=== PATIENT | male | born 1935 | race Caucasian/White ===

== ENCOUNTER 2024-06-30 14:16 | Inpatient (IN) | payer SELFPAY ==
--- NOTE | 2024-06-30 14:38 | ED ---
General Adult HPI - General Chief complaint: Shortness of Breath Stated complaint: diff breathing Time Seen by Provider: 06/30/24 14:20 Source: patient, family, RN notes reviewed, old records reviewed Mode of arrival: wheelchair Limitations: no limitations - History of Present Illness Initial comments: This is an 88-year-old male who presents to the emergency department the past medical history significant for congestive heart failure and diabetes. Patient states he has been in [place] since February and over the last week has had increased swelling to his legs and increased difficulty breathing. Patient states he got so bad yesterday that his granddaughter brought him home by car for 18 hours in the car. Patient states he still having shortness of breath and the swelling is continuing to get worse. Patient denies chest pain or palpitations. Patient [place] any fever chills or cough. Patient denies any abdominal pain patient has nausea vomiting diarrhea. - Related Data Home Medications Medication Instructions Recorded Confirmed Ascorbic Acid [Vitamin C] 1,000 mg PO DAILY 06/30/24 06/30/24 Bisoprolol [Zebeta] 2.5 mg PO DAILY 06/30/24 06/30/24 Candesartan Cilexetil [Atacand] 8 mg PO DAILY 06/30/24 06/30/24 Cholecalciferol [Vitamin D3 (25 25 mcg PO DAILY 06/30/24 06/30/24 Mcg = 1000 Iu)] Dapagliflozin Propanediol [Farxiga] 10 mg PO DAILY 06/30/24 06/30/24 Fluticasone/Umeclidin/Vilanter 1 puff INHALATION RT-DAILY 06/30/24 06/30/24 [Suly Callejas 100-62.5-25] Garlic 2,000 mg PO DAILY 06/30/24 06/30/24 Rivaroxaban [Xarelto] 15 mg PO DAILY 06/30/24 06/30/24 Rosuvastatin [Crestor] 10 mg PO DAILY 06/30/24 06/30/24 Turmeric Root Extract [Turmeric] 500 mg PO DAILY 06/30/24 06/30/24 Zinc Gluconate [Zinc] 50 mg PO DAILY 06/30/24 06/30/24 Allergies Allergy/AdvReac Type Severity Reaction Status Date / Time No Known Allergies Allergy Verified 06/30/24 14:19 Review of Systems ROS Statement: Those systems with pertinent positive or pertinent negative responses have been documented in the HPI. ROS Other: All systems not noted in ROS Statement are negative. Past Medical History Past Medical History: Coronary Artery Disease (CAD), Heart Failure, COPD, Hyperlipidemia, Hypertension Additional Past Medical History / Comment(s): dvt left leg Past Surgical History: Coronary Bypass/CABG General Exam - General Exam Comments Initial Comments: GENERAL: Patient is well-developed and well-nourished. Patient is nontoxic and well- hydrated and is in moderate distress. ENT: Neck is soft and supple. No significant lymphadenopathy is noted. Oropharynx is clear. Moist mucous membranes. Neck has full range of motion without eliciting any pain. EYES: The sclera were anicteric and conjunctiva were pink and moist. Extraocular movements were intact and pupils were equal round and reactive to light. Eyeli ds were unremarkable. PULMONARY: Patient has crackles in the bases bilaterally CARDIOVASCULAR: There is a regular rate and rhythm without any murmurs gallops or rubs. Femoral pulses are equal bilaterally ABDOMEN: Soft and nontender with normal bowel sounds. No palpable organomegaly was noted. There is no palpable pulsatile mass. SKIN: Skin is clear with no lesions or rashes and otherwise unremarkable. NEUROLOGIC: Patient is alert and oriented x3. Cranial nerves II through XII are grossly intact. Motor and sensory are also intact. Normal speech, volume and content. Symmetrical smile. MUSCULOSKELETAL: Normal extremities with adequate strength and full range of motion. Patient has 2+ edema bilateral LYMPHATICS: No significant lymphadenopathy is noted PSYCHIATRIC: Normal psychiatric evaluation. Limitations: no limitations Course Vital Signs 06/30/24 06/30/24 06/30/24 14:17 14:35 15:11 Temperature 97.4 F L Pulse Rate 75 72 71 Respiratory 24 22 20 Rate Blood Pressure 119/68 142/72 O2 Sat by Pulse 83 L 85 L 97 Oximetry 06/30/24 06/30/24 06/30/24 16:42 17:46 18:00 Temperature Pulse Rate 65 84 Respiratory 26 H 18 18 Rate Blood Pressure 130/72 144/69 O2 Sat by Pulse 93 L 97 100 Oximetry 06/30/24 06/30/24 06/30/24 19:42 20:00 21:00 Temperature 97.6 F Pulse Rate 77 74 Respiratory Rate Blood Pressure 121/75 114/55 O2 Sat by Pulse 97 94 L Oximetry 06/30/24 07/01/24 07/01/24 22:00 00:00 01:13 Temperature Pulse Rate 68 70 73 Respiratory Rate Blood Pressure 121/67 128/61 142/78 O2 Sat by Pulse 94 L 97 95 Oximetry 07/01/24 07/01/24 07/01/24 02:01 03:00 04:00 Temperature Pulse Rate 68 66 67 Respiratory Rate Blood Pressure 119/60 123/62 126/66 O2 Sat by Pulse 95 96 Oximetry 07/01/24 07/01/24 05:00 06:18 Temperature 97.8 F Pulse Rate 61 66 Respiratory 20 Rate Blood Pressure 123/61 121/61 O2 Sat by Pulse 97 95 Oximetry Medical Decision Making - Medical Decision Making EKG is interpreted by myself. EKG is a sinus rhythm with occasional PVC at a rate of 79 bpm GA was 147 QRS is 122 QT interval 362 QTc is 397. Patient's EKG shows no ST segment elevation or depression. Was pt. sent in by a medical professional or institution (, PA, CHANGE MANAGEMENT ANALYST, urgent care, hospital, or group home...) When possible be specific @ -No Did you speak to anyone other than the patient for history (EMS, parent, family, police, friend...)? What history was obtained from this source @ -No Did you review nursing and triage notes (agree or disagree)? Why? @ -I reviewed and agree with nursing and triage notes Were old charts reviewed (outside hosp., previous admission, EMS record, old EKG, old radiological studies, urgent care reports/EKG's, group home records)? Report findings @ -No old charts were reviewed Differential Diagnosis? @ -Differential Dyspnea: Coronary syndrome, arrhythmia, tamponade, asthma, COPD, pulmonary embolism, pneumonia, pneumothorax, pulmonary effusion, anaphylaxis, diabetic ketoacidosis, flailed chest, pulmonary contusion, diaphragmatic rupture, anemia, neuromuscular, this is not meant to be an all-inclusive list. EKG interpreted by me (3pts min.). @ -As above X-rays interpreted by me (1pt min.). @ -Chest x-ray shows acute pulmonary edema CT interpreted by me (1pt min.). @ -None done U/S interpreted by me (1pt. min.). @ -None done What testing was considered but not performed or refused? (CT, X-rays, U/S, labs)? Why? @ -None What meds were considered but not given or refused? Why? @ -None Did you discuss the management of the patient with other professionals (professionals i.e. , PA, CHANGE MANAGEMENT ANALYST, lab, RT, psych nurse, delinquency prevention social worker, associate producer, teacher, home lending officer, nurse case management)? Give summary @ -I spoke with Dr. Myaer he agreed to admit the patient admit the patient recommending orders Was smoking cessation discussed for >3mins.? @ -No Was critical care preformed (if so, how long)? @ -35 minutes Were there social determinants of health that impacted care today? How? (Homelessness, low income, unemployed, alcoholism, drug addiction, transportation, low edu. Level, literacy, decrease access to med. care, residential, rehab)? @ -No Was there de-escalation of care discussed even if they declined (Discuss DNR or withdrawal of care, Hospice)? DNR status @ -No What co-morbidities impacted this encounter? (DM, HTN, Smoking, COPD, CAD, Cancer, CVA, ARF, Chemo, Hep., AIDS, mental health diagnosis, sleep apnea, morbid obesity)? @ -None Was patient admitted / discharged? Hospital course, mention meds given and route, prescriptions, significant lab abnormalities, going to OR and other pertinent info. @ -Patient came to the hospital complaining of shortness of breath his pulse ox was 83% on room air. Patient was put on oxygen he was given Lasix and had a workup done his BNP was elevated Trope was mildly elevated and the patient chest x-ray showed acute pulmonary edema. [facility] with a consult to cardiology. Undiagnosed new problem with uncertain prognosis? @ -No Drug Therapy requiring intensive monitoring for toxicity (Heparin, Nitro, Insulin, Cardizem)? @ -No Were any procedures done? @ -No Diagnosis/symptom? @ -Acute pulmonary edema Acute, or Chronic, or Acute on Chronic? @ -Acute Uncomplicated (without systemic symptoms) or Complicated (systemic symptoms)? @ -Complicated Side effects of treatment? @ -No Exacerbation, Progression, or Severe Exacerbation? @ -No Poses a threat to life or bodily function? How? (Chest pain, USA, PR, pneumonia, PE, COPD, DKA, ARF, appy, cholecystitis, CVA, Diverticulitis, Homicidal, Suicidal, threat to staff... and all critical care pts) @ -Yes this can lead to hypoxia and endorgan dysfunction - Lab Data Result diagrams: 06/30/24 15:08 06/30/24 15:08 Lab Results 06/30/24 06/30/24 06/30/24 Range/Units 14:46 15:08 15:08 WBC 8.8 (3.8-10.6) k/uL RBC 3.43 L (4.30-5.90) m/uL Hgb 11.3 L (13.0-17.5) gm/dL Hct 36.3 L (39.0-53.0) % MCV 105.9 H (80.0-100.0) fL MCH 33.1 (25.0-35.0) pg MCHC 31.2 (31.0-37.0) g/dL RDW 14.0 (11.5-15.5) % Plt Count 228 (150-450) k/uL MPV 8.8 Neutrophils % 79 % Lymphocytes % 13 % Monocytes % 6 % Eosinophils % 1 % Basophils % 0 % Neutrophils # 7.0 (1.3-7.7) k/uL Lymphocytes # 1.1 (1.0-4.8) k/uL Monocytes # 0.5 (0-1.0) k/uL Eosinophils # 0.1 (0-0.7) k/uL Basophils # 0.0 (0-0.2) k/uL Hypochromasia Moderate Macrocytosis Moderate PT 15.6 H (10.0-12.5) sec INR 1.5 H (<1.2) APTT 23.7 (22.0-30.0) sec Sodium 137 (137-145) mmol/L Potassium 4.6 (3.5-5.1) mmol/L Chloride 106 (98-107) mmol/L Carbon Dioxide 22 (22-30) mmol/L Anion Gap 9 mmol/L BUN 40 H (9-20) mg/dL Creatinine 2.17 H (0.66-1.25) mg/dL Est GFR (CKD-EPI)AfAm 31 (>60 ml/min/1.73 sqM) Est GFR (CKD-EPI)NonAf 27 (>60 ml/min/1.73 sqM) Glucose 131 H (74-99) mg/dL Plasma Lactic Acid Andrew (0.7-2.0) mmol/L Calcium 9.0 (8.4-10.2) mg/dL Magnesium 1.9 (1.6-2.3) mg/dL Total Bilirubin 0.5 (0.2-1.3) mg/dL AST 20 (17-59) U/L ALT 16 (4-49) U/L Alkaline Phosphatase 77 (38-126) U/L Troponin I (0.000-0.034) ng/mL NT-Pro-B Natriuret Pep 7980 pg/mL Total Protein 6.6 (6.3-8.2) g/dL Albumin 3.3 L (3.5-5.0) g/dL 06/30/24 06/30/24 Range/Units 15:08 15:08 WBC (3.8-10.6) k/uL RBC (4.30-5.90) m/uL Hgb (13.0-17.5) gm/dL Hct (39.0-53.0) % MCV (80.0-100.0) fL MCH (25.0-35.0) pg MCHC (31.0-37.0) g/dL RDW (11.5-15.5) % Plt Count (150-450) k/uL MPV Neutrophils % % Lymphocytes % % Monocytes % % Eosinophils % % Basophils % % Neutrophils # (1.3-7.7) k/uL Lymphocytes # (1.0-4.8) k/uL Monocytes # (0-1.0) k/uL Eosinophils # (0-0.7) k/uL Basophils # (0-0.2) k/uL Hypochromasia Macrocytosis PT (10.0-12.5) sec INR (<1.2) APTT (22.0-30.0) sec Sodium (137-145) mmol/L Potassium (3.5-5.1) mmol/L Chloride (98-107) mmol/L Carbon Dioxide (22-30) mmol/L Anion Gap mmol/L BUN (9-20) mg/dL Creatinine (0.66-1.25) mg/dL Est GFR (CKD-EPI)AfAm (>60 ml/min/1.73 sqM) Est GFR (CKD-EPI)NonAf (>60 ml/min/1.73 sqM) Glucose (74-99) mg/dL Plasma Lactic Acid Andrew 1.3 (0.7-2.0) mmol/L Calcium (8.4-10.2) mg/dL Magnesium (1.6-2.3) mg/dL Total Bilirubin (0.2-1.3) mg/dL AST (17-59) U/L ALT (4-49) U/L Alkaline Phosphatase (38-126) U/L Troponin I 0.077 H* (0.000-0.034) ng/mL NT-Pro-B Natriuret Pep pg/mL Total Protein (6.3-8.2) g/dL Albumin (3.5-5.0) g/dL Disposition Clinical Impression: Acute pulmonary edema Disposition: ADMITTED IP TO THIS [facility] Time of Disposition: 16:26
[2024-06-30] MEDS: FUROSEMIDE 10 MG/ML 4 ML VIAL IV STA (14:44)
[2024-06-30 15:07] LABS: INR 1.5 (<1.2); Partial Thromboplastin Time 23.7 sec (22.0-30.0); Prothrombin Time 15.6 sec (10.0-12.5)
[2024-06-30 15:29] LABS: Basophils % (A) 0 %; Eosinophils # (A) 0.1 k/uL (0-0.7); Eosinophils % (A) 1 %; HCT 36.3 % (39.0-53.0); HGB 11.3 gm/dL (13.0-17.5); Hypochromasia Moderate; Lymphocytes # (A) 1.1 k/uL (1.0-4.8); Lymphocytes % (A) 13 %; MCH 33.1 pg (25.0-35.0); MCHC 31.2 g/dL (31.0-37.0); MCV 105.9 fL (80.0-100.0); Macrocytosis Moderate; Mean Platelet Volume 8.8; Monocytes # (A) 0.5 k/uL (0-1.0); Monocytes % (A) 6 %; Neutrophils % (A) 79 %; Platelet Count 228 k/uL (150-450); RBC 3.43 m/uL (4.30-5.90); WBC 8.8 k/uL (3.8-10.6)
--- NOTE | 2024-06-30 15:34 | XR ---
EXAMINATION TYPE: XR chest 2V DATE OF EXAM: 06/30/2024 3:29 PM COMPARISON: None TECHNIQUE: XR chest 2V Frontal and lateral views of the chest. CLINICAL INDICATION:Male, 88 years old with history of difficulty breathing; FINDINGS: Lungs/Pleura: No evidence of pneumothorax. Right basilar patchy airspace opacities. Blunting of the r ight costophrenic angle. Heart/mediastinum: Cardiomediastinal silhouette is enlarged. Post-CABG changes. Musculoskeletal: No acute osseous pathology. Midline sternotomy wires are noted. IMPRESSION: Small right pleural effusion with cardiomegaly and right basilar patchy airspace opacities. Findings may relate to CHF exacerbation and/or pneumonia. Correlate clinically. [facility], , 06/30/2024 3:31 PM
[2024-06-30 15:58] LABS: ALT 16 U/L (4-49); AST 20 U/L (17-59); African American GFR (CKD) 31 (>60 ml/min/1.73 sqM); Albumin 3.3 g/dL (3.5-5.0); Alkaline Phosphatase 77 U/L (38-126); Anion Gap 9 mmol/L; Blood Urea Nitrogen 40 mg/dL (9-20); Carbon Dioxide 22 mmol/L (22-30); Chloride 106 mmol/L (98-107); Glucose 131 mg/dL (74-99); Magnesium 1.9 mg/dL (1.6-2.3); Non-African American GFR(CKD) 27 (>60 ml/min/1.73 sqM); Potassium 4.6 mmol/L (3.5-5.1); Sodium 137 mmol/L (137-145); Total Bilirubin 0.5 mg/dL (0.2-1.3); Total Protein 6.6 g/dL (6.3-8.2)
[2024-06-30 16:07] LABS: NT-Pro-B-Type Natriuretic Pept 7980 pg/mL
--- NOTE | 2024-06-30 17:26 | P.HPIM ---
History of Present Illness H&P Date: 06/30/24 Chief Complaint: Shortness of breath This is an 88-year-old male with a past medical history reviewed coronary disease status post CABG x 1, hyperlipidemia, heart failure, DVT on Xarelto presents emergency department with complaint of shortness of breath. Patient been having significant shortness of breath over the last. Patient does have a sick contact which is his [id number] who is also admitted to be seen in ER. He states that his trip before that was cut short due to the progressive worsening shortness of breath. He also endorses bilateral lower extremity s welling more than left likely being more swollen than the right. However he states that he has been having longstanding issues with his lower extremities. He has had blood clot in the left lower extremity and does currently take Xarelto. is at bedside. She states that he has been compliant with all his medications including his blood thinner. He recently drove back from [place] in August because he has shortness of breath that is worsening. Currently requiring 2 L nasal cannula. His states that she brought him an oxygen tank while he was in [place] and has been using approximately 2 L. He is currently on 2 L nasal cannula as well. Review of Systems Review of systems negative except pertinent positives per HPI Past Medical History Past Medical History: Coronary Artery Disease (CAD), Heart Failure, COPD, Hyp erlipidemia, Hypertension Additional Past Medical History / Comment(s): dvt left leg Past Surgical History: Coronary Bypass/CABG Medications and Allergies Allergies Allergy/AdvReac Type Severity Reaction Status Date / Time No Known Allergies Allergy Verified 06/30/24 14:19 Physical Exam Vitals: Vital Signs Temp Pulse Resp BP Pulse Ox 06/30/24 16:42 26 H 93 L 06/30/24 15:11 71 20 97 06/30/24 14:35 72 22 142/72 85 L 06/30/24 14:17 97.4 F L 75 24 119/68 83 L Intake and Output 06/30/24 06/30/24 06/30/24 06:59 14:59 22:59 Other: Weight 83.915 kg - Constitutional General appearance: mild distress - EENT Eyes: PERRLA ENT: hard of hearing - Respiratory Respiratory: right: diminished, rhonchi, negative: dullness - Cardiovascular Rhythm: regular Heart sounds: normal: S1, S2 - Neurologic Neurologic: CNII-XII intact - Psychiatric Psychiatric: A&O x's 3, appropriate affect Results CBC & Chem 7: 06/30/24 15:08 06/30/24 15:08 Labs: Abnormal Lab Results - Last 24 Hours (Table) 06/30/24 06/30/24 06/30/24 Range/Units 14:46 15:08 15:08 RBC 3.43 L (4.30-5.90) m/uL Hgb 11.3 L (13.0-17.5) gm/dL Hct 36.3 L (39.0-53.0) % MCV 105.9 H (80.0-100.0) fL PT 15.6 H (10.0-12.5) sec INR 1.5 H (<1.2) BUN 40 H (9-20) mg/dL Creatinine 2.17 H (0.66-1.25) mg/dL Glucose 131 H (74-99) mg/dL Troponin I (0.000-0.034) ng/mL Albumin 3.3 L (3.5-5.0) g/dL 06/30/24 Range/Units 15:08 RBC (4.30-5.90) m/uL Hgb (13.0-17.5) gm/dL Hct (39.0-53.0) % MCV (80.0-100.0) fL PT (10.0-12.5) sec INR (<1.2) BUN (9-20) mg/dL Creatinine (0.66-1.25) mg/dL Glucose (74-99) mg/dL Troponin I 0.077 H* (0.000-0.034) ng/mL Albumin (3.5-5.0) g/dL Assessment and Plan Assessment: Acute hypoxic respiratory failure Secondary to possible acute on chronic heart failure exacerbation, diastolic versus systolic versus right-sided bacterial pneumonia, unspecified species Bilateral lower extremity swelling secondary to above, left leg worse than right leg Essential hypertension History of CABG in 1998 Hyperlipidemia COPD possible overlying exacerbation I independently interpreted the chest x-ray, it appears the patient has a right- sided consolidation possibly consistent with pneumonia as well as bibasilar fluid collection I agree with Lasix started in the ER Will continue Lasix 40 mg IV twice daily Given the patient is hypoxic and has a recent sick contact we will start patient on empiric antibiotics Rocephin azithromycin started Can de-escalate antibiotics when appropriate Waiting for med rec to be performed to resume his home medications Monitor I's and O's Cardiac diet 1500 cc fluid restriction 2 g salt restriction Will obtain ultrasound of the left lower extremity given the size discrepancy between the right Given cardiac history, will place patient on cardiac telemetry monitoring overnight Replete electrolytes as necessary
[2024-06-30] MEDS ORDERED: HEPARIN SODIUM,PORCINE 5,000 UNIT/ML 1 ML VIAL SQ SCH (17:30)
[2024-06-30] MEDS: NITROGLYCERIN OINT 1 INCH/GM PACKET TOPICAL SCH (17:46)
[2024-06-30 18:26] LABS: Influenza A Not Detected (Not Detectd); Influenza B Not Detected (Not Detectd); RSV Not Detected (Not Detectd)
[2024-06-30] MEDS: AZITHROMYCIN 500 MG in SODIUM CHLORIDE 0.9% 250 ML IVPB SCH (18:56)
--- NOTE | 2024-06-30 19:08 | US ---
EXAMINATION TYPE: US venous doppler duplex LE LT DATE OF EXAM: 06/30/2024 6:36 PM COMPARISON: NONE CLINICAL INDICATION: Male, 88 years old with history of swelling; patient states known left leg clot. patient states he thinks he is on thinner. swelling in the left leg. PE , Pain TECHNIQUE: The lower extremity deep venous system is examined utilizing real time linear array sonog sneha with graded compression, color doppler sonography, and spectral doppler. SIDE PERFORMED: Left FINDINGS: VESSELS IMAGED: Common Femoral Vein Deep Femoral Vein Greater Saphenous Vein * Femoral Vein Popliteal Vein Small Saphenous Vein * Proximal Calf Veins (* superficial vessels) Left Leg: Area of partial compression that is non-occlusive seen in the distal femoral vein , Color Doppler imaging shows patency of the vessels. Spectral waveforms are within normal limits. 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 [facility], , 06/30/2024 7:06 PM
[2024-07-01] MEDS: FUROSEMIDE 10 MG/ML 4 ML VIAL IV SCH ×2 (01:15→08:39)
[2024-07-01 05:13] LABS: Appearance,Urine Cloudy (Clear); Bacteria,Urine Many /hpf; Bilirubin,Urine Negative (Negative); Blood,Urine Large (Negative); Color,Urine Light Red; Glucose,Urine (UA) Trace (Negative); Hyaline Casts,Urine 19 /lpf (0-2); Ketones,Urine Negative (Negative); Leukocyte Esterase,Urine Trace (Negative); Mucus,Urine Moderate /hpf; Nitrite,Urine Negative (Negative); Protein,Urine 1+ (Negative); RBC,Urine >182 /hpf (0-5); Squamous Epithelial Cell,Urine 1 /hpf (0-4); Urobilinogen,Urine <2.0 mg/dL (<2.0); WBC,Urine 7 /hpf (0-5)
[2024-07-01] MEDS: BISOPROLOL 5 MG TAB PO SCH (08:15)
[2024-07-01] MEDS: RIVAROXABAN 10 MG TAB PO SCH (08:15)
[2024-07-01] MEDS: LOSARTAN 50 MG TAB PO SCH (08:15)
[2024-07-01] MEDS: DAPAGLIFLOZIN PROPANEDIOL 10 MG TABLET PO SCH (08:15)
[2024-07-01] MEDS: ATORVASTATIN 20 MG TAB PO SCH (08:15)
[2024-07-01] MEDS: ASPIRIN 325 MG TAB PO SCH (08:15)
[2024-07-01] MEDS: SYMBICORT 160-4.5 MCG INHALER INHALATION SCH (08:42)
[2024-07-01] MEDS: TIOTROPIUM 2.5 MCG INHALER INHALATION SCH (08:43)
[2024-07-01] MEDS: ISOSORBIDE MONONITRATE ER 15 MG TAB PO SCH (08:49)
[2024-07-01] MEDS: hydrALAZINE HCL 25 MG TAB PO SCH (08:49)
[2024-07-01] MEDS ORDERED: NON FORMULARY DRUG (Garlic [Garlic] 1,000 MG Capsule) PO SCH (09:00)
[2024-07-01 11:23] LABS: Urine Creatinine 44.6 mg/dL (39.0-259.0)
[2024-07-01 11:47] LABS: Basophils % (A) 0 %; Eosinophils # (A) 0.1 k/uL (0-0.7); Eosinophils % (A) 1 %; HCT 35.3 % (39.0-53.0); HGB 10.5 gm/dL (13.0-17.5); Hypochromasia Marked; Lymphocytes % (A) 11 %; MCH 32.2 pg (25.0-35.0); MCHC 29.6 g/dL (31.0-37.0); MCV 108.8 fL (80.0-100.0); Macrocytosis Marked; Mean Platelet Volume 9.1; Monocytes # (A) 0.5 k/uL (0-1.0); Monocytes % (A) 6 %; Neutrophils # (A) 7.4 k/uL (1.3-7.7); Neutrophils % (A) 81 %; Platelet Count 197 k/uL (150-450); RBC 3.24 m/uL (4.30-5.90); RDW 14.4 % (11.5-15.5); WBC 9.2 k/uL (3.8-10.6)
[2024-07-01 11:58] LABS: African American GFR (CKD) 28 (>60 ml/min/1.73 sqM); Anion Gap 9 mmol/L; Blood Urea Nitrogen 44 mg/dL (9-20); Calcium 8.7 mg/dL (8.4-10.2); Carbon Dioxide 22 mmol/L (22-30); Chloride 105 mmol/L (98-107); Glucose 112 mg/dL (74-99); Magnesium 1.7 mg/dL (1.6-2.3); Non-African American GFR(CKD) 24 (>60 ml/min/1.73 sqM); Phosphorus 4.6 mg/dL (2.5-4.5); Potassium 4.3 mmol/L (3.5-5.1); Sodium 136 mmol/L (137-145)
[2024-07-01 12:39] LABS: Anisocytosis (M) Present; Poikilocytosis (M) Present
--- NOTE | 2024-07-01 12:41 | P.CRDCN ---
History of Present Illness History of present illness: HISTORY OF PRESENT ILLNESS: This is a 88-year-old male with a past medical history significant for coronary artery disease with previous CABG, DVT, and hyperlipidemia. Patient follows with a complaint coordinator in [facility]. We have been asked to see the patient in consultation for CHF. Patient examined at the bedside in the ER. Patient presented to the ER with a chief compliant of shortness of breath. He reports shortness of breath for past 2-3 days. Patient denies chest pain or pressure. Patient was found to be in acute CHF. Patient also reports hematuria and his urine cannister at the bedside has gross hematuria. DIAGNOSTICS: - EKG reveals sinus mechanism with right bundle branch block.. - Chest xray small right pleural effusion and cardiomegaly and right basilar patchy airspace opacities. Findings may relate to CHF exacerbation and/or pneumonia - Laboratory data: WBC 9.2. Hemoglobin 10.5. Platelet count 197. Sodium 136. Potassium 4.3. BUN 44. Creatinine 2.36. Troponin 0.073. 0.078. 0.075. TSH 1.700. proBNP 7980. - Current home cardiac medications include bisoprolol 2.5 mg daily, Farxiga 10 mg daily, rosuvastatin 10 mg daily, Xarelto 15 mg daily -No previous echocardiogram, stress test, or cardiac catheterization available in EMR for review REVIEW OF SYSTEMS: At the time of my exam: CONSTITUTIONAL: Denies fever or chills. HEENT: Denies blurred vision, vision changes, or eye pain. Denies hemoptysis CARDIOVASCULAR: Denies chest pain. Denies orthopnea. Denies PND. Denies palpitations RESPIRATORY: Denies shortness of breath. GASTROINTESTINAL: Denies abdominal pain. Denies nausea or vomiting. HEMATOLOGIC: Denies bleeding disorders. GENITOURINARY: Denies any blood in urine. SKIN: Denies pruitis. Denies rash. PHYSICAL EXAM: VITAL SIGNS: Reviewed. GENERAL: Well-developed in no acute distress. HEENT: Head is normocephalic. Pupils are equal, round. Sclerae anicteric. Mucous membranes of the mouth are moist. Neck supple. No JVD or thyromegaly LUNGS: Respirations even and unlabored. Lungs with expiratory wheezing noted. HEART: Regular rate and rhythm. S1 and S2 heard. ABDOMEN: Soft. Nondistended. Nontender. EXTREMITIES: Normal range of motion. No clubbing or cyanosis. Peripheral pulses intact. 2+ bilateral lower extremity edema NEUROLOGIC: Awake and alert. Oriented x 3. ASSESSMENT: Shortness of breath Acute heart failure with unknown EF, echo pending Possible pneumonia Acute kidney injury, baseline unknown Gross hematuria Bated troponins, type II AR secondary to oxygen supply/demand mismatch Coronary artery disease with previous CABG, approximately 24 years ago History of DVT, on Xarelto outpatient Hyperlipidemia PLAN: Obtain 2D echo to assess cardiac structure and function Discontinue losartan secondary to FLORINDA with unknown baseline Discontinue Xarelto secondary to gross hematuria this morning Continue Farxiga and bisoprolol Add Imdur 15 mg daily Add hydralazine 25 mg 3 times daily Add aspirin 81 mg daily Begin IV Lasix 40 mg every 12 hours Daily weights, accurate intake and output, monitoring of kidney function Further recommendations pending patient course Nurse practitioner note has been reviewed by physician. Signing provider agrees with the documented findings, assessment, and plan of care documented by [employer] AND [employer]UP[employer] HE[employer] MANAGER as a scribe. Past Medical History Past Medical History: Coronary Artery Disease (CAD), Heart Failure, COPD, Hyperlipidemia, Hypertension Additional Past Medical History / Comment(s): dvt left leg Past Surgical History: Coronary Bypass/CABG Medications and Allergies Home Medications Medication Instructions Recorded Confirmed Type Ascorbic Acid [Vitamin C] 1,000 mg PO DAILY 06/30/24 06/30/24 History Bisoprolol [Zebeta] 2.5 mg PO DAILY 06/30/24 06/30/24 History Candesartan Cilexetil [Atacand] 8 mg PO DAILY 06/30/24 06/30/24 History Cholecalciferol [Vitamin D3 (25 25 mcg PO DAILY 06/30/24 06/30/24 History Mcg = 1000 Iu)] Dapagliflozin Propanediol [Farxiga] 10 mg PO DAILY 06/30/24 06/30/24 History Fluticasone/Umeclidin/Vilanter 1 puff INHALATION RT-DAILY 06/30/24 06/30/24 History [Trelegy Ellipta 100-62.5-25] Garlic 2,000 mg PO DAILY 06/30/24 06/30/24 History Rivaroxaban [Xarelto] 15 mg PO DAILY 06/30/24 06/30/24 History Rosuvastatin [Crestor] 10 mg PO DAILY 06/30/24 06/30/24 History Turmeric Root Extract [Turmeric] 500 mg PO DAILY 06/30/24 06/30/24 History Zinc Gluconate [Zinc] 50 mg PO DAILY 06/30/24 06/30/24 History Allergies Allergy/AdvReac Type Severity Reaction Status Date / Time No Known Allergies Allergy Verified 06/30/24 14:19 Physical Exam Vitals: Vital Signs Temp Pulse Resp BP Pulse Ox 07/01/24 06:18 97.8 F 66 20 121/61 95 07/01/24 05:00 61 123/61 97 07/01/24 04:00 67 126/66 07/01/24 03:00 66 123/62 96 07/01/24 02:01 68 119/60 95 07/01/24 01:13 73 142/78 95 07/01/24 00:00 70 128/61 97 06/30/24 22:00 68 121/67 94 L 06/30/24 21:00 74 114/55 06/30/24 20:00 77 121/75 94 L 06/30/24 19:42 97.6 F 97 06/30/24 18:00 84 18 144/69 100 06/30/24 17:46 65 18 130/72 97 06/30/24 16:42 26 H 93 L 06/30/24 15:11 71 20 97 06/30/24 14:35 72 22 142/72 85 L 06/30/24 14:17 97.4 F L 75 24 119/68 83 L Intake and Output 06/30/24 07/01/24 07/01/24 22:59 06:59 14:59 Output Total 300 500 Balance -300 -500 Output: Urine 300 500 Results 07/01/24 10:47 07/01/24 10:47 Cardiac Enzymes 06/30/24 06/30/24 06/30/24 Range/Units 15:08 15:08 18:02 AST 20 (17-59) U/L Troponin I 0.077 H* 0.094 H* (0.000-0.034) ng/mL 06/30/24 07/01/24 07/01/24 Range/Units 22:27 01:58 05:32 AST (17-59) U/L Troponin I 0.091 H* 0.073 H* 0.078 H* (0.000-0.034) ng/mL Coagulation 06/30/24 Range/Units 14:46 PT 15.6 H (10.0-12.5) sec APTT 23.7 (22.0-30.0) sec CBC 06/30/24 Range/Units 15:08 WBC 8.8 (3.8-10.6) k/uL RBC 3.43 L (4.30-5.90) m/uL Hgb 11.3 L (13.0-17.5) gm/dL Hct 36.3 L (39.0-53.0) % Plt Count 228 (150-450) k/uL Comprehensive Metabolic Panel 06/30/24 Range/Units 15:08 Sodium 137 (137-145) mmol/L Potassium 4.6 (3.5-5.1) mmol/L Chloride 106 (98-107) mmol/L Carbon Dioxide 22 (22-30) mmol/L BUN 40 H (9-20) mg/dL Creatinine 2.17 H (0.66-1.25) mg/dL Glucose 131 H (74-99) mg/dL Calcium 9.0 (8.4-10.2) mg/dL AST 20 (17-59) U/L ALT 16 (4-49) U/L Alkaline Phosphatase 77 (38-126) U/L Total Protein 6.6 (6.3-8.2) g/dL Albumin 3.3 L (3.5-5.0) g/dL Current Medications Generic Name Dose Route Start Last Admin Trade Name Freq PRN Reason Stop Dose Admin Atorvastatin Calcium 20 mg 07/01/24 09:00 07/01/24 08:15 Atorvastatin 20 Mg Tab PO 20 mg DAILY FELISA Administration Bisoprolol Fumarate 2.5 mg 07/01/24 09:00 07/01/24 08:15 Bisoprolol 5 Mg Tab PO 2.5 mg DAILY FELISA Administration Budesonide/Formoterol Fumarate 2 puff 07/01/24 08:00 Symbicort 160-4.5 Mcg Inhaler INHALATION RT-BID FELISA Dapagliflozin 10 mg 07/01/24 09:00 07/01/24 08:15 Dapagliflozin Propanediol 10 Mg Tablet PO 10 mg DAILY FELISA Administration Furosemide 40 mg 07/01/24 00:00 07/01/24 08:15 Furosemide 10 Mg/Ml 4 Ml Vial IV 40 mg Q8HR FELISA Administration Ceftriaxone Sodium 2 gm/ 50 mls @ 100 mls/hr 06/30/24 17:30 07/01/24 08:15 Sodium Chloride IVPB 100 mls/hr Q24HR FELISA Administration Protocol Azithromycin 500 mg/ Sodium 250 mls @ 250 mls/hr 06/30/24 18:00 06/30/24 18:56 Chloride IVPB 07/02/24 18:59 250 mls/hr DAILY@1800 FELISA Administration Protocol Losartan Potassium 50 mg 07/01/24 09:00 07/01/24 08:15 Losartan 50 Mg Tab PO 50 mg DAILY FELISA Administration Nitroglycerin 1 inch 06/30/24 18:00 07/01/24 06:28 Nitroglycerin Oint 1 Inch/Gm Packet TOPICAL 07/01/24 17:59 1 inch Q6HR FELISA Administration Rivaroxaban 10 mg 07/01/24 09:00 07/01/24 08:15 Rivaroxaban 10 Mg Tab PO 10 mg DAILY FELISA Administration Protocol Tiotropium [place] 2 puff 07/01/24 08:00 Tiotropium 2.5 Mcg Inhaler INHALATION RT-DAILY [facility] Intake and Output 06/30/24 07/01/24 07/01/24 22:59 06:59 14:59 Output Total 300 500 Balance -300 -500 Output: Urine 300 500 06/30/24 15:08 06/30/24 15:08
--- NOTE | 2024-07-01 13:09 | CA ---
Transthoracic Echo Report Name: Adi Villafana Age: 88 Gender: M : 1935 Exam Date: 07/01/2024 09:14 Exam Location: [facility] Ht (in): 66 Wt (lb): 185 Ordering Physician: Ruslan Thorpe MD Attending/Referring Phys: Returned Item Clerk Odalys Wilson RDCS Procedure CPT: Indications: SHORTNESS OF BREATH Cardiac Hx: Technical Quality: Poor Contrast 1: Definity Total Dose (mL): 2 Contrast 2: Total Dose (mL): MEASUREMENTS (Male / Female) Normal Values 2D ECHO LV Diastolic Diameter PLAX 4.5 cm 4.2 - 5.9 / 3.9 - 5.3 cm LV Systolic Diameter PLAX 3.2 cm IVS Diastolic Thickness 1.4 cm 0.6 - 1.0 / 0.6 - 0.9 cm LVPW Diastolic Thickness 1.4 cm 0.6 - 1.0 / 0.6 - 0.9 cm LV Relative Wall Thickness 0.6 RV Internal Dim ED PLAX 3.1 cm LVOT Diameter 2.0 cm LA Systolic Diameter LX 4.5 cm 3.0 - 4.0 / 2.7 - 3.8 cm LA Volume 78.8 cm??? 18 - 58 / 22 - 52 cm??? LA Volume Index 39.4 cm???/m??? 16 - 28 cm???/m??? M-MODE Aortic Root Diameter MM 4.0 cm LA Systolic Diameter MM 4.4 cm LA Ao Ratio MM 1.1 AV Cusp Separation MM 1.4 cm DOPPLER AV Peak Velocity 178.0 cm/s AV Peak Gradient 12.7 mmHg AV Mean Velocity 108.7 cm/s AV Mean Gradient 5.7 mmHg AV Velocity Time Integral 35.1 cm LVOT Peak Velocity 122.7 cm/s LVOT Peak Gradient 6.0 mmHg LVOT Velocity Time Integral 27.1 cm LVOT Stroke Volume 84.1 cm??? LVOT Stroke Volume Index 43.5 ml/m??? LVOT Cardiac Index 2941.3 cm???/min???m??? AV Area Cont Eq vti 2.4 cm??? AV Area Cont Eq pk 2.1 cm??? MV Area PHT 2.5 cm??? Mitral E Point Velocity 111.9 cm/s Mitral A Point Velocity 107.4 cm/s Mitral E to A Ratio 1.0 MV Deceleration Time 304.7 ms TR Peak Velocity 336.6 cm/s TR Peak Gradient 45.3 mmHg Right Ventricular Systolic Press 49.6 mmHg FINDINGS Left Ventricle Left ventricular ejection fraction is estimated at 55-60 %. Normal left ventricular systolic function with no obvious regional wall motion abnormalities. Left ventricular cavity size normal. Mildly increased left ventricular wall thickness. Right Ventricle Mild right ventricular dilatation. Moderate pulmonary hypertension. Right Atrium Moderate right atrial dilatation. Left Atrium Moderately increased left atrial volume. Mildly increased left atrial area. Mitral Valve Structurally normal mitral valve. Mild mitral regurgitation. No mitral stenosis.mitral annular calcification. Aortic Valve Trileaflet aortic valve. No aortic stenosis. Diffuse thickening (sclerosis) of the aortic valve cusps without reduced excursion. No aortic regurgitation. Tricuspid Valve Structurally normal tricuspid valve. Moderate tricuspid regurgitation. No tricuspid stenosis. Pulmonic Valve Structurally normal pulmonic valve. Mild pulmonic regurgitation. No pulmonic stenosis. Pericardium No pericardial or pleural effusion. Aorta Mild aortic dilatation at the level of the sinuses of valsalva (root). CONCLUSIONS 1. Normal ventricular size and systolic function 2. Mild mitral regurgitation 3. Moderate tricuspid regurgitation with moderate pulmonary hypertension 4. Mildly dilated ascending aorta Previewed by: Dr. Aisha Gallo MD (Electronically Signed) Final Date: 01 July 2024 13:08
--- NOTE | 2024-07-01 14:27 | P.PN ---
Subjective Subjective Pt doing slightly better but this morning received page from nurse stating he had hematuria. Pt does not have a indwelling espinoza, unclear why he developed spontaneous hematuria. No pain. HPI This is an 88-year-old male with a past medical history reviewed coronary disease status post CABG x 1, hyperlipidemia, heart failure, DVT on Xarelto presents emergency department with complaint of shortness of breath. Patient been having significant shortness of breath over the last. Patient does have a sick contact which is his [id number] who is also admitted to be seen in ER. He states that his trip before that was cut short due to the progressive worsening shortness of breath. He also endorses bilateral lower extremity swelling more than left likely being more swollen than the right. However he states that he has been having longstanding issues with his lower extremities. He has had blood clot in the left lower extremity and does currently take Xarelto. is at bedside. She states that he has been compliant with all his medications including his blood thinner. He recently drove back from [place] in August because he has shortness of breath that is worsening. Currently requiring 2 L nasal cannula. His states that she brought him an oxygen tank while he was in [place] and has been using approximately 2 L. He is currently on 2 L nasal cannula as well. Review of Systems Review of systems negative except pertinent positives per HPI Past Medical History Past Medical History: Coronary Artery Disease (CAD), Heart Failure, COPD, Hyperlipidemia, Hypertension Additional Past Medical History / Comment(s): dvt left leg Past Surgical History: Coronary Bypass/CABG Medications and Allergies Allergies Allergy/AdvReac Type Severity Reaction Status Date / Time No Known Allergies Allergy Verified 06/30/24 14:19 - Constitutional General appearance: mild distress - EENT Eyes: PERRLA ENT: hard of hearing - Respiratory Respiratory: right: diminished, rhonchi, negative: dullness - Cardiovascular Rhythm: regular Heart sounds: normal: S1, S2 - Neurologic Neurologic: CNII-XII intact - Psychiatric Psychiatric: A&O x's 3, appropriate affect Assessment and Plan Assessment: Acute Hematuria Acute hypoxic respiratory failure Secondary to possible acute on chronic heart failure exacerbation, diastolic versus systolic versus right-sided bacterial pneumonia, unspecified species Bilateral lower extremity swelling secondary to above, left leg worse than right leg Essential hypertension History of CABG in 1998 Hyperlipidemia COPD possible overlying exacerbation I independently interpreted the chest x-ray, it appears the patient has a right-sided consolidation possibly consistent with pneumonia as well as bibasilar fluid collection I agree with Lasix started in the ER Will continue Lasix 40 mg IV decreasing from twice daily to daily due to slightly worsening FLORINDA Hold losartan Consult urology for new onset hematuria Given the patient is hypoxic and has a recent sick contact we will start patient on empiric antibiotics Rocephin azithromycin started, will continue for now Can de-escalate antibiotics when appropriate Hold home Xarelto given new onset hematuria Waiting for med rec to be performed to resume his home medications Monitor I's and O's Cardiac diet 1500 cc fluid restriction 2 g salt restriction Ultrasound the left lower extremity was negative for DVT Given cardiac history, will place patient on cardiac telemetry monitoring overnight Replete electrolytes as necessary Objective - Vital Signs Vital signs: Vital Signs Temp 97.8 F 07/01/24 06:18 Pulse 66 07/01/24 10:13 Resp 18 07/01/24 10:13 BP 106/52 07/01/24 10:13 Pulse Ox 96 07/01/24 10:13 FiO2 Intake & Output 06/30/24 07/01/24 07/01/24 18:59 06:59 18:59 Output Total 800 800 Balance -800 -800 Weight 83.915 kg Output: Urine 800 800 Male - External 800 - Labs CBC & Chem 7: 07/01/24 10:47 07/01/24 10:47 Labs: Abnormal Lab Results - Last 24 Hours (Table) 06/30/24 06/30/24 06/30/24 Range/Units 14:46 15:08 15:08 RBC 3.43 L (4.30-5.90) m/uL Hgb 11.3 L (13.0-17.5) gm/dL Hct 36.3 L (39.0-53.0) % MCV 105.9 H (80.0-100.0) fL MCHC (31.0-37.0) g/dL Macrocytosis PT 15.6 H (10.0-12.5) sec INR 1.5 H (<1.2) Sodium (137-145) mmol/L BUN 40 H (9-20) mg/dL Creatinine 2.17 H (0.66-1.25) mg/dL Glucose 131 H (74-99) mg/dL Phosphorus (2.5-4.5) mg/dL Troponin I (0.000-0.034) ng/mL Albumin 3.3 L (3.5-5.0) g/dL Urine Protein (Negative) Urine Glucose (UA) (Negative) Urine Blood (Negative) Ur Leukocyte Esterase (Negative) Urine RBC (0-5) /hpf Urine WBC (0-5) /hpf Urine Bacteria (None) /hpf Hyaline Casts (0-2) /lpf Urine Mucus (None) /hpf Ur Random Microalbumin (0.0-1.9) mg/dL Microalb/Creat Ratio (0-30) mg/g Cr 06/30/24 06/30/24 06/30/24 Range/Units 15:08 18:02 22:27 RBC (4.30-5.90) m/uL Hgb (13.0-17.5) gm/dL Hct (39.0-53.0) % MCV (80.0-100.0) fL MCHC (31.0-37.0) g/dL Macrocytosis PT (10.0-12.5) sec INR (<1.2) Sodium (137-145) mmol/L BUN (9-20) mg/dL Creatinine (0.66-1.25) mg/dL Glucose (74-99) mg/dL Phosphorus (2.5-4.5) mg/dL Troponin I 0.077 H* 0.094 H* 0.091 H* (0.000-0.034) ng/mL Albumin (3.5-5.0) g/dL Urine Protein (Negative) Urine Glucose (UA) (Negative) Urine Blood (Negative) Ur Leukocyte Esterase (Negative) Urine RBC (0-5) /hpf Urine WBC (0-5) /hpf Urine Bacteria (None) /hpf Hyaline Casts (0-2) /lpf Urine Mucus (None) /hpf Ur Random Microalbumin (0.0-1.9) mg/dL Microalb/Creat Ratio (0-30) mg/g Cr 07/01/24 07/01/24 07/01/24 Range/Units 01:58 03:15 03:15 RBC (4.30-5.90) m/uL Hgb (13.0-17.5) gm/dL Hct (39.0-53.0) % MCV (80.0-100.0) fL MCHC (31.0-37.0) g/dL Macrocytosis PT (10.0-12.5) sec INR (<1.2) Sodium (137-145) mmol/L BUN (9-20) mg/dL Creatinine (0.66-1.25) mg/dL Glucose (74-99) mg/dL Phosphorus (2.5-4.5) mg/dL Troponin I 0.073 H* (0.000-0.034) ng/mL Albumin (3.5-5.0) g/dL Urine Protein 1+ H (Negative) Urine Glucose (UA) Trace H (Negative) Urine Blood Large H (Negative) Ur Leukocyte Esterase Trace H (Negative) Urine RBC >182 H (0-5) /hpf Urine WBC 7 H (0-5) /hpf Urine Bacteria Many H (None) /hpf Hyaline Casts 19 H (0-2) /lpf Urine Mucus Moderate H (None) /hpf Ur Random Microalbumin 21.9 H (0.0-1.9) mg/dL Microalb/Creat Ratio 491 H (0-30) mg/g Cr 07/01/24 07/01/24 07/01/24 Range/Units 05:32 08:41 10:47 RBC 3.24 L (4.30-5.90) m/uL Hgb 10.5 L (13.0-17.5) gm/dL Hct 35.3 L (39.0-53.0) % MCV 108.8 H (80.0-100.0) fL MCHC 29.6 L (31.0-37.0) g/dL Macrocytosis Marked A PT (10.0-12.5) sec INR (<1.2) Sodium (137-145) mmol/L BUN (9-20) mg/dL Creatinine (0.66-1.25) mg/dL Glucose (74-99) mg/dL Phosphorus (2.5-4.5) mg/dL Troponin I 0.078 H* 0.075 H* (0.000-0.034) ng/mL Albumin (3.5-5.0) g/dL Urine Protein (Negative) Urine Glucose (UA) (Negative) Urine Blood (Negative) Ur Leukocyte Esterase (Negative) Urine RBC (0-5) /hpf Urine WBC (0-5) /hpf Urine Bacteria (None) /hpf Hyaline Casts (0-2) /lpf Urine Mucus (None) /hpf Ur Random Microalbumin (0.0-1.9) mg/dL Microalb/Creat Ratio (0-30) mg/g Cr // Range/Units 10:47 RBC (4.30-5.90) m/uL Hgb (13.0-17.5) gm/dL Hct (39.0-53.0) % MCV (80.0-100.0) fL MCHC (31.0-37.0) g/dL Macrocytosis PT (10.0-12.5) sec INR (<1.2) Sodium 136 L (137-145) mmol/L BUN 44 H (9-20) mg/dL Creatinine 2.36 H (0.66-1.25) mg/dL Glucose 112 H (74-99) mg/dL Phosphorus 4.6 H (2.5-4.5) mg/dL Troponin I (0.000-0.034) ng/mL Albumin (3.5-5.0) g/dL Urine Protein (Negative) Urine Glucose (UA) (Negative) Urine Blood (Negative) Ur Leukocyte Esterase (Negative) Urine RBC (0-5) /hpf Urine WBC (0-5) /hpf Urine Bacteria (None) /hpf Hyaline Casts (0-2) /lpf Urine Mucus (None) /hpf Ur Random Microalbumin (0.0-1.9) mg/dL Microalb/Creat Ratio (0-30) mg/g Cr
[2024-07-01 15:57] LABS: Chol/HDL Ratio 2.13 Ratio; LDL Cholesterol,Calculated 38.4 mg/dL (0.0-131.0); VLDL Calculation 16.22 mg/dL (5.00-40.00)
[2024-07-01] MEDS: MELATONIN 5 MG TABLET PO PRN (20:51)
--- NOTE | 2024-07-02 04:45 | XR ---
EXAM: XR Chest, 1 View CLINICAL HISTORY: ITS.REASON XR Reason: dypnea TECHNIQUE: Frontal view of the chest. COMPARISON: 06/30/2024 IMPRESSION: consolidating opacity in the right lower lobe.
[2024-07-02] MEDS: IPRATROPIUM-ALBUTEROL 3 ML NEB INHALATION STA (05:26)
[2024-07-02 08:01] LABS: African American GFR (CKD) 24 (>60 ml/min/1.73 sqM); Anion Gap 10 mmol/L; Blood Urea Nitrogen 50 mg/dL (9-20); Calcium 8.4 mg/dL (8.4-10.2); Carbon Dioxide 21 mmol/L (22-30); Chloride 106 mmol/L (98-107); Glucose 93 mg/dL (74-99); Non-African American GFR(CKD) 21 (>60 ml/min/1.73 sqM); Potassium 4.5 mmol/L (3.5-5.1); Sodium 137 mmol/L (137-145)
[2024-07-02] MEDS: ASPIRIN 81 MG PO SCH (08:10)
[2024-07-02] MEDS: FUROSEMIDE 10 MG/ML 2 ML VIAL IV SCH (08:10)
[2024-07-02 09:57] LABS: Basophils % (A) 0 %; Eosinophils # (A) 0.1 k/uL (0-0.7); Eosinophils % (A) 1 %; HGB 10.2 gm/dL (13.0-17.5); Hypochromasia Marked; Lymphocytes # (A) 1.1 k/uL (1.0-4.8); Lymphocytes % (A) 12 %; MCH 33.2 pg (25.0-35.0); MCV 110.6 fL (80.0-100.0); Macrocytosis Marked; Mean Platelet Volume 9.3; Monocytes # (A) 0.6 k/uL (0-1.0); Monocytes % (A) 6 %; Neutrophils # (A) 7.2 k/uL (1.3-7.7); Neutrophils % (A) 79 %; Platelet Count 204 k/uL (150-450); RBC 3.08 m/uL (4.30-5.90); RDW 13.8 % (11.5-15.5); WBC 9.1 k/uL (3.8-10.6)
[2024-07-02 10:02] LABS: Magnesium 1.7 mg/dL (1.6-2.3)
--- NOTE | 2024-07-02 10:26 | US ---
EXAMINATION TYPE: US kidneys/renal and bladder DATE OF EXAM: 07/02/2024 COMPARISON: NONE CLINICAL INDICATION: Male, 88 years old with history of FLORINDA; FLORINDA TECHNIQUE: Grayscale imaging of the bilateral kidneys and urinary bladder: FINDINGS: EXAM MEASUREMENTS: Right Kidney: 10.5x5.6x4.8 cm Left Kidney: 9.1x5.0x4.8 cm Right Kidney: No hydronephrosis or masses seen Left Kidney: inferior pole cortical cyst 4.8x5.4x4.6cm Bladder: wnl, poorly distended There is no evidence for hydronephrosis at this point in time. No nephrolithiasis is seen. No corey s are identified. The urinary bladder is anechoic. exam limited by bowel gas and habitus IMPRESSION: 1. No evidence for acute process. 2. Inferior pole renal cyst on the left measuring up to 4.8 cm. [facility], , 07/02/2024 10:24 AM
[2024-07-02 11:09] LABS: Appearance,Urine Clear (Clear); Bilirubin,Urine Negative (Negative); Blood,Urine Trace (Negative); Color,Urine Colorless; Glucose,Urine (UA) Trace (Negative); Ketones,Urine Negative (Negative); Leukocyte Esterase,Urine Negative (Negative); Nitrite,Urine Negative (Negative); Protein,Urine Negative (Negative); RBC,Urine 1 /hpf (0-5); Specific Gravity,Urine 1.006 (1.001-1.035); Squamous Epithelial Cell,Urine <1 /hpf (0-4); Urobilinogen,Urine <2.0 mg/dL (<2.0); WBC,Urine 1 /hpf (0-5)
[2024-07-02 11:55] LABS: Glucose,Whole Blood 106 mg/dL (70-110)
--- NOTE | 2024-07-02 12:12 | P.GSCN ---
History of Present Illness Consult date: 07/02/24 Reason for Consult: Gross hematuria History of present illness: This is an 88-year-old male admitted to the hospital with shortness of breath. Urology is consulted for gross hematuria. This is the first time patient noticing gross hematuria, this occurred prior to inserting a Huertas catheter. No previous history of gross hematuria. Denies any voiding dysfunction at baseline. He did have a renal bladder ultrasound that showed no abnormality. Urine is currently clear. He is on Xarelto for history of DVT, which is currently on hold Review of Systems - Constitutional Denies fever, Denies weight loss - Cardiovascular Reports shortness of breath, Denies chest pain - Respiratory Reports cough, Reports dyspnea - Gastrointestinal Reports as per HPI - Genitourinary Denies dysuria, Denies hematuria - Integumentary Denies rash, Denies unusual bruising - Neurological Denies headaches, Denies syncope Past Medical History Past Medical History: Coronary Artery Disease (CAD), Heart Failure, COPD, Hyperlipidemia, Hypertension Additional Past Medical History / Comment(s): dvt left leg History of Any Multi-Drug Resistant Organisms: None Reported Past Surgical History: Coronary Bypass/CABG Additional Past Surgical History / Comment(s): 3 vessel CABG Past Anesthesia/Blood Transfusion Reactions: No Reported Reaction Past Psychological History: No Psychological Hx Reported Smoking Status: Former smoker Past Drug Use History: None Reported - Past Family History Father History Unknown: Yes Mother History Unknown: Yes Medications and Allergies Home Medications Medication Instructions Recorded Confirmed Type Ascorbic Acid [Vitamin C] 1,000 mg PO DAILY 06/30/24 06/30/24 History Bisoprolol [Zebeta] 2.5 mg PO DAILY 06/30/24 06/30/24 History Candesartan Cilexetil [Atacand] 8 mg PO DAILY 06/30/24 06/30/24 History Cholecalciferol [Vitamin D3 (25 25 mcg PO DAILY 06/30/24 06/30/24 History Mcg = 1000 Iu)] Dapagliflozin Propanediol [Farxiga] 10 mg PO DAILY 06/30/24 06/30/24 History Fluticasone/Umeclidin/Vilanter 1 puff INHALATION RT-DAILY 06/30/24 06/30/24 History [Trelegy Ellipta 100-62.5-25] Garlic 2,000 mg PO DAILY 06/30/24 06/30/24 History Rivaroxaban [Xarelto] 15 mg PO DAILY 06/30/24 06/30/24 History Rosuvastatin [Crestor] 10 mg PO DAILY 06/30/24 06/30/24 History Turmeric Root Extract [Turmeric] 500 mg PO DAILY 06/30/24 06/30/24 History Zinc Gluconate [Zinc] 50 mg PO DAILY 06/30/24 06/30/24 History Allergies Allergy/AdvReac Type Severity Reaction Status Date / Time No Known Allergies Allergy Verified 06/30/24 14:19 Surgical - Exam Vital Signs Temp Pulse Resp BP Pulse Ox 97.4 F L 75 24 119/68 83 L 06/30/24 14:17 06/30/24 14:17 06/30/24 14:17 06/30/24 14:17 06/30/24 14:17 - General no distress, no pain - Eyes normal ocular movement, no pale - ENT normal nares, normal mucosa - Respiratory normal expansion, normal respiratory effort - Abdomen Abdomen: soft, non tender, no distended Results - Labs 07/02/24 09:35 07/02/24 06:59 Abnormal Lab Results - Last 24 Hours (Table) 07/01/24 07/02/24 07/02/24 Range/Units 08:41 06:59 09:35 RBC 3.08 L (4.30-5.90) m/uL Hgb 10.2 L (13.0-17.5) gm/dL Hct 34.0 L (39.0-53.0) % MCV 110.6 H (80.0-100.0) fL MCHC 30.0 L (31.0-37.0) g/dL Macrocytosis Marked A Carbon Dioxide 21 L (22-30) mmol/L BUN 50 H (9-20) mg/dL Creatinine 2.67 H (0.66-1.25) mg/dL Hemoglobin A1c 7.3 H (<=6.0) % Urine Glucose (UA) (Negative) Urine Blood (Negative) 07/02/24 Range/Units 10:38 RBC (4.30-5.90) m/uL Hgb (13.0-17.5) gm/dL Hct (39.0-53.0) % MCV (80.0-100.0) fL MCHC (31.0-37.0) g/dL Macrocytosis Carbon Dioxide (22-30) mmol/L BUN (9-20) mg/dL Creatinine (0.66-1.25) mg/dL Hemoglobin A1c (<=6.0) % Urine Glucose (UA) Trace H (Negative) Urine Blood Trace H (Negative) Microbiology - Last 24 Hours (Table) 06/30/24 18:02 Blood Culture - Preliminary Blood Diabetes panel 07/01/24 07/01/24 07/02/24 Range/Units 08:41 08:41 06:59 Sodium 137 (137-145) mmol/L Potassium 4.5 (3.5-5.1) mmol/L Chloride 106 (98-107) mmol/L Carbon Dioxide 21 L (22-30) mmol/L BUN 50 H (9-20) mg/dL Creatinine 2.67 H (0.66-1.25) mg/dL Glucose 93 (74-99) mg/dL Hemoglobin A1c 7.3 H (<=6.0) % Calcium 8.4 (8.4-10.2) mg/dL Triglycerides 81.10 (0.00-149.00) mg/dL HDL Cholesterol 48.40 (40.00-60.00) mg/dL Calcium panel 07/02/24 Range/Units 06:59 Calcium 8.4 (8.4-10.2) mg/dL Pituitary panel 07/02/24 Range/Units 06:59 Sodium 137 (137-145) mmol/L Potassium 4.5 (3.5-5.1) mmol/L Chloride 106 (98-107) mmol/L Carbon Dioxide 21 L (22-30) mmol/L BUN 50 H (9-20) mg/dL Creatinine 2.67 H (0.66-1.25) mg/dL Glucose 93 (74-99) mg/dL Calcium 8.4 (8.4-10.2) mg/dL Adrenal panel 07/02/24 Range/Units 06:59 Sodium 137 (137-145) mmol/L Potassium 4.5 (3.5-5.1) mmol/L Chloride 106 (98-107) mmol/L Carbon Dioxide 21 L (22-30) mmol/L BUN 50 H (9-20) mg/dL Creatinine 2.67 H (0.66-1.25) mg/dL Glucose 93 (74-99) mg/dL Calcium 8.4 (8.4-10.2) mg/dL Assessment and Plan Assessment: 88-year-old male with history of gross hematuria, it has resolved now. Renal bladder ultrasound was only significant for a renal cyst otherwise no acute process. From urology standpoint he is okay to continue with anticoagulation. He will need an outpatient cystoscopy to complete the hematuria workup
--- NOTE | 2024-07-02 12:29 | P.NPCON ---
History of Present Illness - Reason for Consult Consult date: 07/02/24 - History of Present Illness Reason for consult: FLORINDA with no known baseline renal function 88-year-old man with PMH of CAD s/p CABG in 1998, hyperlipidemia and DVT maintained on Xarelto who presented to the emergency department with worsening shortness of breath. Currently on 3L NC, and shows signs of desaturation with mo vement. Maintained at home on Atacand, currently on hold. Abdomen/bladder ultrasound showed no evidence for acute process, inferior pole renal cyst on the left measuring up to 4.8 cm Chest x-ray from this morning showed consolidating opacity of the right lower lobe Echocardiogram from 07/01/24 showed moderate mitral regurgitation and moderate pulmonary hypertension Creatinine on arrival 2.17, this morning 2.67 BUN on arrival 40, this morning 50 UA done yesterday showed 1+ protein, trace glucose, large amounts of blood, trace leukocyte esterase, >182 urine RBCs, 7 urine WBCs, many urine bacteria, 19 hyaline casts, moderate mucus Past Medical History Past Medical History: Coronary Artery Disease (CAD), Heart Failure, COPD, Hyperlipidemia, Hypertension Additional Past Medical History / Comment(s): dvt left leg History of Any Multi-Drug Resistant Organisms: None Reported Past Surgical History: Coronary Bypass/CABG Additional Past Surgical History / Comment(s): 3 vessel CABG Past Anesthesia/Blood Transfusion Reactions: No Reported Reaction Past Psychological History: No Psychological Hx Reported Smoking Status: Former smoker Past Drug Use History: None Reported - Past Family History Father History Unknown: Yes Mother History Unknown: Yes Medications and Allergies Home Medications Medication Instructions Recorded Confirmed Type Ascorbic Acid [Vitamin C] 1,000 mg PO DAILY 06/30/24 06/30/24 History Bisoprolol [Zebeta] 2.5 mg PO DAILY 06/30/24 06/30/24 History Candesartan Cilexetil [Atacand] 8 mg PO DAILY 06/30/24 06/30/24 History Cholecalciferol [Vitamin D3 (25 25 mcg PO DAILY 06/30/24 06/30/24 History Mcg = 1000 Iu)] Dapagliflozin Propanediol [Farxiga] 10 mg PO DAILY 06/30/24 06/30/24 History Fluticasone/Umeclidin/Vilanter 1 puff INHALATION RT-DAILY 06/30/24 06/30/24 History [Trelegy Ellipta 100-62.5-25] Garlic 2,000 mg PO DAILY 06/30/24 06/30/24 History Rivaroxaban [Xarelto] 15 mg PO DAILY 06/30/24 06/30/24 History Rosuvastatin [Crestor] 10 mg PO DAILY 06/30/24 06/30/24 History Turmeric Root Extract [Turmeric] 500 mg PO DAILY 06/30/24 06/30/24 History Zinc Gluconate [Zinc] 50 mg PO DAILY 06/30/24 06/30/24 History Allergies Allergy/AdvReac Type Severity Reaction Status Date / Time No Known Allergies Allergy Verified 06/30/24 14:19 Physical Exam Vitals: Vital Signs Temp Pulse Pulse Resp BP BP Pulse Ox 07/02/24 08:00 97.8 F 74 22 138/62 96 07/02/24 07:51 94 L 07/02/24 05:35 81 07/02/24 05:26 84 20 07/02/24 04:01 97.8 F 78 20 134/63 92 L 07/01/24 23:08 98.0 F 70 18 111/53 94 L 07/01/24 19:33 97.7 F 85 18 114/63 96 07/01/24 17:35 98.1 F 80 24 134/63 93 L 07/01/24 16:06 67 22 119/66 90 L Intake and Output 07/01/24 07/02/24 07/02/24 22:59 06:59 14:59 Intake Total 10 Output Total 400 Balance -400 10 Intake: IV 10 Invasive Line 2 10 Output: Urine 400 Other: Voiding Method External Catheter External Catheter External Catheter Weight 83.915 kg 90.5 kg Patient is awake, comfortable, no acute distress. Hard of hearing. Huertas catheter in place. Heart: S1 and S2 heard Lungs: Diminished breath sounds heard on the right with rhonchi Abdomen: Soft and nontender Lower extremities: 1+ pitting edema in the BL [employer]ER: grossly intact Results - Lab Results Most recent lab results Calcium 8.4 mg/dL (8.4-10.2) 07/02/24 06:59 Phosphorus 4.6 mg/dL (2.5-4.5) H 07/01/24 10:47 Magnesium 1.7 mg/dL (1.6-2.3) 07/02/24 06:59 07/13/24 06:16 07/13/24 06:16 Assessment and Plan Assessment: #FLORINDA secondary to ATN d/t underlying infection and cardiorenal syndrome, with unknown baseline renal function; US abd/bladder showed right renal cysts with no evidence of obstruction; UA is benign #Right lung pneumonia, maintained on antibiotics, pulmonology consulted #Acute hypoxic respiratory failure secondary to right-sided bacterial pneumonia and CHF exacerbation on initial admission, now improved. EF 55-60% #Bilateral lower extremity edema secondary to moderate pulmonary hypertension #History of CABG in 1998 Plan: -Hold lasix for now, re evaluate in the morning and decide on further dose. -Continue with antibiotics -Continue to hold ARBs -May continue with Farxiga for now -Wean oxygen as tolerated -1500 cc fluid restriction -2 g salt restriction -Monitor BMP in the a.m. -Avoid nephrotoxic agents Agree with resident's assessment and plan. Patient is seen and examined
[2024-07-02] MEDS: methylPREDNISolone SOD SUCCI 125 MG/2 ML VIAL IV SCH (12:33)
[2024-07-02 13:29] VITALS: BMI 32.2
[2024-07-02] MEDS ORDERED: HEPARIN SODIUM 1,000 UN/ML (10ML VL) IV PRN (13:40)
--- NOTE | 2024-07-02 13:51 | P.PN ---
Subjective Progress Note Date: 07/02/24 No new complaints today. Kidney function is worsening. Nephrology consulted. Gen: In NAD, non-toxic HEENT: normocephalic, atraumatic, hearing acuity is intant, mucous membranes moist CVS: perfusing all extremities well, bilateral pitting edema, Respiratory: symmetric chest expansion, no accessory muscle use, GI: soft, NTTP, ND, : no suprapubic tenderness, no CVA tenderness MSK/Derm: no rashes, cyanosis Neuro: CN II-XII intact, no motor weakness, Psych: cooperative, euthymic mood, judgment and insight is intact Hospital course: This is an 88-year-old male with a past medical history reviewed coronary disease status post CABG x 1, hyperlipidemia, heart failure, DVT on Xarelto presents emergency department with complaint of shortness of breath. In the emergency room, patient was afebrile, 119/68, heart rate 75, 83% on room air. CBC was remarkable for hemoglobin of 11.5 with MCV of 105.9. INR is 1.5. BUN was 40, creatinine 2.17 with no known baseline. BNP was 7980. Liver function tests are unremarkable. Influenza A, B, RSV, COVID were negative. Chest x-ray showed small right pleural effusion with cardiomegaly and right basilar patchy airspace opacities. EKG showed sinus rhythm, left axis deviation, right bundle branch block, left anterior fascicular block, no evidence of ischemia. Venous Doppler study showed chronic DVT. During hospitalization, patient was noted to have worsening kidney function as well as hematuria. Urology and nephrology were consulted for this. Patient Xarelto was held and hematuria resolved, was seen and cleared by urology for outpatient cystoscopy as well as resumption of anticoagulation. Echocardiogram demonstrated normal ejection fraction with moderate pulmonary hypertension. Assessment/plan: Acute hypoxemic respiratory failure Acute diastolic heart failure exacerbation, ejection fraction is preserved at 55% Suspected bacterial pneumonia -Oxygen as needed -Strict ins and outs, daily weights -Cardiology consultation is appreciated -Lasix on hold as below -Procalcitonin is pending, continue antibiotics for now: Ceftriaxone 2 g every 24 hours, azithromycin 5 mg daily -Blood culturesno growth to date -1500 cc fluid restriction, 2 g salt restriction -Pulmonology consulted; patient has a brother 2 rooms over who presented from [place] with very similar presentation Acute kidney injury, possibly superimposed on chronic kidney disease Hematuria, microscopic -Nephrology is consulted -Urine electrolytes are pending -Renal ultrasound is negative for hydronephrosis or nephrolithiasis -Holding Lasix secondary to concern for ATN -Hold home losartan -Urology consultation was appreciated, patient was cleared to resume antic oagulation and recommended for outpatient cystoscopy History of DVT -Xarelto was held due to hematuria -Will start the patient on heparin drip due to kidney dysfunction History of CABG Hyperlipidemia -Home medications reviewed and reconciled Patient has no code DVT prophylaxis is covered with therapeutic heparin Objective - Vital Signs Vital signs: Vital Signs Temp 98.2 F 07/02/24 12:29 Pulse 74 07/02/24 12:29 Resp 18 07/02/24 12:29 BP 135/64 07/02/24 12:29 Pulse Ox 96 07/02/24 12:29 FiO2 Intake & Output 07/01/24 07/02/24 07/02/24 18:59 06:59 18:59 Intake Total 210 Output Total 800 400 400 Balance -800 -400 -190 Weight 83.915 kg 90.5 kg 90.5 kg Intake: IV 10 Invasive Line 2 10 Oral 200 Output: Urine 800 400 400 Male - External 800 Other: Voiding Method External Catheter External Catheter External Catheter - Labs CBC & Chem 7: 07/02/24 09:35 07/02/24 06:59 Labs: Abnormal Lab Results - Last 24 Hours (Table) 07/01/24 07/02/24 07/02/24 Range/Units 08:41 06:59 09:35 RBC 3.08 L (4.30-5.90) m/uL Hgb 10.2 L (13.0-17.5) gm/dL Hct 34.0 L (39.0-53.0) % MCV 110.6 H (80.0-100.0) fL MCHC 30.0 L (31.0-37.0) g/dL Macrocytosis Marked A Carbon Dioxide 21 L (22-30) mmol/L BUN 50 H (9-20) mg/dL Creatinine 2.67 H (0.66-1.25) mg/dL Hemoglobin A1c 7.3 H (<=6.0) % Urine Glucose (UA) (Negative) Urine Blood (Negative) 03/06/25 Range/Units 10:38 RBC (4.30-5.90) m/uL Hgb (13.0-17.5) gm/dL Hct (39.0-53.0) % MCV (80.0-100.0) fL MCHC (31.0-37.0) g/dL Macrocytosis Carbon Dioxide (22-30) mmol/L BUN (9-20) mg/dL Creatinine (0.66-1.25) mg/dL Hemoglobin A1c (<=6.0) % Urine Glucose (UA) Trace H (Negative) Urine Blood Trace H (Negative) Microbiology - Last 24 Hours (Table) 06/30/24 18:02 Blood Culture - Preliminary Blood
[2024-07-02] MEDS: HEPARIN SOD,PORK IN 0.45% NACL 25,000 UNIT in 0.45% NACL 1 250ML.BAG IV SCH (14:07)
[2024-07-02] MEDS: HEPARIN SODIUM 1,000 UN/ML (10ML VL) IV ONE (14:09)
[2024-07-02 14:46] LABS: INR 1.1 (<1.2); Partial Thromboplastin Time 22.6 sec (22.0-30.0); Prothrombin Time 11.9 sec (10.0-12.5)
--- NOTE | 2024-07-02 14:50 | P.CNPUL ---
History of Present Illness Consult date: 07/02/24 Requesting physician: Mode Nath Reason for consult: dyspnea, hypoxemia, abnormal CXR/CT Chief complaint: Shortness of breath, cough, congestion History of present illness: This is a very pleasant 88-year-old male patient who resides in [place]. He has a 50-year smoking history however quit nearly 20 years ago. He does have COPD and is maintained on Trelegy. He also has diabetes mellitus, coronary artery disease with previous coronary artery bypass grafting, hyperlipidemia previous DVT maintained on Xarelto and hypertension. He was traveling home from [place] when he stopped here at this hospital to visit his [id number]. The patient then developed significant shortness of breath, cough and congestion and presented to the emergency room on 06/30/2024. Chest x-ray revealed a small right pleural effusion with cardiomegaly and right basilar patchy airspace opacities. White count 9.1. Hemoglobin 10.2. Platelets 204. Sodium 137. Potassium 4.5. Bicarb 21. BUN 50. Creatinine 2.67. Glucose 93. proBNP 7980. Troponins 0.091. 0.075. He is seen today in consultation on the selective care unit. He is currently resting fairly comfortably in bed. Awake and alert in no acute distress. He is maintaining O2 saturations in the 90s on 3 L/min per nasal cannula. He is dyspneic with conversation. Dyspneic with minimal exertion. He does have a productive cough. Review of Systems REVIEW OF SYSTEMS: CONSTITUTIONAL: Denies any recent significant weight loss or weight gain. EYES: Denies change in vision. EARS, NOSE, MOUTH, THROAT: Denies headaches, denies sore throat. CARDIOVASCULAR: Denies chest pain, palpitations or syncopal episodes. RESPIRATORY: Positive for shortness of breath, cough, congestion no hemoptysis. GASTROINTESTINAL: Denies change in appetite, denies abdominal pain GENITOURINARY: Denies hematuria, denies infections. MUSKULOSKELETAL: Denies pain, denies swelling. INTEGUMENTARY: Denies rash, denies eczema. NEUROLOGICAL: Denies recent memory loss, no recent seizure activity. PSYCHIATRIC: Denies anxiety, denies depression. HEMATOLOGIC/LYMPHATIC: Denies anemia, denies enlarged lymph nodes. Past Medical History Past Medical History: Coronary Artery Disease (CAD), Heart Failure, COPD, Hyperlipidemia, Hypertension Additional Past Medical History / Comment(s): dvt left leg History of Any Multi-Drug Resistant Organisms: None Reported Past Surgical History: Coronary Bypass/CABG Additional Past Surgical History / Comment(s): 3 vessel CABG Past Anesthesia/Blood Transfusion Reactions: No Reported Reaction Past Psychological History: No Psychological Hx Reported Smoking Status: Former smoker Past Drug Use History: None Reported - Past Family History Father History Unknown: Yes Mother History Unknown: Yes Medications and Allergies Home Medications Medication Instructions Recorded Confirmed Type Ascorbic Acid [Vitamin C] 1,000 mg PO DAILY 06/30/24 06/30/24 History Bisoprolol [Zebeta] 2.5 mg PO DAILY 06/30/24 06/30/24 History Candesartan Cilexetil [Atacand] 8 mg PO DAILY 06/30/24 06/30/24 History Cholecalciferol [Vitamin D3 (25 25 mcg PO DAILY 06/30/24 06/30/24 History Mcg = 1000 Iu)] Dapagliflozin Propanediol [Farxiga] 10 mg PO DAILY 06/30/24 06/30/24 History Fluticasone/Umeclidin/Vilanter 1 puff INHALATION RT-DAILY 06/30/24 06/30/24 History [Trelegy Ellipta 100-62.5-25] Garlic 2,000 mg PO DAILY 06/30/24 06/30/24 History Rivaroxaban [Xarelto] 15 mg PO DAILY 06/30/24 06/30/24 History Rosuvastatin [Crestor] 10 mg PO DAILY 06/30/24 06/30/24 History Turmeric Root Extract [Turmeric] 500 mg PO DAILY 06/30/24 06/30/24 History Zinc Gluconate [Zinc] 50 mg PO DAILY 06/30/24 06/30/24 History Allergies Allergy/AdvReac Type Severity Reaction Status Date / Time No Known Allergies Allergy Verified 06/30/24 14:19 Physical Exam Vitals: Vital Signs Temp Pulse Pulse Resp BP BP Pulse Ox 07/02/24 12:29 98.2 F 74 18 135/64 96 07/02/24 08:00 97.8 F 74 22 138/62 96 07/02/24 07:51 94 L 07/02/24 05:35 81 07/02/24 05:26 84 20 07/02/24 04:01 97.8 F 78 20 134/63 92 L 07/01/24 23:08 98.0 F 70 18 111/53 94 L 07/01/24 19:33 97.7 F 85 18 114/63 96 07/01/24 17:35 98.1 F 80 24 134/63 93 L 07/01/24 16:06 67 22 119/66 90 L Intake and Output 07/01/24 07/02/24 07/02/24 22:59 06:59 14:59 Intake Total 460 Output Total 400 400 Balance -400 60 Intake: IV 20 Invasive Line 2 20 Oral 440 Output: Urine 400 400 Other: Voiding Method External Catheter External Catheter Indwelling Catheter Weight 83.915 kg 90.5 kg 90.5 kg GENERAL EXAM: Alert, very pleasant 88-year-old male patient, on 3 L nasal cannula, resting in bed, comfortable in no apparent distress. HEAD: Normocephalic. EYES: Normal reaction of pupils, equal size. NOSE: Clear with pink turbinates. THROAT: No erythema or exudates. NECK: No masses, no JVD. CHEST: No chest wall deformity. LUNGS: Equal air entry with expiratory wheeze, scattered rhonchi. CVS: S1 and S2 normal with no audible murmur, regular rhythm. ABDOMEN: No hepatosplenomegaly, normal bowel sounds, no guarding or rigidity. SPINE: No scoliosis or deformity SKIN: No rashes CENTRAL NERVOUS SYSTEM: No focal deficits, tone is normal in all 4 extremities. EXTREMITIES: There is no peripheral edema. No clubbing, no cyanosis. Peripheral pulses are intact. Results - Laboratory Findings CBC and BMP: 07/02/24 09:35 07/02/24 06:59 PT/INR, D-dimer PT 15.6 sec (10.0-12.5) H 06/30/24 14:46 INR 1.5 (<1.2) H 06/30/24 14:46 Abnormal lab findings: Abnormal Labs 06/30/24 06/30/24 06/30/24 14:46 15:08 15:08 RBC 3.43 L Hgb 11.3 L Hct 36.3 L MCV 105.9 H MCHC Macrocytosis PT 15.6 H INR 1.5 H Sodium Carbon Dioxide BUN 40 H Creatinine 2.17 H Glucose 131 H Hemoglobin A1c Phosphorus Troponin I Albumin 3.3 L Urine Protein Urine Glucose (UA) Urine Blood Ur Leukocyte Esterase Urine RBC Urine WBC Urine Bacteria Hyaline Casts Urine Mucus Ur Random Microalbumin Microalb/Creat Ratio 06/30/24 06/30/24 06/30/24 15:08 18:02 22:27 RBC Hgb Hct MCV MCHC Macrocytosis PT INR Sodium Carbon Dioxide BUN Creatinine Glucose Hemoglobin A1c Phosphorus Troponin I 0.077 H* 0.094 H* 0.091 H* Albumin Urine Protein Urine Glucose (UA) Urine Blood Ur Leukocyte Esterase Urine RBC Urine WBC Urine Bacteria Hyaline Casts Urine Mucus Ur Random Microalbumin Microalb/Creat Ratio 07/01/24 07/01/24 07/01/24 01:58 03:15 03:15 RBC Hgb Hct MCV MCHC Macrocytosis PT INR Sodium Carbon Dioxide BUN Creatinine Glucose Hemoglobin A1c Phosphorus Troponin I 0.073 H* Albumin Urine Protein 1+ H Urine Glucose (UA) Trace H Urine Blood Large H Ur Leukocyte Esterase Trace H Urine RBC >182 H Urine WBC 7 H Urine Bacteria Many H Hyaline Casts 19 H Urine Mucus Moderate H Ur Random Microalbumin 21.9 H Microalb/Creat Ratio 491 H 07/01/24 07/01/24 07/01/24 05:32 08:41 08:41 RBC Hgb Hct MCV MCHC Macrocytosis PT INR Sodium Carbon Dioxide BUN Creatinine Glucose Hemoglobin A1c 7.3 H Phosphorus Troponin I 0.078 H* 0.075 H* Albumin Urine Protein Urine Glucose (UA) Urine Blood Ur Leukocyte Esterase Urine RBC Urine WBC Urine Bacteria Hyaline Casts Urine Mucus Ur Random Microalbumin Microalb/Creat Ratio 07/01/24 07/01/24 07/02/24 10:47 10:47 06:59 RBC 3.24 L Hgb 10.5 L Hct 35.3 L MCV 108.8 H MCHC 29.6 L Macrocytosis Marked A PT INR Sodium 136 L Carbon Dioxide 21 L BUN 44 H 50 H Creatinine 2.36 H 2.67 H Glucose 112 H Hemoglobin A1c Phosphorus 4.6 H Troponin I Albumin Urine Protein Urine Glucose (UA) Urine Blood Ur Leukocyte Esterase Urine RBC Urine WBC Urine Bacteria Hyaline Casts Urine Mucus Ur Random Microalbumin Microalb/Creat Ratio 07/02/24 07/02/24 09:35 10:38 RBC 3.08 L Hgb 10.2 L Hct 34.0 L MCV 110.6 H MCHC 30.0 L Macrocytosis Marked A PT INR Sodium Carbon Dioxide BUN Creatinine Glucose Hemoglobin A1c Phosphorus Troponin I Albumin Urine Protein Urine Glucose (UA) Trace H Urine Blood Trace H Ur Leukocyte Esterase Urine RBC Urine WBC Urine Bacteria Hyaline Casts Urine Mucus Ur Random Microalbumin Microalb/Creat Ratio - Diagnostic Findings Chest x-ray: image reviewed Assessment and Plan Assessment: Acute hypoxemic respiratory failure secondary to an acute exacerbation of chronic obstructive pulmonary disease and suspected right lung pneumonia. Viral screen negative. Procalcitonin pending Acute kidney injury secondary to acute tubular nephrosis Acute exacerbation of chronic diastolic congestive heart failure Troponin leak secondary to above Chronic obstructive pulmonary disease History of 50 years of tobacco dependence however quit many years ago Hypertension Hyperlipidemia Diabetes mellitus, type II Coronary artery disease with previous coronary artery bypass grafting History of DVT, maintained on Xarelto Plan: The patient was seen and evaluated Imaging, labs and medications reviewed Continue the patient's home Trelegy Add Solu-Medrol 60 mg every 6 hours Add DuoNeb inhalations Check a procalcitonin Continue antibiotics for now He is a DNR CODE STATUS We will continue to follow and make further recommendations based on his clinical status I have personally seen and examined the patient, performed the documentation and the assessment and plan as written. Number of minutes spent on the visit: 20 Dictation was produced using [employer] dictation software. Please excuse any grammatical, word or spelling errors.
[2024-07-02 14:51] LABS: Basophils % (A) 0 %; Eosinophils % (A) 0 %; HCT 33.9 % (39.0-53.0); HGB 10.1 gm/dL (13.0-17.5); Hypochromasia Moderate; Lymphocytes # (A) 0.6 k/uL (1.0-4.8); Lymphocytes % (A) 7 %; MCH 31.8 pg (25.0-35.0); MCHC 29.7 g/dL (31.0-37.0); MCV 107.2 fL (80.0-100.0); Macrocytosis Moderate; Mean Platelet Volume 9.3; Monocytes # (A) 0.3 k/uL (0-1.0); Monocytes % (A) 3 %; Neutrophils # (A) 7.2 k/uL (1.3-7.7); Neutrophils % (A) 88 %; Platelet Count 222 k/uL (150-450); RBC 3.16 m/uL (4.30-5.90); RDW 14.2 % (11.5-15.5); WBC 8.2 k/uL (3.8-10.6)
[2024-07-02] MEDS: ALBUTEROL NEBULIZED 2.5 MG/3 ML INHALATION SCH (16:07)
[2024-07-02 16:51] LABS: Glucose,Whole Blood 208 mg/dL (70-110)
[2024-07-02 20:05] LABS: Glucose,Whole Blood 262 mg/dL (70-110)
[2024-07-02] MEDS: QUEtiapine 100 MG TAB PO SCH (21:06)
[2024-07-03 06:12] LABS: Glucose,Whole Blood 280 mg/dL (70-110)
[2024-07-03 07:09] LABS: Basophils % (A) 0 %; Eosinophils % (A) 0 %; HCT 31.2 % (39.0-53.0); HGB 9.6 gm/dL (13.0-17.5); Hypochromasia Marked; Lymphocytes # (A) 0.4 k/uL (1.0-4.8); Lymphocytes % (A) 5 %; MCHC 30.7 g/dL (31.0-37.0); MCV 107.8 fL (80.0-100.0); Macrocytosis Moderate; Monocytes # (A) 0.3 k/uL (0-1.0); Monocytes % (A) 4 %; Neutrophils # (A) 7.6 k/uL (1.3-7.7); Neutrophils % (A) 91 %; Platelet Count 225 k/uL (150-450); RBC 2.89 m/uL (4.30-5.90); RDW 13.8 % (11.5-15.5); WBC 8.3 k/uL (3.8-10.6)
[2024-07-03 07:21] LABS: INR 1.1 (<1.2); Partial Thromboplastin Time 66.2 sec (22.0-30.0); Prothrombin Time 11.7 sec (10.0-12.5)
[2024-07-03 08:05] LABS: African American GFR (CKD) 23 (>60 ml/min/1.73 sqM); Anion Gap 11 mmol/L; Blood Urea Nitrogen 52 mg/dL (9-20); Calcium 8.4 mg/dL (8.4-10.2); Carbon Dioxide 22 mmol/L (22-30); Chloride 103 mmol/L (98-107); Glucose 214 mg/dL (74-99); Magnesium 1.7 mg/dL (1.6-2.3); Non-African American GFR(CKD) 19 (>60 ml/min/1.73 sqM); Potassium 4.8 mmol/L (3.5-5.1); Sodium 136 mmol/L (137-145)
--- NOTE | 2024-07-03 10:45 | P.PN ---
Subjective Progress Note Date: 07/03/24 Patient seen for follow-up for FLORINDA without any known baseline renal function. Renal function worsened slightly with creatinine today being 2.81 and BUN 52. He is utilizing 3 to liter nasal cannula saturating in the lowmid 90%'s. And remains dyspneic with very minimal exertion. No active complaints at this time. Continues to utilize indwelling Huertas catheter. Objective - Vital Signs Vital signs: Vital Signs Temp 97.7 F 07/03/24 08:35 Pulse 80 07/03/24 09:07 Resp 18 07/03/24 08:35 BP 121/60 07/03/24 08:35 Pulse Ox 92 L 07/03/24 08:35 FiO2 Intake & Output 07/02/24 07/03/24 07/03/24 18:59 06:59 18:59 Intake Total 460 86.667 10 Output Total 750 380 Balance -290 -293.333 10 Weight 90.5 kg 88 kg Intake: IV 20 20 10 Invasive Line 2 20 20 10 Intake, IV Titration 66.667 Amount Heparin Sod,Pork in 0.45% 66.667 NaCl 25,000 unit In 0.45 % NaCl 1 250ml.bag @ 11. 05 UNITS/KG/HR 10 mls/hr IV .Q24H [facility] Rx#: [id number] Oral 440 Output: Urine 750 380 Other: Voiding Method Indwelling Catheter Indwelling Catheter Indwelling Catheter - Exam Patient is awake, comfortable, no acute distress. Hard of hearing. Huertas catheter in place. Heart: S1 and S2 heard Lungs: Diminished breath sounds heard on the right with rhonchi Abdomen: Soft and nontender Lower extremities: Trace edema FORESTRY FIRE AIDE: grossly intact - Labs CBC & Chem 7: 07/13/24 06:16 07/13/24 06:16 Labs: Abnormal Lab Results - Last 24 Hours (Table) 07/02/24 07/02/24 07/02/24 Range/Units 09:35 10:38 14:09 RBC 3.08 L 3.16 L (4.30-5.90) m/uL Hgb 10.2 L 10.1 L (13.0-17.5) gm/dL Hct 34.0 L 33.9 L (39.0-53.0) % MCV 110.6 H 107.2 H (80.0-100.0) fL MCHC 30.0 L 29.7 L (31.0-37.0) g/dL Lymphocytes # 0.6 L (1.0-4.8) k/uL Macrocytosis Marked A APTT (22.0-30.0) sec Sodium (137-145) mmol/L BUN (9-20) mg/dL Creatinine (0.66-1.25) mg/dL Glucose (74-99) mg/dL POC Glucose (mg/dL) (70-110) mg/dL Urine Glucose (UA) Trace H (Negative) Urine Blood Trace H (Negative) 07/02/24 07/02/24 07/02/24 Range/Units 16:48 20:00 20:03 RBC (4.30-5.90) m/uL Hgb (13.0-17.5) gm/dL Hct (39.0-53.0) % MCV (80.0-100.0) fL MCHC (31.0-37.0) g/dL Lymphocytes # (1.0-4.8) k/uL Macrocytosis APTT 50.3 H (22.0-30.0) sec Sodium (137-145) mmol/L BUN (9-20) mg/dL Creatinine (0.66-1.25) mg/dL Glucose (74-99) mg/dL POC Glucose (mg/dL) 208 H 262 H (70-110) mg/dL Urine Glucose (UA) (Negative) Urine Blood (Negative) 07/03/24 07/03/24 07/03/24 Range/Units 06:10 06:18 06:18 RBC (4.30-5.90) m/uL Hgb (13.0-17.5) gm/dL Hct (39.0-53.0) % MCV (80.0-100.0) fL MCHC (31.0-37.0) g/dL Lymphocytes # (1.0-4.8) k/uL Macrocytosis APTT 66.2 H (22.0-30.0) sec Sodium 136 L (137-145) mmol/L BUN 52 H (9-20) mg/dL Creatinine 2.81 H (0.66-1.25) mg/dL Glucose 214 H (74-99) mg/dL POC Glucose (mg/dL) 280 H (70-110) mg/dL Urine Glucose (UA) (Negative) Urine Blood (Negative) 07/03/24 Range/Units 06:18 RBC 2.89 L (4.30-5.90) m/uL Hgb 9.6 L (13.0-17.5) gm/dL Hct 31.2 L (39.0-53.0) % MCV 107.8 H (80.0-100.0) fL MCHC 30.7 L (31.0-37.0) g/dL Lymphocytes # 0.4 L (1.0-4.8) k/uL Macrocytosis APTT (22.0-30.0) sec Sodium (137-145) mmol/L BUN (9-20) mg/dL Creatinine (0.66-1.25) mg/dL Glucose (74-99) mg/dL POC Glucose (mg/dL) (70-110) mg/dL Urine Glucose (UA) (Negative) Urine Blood (Negative) Microbiology - Last 24 Hours (Table) 06/30/24 18:02 Blood Culture - Preliminary Blood Assessment and Plan Assessment: #FLORINDA secondary to ATN d/t underlying infection and cardiorenal syndrome, with unknown baseline renal function; US abd/bladder showed right renal cysts with no evidence of obstruction; UA is benign #Right lung pneumonia, maintained on antibiotics, pulmonology consulted #Acute hypoxic respiratory failure secondary to right-sided bacterial pneumonia and diastolic CHF exacerbation on initial admission, now improved. EF 55-60% #Bilateral lower extremity edema secondary to moderate pulmonary hypertension #History of CABG in 1998 Plan: -Continue to hold Lasix, reevaluate on a daily basis -Continue with antibiotics -Continue to hold ARBs -Hold Farxiga -Wean oxygen as tolerated -1500 cc fluid restriction -2 g salt restriction -Monitor BMP in the a.m. -Avoid nephrotoxic agents Agree with resident's assessment and plan.
--- NOTE | 2024-07-03 11:19 | XR ---
EXAMINATION TYPE: XR chest 1V portable DATE OF EXAM: 07/03/2024 CLINICAL INDICATION: Male, 88 years old with history of chf, progress study. TECHNIQUE: Single AP portable upright view of the chest is obtained. COMPARISON: Chest x-ray from one day earlier FINDINGS: Persistent focal right mid to lower lung increased opacity and small right pleural effusio n. Persistent left prominent left basilar increased opacity. Persistent cardiomegaly. Overlying Spence al wires and mediastinal clips are redemonstrated. Osseous structures are demineralized. IMPRESSION: Persistent cardiomegaly with small right pleural effusion and right mid to lower lung acu te infiltrate and/or atelectasis and patchy left basilar opacity favoring atelectasis. No significant change from one day earlier. [facility], , 07/03/2024 11:17 AM
--- NOTE | 2024-07-03 11:40 | P.PN ---
Subjective Progress Note Date: 07/03/24 No new complaints today, breathing much improved. Kidney function is worsening. Lasix discontinued Gen: In NAD, non-toxic HEENT: normocephalic, atraumatic, hearing acuity is intant, mucous membranes moist CVS: perfusing all extremities well, bilateral pitting edema, +jvd Respiratory: symmetric chest expansion, no accessory muscle use, +wheezing GI: soft, NTTP, ND, : no suprapubic tenderness, no CVA tenderness MSK/Derm: no rashes, cyanosis Neuro: CN II-XII intact, no motor weakness, Psych: cooperative, euthymic mood, judgment and insight is intact Hospital course: This is an 88-year-old male with a past medical history reviewed coronary disease status post CABG x 1, hyperlipidemia, heart failure, DVT on Xarelto presents emergency department with complaint of shortness of breath. In the emergency room, patient was afebrile, 119/68, heart rate 75, 83% on room air. CBC was remarkable for hemoglobin of 11.5 with MCV of 105.9. INR is 1.5. BUN was 40, creatinine 2.17 with no known baseline. BNP was 7980. Liver function tests are unremarkable. Influenza A, B, RSV, COVID were negative. Chest x-ray showed small right pleural effusion with cardiomegaly and right basilar patchy airspace opacities. EKG showed sinus rhythm, left axis deviation, right bundle branch block, left anterior fascicular block, no evidence of ischemia. Venous Doppler study showed chronic DVT. During hospitalization, patient was noted to have worsening kidney function as well as hematuria. Urology and nephrology were consulted for this. Patient Xarelto was held and hematuria resolved, was seen and cleared by urology for outpatient cystoscopy as well as resumption of anticoagulation. Echocardiogram demonstrated normal ejection fraction with moderate pulmonary hypertension. Assessment/plan: Acute hypoxemic respiratory failure Acute diastolic heart failure exacerbation, ejection fraction is preserved at 55% Acute COPD exacerbation -Oxygen as needed -Strict ins and outs, daily weights -Cardiology consultation is appreciated -Lasix on hold as below -Procalcitonin is normal, discontinue antibiotics. -Blood culturesno growth to date -1500 cc fluid restriction, 2 g salt restriction -Pulmonology consulted; started the pt on steroids, updrafts Acute kidney injury, possibly superimposed on chronic kidney disease Hematuria, microscopic -Nephrology is consulted -Urine Na/Cr difficult to interpret d/t recent diuretic use; pending Urine urea to calculate FEUrea -Renal ultrasound is negative for hydronephrosis or nephrolithiasis -Holding Lasix secondary to concern for ATN -Hold home losartan -Urology consultation was appreciated, patient was cleared to resume anticoagulation and recommended for outpatient cystoscopy Macrocytic Anemia - b12, folate level pending - continue to monitor History of DVT -Xarelto was held due to hematuria, and FLORINDA -Will start the patient on heparin drip due to kidney dysfunction History of CABG Hyperlipidemia -Home medications reviewed and reconciled Patient has no code DVT prophylaxis is covered with therapeutic heparin Objective - Vital Signs Vital signs: Vital Signs Temp 97.7 F 07/03/24 08:35 Pulse 80 07/03/24 09:07 Resp 18 07/03/24 08:35 BP 121/60 07/03/24 08:35 Pulse Ox 92 L 07/03/24 08:35 FiO2 Intake & Output 07/02/24 07/03/24 07/03/24 18:59 06:59 18:59 Intake Total 460 86.667 250 Output Total 750 380 Balance -290 -293.333 250 Weight 90.5 kg 88 kg Intake: IV 20 20 10 Invasive Line 2 20 20 10 Intake, IV Titration 66.667 Amount Heparin Sod,Pork in 0.45% 66.667 NaCl 25,000 unit In 0.45 % NaCl 1 250ml.bag @ 11. 05 UNITS/KG/HR 10 mls/hr IV .Q24H [facility] Rx#: [id number] Oral 440 240 Output: Urine 750 380 Other: Voiding Method Indwelling Catheter Indwelling Catheter Indwelling Catheter # Voids 0 # Bowel Movements 0 - Labs CBC & Chem 7: 07/03/24 06:18 07/03/24 06:18 Labs: Abnormal Lab Results - Last 24 Hours (Table) 07/02/24 07/02/24 07/02/24 Range/Units 14:09 16:48 20:00 RBC 3.16 L (4.30-5.90) m/uL Hgb 10.1 L (13.0-17.5) gm/dL Hct 33.9 L (39.0-53.0) % MCV 107.2 H (80.0-100.0) fL MCHC 29.7 L (31.0-37.0) g/dL Lymphocytes # 0.6 L (1.0-4.8) k/uL APTT 50.3 H (22.0-30.0) sec Sodium (137-145) mmol/L BUN (9-20) mg/dL Creatinine (0.66-1.25) mg/dL Glucose (74-99) mg/dL POC Glucose (mg/dL) 208 H (70-110) mg/dL 07/02/24 07/03/24 07/03/24 Range/Units 20:03 06:10 06:18 RBC (4.30-5.90) m/uL Hgb (13.0-17.5) gm/dL Hct (39.0-53.0) % MCV (80.0-100.0) fL MCHC (31.0-37.0) g/dL Lymphocytes # (1.0-4.8) k/uL APTT (22.0-30.0) sec Sodium 136 L (137-145) mmol/L BUN 52 H (9-20) mg/dL Creatinine 2.81 H (0.66-1.25) mg/dL Glucose 214 H (74-99) mg/dL POC Glucose (mg/dL) 262 H 280 H (70-110) mg/dL 07/03/24 07/03/24 Range/Units 06:18 06:18 RBC 2.89 L (4.30-5.90) m/uL Hgb 9.6 L (13.0-17.5) gm/dL Hct 31.2 L (39.0-53.0) % MCV 107.8 H (80.0-100.0) fL MCHC 30.7 L (31.0-37.0) g/dL Lymphocytes # 0.4 L (1.0-4.8) k/uL APTT 66.2 H (22.0-30.0) sec Sodium (137-145) mmol/L BUN (9-20) mg/dL Creatinine (0.66-1.25) mg/dL Glucose (74-99) mg/dL POC Glucose (mg/dL) (70-110) mg/dL Microbiology - Last 24 Hours (Table) 06/30/24 18:02 Blood Culture - Preliminary Blood
[2024-07-03] MEDS: ACETAMINOPHEN TAB 325 MG TAB PO PRN (11:43)
[2024-07-03 12:09] LABS: Glucose,Whole Blood 409 mg/dL (70-110)
[2024-07-03] MEDS ORDERED: DEXTROSE 50% SYRINGE 50 ML IVP PRN ×2 (12:14)
[2024-07-03] MEDS: INSULIN LISPRO (HumaLOG) 100 UNIT/ML 10 mL VL SQ SCH ×2 (12:26→12:27)
--- NOTE | 2024-07-03 15:14 | P.PN ---
Subjective Progress Note Date: 07/03/24 This is a very pleasant 88-year-old male patient who resides in [place]. He has a 50-year smoking history however quit nearly 20 years ago. He does have COPD and is maintained on Trelegy. He also has diabetes mellitus, coronary artery disease with previous coronary artery bypass grafting, hyperlipidemia previous DVT maintained on Xarelto and hypertension. He was traveling home from [place] when he stopped here at this hospital to visit his [id number]. The patient then developed significant shortness of breath, cough and congestion and presented to the emergency room on 06/30/2024. Chest x-ray revealed a small right pleural effusion with cardiomegaly and right basilar patchy airspace opacities. White count 9.1. Hemoglobin 10.2. Platelets 204. Sodium 137. Potassium 4.5. Bicarb 21. BUN 50. Creatinine 2.67. Glucose 93. proBNP 7980. Troponins 0.091. 0.075. He is seen today in consultation on the selective care unit. He is currently resting fairly comfortably in bed. Awake and alert in no acute distress. He is maintaining O2 saturations in the 90s on 3 L/min per nasal cannula. He is dyspneic with conversation. Dyspneic with minimal exertion. He does have a productive cough. The patient is seen today July 03, 2024 in follow-up on the selective care unit. He is currently resting comfortably in bed. Awake and alert in no acute distress. Feeling a bit better today compared to yesterday. He is maintaining O2 saturations in the 90s on 3 L/min per nasal cannula. Chest x-ray shows persistent cardiomegaly with a small right pleural effusion and red right mid to lower lung infiltrate/atelectasis. Left basilar atelectasis. Blood culture shows no growth. White count 8.3. Hemoglobin 9.6. Platelets 225. Sodium 136. Potassium 4.8. Bicarb 22. BUN 52. Creatinine 2.81. Glucose 214. Procalcitonin was negative at 0.18. He is continued on albuterol and Solu- Medrol along with his home Trelegy. He remains on a heparin drip. Objective - Vital Signs Vital signs: Vital Signs Temp 97.7 F 07/03/24 08:35 Pulse 92 07/03/24 14:00 Resp 17 07/03/24 11:45 BP 127/69 07/03/24 11:45 Pulse Ox 90 L 07/03/24 11:45 FiO2 Intake & Output 07/02/24 07/03/24 07/03/24 18:59 06:59 18:59 Intake Total 460 86.667 430.333 Output Total 750 380 Balance -290 -293.333 430.333 Weight 90.5 kg 88 kg Intake: IV 20 20 20 Invasive Line 2 20 20 20 Intake, IV Titration 66.667 170.333 Amount Heparin Sod,Pork in 0.45% 66.667 170.333 NaCl 25,000 unit In 0.45 % NaCl 1 250ml.bag @ 11. 05 UNITS/KG/HR 10 mls/hr IV .Q24H [facility] Rx#: [id number] Oral 440 240 Output: Urine 750 380 Other: Voiding Method Indwelling Catheter Indwelling Catheter Indwelling Catheter # Voids 0 # Bowel Movements 0 - Exam GENERAL EXAM: Alert, 88-year-old male, on 3 L nasal cannula, fairly comfortable in no apparent distress. HEAD: Normocephalic. EYES: Normal reaction of pupils, equal size. NOSE: Clear with pink turbinates. THROAT: No erythema or exudates. NECK: No masses, no JVD. CHEST: No chest wall deformity. LUNGS: Equal air entry with basilar crackles, few scattered rhonchi. CVS: S1 and S2 normal with no audible murmur, regular rhythm. ABDOMEN: No hepatosplenomegaly, normal bowel sounds, no guarding or rigidity. SPINE: No scoliosis or deformity SKIN: No rashes CENTRAL NERVOUS SYSTEM: No focal deficits, tone is normal in all 4 extremities. EXTREMITIES: There is no peripheral edema. No clubbing, no cyanosis. Peripheral pulses are intact. - Labs CBC & Chem 7: 07/03/24 06:18 07/03/24 06:18 Labs: Abnormal Lab Results - Last 24 Hours (Table) 07/02/24 07/02/24 07/02/24 Range/Units 16:48 20:00 20:03 RBC (4.30-5.90) m/uL Hgb (13.0-17.5) gm/dL Hct (39.0-53.0) % MCV (80.0-100.0) fL MCHC (31.0-37.0) g/dL Lymphocytes # (1.0-4.8) k/uL APTT 50.3 H (22.0-30.0) sec Sodium (137-145) mmol/L BUN (9-20) mg/dL Creatinine (0.66-1.25) mg/dL Glucose (74-99) mg/dL POC Glucose (mg/dL) 208 H 262 H (70-110) mg/dL 07/03/24 07/03/24 07/03/24 Range/Units 06:10 06:18 06:18 RBC (4.30-5.90) m/uL Hgb (13.0-17.5) gm/dL Hct (39.0-53.0) % MCV (80.0-100.0) fL MCHC (31.0-37.0) g/dL Lymphocytes # (1.0-4.8) k/uL APTT 66.2 H (22.0-30.0) sec Sodium 136 L (137-145) mmol/L BUN 52 H (9-20) mg/dL Creatinine 2.81 H (0.66-1.25) mg/dL Glucose 214 H (74-99) mg/dL POC Glucose (mg/dL) 280 H (70-110) mg/dL 07/03/24 07/03/24 Range/Units 06:18 12:06 RBC 2.89 L (4.30-5.90) m/uL Hgb 9.6 L (13.0-17.5) gm/dL Hct 31.2 L (39.0-53.0) % MCV 107.8 H (80.0-100.0) fL MCHC 30.7 L (31.0-37.0) g/dL Lymphocytes # 0.4 L (1.0-4.8) k/uL APTT (22.0-30.0) sec Sodium (137-145) mmol/L BUN (9-20) mg/dL Creatinine (0.66-1.25) mg/dL Glucose (74-99) mg/dL POC Glucose (mg/dL) 409 H (70-110) mg/dL Microbiology - Last 24 Hours (Table) 06/30/24 18:02 Blood Culture - Preliminary Blood Assessment and Plan Assessment: Acute hypoxemic respiratory failure secondary to an acute exacerbation of chronic obstructive pulmonary disease. Viral screen negative. Procalcitonin negative Acute kidney injury secondary to ATN Acute exacerbation of chronic diastolic congestive heart failure Troponin leak secondary to above Chronic obstructive pulmonary disease History of 50 years of tobacco dependence however quit many years ago Hypertension Hyperlipidemia Diabetes mellitus, type II Coronary artery disease with previous coronary artery bypass grafting History of DVT, maintained on Xarelto Plan: The patient was seen and evaluated Chest x-ray, labs and medications reviewed Continue the patient's home Trelegy Continue Solu-Medrol Continue DuoNeb inhalations Procalcitonin was negative Antibiotics discontinued DNR CODE STATUS We will continue to follow I have personally seen and examined the patient, performed the documentation and the assessment and plan as written. Number of minutes spent on the visit: 10 Dictation was produced using [employer] dictation software. Please excuse any grammatical, word or spelling errors.
[2024-07-03 16:37] LABS: % Iron Saturation 17.14 (15.00-50.00)
[2024-07-03 17:03] LABS: Glucose,Whole Blood 254 mg/dL (70-110)
--- NOTE | 2024-07-03 19:41 | P.PN ---
Subjective Progress Note Date: 07/02/24 HISTORY OF PRESENT ILLNESS: This is a 88-year-old male with a past medical history significant for coronary artery disease with previous CABG, DVT, and hyperlipidemia. 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 We have been asked to see the patient in consultation for CHF. Patient examined at the bedside in the ER. Patient presented to the ER with a chief compliant of shortness of breath. He reports shortness of breath for past 2-3 days. Patient denies chest pain or pressure. Patient was found to be in acute CHF. Patient also reports hematuria and his urine cannister at the bedside has gross hematuria. DIAGNOSTICS: - EKG reveals sinus mechanism with right bundle branch block.. - Chest xray small right pleural effusion and cardiomegaly and right basilar patchy airspace opacities. Findings may relate to CHF exacerbation and/or pneumonia - Laboratory data: WBC 9.2. Hemoglobin 10.5. Platelet count 197. Sodium 136. Potassium 4.3. BUN 44. Creatinine 2.36. Troponin 0.073. 0.078. 0.075. TSH 1.700. proBNP 7980. - Current home cardiac medications include bisoprolol 2.5 mg daily, Farxiga 10 mg daily, rosuvastatin 10 mg daily, Xarelto 15 mg daily -No previous echocardiogram, stress test, or cardiac catheterization available in EMR for review Progress note 07/02/2024 Patient is seen and examined at bedside this a.m. Hb 10.1, BUN 50, creatinine 2.67 yesterday creatinine was 2.3.. BP 134/63, heart rate 72 bpm, PHYSICAL EXAM: HEENT: Head is normocephalic. Pupils are equal, round. Sclerae anicteric. Mucous membranes of the mouth are moist. Neck supple. No JVD or thyromegaly LUNGS: Respirations even and unlabored. Lungs with expiratory wheezing noted. HEART: Regular rate and rhythm. S1 and S2 heard. ABDOMEN: Soft. Nondistended. Nontender. EXTREMITIES: Normal range of motion. No clubbing or cyanosis. Peripheral pulses intact. 2+ bilateral lower extremity edema NEUROLOGIC: Awake and alert. Oriented x 3. ASSESSMENT: Acute hypoxic respiratory failure Acute heart failure with unknown EF, echo pending Possible pneumonia Acute kidney injury, baseline unknown Gross hematuria Bated troponins, type II OR secondary to oxygen supply/demand mismatch Coronary artery disease with previous CABG, approximately 24 years ago History of DVT, on Xarelto outpatient Hyperlipidemia Pertinent cardiac testing Echo shows EF 55%, no RWMA, moderate pulmonary hypertension, mild MR, mild LA dilatation, moderate TR, mildly dilated ascending aorta measured at 4 cm. PLAN: Holding losartan due to FLORINDA Discontinue Xarelto secondary to gross hematuria this morning. He is currently on IV heparin drip. If hematuria has resolved, consider stopping IV heparin drip and starting Xarelto. Continue Farxiga and bisoprolol Add Imdur 15 mg daily Add hydralazine 25 mg 3 times daily Add aspirin 81 mg daily, Lipitor 20 mg Begin IV Lasix 40 mg every 12 hours Objective - Vital Signs Vital signs: Vital Signs Temp 97.7 F 07/03/24 08:35 Pulse 71 07/03/24 16:00 Resp 19 07/03/24 16:00 BP 124/60 07/03/24 16:00 Pulse Ox 92 L 07/03/24 16:00 FiO2 Intake & Output 07/03/24 07/03/24 07/04/24 06:59 18:59 06:59 Intake Total 86.667 670.333 Output Total 380 600 Balance -293.333 670.333 -600 Weight 88 kg Intake: IV 20 20 Invasive Line 2 20 20 Intake, IV Titration 66.667 170.333 Amount Heparin Sod,Pork in 0.45% 66.667 170.333 NaCl 25,000 unit In 0.45 % NaCl 1 250ml.bag @ 11. 05 UNITS/KG/HR 10 mls/hr IV .Q24H [facility] Rx#: [id number] Oral 480 Output: Urine 380 600 Other: Voiding Method Indwelling Catheter Indwelling Catheter # Voids 0 # Bowel Movements 0 0 - Labs CBC & Chem 7: 07/03/24 06:18 07/03/24 06:18 Labs: Abnormal Lab Results - Last 24 Hours (Table) 07/02/24 07/02/24 07/03/24 Range/Units 20:00 20:03 06:10 RBC (4.30-5.90) m/uL Hgb (13.0-17.5) gm/dL Hct (39.0-53.0) % MCV (80.0-100.0) fL MCHC (31.0-37.0) g/dL Lymphocytes # (1.0-4.8) k/uL APTT 50.3 H (22.0-30.0) sec Sodium (137-145) mmol/L BUN (9-20) mg/dL Creatinine (0.66-1.25) mg/dL Glucose (74-99) mg/dL POC Glucose (mg/dL) 262 H 280 H (70-110) mg/dL Iron (65-175) UG/DL TIBC (228-460) UG/DL Transferrin (204.0-354.0) mg/dL 07/03/24 07/03/24 07/03/24 Range/Units 06:18 06:18 06:18 RBC 2.89 L (4.30-5.90) m/uL Hgb 9.6 L (13.0-17.5) gm/dL Hct 31.2 L (39.0-53.0) % MCV 107.8 H (80.0-100.0) fL MCHC 30.7 L (31.0-37.0) g/dL Lymphocytes # 0.4 L (1.0-4.8) k/uL APTT 66.2 H (22.0-30.0) sec Sodium 136 L (137-145) mmol/L BUN 52 H (9-20) mg/dL Creatinine 2.81 H (0.66-1.25) mg/dL Glucose 214 H (74-99) mg/dL POC Glucose (mg/dL) (70-110) mg/dL Iron (65-175) UG/DL TIBC (228-460) UG/DL Transferrin (204.0-354.0) mg/dL 07/03/24 07/03/24 07/03/24 Range/Units 06:18 12:06 16:50 RBC (4.30-5.90) m/uL Hgb (13.0-17.5) gm/dL Hct (39.0-53.0) % MCV (80.0-100.0) fL MCHC (31.0-37.0) g/dL Lymphocytes # (1.0-4.8) k/uL APTT (22.0-30.0) sec Sodium (137-145) mmol/L BUN (9-20) mg/dL Creatinine (0.66-1.25) mg/dL Glucose (74-99) mg/dL POC Glucose (mg/dL) 409 H 254 H (70-110) mg/dL Iron 36 L (65-175) UG/DL TIBC 210 L (228-460) UG/DL Transferrin 150.0 L (204.0-354.0) mg/dL Microbiology - Last 24 Hours (Table) 06/30/24 18:02 Blood Culture - Preliminary Blood
--- NOTE | 2024-07-03 19:42 | P.PN ---
Subjective Progress Note Date: 07/03/24 HISTORY OF PRESENT ILLNESS: This is a 88-year-old male with a past medical history significant for coronary artery disease with previous CABG, DVT, and hyperlipidemia. Patient follows with a vrt mechanic in [facility]. We have been asked to see the patient in consultation for CHF. Patient examined at the bedside in the ER. Patient presented to the ER with a chief compliant of shortness of breath. He reports shortness of breath for past 2-3 days. Patient denies chest pain or pressure. Patient was found to be in acute CHF. Patient also reports hematuria and his urine cannister at the bedside has gross hematuria. DIAGNOSTICS: - EKG reveals sinus mechanism with right bundle branch block.. - Chest xray small right pleural effusion and cardiomegaly and right basilar patchy airspace opacities. Findings may relate to CHF exacerbation and/or pneumonia - Laboratory data: WBC 9.2. Hemoglobin 10.5. Platelet count 197. Sodium 136. Potassium 4.3. BUN 44. Creatinine 2.36. Troponin 0.073. 0.078. 0.075. TSH 1.700. proBNP 7980. - Current home cardiac medications include bisoprolol 2.5 mg daily, Farxiga 10 mg daily, rosuvastatin 10 mg daily, Xarelto 15 mg daily -No previous echocardiogram, stress test, or cardiac catheterization available in EMR for review Progress note 07/02/2024 Patient is seen and examined at bedside this a.m. Hb 10.1, BUN 50, creatinine 2.67 yesterday creatinine was 2.3.. BP 134/63, heart rate 72 bpm, 07/03/2024 Patient is seen and examined at bedside this a.m. Creatinine is worse today to 2.8. Blood pressure and heart rate are at goal. PHYSICAL EXAM: HEENT: Head is normocephalic. Pupils are equal, round. Sclerae anicteric. Mucous membranes of the mouth are moist. Neck supple. No JVD or thyromegaly LUNGS: Respirations even and unlabored. Lungs with expiratory wheezing noted. HEART: Regular rate and rhythm. S1 and S2 heard. ABDOMEN: Soft. Nondistended. Nontender. EXTREMITIES: Normal range of motion. No clubbing or cyanosis. Peripheral pulses intact. 2+ bilateral lower extremity edema NEUROLOGIC: Awake and alert. Oriented x 3. ASSESSMENT: Acute hypoxic respiratory failure Acute heart failure with unknown EF, echo pending Possible pneumonia Acute kidney injury, baseline unknown Gross hematuria Bated troponins, type II ID secondary to oxygen supply/demand mismatch Coronary artery disease with previous CABG, approximately 24 years ago History of DVT, on Xarelto outpatient Hyperlipidemia Pertinent cardiac testing Echo shows EF 55%, no RWMA, moderate pulmonary hypertension, mild MR, mild LA dilatation, moderate TR, mildly dilated ascending aorta measured at 4 cm. PLAN: Holding losartan due to FLORINDA Discontinue Xarelto secondary to gross hematuria this morning. He is currently on IV heparin drip. If hematuria has resolved, consider stopping IV heparin drip and starting Xarelto. Continue Farxiga and bisoprolol Add Imdur 15 mg daily Add hydralazine 25 mg 3 times daily Add aspirin 81 mg daily, Lipitor 20 mg Hold diuretics because of worsening FLORINDA. Objective - Vital Signs Vital signs: Vital Signs Temp 97.7 F 07/03/24 08:35 Pulse 71 07/03/24 16:00 Resp 19 07/03/24 16:00 BP 124/60 07/03/24 16:00 Pulse Ox 92 L 07/03/24 16:00 FiO2 Intake & Output 07/03/24 07/03/24 07/04/24 06:59 18:59 06:59 Intake Total 86.667 670.333 Output Total 380 600 Balance -293.333 670.333 -600 Weight 88 kg Intake: IV 20 20 Invasive Line 2 20 20 Intake, IV Titration 66.667 170.333 Amount Heparin Sod,Pork in 0.45% 66.667 170.333 NaCl 25,000 unit In 0.45 % NaCl 1 250ml.bag @ 11. 05 UNITS/KG/HR 10 mls/hr IV .Q24H [facility] Rx#: [id number] Oral 480 Output: Urine 380 600 Other: Voiding Method Indwelling Catheter Indwelling Catheter # Voids 0 # Bowel Movements 0 0 - Labs CBC & Chem 7: 07/03/24 06:18 07/03/24 06:18 Labs: Abnormal Lab Results - Last 24 Hours (Table) 07/02/24 07/02/24 07/03/24 Range/Units 20:00 20:03 06:10 RBC (4.30-5.90) m/uL Hgb (13.0-17.5) gm/dL Hct (39.0-53.0) % MCV (80.0-100.0) fL MCHC (31.0-37.0) g/dL Lymphocytes # (1.0-4.8) k/uL APTT 50.3 H (22.0-30.0) sec Sodium (137-145) mmol/L BUN (9-20) mg/dL Creatinine (0.66-1.25) mg/dL Glucose (74-99) mg/dL POC Glucose (mg/dL) 262 H 280 H (70-110) mg/dL Iron (65-175) UG/DL TIBC (228-460) UG/DL Transferrin (204.0-354.0) mg/dL 07/03/24 07/03/24 07/03/24 Range/Units 06:18 06:18 06:18 RBC 2.89 L (4.30-5.90) m/uL Hgb 9.6 L (13.0-17.5) gm/dL Hct 31.2 L (39.0-53.0) % MCV 107.8 H (80.0-100.0) fL MCHC 30.7 L (31.0-37.0) g/dL Lymphocytes # 0.4 L (1.0-4.8) k/uL APTT 66.2 H (22.0-30.0) sec Sodium 136 L (137-145) mmol/L BUN 52 H (9-20) mg/dL Creatinine 2.81 H (0.66-1.25) mg/dL Glucose 214 H (74-99) mg/dL POC Glucose (mg/dL) (70-110) mg/dL Iron (65-175) UG/DL TIBC (228-460) UG/DL Transferrin (204.0-354.0) mg/dL 07/03/24 07/03/24 07/03/24 Range/Units 06:18 12:06 16:50 RBC (4.30-5.90) m/uL Hgb (13.0-17.5) gm/dL Hct (39.0-53.0) % MCV (80.0-100.0) fL MCHC (31.0-37.0) g/dL Lymphocytes # (1.0-4.8) k/uL APTT (22.0-30.0) sec Sodium (137-145) mmol/L BUN (9-20) mg/dL Creatinine (0.66-1.25) mg/dL Glucose (74-99) mg/dL POC Glucose (mg/dL) 409 H 254 H (70-110) mg/dL Iron 36 L (65-175) UG/DL TIBC 210 L (228-460) UG/DL Transferrin 150.0 L (204.0-354.0) mg/dL Microbiology - Last 24 Hours (Table) 06/30/24 18:02 Blood Culture - Preliminary Blood
[2024-07-03 20:09] LABS: Glucose,Whole Blood 159 mg/dL (70-110)
[2024-07-03] MEDS: INSULIN GLARGINE (LANTUS) 100 UNIT/ML SYR SQ SCH (20:39)
[2024-07-04 06:24] LABS: Glucose,Whole Blood 170 mg/dL (70-110)
[2024-07-04 07:53] LABS: African American GFR (CKD) 21 (>60 ml/min/1.73 sqM); Anion Gap 10 mmol/L; Blood Urea Nitrogen 70 mg/dL (9-20); Carbon Dioxide 20 mmol/L (22-30); Chloride 105 mmol/L (98-107); Glucose 162 mg/dL (74-99); Non-African American GFR(CKD) 18 (>60 ml/min/1.73 sqM); Potassium 5.5 mmol/L (3.5-5.1); Sodium 135 mmol/L (137-145)
[2024-07-04] MEDS: FUROSEMIDE 10 MG/ML 4 ML VIAL IV SCH (10:23)
[2024-07-04] MEDS: guaiFENesin 600 MG TABLET.ER PO PRN (10:36)
[2024-07-04] MEDS: RIVAROXABAN 15 MG TAB PO SCH (11:35)
[2024-07-04 11:37] LABS: Glucose,Whole Blood 228 mg/dL (70-110)
--- NOTE | 2024-07-04 12:16 | P.PN ---
Subjective Progress Note Date: 07/04/24 No new complaints today, breathing much improved. Kidney function is worsening. Lasix resumed at 40mg IV BID Gen: In NAD, non-toxic HEENT: normocephalic, atraumatic, hearing acuity is intant, mucous membranes moist CVS: perfusing all extremities well, bilateral pitting edema, +jvd Respiratory: symmetric chest expansion, no accessory muscle use, +wheezing GI: soft, NTTP, ND, : no suprapubic tenderness, no CVA tenderness MSK/Derm: no rashes, cyanosis Neuro: CN II-XII intact, no motor weakness, Psych: cooperative, euthymic mood, judgment and insight is intact Hospital course: This is an 88-year-old male with a past medical history reviewed coronary disease status post CABG x 1, hyperlipidemia, heart failure, DVT on Xarelto presents emergency department with complaint of shortness of breath. In the emergency room, patient was afebrile, 119/68, heart rate 75, 83% on room air. CBC was remarkable for hemoglobin of 11.5 with MCV of 105.9. INR is 1.5. BUN was 40, creatinine 2.17 with no known baseline. BNP was 7980. Liver function tests are unremarkable. Influenza A, B, RSV, COVID were negative. Chest x-ray showed small right pleural effusion with cardiomegaly and right basilar patchy airspace opacities. EKG showed sinus rhythm, left axis deviation, right bundle branch block, left anterior fascicular block, no evidence of ischemia. Venous Doppler study showed chronic DVT. During hospitalization, patient was noted to have worsening kidney function as well as hematuria. Urology and nephrology were consulted for this. Patient Xarelto was held and hematuria resolved, was seen and cleared by urology for outpatient cystoscopy as well as resumption of anticoagulation. Echocardiogram demonstrated normal ejection fraction with moderate pulmonary hypertension. Assessment/plan: Acute hypoxemic respiratory failure Acute diastolic heart failure exacerbation, ejection fraction is preserved at 55% Acute COPD exacerbation -Oxygen as needed -Strict ins and outs, daily weights -Cardiology consultation is appreciated -Lasix 40mg IV BID -Blood culturesno growth to date -1500 cc fluid restriction, 2 g salt restriction -Pulmonology consulted; started the pt on steroids, updrafts Acute kidney injury, possibly superimposed on chronic kidney disease Acute Tubular Necrosis Hematuria, microscopic -Nephrology is consulted -FEUrea = 106.2% c/w intrinsic renal disease, likely ATN -Renal ultrasound is negative for hydronephrosis or nephrolithiasis -Lasix 40mg IV BID -Hold home losartan -Urology consultation was appreciated, patient was cleared to resume anticoagulation and recommended for outpatient cystoscopy Macrocytic Anemia - b12, folate level pending - continue to monitor History of DVT -Xarelto was held due to hematuria, and FLORINDA -Will start the patient on heparin drip due to kidney dysfunction History of CABG Hyperlipidemia -Home medications reviewed and reconciled Patient has no code DVT prophylaxis is covered with therapeutic heparin Objective - Vital Signs Vital signs: Vital Signs Temp 97.9 F 07/04/24 11:15 Pulse 96 07/04/24 12:08 Resp 24 07/04/24 11:15 BP 116/65 07/04/24 11:15 Pulse Ox 90 L 07/04/24 11:15 FiO2 Intake & Output 07/03/24 07/04/24 07/04/24 18:59 06:59 18:59 Intake Total 670.333 457.666 Output Total 600 500 Balance 670.333 -600 -42.334 Weight 86.5 kg Intake: IV 20 Invasive Line 2 20 Intake, IV Titration 170.333 217.666 Amount Heparin Sod,Pork in 0.45% 170.333 217.666 NaCl 25,000 unit In 0.45 % NaCl 1 250ml.bag @ 11. 05 UNITS/KG/HR 10 mls/hr IV .Q24H [facility] Rx#: [id number] Oral 480 240 Output: Urine 600 500 Other: Voiding Method Indwelling Catheter Indwelling Catheter Indwelling Catheter # Voids 0 # Bowel Movements 0 0 1 - Labs CBC & Chem 7: 07/03/24 06:18 07/04/24 06:26 Labs: Abnormal Lab Results - Last 24 Hours (Table) 07/03/24 07/03/24 07/03/24 Range/Units 06:18 16:50 20:06 APTT (22.0-30.0) sec Sodium (137-145) mmol/L Potassium (3.5-5.1) mmol/L Carbon Dioxide (22-30) mmol/L BUN (9-20) mg/dL Creatinine (0.66-1.25) mg/dL Glucose (74-99) mg/dL POC Glucose (mg/dL) 254 H 159 H (70-110) mg/dL Iron 36 L (65-175) UG/DL TIBC 210 L (228-460) UG/DL Transferrin 150.0 L (204.0-354.0) mg/dL 07/04/24 07/04/24 07/04/24 Range/Units 06:15 06:26 06:26 APTT 56.8 H (22.0-30.0) sec Sodium 135 L (137-145) mmol/L Potassium 5.5 H (3.5-5.1) mmol/L Carbon Dioxide 20 L (22-30) mmol/L BUN 70 H (9-20) mg/dL Creatinine 3.01 H (0.66-1.25) mg/dL Glucose 162 H (74-99) mg/dL POC Glucose (mg/dL) 170 H (70-110) mg/dL Iron (65-175) UG/DL TIBC (228-460) UG/DL Transferrin (204.0-354.0) mg/dL 07/04/24 Range/Units 11:36 APTT (22.0-30.0) sec Sodium (137-145) mmol/L Potassium (3.5-5.1) mmol/L Carbon Dioxide (22-30) mmol/L BUN (9-20) mg/dL Creatinine (0.66-1.25) mg/dL Glucose (74-99) mg/dL POC Glucose (mg/dL) 228 H (70-110) mg/dL Iron (65-175) UG/DL TIBC (228-460) UG/DL Transferrin (204.0-354.0) mg/dL Microbiology - Last 24 Hours (Table) 06/30/24 18:02 Blood Culture - Preliminary Blood
--- NOTE | 2024-07-04 12:29 | P.PN ---
Subjective Progress Note Date: 07/04/24 (Nephrology Note ) Patient seen for follow-up for FLORINDA without any known baseline renal function. Renal function worsened slightly with creatinine today 3.0 from 2.81 and BUN 70 from 52. He is utilizing 3 to liter nasal cannula saturating in the lowmid 90%'s. And remains dyspneic with very minimal exertion. audible crackles No active complaints at this time. Continues to utilize indwelling Huertas cath eter. Objective - Vital Signs Vital signs: Vital Signs Temp 97.9 F 07/04/24 11:15 Pulse 92 07/04/24 12:17 Resp 24 07/04/24 11:15 BP 116/65 07/04/24 11:15 Pulse Ox 90 L 07/04/24 11:15 FiO2 Intake & Output 07/03/24 07/04/24 07/04/24 18:59 06:59 18:59 Intake Total 670.333 457.666 Output Total 600 500 Balance 670.333 -600 -42.334 Weight 86.5 kg Intake: IV 20 Invasive Line 2 20 Intake, IV Titration 170.333 217.666 Amount Heparin Sod,Pork in 0.45% 170.333 217.666 NaCl 25,000 unit In 0.45 % NaCl 1 250ml.bag @ 11. 05 UNITS/KG/HR 10 mls/hr IV .Q24H [facility] Rx#: [id number] Oral 480 240 Output: Urine 600 500 Other: Voiding Method Indwelling Catheter Indwelling Catheter Indwelling Catheter # Voids 0 # Bowel Movements 0 0 1 - Exam Patient is awake, comfortable, no acute distress. Hard of hearing. Huertas catheter in place. Heart: S1 and S2 heard Lungs: Diminished breath sounds heard on the right with rhonchi Abdomen: Soft and nontender Lower extremities: Trace edema ELEMENT SETTER: grossly intact - Labs CBC & Chem 7: 07/03/24 06:18 07/04/24 06:26 Labs: Abnormal Lab Results - Last 24 Hours (Table) 07/03/24 07/03/24 07/03/24 Range/Units 06:18 16:50 20:06 APTT (22.0-30.0) sec Sodium (137-145) mmol/L Potassium (3.5-5.1) mmol/L Carbon Dioxide (22-30) mmol/L BUN (9-20) mg/dL Creatinine (0.66-1.25) mg/dL Glucose (74-99) mg/dL POC Glucose (mg/dL) 254 H 159 H (70-110) mg/dL Iron 36 L (65-175) UG/DL TIBC 210 L (228-460) UG/DL Transferrin 150.0 L (204.0-354.0) mg/dL 07/04/24 07/04/24 07/04/24 Range/Units 06:15 06:26 06:26 APTT 56.8 H (22.0-30.0) sec Sodium 135 L (137-145) mmol/L Potassium 5.5 H (3.5-5.1) mmol/L Carbon Dioxide 20 L (22-30) mmol/L BUN 70 H (9-20) mg/dL Creatinine 3.01 H (0.66-1.25) mg/dL Glucose 162 H (74-99) mg/dL POC Glucose (mg/dL) 170 H (70-110) mg/dL Iron (65-175) UG/DL TIBC (228-460) UG/DL Transferrin (204.0-354.0) mg/dL 07/04/24 Range/Units 11:36 APTT (22.0-30.0) sec Sodium (137-145) mmol/L Potassium (3.5-5.1) mmol/L Carbon Dioxide (22-30) mmol/L BUN (9-20) mg/dL Creatinine (0.66-1.25) mg/dL Glucose (74-99) mg/dL POC Glucose (mg/dL) 228 H (70-110) mg/dL Iron (65-175) UG/DL TIBC (228-460) UG/DL Transferrin (204.0-354.0) mg/dL Microbiology - Last 24 Hours (Table) 06/30/24 18:02 Blood Culture - Preliminary Blood Assessment and Plan Assessment: #FLORINDA secondary to ATN d/t underlying infection and cardiorenal syndrome, with unknown baseline renal function; US abd/bladder showed right renal cysts with no evidence of obstruction; UA is benign #Right lung pneumonia, maintained on antibiotics, pulmonology consulted #Acute hypoxic respiratory failure secondary to right-sided bacterial pneumonia and diastolic CHF exacerbation on initial admission, now improved. EF 55-60% #Bilateral lower extremity edema secondary to moderate pulmonary hypertension #History of CABG in 1998 Plan: -will resume IV Lasix 40 mg BID - monitor UO and check weight daily -Continue with antibiotics -Continue to hold ARBs -Hold Farxiga -Wean oxygen as tolerated -1500 cc fluid restriction -2 g salt restriction -Monitor BMP in the a.m. -Avoid nephrotoxic agents
--- NOTE | 2024-07-04 14:54 | P.PN ---
Subjective Progress Note Date: 07/04/24 Principal diagnosis: Shortness of breath. This is a very pleasant 88-year-old male patient who resides in [place]. He has a 50-year smoking history however quit nearly 20 years ago. He does have COPD and is maintained on Trelegy. He also has diabetes mellitus, coronary artery disease with previous coronary artery bypass grafting, hyperlipidemia previous DVT maintained on Xarelto and hypertension. He was traveling home from [place] when he stopped here at this hospital to visit his [id number]. The patient then developed significant shortness of breath, cough and congestion and presented to the emergency room on 06/30/2024. Chest x-ray revealed a small right pleural effusion with cardiomegaly and right basilar patchy airspace opacities. White count 9.1. Hemoglobin 10.2. Platelets 204. Sodium 137. Potassium 4.5. Bicarb 21. BUN 50. Creatinine 2.67. Glucose 93. proBNP 7980. Troponins 0.091. 0.075. He is seen today in consultation on the selective care unit. He is currently resting fairly comfortably in bed. Awake and alert in no acute distress. He is maintaining O2 saturations in the 90s on 3 L/min per nasal cannula. He is dyspneic with conversation. Dyspneic with minimal exertion. He does have a productive cough. The patient is seen today July 03, 2024 in follow-up on the selective care unit. He is currently resting comfortably in bed. Awake and alert in no acute distress. Feeling a bit better today compared to yesterday. He is maintaining O2 saturations in the 90s on 3 L/min per nasal cannula. Chest x-ray shows persistent cardiomegaly with a small right pleural effusion and red right mid to lower lung infiltrate/atelectasis. Left basilar atelectasis. Blood culture shows no growth. White count 8.3. Hemoglobin 9.6. Platelets 225. Sodium 136. Potassium 4.8. Bicarb 22. BUN 52. Creatinine 2.81. Glucose 214. Proca lcitonin was negative at 0.18. He is continued on albuterol and Solu-Medrol along with his home Trelegy. He remains on a heparin drip. Progress note dated July 04, 2024. 88-year-old male seen today in room 384. The patient is a DO NOT RESUSCITATE patient. He is currently resting comfortably in bed. He is on 3 L nasal cannula. He is not receiving any IV fluids. We are going to DC his Trelegy, and instead, place him on budesonide 1 mg, and formoterol 20 mcg, twice a day. Current laboratory data includes a PTT at 56.8, sodium 135, potassium 5.5, chlorides 105, CO2 20, anion gap 10, BUN 70, creatinine 3.01. Glucose is 228. Hemoglobin A1c is 7.3. Calcium is 9. Chest x-ray shows carbon, right pleural effusion and possible right mid to lower lung infiltrate. Chest x-ray is largely unchanged. The patient's procalcitonin level was normal at 0.18. Objective - Vital Signs Vital signs: Vital Signs Temp 97.9 F 07/04/24 11:15 Pulse 83 07/04/24 13:31 Resp 24 07/04/24 11:15 BP 116/65 07/04/24 11:15 Pulse Ox 90 L 07/04/24 11:15 FiO2 Intake & Output 07/03/24 07/04/24 07/04/24 18:59 06:59 18:59 Intake Total 670.333 457.666 Output Total 600 500 Balance 670.333 -600 -42.334 Weight 86.5 kg Intake: IV 20 Invasive Line 2 20 Intake, IV Titration 170.333 217.666 Amount Heparin Sod,Pork in 0.45% 170.333 217.666 NaCl 25,000 unit In 0.45 % NaCl 1 250ml.bag @ 11. 05 UNITS/KG/HR 10 mls/hr IV .Q24H [facility] Rx#: [id number] Oral 480 240 Output: Urine 600 500 Other: Voiding Method Indwelling Catheter Indwelling Catheter Indwelling Catheter # Voids 0 # Bowel Movements 0 0 1 - Exam No acute distress, oriented 3. Currently on 3 L nasal cannula. HEENT examination is grossly unremarkable. Mucous membranes are moist. No oral lesions. Neck supple. Full range of motion. No adenopathy thyromegaly or neck vein distention. Cardiovascular examination reveals regular rhythm rate. S1-S2 normal. No S3 or S4. No discernible murmur noted. Lungs reveal scattered rhonchi and crackles.. No wheezes. Breath sounds are eq ual bilaterally. Abdomen soft bowel sounds are heard. No masses or tenderness. Extremities are intact. No cyanosis clubbing or edema. Skin is without rash or lesion. Neurologic examination is brief but nonfocal. - Labs CBC & Chem 7: 07/03/24 06:18 07/04/24 06:26 Labs: Abnormal Lab Results - Last 24 Hours (Table) 07/03/24 07/03/24 07/03/24 Range/Units 06:18 16:50 20:06 APTT (22.0-30.0) sec Sodium (137-145) mmol/L Potassium (3.5-5.1) mmol/L Carbon Dioxide (22-30) mmol/L BUN (9-20) mg/dL Creatinine (0.66-1.25) mg/dL Glucose (74-99) mg/dL POC Glucose (mg/dL) 254 H 159 H (70-110) mg/dL Hemoglobin A1c (<=6.0) % Iron 36 L (65-175) UG/DL TIBC 210 L (228-460) UG/DL Transferrin 150.0 L (204.0-354.0) mg/dL 07/04/24 07/04/24 07/04/24 Range/Units 06:15 06:26 06:26 APTT 56.8 H (22.0-30.0) sec Sodium (137-145) mmol/L Potassium (3.5-5.1) mmol/L Carbon Dioxide (22-30) mmol/L BUN (9-20) mg/dL Creatinine (0.66-1.25) mg/dL Glucose (74-99) mg/dL POC Glucose (mg/dL) 170 H (70-110) mg/dL Hemoglobin A1c 7.3 H (<=6.0) % Iron (65-175) UG/DL TIBC (228-460) UG/DL Transferrin (204.0-354.0) mg/dL 07/04/24 07/04/24 Range/Units 06:26 11:36 APTT (22.0-30.0) sec Sodium 135 L (137-145) mmol/L Potassium 5.5 H (3.5-5.1) mmol/L Carbon Dioxide 20 L (22-30) mmol/L BUN 70 H (9-20) mg/dL Creatinine 3.01 H (0.66-1.25) mg/dL Glucose 162 H (74-99) mg/dL POC Glucose (mg/dL) 228 H (70-110) mg/dL Hemoglobin A1c (<=6.0) % Iron (65-175) UG/DL TIBC (228-460) UG/DL Transferrin (204.0-354.0) mg/dL Microbiology - Last 24 Hours (Table) 06/30/24 18:02 Blood Culture - Preliminary Blood Assessment and Plan Assessment: Acute hypoxemic respiratory failure secondary to an acute exacerbation of chronic obstructive pulmonary disease. Acute kidney injury secondary to ATN. Acute exacerbation of chronic diastolic congestive heart failure. Troponin leak secondary to above. Chronic obstructive pulmonary disease. History of 50 years of tobacco dependence. Hypertension. Hyperlipidemia. Diabetes mellitus, type II. Coronary artery disease with previous coronary artery bypass grafting. History of DVT, maintained on Xarelto. Plan: Plan dated July 04, 2024. The patient is seen today in room 384. The patient is a DO NOT RESUSCITATE patient. The patient is currently on 3 L. No IV fluids. Patient is quite bronchospastic. For that reason we will stop the Trelegy, and put the patient on breathing treatments, with budesonide 1 mg, and formoterol 20 mcg, twice a day. Labs, x-rays, and medications are reviewed. Procalcitonin level was normal. Antibiotics were discontinued. We will continue to follow the patient, make recommendations. Prognosis is guarded. Cultures are currently negative. Dictation was produced using [employer] software. Please excuse any grammatical, word or spelling errors. Time with Patient: Less than 30
[2024-07-04 16:51] LABS: Glucose,Whole Blood 155 mg/dL (70-110)
[2024-07-04] MEDS ORDERED: ALBUTEROL NEBULIZED 2.5 MG/3 ML INHALATION PRN (17:48)
[2024-07-04 20:37] LABS: Glucose,Whole Blood 212 mg/dL (70-110)
[2024-07-04] MEDS: FORMOTEROL FUMARATE 20 MCG/2 ML NEBU INHALATION SCH (20:47)
[2024-07-04] MEDS: BUDESONIDE 1 MG/2 ML NEBU INHALATION SCH (20:47)
[2024-07-04] MEDS: IPRATROPIUM-ALBUTEROL 3 ML NEB INHALATION SCH (20:47)
[2024-07-05 06:23] LABS: Glucose,Whole Blood 179 mg/dL (70-110)
[2024-07-05 08:18] LABS: Glucose,Whole Blood 206 mg/dL (70-110)
[2024-07-05 11:33] LABS: Glucose,Whole Blood 197 mg/dL (70-110)
[2024-07-05 12:05] LABS: Basophils % (A) 0 %; Eosinophils % (A) 0 %; HCT 35.3 % (39.0-53.0); HGB 10.4 gm/dL (13.0-17.5); Hypochromasia Marked; Lymphocytes # (A) 0.4 k/uL (1.0-4.8); Lymphocytes % (A) 3 %; MCH 32.7 pg (25.0-35.0); MCHC 29.5 g/dL (31.0-37.0); MCV 110.8 fL (80.0-100.0); Macrocytosis Marked; Mean Platelet Volume 9.9; Monocytes # (A) 0.4 k/uL (0-1.0); Monocytes % (A) 3 %; Neutrophils # (A) 13.2 k/uL (1.3-7.7); Neutrophils % (A) 94 %; Platelet Count 231 k/uL (150-450); RBC 3.19 m/uL (4.30-5.90); RDW 13.8 % (11.5-15.5); WBC 14.1 k/uL (3.8-10.6)
[2024-07-05 12:22] LABS: African American GFR (CKD) 18 (>60 ml/min/1.73 sqM); Anion Gap 12 mmol/L; Blood Urea Nitrogen 87 mg/dL (9-20); Carbon Dioxide 19 mmol/L (22-30); Chloride 104 mmol/L (98-107); Glucose 174 mg/dL (74-99); Magnesium 1.9 mg/dL (1.6-2.3); Non-African American GFR(CKD) 16 (>60 ml/min/1.73 sqM); Potassium 5.2 mmol/L (3.5-5.1); Sodium 135 mmol/L (137-145)
--- NOTE | 2024-07-05 12:41 | P.PN ---
Subjective Progress Note Date: 07/05/24 No new complaints today, breathing is improved today. Kidney function is worsening again. Gen: In NAD, non-toxic HEENT: normocephalic, atraumatic, hearing acuity is intant, mucous membranes moist CVS: perfusing all extremities well, bilateral pitting edema, +jvd Respiratory: symmetric chest expansion, no accessory muscle use, +wheezing GI: soft, NTTP, ND, : no suprapubic tenderness, no CVA tenderness MSK/Derm: no rashes, cyanosis Neuro: CN II-XII intact, no motor weakness, Psych: cooperative, euthymic mood, judgment and insight is intact Hospital course: This is an 88-year-old male with a past medical history reviewed coronary disease status post CABG x 1, hyperlipidemia, heart failure, DVT on Xarelto presents emergency department with complaint of shortness of breath. In the emergency room, patient was afebrile, 119/68, heart rate 75, 83% on room air. CBC was remarkable for hemoglobin of 11.5 with MCV of 105.9. INR is 1.5. BUN was 40, creatinine 2.17 with no known baseline. BNP was 7980. Liver function tests are unremarkable. Influenza A, B, RSV, COVID were negative. Chest x-ray showed small right pleural effusion with cardiomegaly and right basilar patchy airspace opacities. EKG showed sinus rhythm, left axis deviation, right bundle branch block, left anterior fascicular block, no evidence of ischemia. Venous Doppler study showed chronic DVT. During hospitalization, patient was noted to have worsening kidney function as well as hematuria. Urology and nephrology were consulted for this. Patient Xarelto was held and hematuria resolved, was seen and cleared by urology for outpatient cystoscopy as well as resumption of anticoagulation. Echocardiogram demonstrated normal ejection fraction with moderate pulmonary hypertension. Assessment/plan: Acute hypoxemic respiratory failure Acute diastolic heart failure exacerbation, ejection fraction is preserved at 55% Acute COPD exacerbation -Oxygen as needed -Strict ins and outs, daily weights -Cardiology consultation is appreciated -Lasix 40mg IV BID -Blood culturesno growth to date -1500 cc fluid restriction, 2 g salt restriction -Pulmonology consulted; started the pt on steroids, updrafts -changed updrafts to duonebs q4h Acute kidney injury, possibly superimposed on chronic kidney disease Acute Tubular Necrosis Hematuria, microscopic -Nephrology is consulted -FEUrea = 106.2% c/w intrinsic renal disease, likely ATN -Renal ultrasound is negative for hydronephrosis or nephrolithiasis -Lasix 40mg IV BID -Hold home losartan -Urology consultation was appreciated, patient was cleared to resume ant icoagulation and recommended for outpatient cystoscopy Macrocytic Anemia - b12, folate level pending - continue to monitor History of DVT -Xarelto was held due to hematuria, and FLORINDA -Will start the patient on heparin drip due to kidney dysfunction History of CABG Hyperlipidemia -Home medications reviewed and reconciled Patient has no code DVT prophylaxis is covered with therapeutic heparin Objective - Vital Signs Vital signs: Vital Signs Temp 98.3 F 07/05/24 11:31 Pulse 84 07/05/24 11:31 Resp 19 07/05/24 11:31 BP 107/58 07/05/24 11:31 Pulse Ox 93 L 07/05/24 11:31 FiO2 Intake & Output 07/04/24 07/05/24 07/05/24 17:59 06:59 18:59 Intake Total 128 Output Total Balance 128 Weight Intake: IV 10 Invasive Line 2 10 Intake, IV Titration Amount Heparin Sod,Pork in 0.45% NaCl 25,000 unit In 0.45 % NaCl 1 250ml.bag @ 11. 05 UNITS/KG/HR 10 mls/hr IV .Q24H [facility] Rx#: [id number] Oral 118 Output: Urine Other: Voiding Method Indwelling Catheter # Bowel Movements - Labs CBC & Chem 7: 07/05/24 11:49 07/05/24 11:49 Labs: Abnormal Lab Results - Last 24 Hours (Table) 07/04/24 07/04/24 07/04/24 Range/Units 06:26 16:47 20:36 WBC (3.8-10.6) k/uL RBC (4.30-5.90) m/uL Hgb (13.0-17.5) gm/dL Hct (39.0-53.0) % MCV (80.0-100.0) fL MCHC (31.0-37.0) g/dL Neutrophils # (1.3-7.7) k/uL Lymphocytes # (1.0-4.8) k/uL Macrocytosis Sodium (137-145) mmol/L Potassium (3.5-5.1) mmol/L Carbon Dioxide (22-30) mmol/L BUN (9-20) mg/dL Creatinine (0.66-1.25) mg/dL Glucose (74-99) mg/dL POC Glucose (mg/dL) 155 H 212 H (70-110) mg/dL Hemoglobin A1c 7.3 H (<=6.0) % 07/05/24 07/05/24 07/05/24 Range/Units 06:22 08:16 11:30 WBC (3.8-10.6) k/uL RBC (4.30-5.90) m/uL Hgb (13.0-17.5) gm/dL Hct (39.0-53.0) % MCV (80.0-100.0) fL MCHC (31.0-37.0) g/dL Neutrophils # (1.3-7.7) k/uL Lymphocytes # (1.0-4.8) k/uL Macrocytosis Sodium (137-145) mmol/L Potassium (3.5-5.1) mmol/L Carbon Dioxide (22-30) mmol/L BUN (9-20) mg/dL Creatinine (0.66-1.25) mg/dL Glucose (74-99) mg/dL POC Glucose (mg/dL) 179 H 206 H 197 H (70-110) mg/dL Hemoglobin A1c (<=6.0) % 07/05/24 07/05/24 Range/Units 11:49 11:49 WBC 14.1 H (3.8-10.6) k/uL RBC 3.19 L (4.30-5.90) m/uL Hgb 10.4 L (13.0-17.5) gm/dL Hct 35.3 L (39.0-53.0) % MCV 110.8 H (80.0-100.0) fL MCHC 29.5 L (31.0-37.0) g/dL Neutrophils # 13.2 H (1.3-7.7) k/uL Lymphocytes # 0.4 L (1.0-4.8) k/uL Macrocytosis Marked A Sodium 135 L (137-145) mmol/L Potassium 5.2 H (3.5-5.1) mmol/L Carbon Dioxide 19 L (22-30) mmol/L BUN 87 H (9-20) mg/dL Creatinine 3.37 H (0.66-1.25) mg/dL Glucose 174 H (74-99) mg/dL POC Glucose (mg/dL) (70-110) mg/dL Hemoglobin A1c (<=6.0) %
--- NOTE | 2024-07-05 13:09 | P.PN ---
Subjective Progress Note Date: 07/05/24 Patient seen for follow-up for FLORINDA without any known baseline renal function. he is feeling better today, sitting on a chair, family at bedside although he looks and feels better , his Renal function continue to worsen, creatinine today 3.3 <- 3.0 <- 2.81 and BUN 87 <- 70 <- 52. He is on 3-4 liter nasal cannula saturating in the lowmid 90%'s. No active complaints at this time. Continues to utilize indwelling Huertas catheter, UO 1L charted in 24/hr on IV Lasix 40 mg BID Objective - Vital Signs Vital signs: Vital Signs Temp 98.3 F 07/05/24 11:31 Pulse 88 07/05/24 12:49 Resp 19 07/05/24 11:31 BP 107/58 07/05/24 11:31 Pulse Ox 93 L 07/05/24 11:31 FiO2 Intake & Output 07/04/24 07/05/24 07/05/24 17:59 06:59 18:59 Intake Total 128 Output Total Balance 128 Weight Intake: IV 10 Invasive Line 2 10 Intake, IV Titration Amount Heparin Sod,Pork in 0.45% NaCl 25,000 unit In 0.45 % NaCl 1 250ml.bag @ 11. 05 UNITS/KG/HR 10 mls/hr IV .Q24H [facility] Rx#: [id number] Oral 118 Output: Urine Other: Voiding Method Indwelling Catheter # Bowel Movements - Exam Patient is awake, comfortable, no acute distress. Hard of hearing. Huertas cat heter in place. Heart: S1 and S2 heard Lungs: Diminished breath sounds heard on the right with rhonchi Abdomen: Soft and nontender Lower extremities: Trace edema BIT GRINDER: grossly intact - Labs CBC & Chem 7: 07/05/24 11:49 07/05/24 11:49 Labs: Abnormal Lab Results - Last 24 Hours (Table) 07/04/24 07/04/24 07/04/24 Range/Units 06:26 16:47 20:36 WBC (3.8-10.6) k/uL RBC (4.30-5.90) m/uL Hgb (13.0-17.5) gm/dL Hct (39.0-53.0) % MCV (80.0-100.0) fL MCHC (31.0-37.0) g/dL Neutrophils # (1.3-7.7) k/uL Lymphocytes # (1.0-4.8) k/uL Macrocytosis Sodium (137-145) mmol/L Potassium (3.5-5.1) mmol/L Carbon Dioxide (22-30) mmol/L BUN (9-20) mg/dL Creatinine (0.66-1.25) mg/dL Glucose (74-99) mg/dL POC Glucose (mg/dL) 155 H 212 H (70-110) mg/dL Hemoglobin A1c 7.3 H (<=6.0) % 07/05/24 07/05/24 07/05/24 Range/Units 06:22 08:16 11:30 WBC (3.8-10.6) k/uL RBC (4.30-5.90) m/uL Hgb (13.0-17.5) gm/dL Hct (39.0-53.0) % MCV (80.0-100.0) fL MCHC (31.0-37.0) g/dL Neutrophils # (1.3-7.7) k/uL Lymphocytes # (1.0-4.8) k/uL Macrocytosis Sodium (137-145) mmol/L Potassium (3.5-5.1) mmol/L Carbon Dioxide (22-30) mmol/L BUN (9-20) mg/dL Creatinine (0.66-1.25) mg/dL Glucose (74-99) mg/dL POC Glucose (mg/dL) 179 H 206 H 197 H (70-110) mg/dL Hemoglobin A1c (<=6.0) % 07/05/24 07/05/24 Range/Units 11:49 11:49 WBC 14.1 H (3.8-10.6) k/uL RBC 3.19 L (4.30-5.90) m/uL Hgb 10.4 L (13.0-17.5) gm/dL Hct 35.3 L (39.0-53.0) % MCV 110.8 H (80.0-100.0) fL MCHC 29.5 L (31.0-37.0) g/dL Neutrophils # 13.2 H (1.3-7.7) k/uL Lymphocytes # 0.4 L (1.0-4.8) k/uL Macrocytosis Marked A Sodium 135 L (137-145) mmol/L Potassium 5.2 H (3.5-5.1) mmol/L Carbon Dioxide 19 L (22-30) mmol/L BUN 87 H (9-20) mg/dL Creatinine 3.37 H (0.66-1.25) mg/dL Glucose 174 H (74-99) mg/dL POC Glucose (mg/dL) (70-110) mg/dL Hemoglobin A1c (<=6.0) % Assessment and Plan Assessment: #FLORINDA secondary to ATN d/t underlying infection and cardiorenal syndrome, with unknown baseline renal function; US abd/bladder showed right renal cysts with no evidence of obstruction; UA is benign #Right lung pneumonia, maintained on antibiotics, pulmonology consulted #Acute hypoxic respiratory failure secondary to right-sided bacterial pneumonia and diastolic CHF exacerbation on initial admission, now improved. EF 55-60% #Bilateral lower extremity edema secondary to moderate pulmonary hypertension #History of CABG in 1998 Plan: -will switch IV to PO Lasix 40 mg BID -repeat UA -monitor UO and check weight daily -Continue with antibiotics -Continue to hold ARBs -Hold Farxiga -Wean oxygen as tolerated -1500 cc fluid restriction -2 g salt restriction -Monitor BMP in the a.m. -Avoid nephrotoxic agents
[2024-07-05 13:58] LABS: Appearance,Urine Cloudy (Clear); Bacteria,Urine Rare /hpf; Bilirubin,Urine Negative (Negative); Blood,Urine Small (Negative); Budding Yeast,Urine Many /hpf; Color,Urine Light Yellow; Glucose,Urine (UA) Negative (Negative); Hyaline Casts,Urine 39 /lpf (0-2); Ketones,Urine Negative (Negative); Leukocyte Esterase,Urine Trace (Negative); Mucus,Urine Rare /hpf; Nitrite,Urine Negative (Negative); Protein,Urine Trace (Negative); RBC,Urine >182 /hpf (0-5); Specific Gravity,Urine 1.012 (1.001-1.035); Squamous Epithelial Cell,Urine 3 /hpf (0-4); Urobilinogen,Urine <2.0 mg/dL (<2.0); WBC,Urine 8 /hpf (0-5)
[2024-07-05] MEDS: SODIUM CHLORIDE 0.9% 1,000 ML IV SCH (14:30)
--- NOTE | 2024-07-05 14:48 | P.PN ---
Subjective Progress Note Date: 07/05/24 This is a very pleasant 88-year-old male patient who resides in [place]. He has a 50-year smoking history however quit nearly 20 years ago. He does have COPD and is maintained on Trelegy. He also has diabetes mellitus, coronary artery disease with previous coronary artery bypass grafting, hyperlipidemia previous DVT maintained on Xarelto and hypertension. He was traveling home from [place] when he stopped here at this hospital to visit his [id number]. The patient then developed significant shortness of breath, cough and congestion and presented to the emergency room on 06/30/2024. Chest x-ray revealed a small right pleural effusion with cardiomegaly and right basilar patchy airspace opacities. White count 9.1. Hemoglobin 10.2. Platelets 204. Sodium 137. Potassium 4.5. Bicarb 21. BUN 50. Creatinine 2.67. Glucose 93. proBNP 7980. Troponins 0.091. 0.075. He is seen today in consultation on the selective care unit. He is currently resting fairly comfortably in bed. Awake and alert in no acute distress. He is maintaining O2 saturations in the 90s on 3 L/min per nasal cannula. He is dyspneic with conversation. Dyspneic with minimal exertion. He does have a productive cough. The patient is seen today July 03, 2024 in follow-up on the selective care unit. He is currently resting comfortably in bed. Awake and alert in no acute distress. Feeling a bit better today compared to yesterday. He is maintaining O2 saturations in the 90s on 3 L/min per nasal cannula. Chest x-ray shows persistent cardiomegaly with a small right pleural effusion and red right mid to lower lung infiltrate/atelectasis. Left basilar atelectasis. Blood culture shows no growth. White count 8.3. Hemoglobin 9.6. Platelets 225. Sodium 136. Potassium 4.8. Bicarb 22. BUN 52. Creatinine 2.81. Glucose 214. Procalcitonin was negative at 0.18. He is continued on albuterol and Solu- Medrol along with his home Trelegy. He remains on a heparin drip. Progress note dated July 04, 2024. 88-year-old male seen today in room 384. The patient is a DO NOT RESUSCITATE patient. He is currently resting comfortably in bed. He is on 3 L nasal cannula. He is not receiving any IV fluids. We are going to DC his Trelegy, and instead, place him on budesonide 1 mg, and formoterol 20 mcg, twice a day. Current laboratory data includes a PTT at 56.8, sodium 135, potassium 5.5, chlorides 105, CO2 20, anion gap 10, BUN 70, creatinine 3.01. Glucose is 228. Hemoglobin A1c is 7.3. Calcium is 9. Chest x-ray shows carbon, right pleural effusion and possible right mid to lower lung infiltrate. Chest x-ray is largely unchanged. The patient's procalcitonin level was normal at 0.18. The patient is seen today July 05, 2024 in follow-up on the selective care unit. He is currently sitting up in a chair. Awake and alert in no acute distress. Feeling better today compared to yesterday. He is maintaining O2 saturations in the 90s on 4 L/min per nasal cannula. No IV fluids. He is continued on ceftriaxone and azithromycin. He continues with coarse rhonchi bilaterally. White count 14.1. Hemoglobin 10.4. Platelets 231. Sodium 135. Potassium 5.2. Bicarb 19. BUN 87. Creatinine 3.37. Glucose 174. He continues on DuoNeb and elations, Pulmicort and Perforomist inhalations, IV Solu-Medrol. Anticoagulated with Xarelto. Continued on Mucinex. Objective - Vital Signs Vital signs: Vital Signs Temp 98.3 F 07/05/24 11:31 Pulse 88 07/05/24 12:49 Resp 19 07/05/24 11:31 BP 107/58 07/05/24 11:31 Pulse Ox 93 L 07/05/24 11:31 FiO2 Intake & Output 07/04/24 07/05/24 07/05/24 17:59 06:59 18:59 Intake Total 138 Output Total Balance 138 Weight Intake: IV 20 Invasive Line 2 20 Intake, IV Titration Amount Heparin Sod,Pork in 0.45% NaCl 25,000 unit In 0.45 % NaCl 1 250ml.bag @ 11. 05 UNITS/KG/HR 10 mls/hr IV .Q24H [facility] Rx#: [id number] Oral 118 Output: Urine Other: Voiding Method Indwelling Catheter # Bowel Movements - Exam GENERAL EXAM: Alert, 88-year-old male, sitting up in a chair, on 4 L nasal cannula, comfortable in no apparent distress. HEAD: Normocephalic. EYES: Normal reaction of pupils, equal size. NOSE: Clear with pink turbinates. THROAT: No erythema or exudates. NECK: No masses, no JVD. CHEST: No chest wall deformity. LUNGS: Equal air entry with basilar crackles, few scattered rhonchi. CVS: S1 and S2 normal with no audible murmur, regular rhythm. ABDOMEN: No hepatosplenomegaly, normal bowel sounds, no guarding or rigidity. SPINE: No scoliosis or deformity SKIN: No rashes CENTRAL NERVOUS SYSTEM: No focal deficits, tone is normal in all 4 extremities. EXTREMITIES: There is no peripheral edema. No clubbing, no cyanosis. Peripheral pulses are intact. - Labs CBC & Chem 7: 07/05/24 11:49 07/05/24 11:49 Labs: Abnormal Lab Results - Last 24 Hours (Table) 07/04/24 07/04/24 07/05/24 Range/Units 16:47 20:36 06:22 WBC (3.8-10.6) k/uL RBC (4.30-5.90) m/uL Hgb (13.0-17.5) gm/dL Hct (39.0-53.0) % MCV (80.0-100.0) fL MCHC (31.0-37.0) g/dL Neutrophils # (1.3-7.7) k/uL Lymphocytes # (1.0-4.8) k/uL Macrocytosis Sodium (137-145) mmol/L Potassium (3.5-5.1) mmol/L Carbon Dioxide (22-30) mmol/L BUN (9-20) mg/dL Creatinine (0.66-1.25) mg/dL Glucose (74-99) mg/dL POC Glucose (mg/dL) 155 H 212 H 179 H (70-110) mg/dL Urine Protein (Negative) Urine Blood (Negative) Ur Leukocyte Esterase (Negative) Urine RBC (0-5) /hpf Urine WBC (0-5) /hpf Urine Bacteria (None) /hpf Hyaline Casts (0-2) /lpf Urine Mucus (None) /hpf Urine Yeast (Budding) (None) /hpf 07/05/24 07/05/24 07/05/24 Range/Units 08:16 11:30 11:49 WBC 14.1 H (3.8-10.6) k/uL RBC 3.19 L (4.30-5.90) m/uL Hgb 10.4 L (13.0-17.5) gm/dL Hct 35.3 L (39.0-53.0) % MCV 110.8 H (80.0-100.0) fL MCHC 29.5 L (31.0-37.0) g/dL Neutrophils # 13.2 H (1.3-7.7) k/uL Lymphocytes # 0.4 L (1.0-4.8) k/uL Macrocytosis Marked A Sodium (137-145) mmol/L Potassium (3.5-5.1) mmol/L Carbon Dioxide (22-30) mmol/L BUN (9-20) mg/dL Creatinine (0.66-1.25) mg/dL Glucose (74-99) mg/dL POC Glucose (mg/dL) 206 H 197 H (70-110) mg/dL Urine Protein (Negative) Urine Blood (Negative) Ur Leukocyte Esterase (Negative) Urine RBC (0-5) /hpf Urine WBC (0-5) /hpf Urine Bacteria (None) /hpf Hyaline Casts (0-2) /lpf Urine Mucus (None) /hpf Urine Yeast (Budding) (None) /hpf 07/05/24 07/05/24 Range/Units 11:49 13:07 WBC (3.8-10.6) k/uL RBC (4.30-5.90) m/uL Hgb (13.0-17.5) gm/dL Hct (39.0-53.0) % MCV (80.0-100.0) fL MCHC (31.0-37.0) g/dL Neutrophils # (1.3-7.7) k/uL Lymphocytes # (1.0-4.8) k/uL Macrocytosis Sodium 135 L (137-145) mmol/L Potassium 5.2 H (3.5-5.1) mmol/L Carbon Dioxide 19 L (22-30) mmol/L BUN 87 H (9-20) mg/dL Creatinine 3.37 H (0.66-1.25) mg/dL Glucose 174 H (74-99) mg/dL POC Glucose (mg/dL) (70-110) mg/dL Urine Protein Trace H (Negative) Urine Blood Small H (Negative) Ur Leukocyte Esterase Trace H (Negative) Urine RBC >182 H (0-5) /hpf Urine WBC 8 H (0-5) /hpf Urine Bacteria Rare H (None) /hpf Hyaline Casts 39 H (0-2) /lpf Urine Mucus Rare H (None) /hpf Urine Yeast (Budding) Many H (None) /hpf Assessment and Plan Assessment: Acute hypoxemic respiratory failure secondary to an acute exacerbation of chronic obstructive pulmonary disease. Viral screen negative. Procalcitonin negative Acute kidney injury secondary to underlying infection, cardiorenal syndrome Hyperkalemia secondary to above Acute exacerbation of chronic diastolic congestive heart failure Troponin leak secondary to above Chronic obstructive pulmonary disease History of 50 years of tobacco dependence however quit many years ago Hypertension Hyperlipidemia Diabetes mellitus, type II Coronary artery disease with previous coronary artery bypass grafting in 1998 History of DVT, maintained on Xarelto Plan: The patient was seen and evaluated Labs and medications reviewed Continue DuoNeb inhalations, Solu-Medrol Continue Pulmicort and Perforomist inhalations Titrate down the FiO2 as tolerated Increase his activity as tolerated Anticoagulated with Xarelto DNR CODE STATUS We will continue to follow I have personally seen and examined the patient, performed the documentation and the assessment and plan as written. Number of minutes spent on the visit: 10 Dictation was produced using [employer] dictation software. Please excuse any grammatical, word or spelling errors.
[2024-07-05] MEDS ORDERED: FUROSEMIDE 40 MG TAB PO SCH (16:00)
[2024-07-05 16:38] LABS: Glucose,Whole Blood 127 mg/dL (70-110)
[2024-07-05 20:02] LABS: Glucose,Whole Blood 191 mg/dL (70-110)
--- NOTE | 2024-07-05 20:39 | P.PN ---
Subjective Progress Note Date: 07/04/24 HISTORY OF PRESENT ILLNESS: This is a 88-year-old male with a past medical history significant for coronary artery disease with previous CABG, DVT, and hyperlipidemia. 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 We have been asked to see the patient in consultation for CHF. Patient examined at the bedside in the ER. Patient presented to the ER with a chief compliant of shortness of breath. He reports shortness of breath for past 2-3 days. Patient denies chest pain or pressure. Patient was found to be in acute CHF. Patient also reports hematuria and his urine cannister at the bedside has gross hematuria. DIAGNOSTICS: - EKG reveals sinus mechanism with right bundle branch block.. - Chest xray small right pleural effusion and cardiomegaly and right basilar patchy airspace opacities. Findings may relate to CHF exacerbation and/or pneumonia - Laboratory data: WBC 9.2. Hemoglobin 10.5. Platelet count 197. Sodium 136. Potassium 4.3. BUN 44. Creatinine 2.36. Troponin 0.073. 0.078. 0.075. TSH 1.700. proBNP 7980. - Current home cardiac medications include bisoprolol 2.5 mg daily, Farxiga 10 mg daily, rosuvastatin 10 mg daily, Xarelto 15 mg daily -No previous echocardiogram, stress test, or cardiac catheterization available in EMR for review Progress note 07/02/2024 Patient is seen and examined at bedside this a.m. Hb 10.1, BUN 50, creatinine 2.67 yesterday creatinine was 2.3.. BP 134/63, heart rate 72 bpm, 07/03/2024 Patient is seen and examined at bedside this a.m. Creatinine is worse today to 2.8. Blood pressure and heart rate are at goal. 07/04/2024 Patient's kidney function is progressively got worse, BUN 70, creatinine 3.01, potassium is 5.5 no further hematuria, blood pressure and heart rate are stable. PHYSICAL EXAM: HEENT: Head is normocephalic. Pupils are equal, round. Sclerae anicteric. Mucous membranes of the mouth are moist. Neck supple. No JVD or thyromegaly LUNGS: Respirations even and unlabored. Lungs with expiratory wheezing noted. HEART: Regular rate and rhythm. S1 and S2 heard. ABDOMEN: Soft. Nondistended. Nontender. EXTREMITIES: Normal range of motion. No clubbing or cyanosis. Peripheral pulses intact. 2+ bilateral lower extremity edema NEUROLOGIC: Awake and alert. Oriented x 3. ASSESSMENT: Acute hypoxic respiratory failure Acute HFpEF exacerbation Moderate pulm hypertension Possible pneumonia Acute kidney injury, baseline unknown Gross hematuria Bated troponins, type II [place] secondary to oxygen supply/demand mismatch Coronary artery disease with previous CABG, approximately 24 years ago History of DVT, on Xarelto outpatient Hyperlipidemia Pertinent cardiac testing Echo shows EF 55%, no RWMA, moderate pulmonary hypertension, mild MR, mild LA dilatation, moderate TR, mildly dilated ascending aorta measured at 4 cm. PLAN: In view of worsening kidney function his diuretics and losartan has been held Hold [facility] He is on Imdur and hydralazine, aspirin Lipitor and Xarelto and bisoprolol. Holding losartan due to FLORINDA Consider nephrology consult Objective - Vital Signs Vital signs: Vital Signs Temp 98.6 F 07/05/24 15:56 Pulse 84 07/05/24 17:16 Resp 19 07/05/24 15:56 BP 127/66 07/05/24 15:56 Pulse Ox 92 L 07/05/24 15:56 FiO2 Intake & Output 07/05/24 07/05/24 07/06/24 06:59 18:59 06:59 Intake Total 138 Output Total 400 Balance 138 -400 Weight Intake: IV 20 Invasive Line 2 20 Oral 118 Output: Urine 400 Other: Voiding Method Indwelling Catheter - Labs CBC & Chem 7: 07/05/24 11:49 07/05/24 11:49 Labs: Abnormal Lab Results - Last 24 Hours (Table) 07/04/24 07/05/24 07/05/24 Range/Units 20:36 06:22 08:16 WBC (3.8-10.6) k/uL RBC (4.30-5.90) m/uL Hgb (13.0-17.5) gm/dL Hct (39.0-53.0) % MCV (80.0-100.0) fL MCHC (31.0-37.0) g/dL Neutrophils # (1.3-7.7) k/uL Lymphocytes # (1.0-4.8) k/uL Macrocytosis Sodium (137-145) mmol/L Potassium (3.5-5.1) mmol/L Carbon Dioxide (22-30) mmol/L BUN (9-20) mg/dL Creatinine (0.66-1.25) mg/dL Glucose (74-99) mg/dL POC Glucose (mg/dL) 212 H 179 H 206 H (70-110) mg/dL Urine Protein (Negative) Urine Blood (Negative) Ur Leukocyte Esterase (Negative) Urine RBC (0-5) /hpf Urine WBC (0-5) /hpf Urine Bacteria (None) /hpf Hyaline Casts (0-2) /lpf Urine Mucus (None) /hpf Urine Yeast (Budding) (None) /hpf 07/05/24 07/05/24 07/05/24 Range/Units 11:30 11:49 11:49 WBC 14.1 H (3.8-10.6) k/uL RBC 3.19 L (4.30-5.90) m/uL Hgb 10.4 L (13.0-17.5) gm/dL Hct 35.3 L (39.0-53.0) % MCV 110.8 H (80.0-100.0) fL MCHC 29.5 L (31.0-37.0) g/dL Neutrophils # 13.2 H (1.3-7.7) k/uL Lymphocytes # 0.4 L (1.0-4.8) k/uL Macrocytosis Marked A Sodium 135 L (137-145) mmol/L Potassium 5.2 H (3.5-5.1) mmol/L Carbon Dioxide 19 L (22-30) mmol/L BUN 87 H (9-20) mg/dL Creatinine 3.37 H (0.66-1.25) mg/dL Glucose 174 H (74-99) mg/dL POC Glucose (mg/dL) 197 H (70-110) mg/dL Urine Protein (Negative) Urine Blood (Negative) Ur Leukocyte Esterase (Negative) Urine RBC (0-5) /hpf Urine WBC (0-5) /hpf Urine Bacteria (None) /hpf Hyaline Casts (0-2) /lpf Urine Mucus (None) /hpf Urine Yeast (Budding) (None) /hpf 07/05/24 07/05/24 07/05/24 Range/Units 13:07 16:34 20:00 WBC (3.8-10.6) k/uL RBC (4.30-5.90) m/uL Hgb (13.0-17.5) gm/dL Hct (39.0-53.0) % MCV (80.0-100.0) fL MCHC (31.0-37.0) g/dL Neutrophils # (1.3-7.7) k/uL Lymphocytes # (1.0-4.8) k/uL Macrocytosis Sodium (137-145) mmol/L Potassium (3.5-5.1) mmol/L Carbon Dioxide (22-30) mmol/L BUN (9-20) mg/dL Creatinine (0.66-1.25) mg/dL Glucose (74-99) mg/dL POC Glucose (mg/dL) 127 H 191 H (70-110) mg/dL Urine Protein Trace H (Negative) Urine Blood Small H (Negative) Ur Leukocyte Esterase Trace H (Negative) Urine RBC >182 H (0-5) /hpf Urine WBC 8 H (0-5) /hpf Urine Bacteria Rare H (None) /hpf Hyaline Casts 39 H (0-2) /lpf Urine Mucus Rare H (None) /hpf Urine Yeast (Budding) Many H (None) /hpf
--- NOTE | 2024-07-05 20:41 | P.PN ---
Subjective Progress Note Date: 07/05/24 HISTORY OF PRESENT ILLNESS: This is a 88-year-old male with a past medical history significant for coronary artery disease with previous CABG, DVT, and hyperlipidemia. 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 We have been asked to see the patient in consultation for CHF. Patient examined at the bedside in the ER. Patient presented to the ER with a chief compliant of shortness of breath. He reports shortness of breath for past 2-3 days. Patient denies chest pain or pressure. Patient was found to be in acute CHF. Patient also reports hematuria and his urine cannister at the bedside has gross hematuria. DIAGNOSTICS: - EKG reveals sinus mechanism with right bundle branch block.. - Chest xray small right pleural effusion and cardiomegaly and right basilar patchy airspace opacities. Findings may relate to CHF exacerbation and/or pneumonia - Laboratory data: WBC 9.2. Hemoglobin 10.5. Platelet count 197. Sodium 136. Potassium 4.3. BUN 44. Creatinine 2.36. Troponin 0.073. 0.078. 0.075. TSH 1.700. proBNP 7980. - Current home cardiac medications include bisoprolol 2.5 mg daily, Farxiga 10 mg daily, rosuvastatin 10 mg daily, Xarelto 15 mg daily -No previous echocardiogram, stress test, or cardiac catheterization available in EMR for review Progress note 07/02/2024 Patient is seen and examined at bedside this a.m. Hb 10.1, BUN 50, creatinine 2.67 yesterday creatinine was 2.3.. BP 134/63, heart rate 72 bpm, 07/03/2024 Patient is seen and examined at bedside this a.m. Creatinine is worse today to 2.8. Blood pressure and heart rate are at goal. 07/04/2024 Patient's kidney function is progressively got worse, BUN 70, creatinine 3.01, potassium is 5.5 no further hematuria, blood pressure and heart rate are stable. 07/05/2024 Patient's kidney function is progressively got worse. Nephrology following, recommend IV gentle hydration. PHYSICAL EXAM: HEENT: Head is normocephalic. Pupils are equal, round. Sclerae anicteric. Mucous membranes of the mouth are moist. Neck supple. No JVD or thyromegaly LUNGS: Respirations even and unlabored. Lungs with expiratory wheezing noted. HEART: Regular rate and rhythm. S1 and S2 heard. ABDOMEN: Soft. Nondistended. Nontender. EXTREMITIES: Normal range of motion. No clubbing or cyanosis. Peripheral pulses intact. 2+ bilateral lower extremity edema NEUROLOGIC: Awake and alert. Oriented x 3. ASSESSMENT: Acute hypoxic respiratory failure Acute HFpEF exacerbation Moderate pulm hypertension Possible pneumonia Acute kidney injury, baseline unknown Gross hematuria Bated troponins, type II [place] secondary to oxygen supply/demand mismatch Coronary artery disease with previous CABG, approximately 24 years ago History of DVT, on Xarelto outpatient Hyperlipidemia Pertinent cardiac testing Echo shows EF 55%, no RWMA, moderate pulmonary hypertension, mild MR, mild LA dilatation, moderate TR, mildly dilated ascending aorta measured at 4 cm. PLAN: In view of worsening kidney function his diuretics and losartan has been held [facility] He is on Imdur and hydralazine, aspirin Lipitor and Xarelto and bisoprolol. Holding losartan due to FLORINDA Nephrology team following the case Objective - Vital Signs Vital signs: Vital Signs Temp 98.6 F 07/05/24 15:56 Pulse 84 07/05/24 17:16 Resp 19 07/05/24 15:56 BP 127/66 07/05/24 15:56 Pulse Ox 92 L 07/05/24 15:56 FiO2 Intake & Output 07/05/24 07/05/24 07/06/24 06:59 18:59 06:59 Intake Total 138 Output Total 400 Balance 138 -400 Weight Intake: IV 20 Invasive Line 2 20 Oral 118 Output: Urine 400 Other: Voiding Method Indwelling Catheter - Labs CBC & Chem 7: 07/05/24 11:49 07/05/24 11:49 Labs: Abnormal Lab Results - Last 24 Hours (Table) 07/04/24 07/05/24 07/05/24 Range/Units 20:36 06:22 08:16 WBC (3.8-10.6) k/uL RBC (4.30-5.90) m/uL Hgb (13.0-17.5) gm/dL Hct (39.0-53.0) % MCV (80.0-100.0) fL MCHC (31.0-37.0) g/dL Neutrophils # (1.3-7.7) k/uL Lymphocytes # (1.0-4.8) k/uL Macrocytosis Sodium (137-145) mmol/L Potassium (3.5-5.1) mmol/L Carbon Dioxide (22-30) mmol/L BUN (9-20) mg/dL Creatinine (0.66-1.25) mg/dL Glucose (74-99) mg/dL POC Glucose (mg/dL) 212 H 179 H 206 H (70-110) mg/dL Urine Protein (Negative) Urine Blood (Negative) Ur Leukocyte Esterase (Negative) Urine RBC (0-5) /hpf Urine WBC (0-5) /hpf Urine Bacteria (None) /hpf Hyaline Casts (0-2) /lpf Urine Mucus (None) /hpf Urine Yeast (Budding) (None) /hpf 07/05/24 07/05/24 07/05/24 Range/Units 11:30 11:49 11:49 WBC 14.1 H (3.8-10.6) k/uL RBC 3.19 L (4.30-5.90) m/uL Hgb 10.4 L (13.0-17.5) gm/dL Hct 35.3 L (39.0-53.0) % MCV 110.8 H (80.0-100.0) fL MCHC 29.5 L (31.0-37.0) g/dL Neutrophils # 13.2 H (1.3-7.7) k/uL Lymphocytes # 0.4 L (1.0-4.8) k/uL Macrocytosis Marked A Sodium 135 L (137-145) mmol/L Potassium 5.2 H (3.5-5.1) mmol/L Carbon Dioxide 19 L (22-30) mmol/L BUN 87 H (9-20) mg/dL Creatinine 3.37 H (0.66-1.25) mg/dL Glucose 174 H (74-99) mg/dL POC Glucose (mg/dL) 197 H (70-110) mg/dL Urine Protein (Negative) Urine Blood (Negative) Ur Leukocyte Esterase (Negative) Urine RBC (0-5) /hpf Urine WBC (0-5) /hpf Urine Bacteria (None) /hpf Hyaline Casts (0-2) /lpf Urine Mucus (None) /hpf Urine Yeast (Budding) (None) /hpf 07/05/24 07/05/24 07/05/24 Range/Units 13:07 16:34 20:00 WBC (3.8-10.6) k/uL RBC (4.30-5.90) m/uL Hgb (13.0-17.5) gm/dL Hct (39.0-53.0) % MCV (80.0-100.0) fL MCHC (31.0-37.0) g/dL Neutrophils # (1.3-7.7) k/uL Lymphocytes # (1.0-4.8) k/uL Macrocytosis Sodium (137-145) mmol/L Potassium (3.5-5.1) mmol/L Carbon Dioxide (22-30) mmol/L BUN (9-20) mg/dL Creatinine (0.66-1.25) mg/dL Glucose (74-99) mg/dL POC Glucose (mg/dL) 127 H 191 H (70-110) mg/dL Urine Protein Trace H (Negative) Urine Blood Small H (Negative) Ur Leukocyte Esterase Trace H (Negative) Urine RBC >182 H (0-5) /hpf Urine WBC 8 H (0-5) /hpf Urine Bacteria Rare H (None) /hpf Hyaline Casts 39 H (0-2) /lpf Urine Mucus Rare H (None) /hpf Urine Yeast (Budding) Many H (None) /hpf
[2024-07-06 06:17] LABS: Glucose,Whole Blood 192 mg/dL (70-110)
[2024-07-06 07:00] LABS: Basophils % (A) 0 %; Eosinophils % (A) 0 %; HCT 33.8 % (39.0-53.0); Hypochromasia Moderate; Lymphocytes # (A) 0.3 k/uL (1.0-4.8); Lymphocytes % (A) 3 %; MCH 32.1 pg (25.0-35.0); MCHC 29.7 g/dL (31.0-37.0); MCV 108.3 fL (80.0-100.0); Mean Platelet Volume 9.7; Monocytes # (A) 0.2 k/uL (0-1.0); Monocytes % (A) 2 %; Neutrophils # (A) 10.1 k/uL (1.3-7.7); Neutrophils % (A) 94 %; Platelet Count 220 k/uL (150-450); RBC 3.12 m/uL (4.30-5.90); RDW 14.4 % (11.5-15.5); WBC 10.8 k/uL (3.8-10.6)
--- NOTE | 2024-07-06 07:02 | XR ---
EXAMINATION TYPE: XR chest 1V portable DATE OF EXAM: 07/06/2024 CLINICAL INDICATION: Male, 88 years old with history of dyspnea, increased O2 demand, progress study. TECHNIQUE: Single AP portable upright view of the chest is obtained. COMPARISON: Chest x-ray from 3 days earlier FINDINGS: Overlying sternal wires and mediastinal clips are redemonstrated. Persistent but less foca l right lower lung increased opacity. Persistent cardiomegaly and mild central vascular congestion. P ersistent left basilar linear opacity favoring atelectasis. IMPRESSION: Persistent cardiomegaly with mild central vascular congestion and likely small bilateral pleural effusions suggesting CHF exacerbation/fluid overload state. Persistent right lower lung acute infiltrate and/or atelectasis. [facility], , 07/06/2024 6:59 AM
[2024-07-06 07:05] LABS: Macrocytosis Marked
[2024-07-06 07:23] LABS: African American GFR (CKD) 17 (>60 ml/min/1.73 sqM); Anion Gap 10 mmol/L; Blood Urea Nitrogen 93 mg/dL (9-20); Calcium 8.9 mg/dL (8.4-10.2); Carbon Dioxide 21 mmol/L (22-30); Chloride 103 mmol/L (98-107); Glucose 182 mg/dL (74-99); Magnesium 1.8 mg/dL (1.6-2.3); Non-African American GFR(CKD) 15 (>60 ml/min/1.73 sqM); Potassium 5.2 mmol/L (3.5-5.1); Sodium 134 mmol/L (137-145)
--- NOTE | 2024-07-06 11:13 | P.PN ---
Subjective Patient is seen in follow-up for acute kidney injury. Creatinine 3.53 today. Currently on 6 L nasal cannula. Received IV fluids overnight. Has Huertas catheter. Nonoliguric. Vital signs are stable. General: No acute distress. HEENT: Head exam is unremarkable. On nasal cannula. LUNGS: Scattered rhonchi. HEART: Rate and Rhythm are regular. ABDOMEN: Nontender. EXTREMITITES: 1+ edema in ankles. Objective - Vital Signs Vital signs: Vital Signs Temp 97.4 F L 07/06/24 07:45 Pulse 92 07/06/24 09:04 Resp 23 07/06/24 07:45 BP 132/64 07/06/24 07:45 Pulse Ox 93 L 07/06/24 07:45 FiO2 Intake & Output 07/05/24 07/06/24 07/06/24 18:59 06:59 18:59 Intake Total 138 10 118 Output Total 700 Balance 138 -690 118 Weight 88 kg Intake: IV 20 10 Invasive Line 2 20 10 Oral 118 118 Output: Urine 700 Other: Voiding Method Indwelling Catheter Indwelling Catheter Indwelling Catheter - Labs CBC & Chem 7: 07/06/24 06:35 07/06/24 06:35 Labs: Abnormal Lab Results - Last 24 Hours (Table) 07/05/24 07/05/24 07/05/24 Range/Units 11:30 11:49 11:49 WBC 14.1 H (3.8-10.6) k/uL RBC 3.19 L (4.30-5.90) m/uL Hgb 10.4 L (13.0-17.5) gm/dL Hct 35.3 L (39.0-53.0) % MCV 110.8 H (80.0-100.0) fL MCHC 29.5 L (31.0-37.0) g/dL Neutrophils # 13.2 H (1.3-7.7) k/uL Lymphocytes # 0.4 L (1.0-4.8) k/uL Macrocytosis Marked A Sodium 135 L (137-145) mmol/L Potassium 5.2 H (3.5-5.1) mmol/L Carbon Dioxide 19 L (22-30) mmol/L BUN 87 H (9-20) mg/dL Creatinine 3.37 H (0.66-1.25) mg/dL Glucose 174 H (74-99) mg/dL POC Glucose (mg/dL) 197 H (70-110) mg/dL Urine Protein (Negative) Urine Blood (Negative) Ur Leukocyte Esterase (Negative) Urine RBC (0-5) /hpf Urine WBC (0-5) /hpf Urine Bacteria (None) /hpf Hyaline Casts (0-2) /lpf Urine Mucus (None) /hpf Urine Yeast (Budding) (None) /hpf 07/05/24 07/05/24 07/05/24 Range/Units 13:07 16:34 20:00 WBC (3.8-10.6) k/uL RBC (4.30-5.90) m/uL Hgb (13.0-17.5) gm/dL Hct (39.0-53.0) % MCV (80.0-100.0) fL MCHC (31.0-37.0) g/dL Neutrophils # (1.3-7.7) k/uL Lymphocytes # (1.0-4.8) k/uL Macrocytosis Sodium (137-145) mmol/L Potassium (3.5-5.1) mmol/L Carbon Dioxide (22-30) mmol/L BUN (9-20) mg/dL Creatinine (0.66-1.25) mg/dL Glucose (74-99) mg/dL POC Glucose (mg/dL) 127 H 191 H (70-110) mg/dL Urine Protein Trace H (Negative) Urine Blood Small H (Negative) Ur Leukocyte Esterase Trace H (Negative) Urine RBC >182 H (0-5) /hpf Urine WBC 8 H (0-5) /hpf Urine Bacteria Rare H (None) /hpf Hyaline Casts 39 H (0-2) /lpf Urine Mucus Rare H (None) /hpf Urine Yeast (Budding) Many H (None) /hpf 07/06/24 07/06/24 07/06/24 Range/Units 06:16 06:35 06:35 WBC 10.8 H (3.8-10.6) k/uL RBC 3.12 L (4.30-5.90) m/uL Hgb 10.0 L (13.0-17.5) gm/dL Hct 33.8 L (39.0-53.0) % MCV 108.3 H (80.0-100.0) fL MCHC 29.7 L (31.0-37.0) g/dL Neutrophils # 10.1 H (1.3-7.7) k/uL Lymphocytes # 0.3 L (1.0-4.8) k/uL Macrocytosis Marked A Sodium 134 L (137-145) mmol/L Potassium 5.2 H (3.5-5.1) mmol/L Carbon Dioxide 21 L (22-30) mmol/L BUN 93 H (9-20) mg/dL Creatinine 3.53 H (0.66-1.25) mg/dL Glucose 182 H (74-99) mg/dL POC Glucose (mg/dL) 192 H (70-110) mg/dL Urine Protein (Negative) Urine Blood (Negative) Ur Leukocyte Esterase (Negative) Urine RBC (0-5) /hpf Urine WBC (0-5) /hpf Urine Bacteria (None) /hpf Hyaline Casts (0-2) /lpf Urine Mucus (None) /hpf Urine Yeast (Budding) (None) /hpf Microbiology - Last 24 Hours (Table) 06/30/24 18:02 Blood Culture - Final Blood Assessment and Plan Plan: Assessment: 1. Acute kidney injury secondary to ATN secondary to cardiorenal syndrome. Creatinine 2.17 on admission and is 3.53 today. Unknown baseline renal function. No hydronephrosis noted on kidney ultrasound. UA benign. 2. Acute on chronic diastolic CHF with moderate pulmonary hypertension, moderate tricuspid regurgitation. 3. Volume overload. 4. Diabetes mellitus. 5. Anemia. Iron deficiency noted. 6. Metabolic acidosis secondary to acute kidney injury and IV fluids. Plan: Chest x-ray suggestive of volume overload. Resume IV Lasix. Add SGLT2 inhibitor. Add IV iron. Maintain low-salt diet and fluid restriction. Avoid nephrotoxins. Continue to monitor renal function and urine output. Add oral bicarb.
[2024-07-06 11:29] LABS: Glucose,Whole Blood 232 mg/dL (70-110)
[2024-07-06] MEDS: FUROSEMIDE 10 MG/ML 4 ML VIAL IV SCH (11:48)
[2024-07-06] MEDS: DAPAGLIFLOZIN PROPANEDIOL 5 MG TABLET PO SCH (11:48)
[2024-07-06] MEDS: SODIUM BICARBONATE TAB 650 MG TAB PO SCH (11:48)
[2024-07-06] MEDS: SODIUM FERRIC GLUCONAT-SUCROSE 125 MG in SODIUM CHLORIDE 0.9% 100 ML IVPB SCH (11:53)
--- NOTE | 2024-07-06 12:14 | P.PN ---
Subjective Progress Note Date: 07/06/24 No new complaints today, breathing is improved today. Kidney function is worsening again. IV Lasix resumed by nephrology Gen: In NAD, non-toxic HEENT: normocephalic, atraumatic, hearing acuity is intant, mucous membranes moist CVS: perfusing all extremities well, bilateral pitting edema, +jvd Respiratory: symmetric chest expansion, no accessory muscle use, +wheezing GI: soft, NTTP, ND, : no suprapubic tenderness, no CVA tenderness MSK/Derm: no rashes, cyanosis Neuro: CN II-XII intact, no motor weakness, Psych: cooperative, euthymic mood, judgment and insight is intact Hospital course: This is an 88-year-old male with a past medical history reviewed coronary disease status post CABG x 1, hyperlipidemia, heart failure, DVT on Xarelto presents emergency department with complaint of shortness of breath. In the emergency room, patient was afebrile, 119/68, heart rate 75, 83% on room air. CBC was remarkable for hemoglobin of 11.5 with MCV of 105.9. INR is 1.5. BUN was 40, creatinine 2.17 with no known baseline. BNP was 7980. Liver function tests are unremarkable. Influenza A, B, RSV, COVID were negative. Chest x-ray showed small right pleural effusion with cardiomegaly and right basilar patchy airspace opacities. EKG showed sinus rhythm, left axis deviation, right bundle branch block, left anterior fascicular block, no evidence of ischemia. Venous Doppler study showed chronic DVT. During hospitalization, patient was noted to have worsening kidney function as well as hematuria. Urology and nephrology were consulted for this. Patient Xarelto was held and hematuria resolved, was seen and cleared by urology for outpatient cystoscopy as well as resumption of anticoagulation. Echocardiogram demonstrated normal ejection fraction with moderate pulmonary hypertension. Assessment/plan: Acute hypoxemic respiratory failure Acute diastolic heart failure exacerbation, ejection fraction is preserved at 55% Acute COPD exacerbation -Oxygen as needed -Strict ins and outs, daily weights -Cardiology consultation is appreciated -Lasix 40mg IV BID -Blood culturesno growth to date -1500 cc fluid restriction, 2 g salt restriction -Pulmonology consulted; started the pt on steroids, updrafts -changed updrafts to duonebs q4h Acute kidney injury, possibly superimposed on chronic kidney disease Acute Tubular Necrosis Hematuria, microscopic -Nephrology is consulted -FEUrea = 106.2% c/w intrinsic renal disease, likely ATN -Renal ultrasound is negative for hydronephrosis or nephrolithiasis -Lasix 40mg IV BID -Hold home losartan -Urology consultation was appreciated, patient was cleared to resume anticoagulation and recommended for outpatient cystoscopy Macrocytic Anemia - b12, folate level pending - continue to monitor History of DVT -Xarelto was held due to hematuria, and FLORINDA -Will start the patient on heparin drip due to kidney dysfunction History of CABG Hyperlipidemia -Home medications reviewed and reconciled Patient has no code DVT prophylaxis is covered with therapeutic heparin Objective - Vital Signs Vital signs: Vital Signs Temp 97.8 F 07/06/24 11:59 Pulse 89 07/06/24 11:59 Resp 22 07/06/24 11:59 BP 116/74 07/06/24 11:59 Pulse Ox 96 07/06/24 11:59 FiO2 Intake & Output 07/05/24 07/06/24 07/06/24 18:59 06:59 18:59 Intake Total 138 10 118 Output Total 700 Balance 138 -690 118 Weight 88 kg Intake: IV 20 10 Invasive Line 2 20 10 Oral 118 118 Output: Urine 700 Other: Voiding Method Indwelling Catheter Indwelling Catheter Indwelling Catheter # Bowel Movements 1 - Labs CBC & Chem 7: 07/06/24 06:35 07/06/24 06:35 Labs: Abnormal Lab Results - Last 24 Hours (Table) 07/05/24 07/05/24 07/05/24 Range/Units 11:49 11:49 13:07 WBC (3.8-10.6) k/uL RBC (4.30-5.90) m/uL Hgb (13.0-17.5) gm/dL Hct (39.0-53.0) % MCV (80.0-100.0) fL MCHC (31.0-37.0) g/dL Neutrophils # 13.2 H (1.3-7.7) k/uL Lymphocytes # 0.4 L (1.0-4.8) k/uL Macrocytosis Sodium 135 L (137-145) mmol/L Potassium 5.2 H (3.5-5.1) mmol/L Carbon Dioxide 19 L (22-30) mmol/L BUN 87 H (9-20) mg/dL Creatinine 3.37 H (0.66-1.25) mg/dL Glucose 174 H (74-99) mg/dL POC Glucose (mg/dL) (70-110) mg/dL Urine Protein Trace H (Negative) Urine Blood Small H (Negative) Ur Leukocyte Esterase Trace H (Negative) Urine RBC >182 H (0-5) /hpf Urine WBC 8 H (0-5) /hpf Urine Bacteria Rare H (None) /hpf Hyaline Casts 39 H (0-2) /lpf Urine Mucus Rare H (None) /hpf Urine Yeast (Budding) Many H (None) /hpf 07/05/24 07/05/24 07/06/24 Range/Units 16:34 20:00 06:16 WBC (3.8-10.6) k/uL RBC (4.30-5.90) m/uL Hgb (13.0-17.5) gm/dL Hct (39.0-53.0) % MCV (80.0-100.0) fL MCHC (31.0-37.0) g/dL Neutrophils # (1.3-7.7) k/uL Lymphocytes # (1.0-4.8) k/uL Macrocytosis Sodium (137-145) mmol/L Potassium (3.5-5.1) mmol/L Carbon Dioxide (22-30) mmol/L BUN (9-20) mg/dL Creatinine (0.66-1.25) mg/dL Glucose (74-99) mg/dL POC Glucose (mg/dL) 127 H 191 H 192 H (70-110) mg/dL Urine Protein (Negative) Urine Blood (Negative) Ur Leukocyte Esterase (Negative) Urine RBC (0-5) /hpf Urine WBC (0-5) /hpf Urine Bacteria (None) /hpf Hyaline Casts (0-2) /lpf Urine Mucus (None) /hpf Urine Yeast (Budding) (None) /hpf 07/06/24 07/06/24 07/06/24 Range/Units 06:35 06:35 11:28 WBC 10.8 H (3.8-10.6) k/uL RBC 3.12 L (4.30-5.90) m/uL Hgb 10.0 L (13.0-17.5) gm/dL Hct 33.8 L (39.0-53.0) % MCV 108.3 H (80.0-100.0) fL MCHC 29.7 L (31.0-37.0) g/dL Neutrophils # 10.1 H (1.3-7.7) k/uL Lymphocytes # 0.3 L (1.0-4.8) k/uL Macrocytosis Marked A Sodium 134 L (137-145) mmol/L Potassium 5.2 H (3.5-5.1) mmol/L Carbon Dioxide 21 L (22-30) mmol/L BUN 93 H (9-20) mg/dL Creatinine 3.53 H (0.66-1.25) mg/dL Glucose 182 H (74-99) mg/dL POC Glucose (mg/dL) 232 H (70-110) mg/dL Urine Protein (Negative) Urine Blood (Negative) Ur Leukocyte Esterase (Negative) Urine RBC (0-5) /hpf Urine WBC (0-5) /hpf Urine Bacteria (None) /hpf Hyaline Casts (0-2) /lpf Urine Mucus (None) /hpf Urine Yeast (Budding) (None) /hpf Microbiology - Last 24 Hours (Table) 06/30/24 18:02 Blood Culture - Final Blood
--- NOTE | 2024-07-06 15:13 | P.PN ---
Subjective Progress Note Date: 07/06/24 HISTORY OF PRESENT ILLNESS: This is a 88-year-old male with a past medical history significant for coronary artery disease with previous CABG, DVT, and hyperlipidemia. 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 We have been asked to see the patient in consultation for CHF. Patient examined at the bedside in the ER. Patient presented to the ER with a chief compliant of shortness of breath. He reports shortness of breath for past 2-3 days. Patient denies chest pain or pressure. Patient was found to be in acute CHF. Patient also reports hematuria and his urine cannister at the bedside has gross hematuria. DIAGNOSTICS: - EKG reveals sinus mechanism with right bundle branch block.. - Chest xray small right pleural effusion and cardiomegaly and right basilar patchy airspace opacities. Findings may relate to CHF exacerbation and/or pneumonia - Laboratory data: WBC 9.2. Hemoglobin 10.5. Platelet count 197. Sodium 136. Potassium 4.3. BUN 44. Creatinine 2.36. Troponin 0.073. 0.078. 0.075. TSH 1.700. proBNP 7980. - Current home cardiac medications include bisoprolol 2.5 mg daily, Farxiga 10 mg daily, rosuvastatin 10 mg daily, Xarelto 15 mg daily -No previous echocardiogram, stress test, or cardiac catheterization available in EMR for review Progress note 07/02/2024 Patient is seen and examined at bedside this a.m. Hb 10.1, BUN 50, creatinine 2.67 yesterday creatinine was 2.3.. BP 134/63, heart rate 72 bpm, 07/03/2024 Patient is seen and examined at bedside this a.m. Creatinine is worse today to 2.8. Blood pressure and heart rate are at goal. 07/04/2024 Patient's kidney function is progressively got worse, BUN 70, creatinine 3.01, potassium is 5.5 no further hematuria, blood pressure and heart rate are stable. 07/05/2024 Patient's kidney function is progressively got worse. Nephrology following, recommend IV gentle hydration. 07/06 Patient seen and examined. Telemetry sinus rhythm. Patient continues to have bilateral wheezing. Blood pressure 116/74, heart rate 89, pulse ox 96% on 6 L nasal cannula. Repeat blood work reveals hemoglobin 10, WBC 10.8, BUN 93 c reatinine 3.53, potassium 5.2 and sodium 134. Farxiga was decreased by nephrology and Lasix 40 mg IV every 12 hours ordered. PHYSICAL EXAM: HEENT: Head is normocephalic. Pupils are equal, round. Sclerae anicteric. Mucous membranes of the mouth are moist. Neck supple. No JVD or thyromegaly LUNGS: Respirations minimally labored. Lungs with bilateral expiratory wheezing noted. HEART: Regular rate and rhythm. S1 and S2 heard. ABDOMEN: Soft. Nondistended. Nontender. EXTREMITIES: Normal range of motion. No clubbing or cyanosis. Peripheral pulses intact. 2+ bilateral lower extremity edema NEUROLOGIC: Awake and alert. Oriented x 3. ASSESSMENT: Acute hypoxic respiratory failure Acute HFpEF exacerbation Moderate pulm hypertension Possible pneumonia Acute kidney injury, baseline unknown Gross hematuria Bated troponins, type II [place] secondary to oxygen supply/demand mismatch Coronary artery disease with previous CABG, approximately 24 years ago History of DVT, on Xarelto outpatient Hyperlipidemia Pertinent cardiac testing Echo shows EF 55%, no RWMA, moderate pulmonary hypertension, mild MR, mild LA dilatation, moderate TR, mildly dilated ascending aorta measured at 4 cm. PLAN: Losartan on hold due to FLORINDA Continue IV Lasix 40 mg every 12 hours per nephrology Nephrology has dosed Farxiga at 5 mg daily Continue patient on Imdur and hydralazine, aspirin Lipitor and Xarelto and biso prolol. Nephrology team following the case Nurse practitioner note has been reviewed, I agree with documented findings and plan of care. Patient was seen and examined. Objective - Vital Signs Vital signs: Vital Signs Temp 97.4 F L 07/06/24 07:45 Pulse 92 07/06/24 09:04 Resp 23 07/06/24 07:45 BP 132/64 07/06/24 07:45 Pulse Ox 93 L 07/06/24 07:45 FiO2 Intake & Output 07/05/24 07/06/24 07/06/24 18:59 06:59 18:59 Intake Total 138 10 118 Output Total 700 Balance 138 -690 118 Weight 88 kg Intake: IV 20 10 Invasive Line 2 20 10 Oral 118 118 Output: Urine 700 Other: Voiding Method Indwelling Catheter Indwelling Catheter Indwelling Catheter - Labs CBC & Chem 7: 07/06/24 06:35 07/06/24 06:35 Labs: Abnormal Lab Results - Last 24 Hours (Table) 07/05/24 07/05/24 07/05/24 Range/Units 11:30 11:49 11:49 WBC 14.1 H (3.8-10.6) k/uL RBC 3.19 L (4.30-5.90) m/uL Hgb 10.4 L (13.0-17.5) gm/dL Hct 35.3 L (39.0-53.0) % MCV 110.8 H (80.0-100.0) fL MCHC 29.5 L (31.0-37.0) g/dL Neutrophils # 13.2 H (1.3-7.7) k/uL Lymphocytes # 0.4 L (1.0-4.8) k/uL Macrocytosis Marked A Sodium 135 L (137-145) mmol/L Potassium 5.2 H (3.5-5.1) mmol/L Carbon Dioxide 19 L (22-30) mmol/L BUN 87 H (9-20) mg/dL Creatinine 3.37 H (0.66-1.25) mg/dL Glucose 174 H (74-99) mg/dL POC Glucose (mg/dL) 197 H (70-110) mg/dL Urine Protein (Negative) Urine Blood (Negative) Ur Leukocyte Esterase (Negative) Urine RBC (0-5) /hpf Urine WBC (0-5) /hpf Urine Bacteria (None) /hpf Hyaline Casts (0-2) /lpf Urine Mucus (None) /hpf Urine Yeast (Budding) (None) /hpf 07/05/24 07/05/24 07/05/24 Range/Units 13:07 16:34 20:00 WBC (3.8-10.6) k/uL RBC (4.30-5.90) m/uL Hgb (13.0-17.5) gm/dL Hct (39.0-53.0) % MCV (80.0-100.0) fL MCHC (31.0-37.0) g/dL Neutrophils # (1.3-7.7) k/uL Lymphocytes # (1.0-4.8) k/uL Macrocytosis Sodium (137-145) mmol/L Potassium (3.5-5.1) mmol/L Carbon Dioxide (22-30) mmol/L BUN (9-20) mg/dL Creatinine (0.66-1.25) mg/dL Glucose (74-99) mg/dL POC Glucose (mg/dL) 127 H 191 H (70-110) mg/dL Urine Protein Trace H (Negative) Urine Blood Small H (Negative) Ur Leukocyte Esterase Trace H (Negative) Urine RBC >182 H (0-5) /hpf Urine WBC 8 H (0-5) /hpf Urine Bacteria Rare H (None) /hpf Hyaline Casts 39 H (0-2) /lpf Urine Mucus Rare H (None) /hpf Urine Yeast (Budding) Many H (None) /hpf 07/06/24 07/06/24 07/06/24 Range/Units 06:16 06:35 06:35 WBC 10.8 H (3.8-10.6) k/uL RBC 3.12 L (4.30-5.90) m/uL Hgb 10.0 L (13.0-17.5) gm/dL Hct 33.8 L (39.0-53.0) % MCV 108.3 H (80.0-100.0) fL MCHC 29.7 L (31.0-37.0) g/dL Neutrophils # 10.1 H (1.3-7.7) k/uL Lymphocytes # 0.3 L (1.0-4.8) k/uL Macrocytosis Marked A Sodium 134 L (137-145) mmol/L Potassium 5.2 H (3.5-5.1) mmol/L Carbon Dioxide 21 L (22-30) mmol/L BUN 93 H (9-20) mg/dL Creatinine 3.53 H (0.66-1.25) mg/dL Glucose 182 H (74-99) mg/dL POC Glucose (mg/dL) 192 H (70-110) mg/dL Urine Protein (Negative) Urine Blood (Negative) Ur Leukocyte Esterase (Negative) Urine RBC (0-5) /hpf Urine WBC (0-5) /hpf Urine Bacteria (None) /hpf Hyaline Casts (0-2) /lpf Urine Mucus (None) /hpf Urine Yeast (Budding) (None) /hpf Microbiology - Last 24 Hours (Table) 06/30/24 18:02 Blood Culture - Final Blood
--- NOTE | 2024-07-06 16:31 | P.PN ---
Subjective Progress Note Date: 07/06/24 07/06/2024, the patient is being seen for a follow-up. The patient remains in acute hypoxic respiratory failure and currently is still requiring 6 L of O2 nasal cannula. The patient overnight became slightly more short of breath and went into a coughing spells and this morning he is already feeling better. He has a right lower lobe pneumonia and his chest x-ray from today, 07/06/2024, showed an area of persistent consolidation and volume loss in the right lung base. Left lung remains essentially clear. There is also persistent cardiomegaly and mild pulm vascular congestion. His echocardiogram done on 07/01/2024 showed a normal LV function, mild MR, moderate TR with moderate degree of pulmonary hypertension. The patient's white cell count today is at 10.8, with a hemoglobin of 10 and a platelet count of 220. BUN is 93 and a creatinine of 3.5. Noted the patient has a chronic stage IV kidney disease. Creatinine has been gradually on the rise of the patient is being diuresed with IV Lasix. For now, the patient remains on Lasix 40 mg IV every 12 hours. He is on bronchodilators. He is on steroids which will be continued as the patient continues to be bronchospastic and wheezy. I do not see that he is on any form of antibiotic coverage at this point. He remains on anticoagulation with Xarelto 15 mg p.o. on a daily basis. He is known to have previous history of DVT and for that reason the patient has been maintained on anticoagulation. His comorbidities include coronary artery disease with previous bypass surgery approximate 24 years ago. Previous history of DVT, hyperlipidemia, hypertension, the patient has a preserved LV function with secondary pulmonary hypertension as confirmed on recent echocardiogram. Based on progressive worsening of renal function, losartan was placed on hold and the patient will be kept on IV Lasix. Objective - Vital Signs Vital signs: Vital Signs Temp 97.8 F 07/06/24 11:59 Pulse 89 07/06/24 11:59 Resp 22 07/06/24 11:59 BP 116/74 07/06/24 11:59 Pulse Ox 96 07/06/24 11:59 FiO2 Intake & Output 07/05/24 07/06/24 07/06/24 18:59 06:59 18:59 Intake Total 138 10 118 Output Total 700 Balance 138 -690 118 Weight 88 kg Intake: IV 20 10 Invasive Line 2 20 10 Oral 118 118 Output: Urine 700 Other: Voiding Method Indwelling Catheter Indwelling Catheter Indwelling Catheter # Bowel Movements 1 - Exam GENERAL EXAM: Alert, 88-year-old male, sitting up in a chair, on 6 L nasal cannula, comfortable in no apparent distress. HEAD: Normocephalic. EYES: Normal reaction of pupils, equal size. NOSE: Clear with pink turbinates. THROAT: No erythema or exudates. NECK: No masses, no JVD. CHEST: No chest wall deformity. LUNGS: Equal air entry with basilar crackles, few scattered rhonchi. CVS: S1 and S2 normal with no audible murmur, regular rhythm. ABDOMEN: No hepatosplenomegaly, normal bowel sounds, no guarding or rigidity. SPINE: No scoliosis or deformity SKIN: No rashes CENTRAL NERVOUS SYSTEM: No focal deficits, tone is normal in all 4 extremities. EXTREMITIES: There is no peripheral edema. No clubbing, no cyanosis. Peripheral pulses are intact. - Labs CBC & Chem 7: 07/06/24 06:35 07/06/24 06:35 Labs: Abnormal Lab Results - Last 24 Hours (Table) 07/05/24 07/05/24 07/05/24 Range/Units 13:07 16:34 20:00 WBC (3.8-10.6) k/uL RBC (4.30-5.90) m/uL Hgb (13.0-17.5) gm/dL Hct (39.0-53.0) % MCV (80.0-100.0) fL MCHC (31.0-37.0) g/dL Neutrophils # (1.3-7.7) k/uL Lymphocytes # (1.0-4.8) k/uL Macrocytosis Sodium (137-145) mmol/L Potassium (3.5-5.1) mmol/L Carbon Dioxide (22-30) mmol/L BUN (9-20) mg/dL Creatinine (0.66-1.25) mg/dL Glucose (74-99) mg/dL POC Glucose (mg/dL) 127 H 191 H (70-110) mg/dL Urine Protein Trace H (Negative) Urine Blood Small H (Negative) Ur Leukocyte Esterase Trace H (Negative) Urine RBC >182 H (0-5) /hpf Urine WBC 8 H (0-5) /hpf Urine Bacteria Rare H (None) /hpf Hyaline Casts 39 H (0-2) /lpf Urine Mucus Rare H (None) /hpf Urine Yeast (Budding) Many H (None) /hpf 07/06/24 07/06/24 07/06/24 Range/Units 06:16 06:35 06:35 WBC 10.8 H (3.8-10.6) k/uL RBC 3.12 L (4.30-5.90) m/uL Hgb 10.0 L (13.0-17.5) gm/dL Hct 33.8 L (39.0-53.0) % MCV 108.3 H (80.0-100.0) fL MCHC 29.7 L (31.0-37.0) g/dL Neutrophils # 10.1 H (1.3-7.7) k/uL Lymphocytes # 0.3 L (1.0-4.8) k/uL Macrocytosis Marked A Sodium 134 L (137-145) mmol/L Potassium 5.2 H (3.5-5.1) mmol/L Carbon Dioxide 21 L (22-30) mmol/L BUN 93 H (9-20) mg/dL Creatinine 3.53 H (0.66-1.25) mg/dL Glucose 182 H (74-99) mg/dL POC Glucose (mg/dL) 192 H (70-110) mg/dL Urine Protein (Negative) Urine Blood (Negative) Ur Leukocyte Esterase (Negative) Urine RBC (0-5) /hpf Urine WBC (0-5) /hpf Urine Bacteria (None) /hpf Hyaline Casts (0-2) /lpf Urine Mucus (None) /hpf Urine Yeast (Budding) (None) /hpf 07/06/24 Range/Units 11:28 WBC (3.8-10.6) k/uL RBC (4.30-5.90) m/uL Hgb (13.0-17.5) gm/dL Hct (39.0-53.0) % MCV (80.0-100.0) fL MCHC (31.0-37.0) g/dL Neutrophils # (1.3-7.7) k/uL Lymphocytes # (1.0-4.8) k/uL Macrocytosis Sodium (137-145) mmol/L Potassium (3.5-5.1) mmol/L Carbon Dioxide (22-30) mmol/L BUN (9-20) mg/dL Creatinine (0.66-1.25) mg/dL Glucose (74-99) mg/dL POC Glucose (mg/dL) 232 H (70-110) mg/dL Urine Protein (Negative) Urine Blood (Negative) Ur Leukocyte Esterase (Negative) Urine RBC (0-5) /hpf Urine WBC (0-5) /hpf Urine Bacteria (None) /hpf Hyaline Casts (0-2) /lpf Urine Mucus (None) /hpf Urine Yeast (Budding) (None) /hpf Microbiology - Last 24 Hours (Table) 06/30/24 18:02 Blood Culture - Final Blood Assessment and Plan Plan: Acute hypoxemic respiratory failure secondary to an acute exacerbation of chronic obstructive pulmonary disease. Viral screen negative. Procalcitonin negative. The patient remains hypoxic in 60s of oxygen by nasal cannula. Chest x-ray was reviewed. There is consolidation of the right lower lobe. In addition to that, there is ongoing CHF with cardiomegaly and pulmonary edema. Stage IV chronic kidney disease with a component of acute kidney injury secondary to underlying infection, cardiorenal syndrome Acute exacerbation of chronic diastolic congestive heart failure Troponin leak secondary to above Chronic obstructive pulmonary disease History of 50 years of tobacco dependence however quit many years ago Hypertension Hyperlipidemia Diabetes mellitus, type II Coronary artery disease with previous coronary artery bypass grafting in 1998 History of DVT, maintained on Xarelto Plan Continue IV Lasix with close monitoring of the renal function Patient is currently off losartan Continue DuoNeb inhalations, Solu-Medrol Continue Pulmicort and Perforomist inhalations Obtain a noncontrast CAT scan of the chest Titrate down the FiO2 as tolerated, currently on 6 L Increase his activity as tolerated Anticoagulated with Xarelto DNR CODE STATUS We will continue to follow
[2024-07-06 16:58] LABS: Glucose,Whole Blood 212 mg/dL (70-110)
[2024-07-06] MEDS: SODIUM CHLORIDE 0.65% NASAL SPRAY 44 ML BTL NASAL PRN (18:18)
--- NOTE | 2024-07-06 18:32 | CT ---
EXAMINATION TYPE: CT chest wo con CT DLP: 460.9 mGycm, Automated exposure control for dose reduction was used. DATE OF EXAM: 07/06/2024 5:58 PM COMPARISON: Chest radiograph 07/06/2024. CLINICAL INDICATION:Male, 88 years old with history of hypoxic resp failure; PHH, hypoxic resp failur e TECHNIQUE: Multiple axial images were obtained through the chest without IV contrast. Lack of IV or o ral contrast limits evaluation of solid and hollow organ viscera. . Coronal and sagittal reformats re viewed. FINDINGS: LUNGS/ PLEURA: No pneumothorax. The left lung is clear. Moderate sized right pleural effusion with at electasis of the right middle and lower lobes. Patchy consolidative opacities within the right upper lobe. Right midlung calcified granuloma. AIRWAY: Patent and unremarkable.. HEART: Cardiomegaly is demonstrated.No pericardial effusion. Coronary artery atherosclerotic changes and stents present. Small aortic valvular calcifications. Mild mitral annulus calcifications. MEDIASTINUM: Enlarged mediastinal lymph nodes with examples including a subcarinal lymph node measuri ng up to 1.9 cm short axis and a right paratracheal lymph node measuring up to 1.7 cm. Post-CABG esteban ges. Calcified subcarinal and right hilar lymph nodes. 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 Atheroscler otic calcification of the aorta and its branches. Dilated main pulmonary artery measuring up to 3.4 c m suggesting pulmonary arterial hypertension. MUSCULOSKELETAL: No acute osseous abnormalities. Sternotomy wires. No aggressive osseous lesion. Mild multilevel degenerative disc disease. SOFT TISSUES/LYMPH NODES: Unremarkable. LOWER NECK: No significant findings. UPPER ABDOMEN: Scattered calcific granulomas within the visualized liver. Small hiatal hernia. Diminu tive spleen with calcified granuloma. IMPRESSION: 1. Moderate right pleural effusion with patchy consolidative opacities within the right upper lobe an d atelectatic change of the right middle and lower lobes. Findings suggest pneumonia however underlyi ng pulmonary mass is not excluded. Continued follow-up is recommended. 2. Mediastinal adenopathy likely reactive to #1. 3. Sequelae of prior granulomatous disease. 4. Cardiomegaly with post-CABG changes. [facility], , 07/06/2024 6:30 PM
[2024-07-06 20:09] LABS: Glucose,Whole Blood 173 mg/dL (70-110)
[2024-07-07 05:57] LABS: Glucose,Whole Blood 147 mg/dL (70-110)
[2024-07-07 07:29] LABS: African American GFR (CKD) 14 (>60 ml/min/1.73 sqM); Anion Gap 10 mmol/L; Calcium 8.9 mg/dL (8.4-10.2); Carbon Dioxide 21 mmol/L (22-30); Chloride 102 mmol/L (98-107); Glucose 149 mg/dL (74-99); Magnesium 1.9 mg/dL (1.6-2.3); Non-African American GFR(CKD) 12 (>60 ml/min/1.73 sqM); Potassium 5.5 mmol/L (3.5-5.1); Sodium 133 mmol/L (137-145)
[2024-07-07 07:47] LABS: Blood Urea Nitrogen 109 mg/dL (9-20)
[2024-07-07 11:42] LABS: Glucose,Whole Blood 206 mg/dL (70-110)
--- NOTE | 2024-07-07 11:53 | P.PN ---
Subjective Patient is seen in follow-up for acute kidney injury. Renal function worse. Creatinine 4.23 and potassium 5.5. Requiring more oxygen and is currently on 9 L nasal cannula. Has Huertas catheter. Urine output 300 cc overnight despite IV Lasix. Vital signs are stable. General: No acute distress. HEENT: Head exam is unremarkable. On nasal cannula. LUNGS: Scattered rhonchi. HEART: Rate and Rhythm are regular. ABDOMEN: Nontender. EXTREMITITES: 1+ edema in ankles. Objective - Vital Signs Vital signs: Vital Signs Temp 98.1 F 07/07/24 11:25 Pulse 78 07/07/24 11:25 Resp 19 07/07/24 11:25 BP 131/58 07/07/24 11:25 Pulse Ox 95 07/07/24 11:25 FiO2 Intake & Output 07/06/24 07/07/24 07/07/24 18:59 06:59 18:59 Intake Total 880 637 10 Output Total 300 Balance 880 337 10 Weight 89.5 kg Intake: IV 10 Invasive Line 3 10 Oral 880 637 Output: Urine 300 Other: Voiding Method Indwelling Catheter Indwelling Catheter Indwelling Catheter # Bowel Movements 1 - Labs CBC & Chem 7: 07/06/24 06:35 07/07/24 06:36 Labs: Abnormal Lab Results - Last 24 Hours (Table) 07/02/24 07/06/24 07/06/24 Range/Units 10:38 16:57 20:07 Sodium (137-145) mmol/L Potassium (3.5-5.1) mmol/L Carbon Dioxide (22-30) mmol/L BUN (9-20) mg/dL Creatinine (0.66-1.25) mg/dL Glucose (74-99) mg/dL POC Glucose (mg/dL) 212 H 173 H (70-110) mg/dL Ur Random Uric Acid <5.5 L (37.0-92.0) mg/dL 07/07/24 07/07/24 07/07/24 Range/Units 05:56 06:36 11:41 Sodium 133 L (137-145) mmol/L Potassium 5.5 H (3.5-5.1) mmol/L Carbon Dioxide 21 L (22-30) mmol/L BUN 109 H* (9-20) mg/dL Creatinine 4.23 H (0.66-1.25) mg/dL Glucose 149 H (74-99) mg/dL POC Glucose (mg/dL) 147 H 206 H (70-110) mg/dL Ur Random Uric Acid (37.0-92.0) mg/dL Assessment and Plan Plan: Assessment: 1. Acute kidney injury secondary to ATN secondary to cardiorenal syndrome. Creatinine 2.17 on admission and is 4.23 today. Unknown baseline renal function. No hydronephrosis noted on kidney ultrasound. UA benign. 2. Acute on chronic diastolic CHF with moderate pulmonary hypertension, moderate tricuspid regurgitation. 3. Volume overload. 4. Diabetes mellitus. 5. Anemia. Iron deficiency noted. 6. Metabolic acidosis secondary to acute kidney injury and IV fluids. On oral bicarb. 7. Hyperkalemia secondary to acute kidney injury. Plan: Maintain IV Lasix. Stop SGLT2 inhibitor. Maintain IV iron. Maintain low-salt diet and fluid restriction. Avoid nephrotoxins. Continue to monitor renal function and urine output. Discussed with patient and his present at bedside the need to initiate renal replacement therapy due to worsening renal function, electrolyte imbalance and fluid overload. They are agreeable to start. Consult vascular surgery for dialysis catheter placement. First treatment of hemodialysis today and second treatment tomorrow. Case also discussed with primary team.
--- NOTE | 2024-07-07 12:05 | P.PN ---
Subjective Progress Note Date: 07/07/24 No new complaints today, breathing is much worse, now requiring 9-10L HFNC. Kidney function is worsening again. 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 Gen: In NAD, non-toxic HEENT: normocephalic, atraumatic, hearing acuity is intant, mucous membranes moist CVS: perfusing all extremities well, bilateral pitting edema, +jvd Respiratory: symmetric chest expansion, no accessory muscle use, +wheezing GI: soft, NTTP, ND, : no suprapubic tenderness, no CVA tenderness MSK/Derm: no rashes, cyanosis Neuro: CN II-XII intact, no motor weakness, Psych: cooperative, euthymic mood, judgment and insight is intact Hospital course: This is an 88-year-old male with a past medical history reviewed coronary disease status post CABG x 1, hyperlipidemia, heart failure, DVT on Xarelto pres ents emergency department with complaint of shortness of breath. In the emergency room, patient was afebrile, 119/68, heart rate 75, 83% on room air. CBC was remarkable for hemoglobin of 11.5 with MCV of 105.9. INR is 1.5. BUN was 40, creatinine 2.17 with no known baseline. BNP was 7980. Liver function tests are unremarkable. Influenza A, B, RSV, COVID were negative. Chest x-ray showed small right pleural effusion with cardiomegaly and right basilar patchy airspace opacities. EKG showed sinus rhythm, left axis deviation, right bundle branch block, left anterior fascicular block, no evidence of ischemia. Venous Doppler study showed chronic DVT. During hospitalization, patient was noted to have worsening kidney function as well as hematuria. Urology and nephrology were consulted for this. Patient Xarelto was held and hematuria resolved, was seen and cleared by urology for outpatient cystoscopy as well as resumption of anticoagulation. Echocardiogram demonstrated normal ejection fraction with moderate pulmonary hypertension. -FEUrea = 106.2% c/w intrinsic renal disease, likely ATN -Renal ultrasound is negative for hydronephrosis or nephrolithiasis Assessment/plan: Acute hypoxemic respiratory failure Acute diastolic heart failure exacerbation, ejection fraction is preserved at 55% Acute COPD exacerbation -Oxygen as needed -Strict ins and outs, daily weights -Cardiology consultation is appreciated -Lasix 40mg IV BID -Blood culturesno growth to date -1500 cc fluid restriction, 2 g salt restriction -Pulmonology consulted; started the pt on steroids, updrafts -changed updrafts to duonebs q4h Acute kidney injury, possibly superimposed on chronic kidney disease Acute Tubular Necrosis Hematuria, microscopic -Nephrology is consulte, plan is to start MECHANICAL DOOR REPAIRER 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 -Lasix 40mg IV BID -Hold home losartan -Urology consultation was appreciated, patient was cleared to resume anticoagulation and recommended for outpatient cystoscopy Macrocytic Anemia - b12, folate level pending - continue to monitor History of DVT -Xarelto was held due to hematuria, and FLORINDA, now resumed since 07/04 - consider stopping now that pt requiring MECHANICAL DOOR REPAIRER and switching to 2.5mg BID eliquis - defer to cardiology History of CABG Hyperlipidemia -Home medications reviewed and reconciled Patient has no code DVT prophylaxis is covered with xarelto Objective - Vital Signs Vital signs: Vital Signs Temp 98.1 F 07/07/24 11:25 Pulse 78 07/07/24 11:25 Resp 19 07/07/24 11:25 BP 131/58 07/07/24 11:25 Pulse Ox 95 07/07/24 11:25 FiO2 Intake & Output 07/06/24 07/07/24 07/07/24 18:59 06:59 18:59 Intake Total 880 637 10 Output Total 300 Balance 880 337 10 Weight 89.5 kg Intake: IV 10 Invasive Line 3 10 Oral 880 637 Output: Urine 300 Other: Voiding Method Indwelling Catheter Indwelling Catheter Indwelling Catheter # Bowel Movements 1 - Labs CBC & Chem 7: 07/06/24 06:35 07/07/24 06:36 Labs: Abnormal Lab Results - Last 24 Hours (Table) 07/02/24 07/06/24 07/06/24 Range/Units 10:38 16:57 20:07 Sodium (137-145) mmol/L Potassium (3.5-5.1) mmol/L Carbon Dioxide (22-30) mmol/L BUN (9-20) mg/dL Creatinine (0.66-1.25) mg/dL Glucose (74-99) mg/dL POC Glucose (mg/dL) 212 H 173 H (70-110) mg/dL Ur Random Uric Acid <5.5 L (37.0-92.0) mg/dL 07/07/24 07/07/24 07/07/24 Range/Units 05:56 06:36 11:41 Sodium 133 L (137-145) mmol/L Potassium 5.5 H (3.5-5.1) mmol/L Carbon Dioxide 21 L (22-30) mmol/L BUN 109 H* (9-20) mg/dL Creatinine 4.23 H (0.66-1.25) mg/dL Glucose 149 H (74-99) mg/dL POC Glucose (mg/dL) 147 H 206 H (70-110) mg/dL Ur Random Uric Acid (37.0-92.0) mg/dL
--- NOTE | 2024-07-07 13:26 | US ---
EXAMINATION TYPE: US chest DATE OF EXAM: 07/07/2024 COMPARISON: Chest CT from yesterday CLINICAL INDICATION: Male, 88 years old with history of pleural effusion; Right pleural effusion TECHNIQUE: Grayscale imaging of the chest. Targeted ultrasound of the posterior lower right hemithor ax FINDINGS: EXAM MEASUREMENTS: Right Pleural Effusion pocket size: 9.5 cm Right skin surface to fluid distance: 2.5 cm lung tissue visualized 2.8 cm in pocket. Right side marked for possible thoracentesis outside the dept. Pulmonologists are able to review the images in the patient?s EMR. IMPRESSIONS: Small to moderate-sized right-sided pleural fluid collection with right lung atelectasis is seen and correlates with most recent CT. [facility], , 07/07/2024 1:24 PM
--- NOTE | 2024-07-07 14:05 | P.PN ---
Subjective Progress Note Date: 07/07/24 HISTORY OF PRESENT ILLNESS: This is a 88-year-old male with a past medical history significant for coronary artery disease with previous CABG, DVT, and hyperlipidemia. Patient follows with a dot compliance coordinator in [facility]. We have been asked to see the patient in consultation for CHF. Patient examined at the bedside in the ER. Patient presented to the ER with a chief compliant of shortness of breath. He reports shortness of breath for past 2-3 days. Patient denies chest pain or pressure. Patient was found to be in acute CHF. Patient also reports hematuria and his urine cannister at the bedside has gross hematuria. DIAGNOSTICS: - EKG reveals sinus mechanism with right bundle branch block.. - Chest xray small right pleural effusion and cardiomegaly and right basilar patchy airspace opacities. Findings may relate to CHF exacerbation and/or pneumonia - Laboratory data: WBC 9.2. Hemoglobin 10.5. Platelet count 197. Sodium 136. Potassium 4.3. BUN 44. Creatinine 2.36. Troponin 0.073. 0.078. 0.075. TSH 1.700. proBNP 7980. - Current home cardiac medications include bisoprolol 2.5 mg daily, Farxiga 10 mg daily, rosuvastatin 10 mg daily, Xarelto 15 mg daily -No previous echocardiogram, stress test, or cardiac catheterization available in EMR for review Progress note 07/02/2024 Patient is seen and examined at bedside this a.m. Hb 10.1, BUN 50, creatinine 2.67 yesterday creatinine was 2.3.. BP 134/63, heart rate 72 bpm, 07/03/2024 Patient is seen and examined at bedside this a.m. Creatinine is worse today to 2.8. Blood pressure and heart rate are at goal. 07/04/2024 Patient's kidney function is progressively got worse, BUN 70, creatinine 3.01, potassium is 5.5 no further hematuria, blood pressure and heart rate are stable. 07/05/2024 Patient's kidney function is progressively got worse. Nephrology following, recommend IV gentle hydration. 07/06 Patient seen and examined. Telemetry sinus rhythm. Patient continues to have bilateral wheezing. Blood pressure 116/74, heart rate 89, pulse ox 96% on 6 L nasal cannula. Repeat blood work reveals hemoglobin 10, WBC 10.8, BUN 93 c reatinine 3.53, potassium 5.2 and sodium 134. Farxiga was decreased by nephrology and Lasix 40 mg IV every 12 hours ordered. 07/07 Patient seen and examined. Patient continues to have wheezing. No lower extremity edema. He continues to have worsening renal function for which nephrology is following. No complaints of chest pain. Blood pressure 131/58, heart rate 78, pulse ox 95% on high flow nasal cannula 9 L. Repeat blood work reveals BUN 109 and creatinine 4.23. Potassium 5.5. CT of the chest performed last evening reveals moderate right pleural effusion with consolidative opacities within the right upper lobe and atelectatic change of the right middle and lower lobes. Findings suggest pneumonia however pulmonary mass not excluded. Mediastinal adenopathy. Sequelae of prior gran ulomatous disease. Cardiomegaly with post CABG changes. Ultrasound of the chest: Small to moderate size right-sided pleural fluid collection with right lung atelectasis. PHYSICAL EXAM: HEENT: Head is normocephalic. Pupils are equal, round. Sclerae anicteric. Neck supple. No JVD or thyromegaly LUNGS: Respirations minimally labored. Lungs with bilateral expiratory wheezing noted. HEART: Regular rate and rhythm. S1 and S2 heard. No murmur ABDOMEN: Soft. Nondistended. Nontender. EXTREMITIES: No clubbing or cyanosis. Peripheral pulses intact. 2+ bilateral lower extremity edema NEUROLOGIC: Awake and alert. Oriented x 3. ASSESSMENT: Acute hypoxic respiratory failure Acute HFpEF exacerbation Moderate pulm hypertension Possible pneumonia Acute kidney injury, baseline unknown Gross hematuria Bated troponins, type II FL secondary to oxygen supply/demand mismatch Coronary artery disease with previous CABG, approximately 24 years ago History of DVT, on Xarelto outpatient Hyperlipidemia Pertinent cardiac testing Echo shows EF 55%, no RWMA, moderate pulmonary hypertension, mild MR, mild LA dilatation, moderate TR, mildly dilated ascending aorta measured at 4 cm. PLAN: Losartan on hold due to FLORINDA Continue IV Lasix 40 mg every 12 hours per nephrology Continue patient on Imdur and hydralazine, aspirin Lipitor and Xarelto and bisoprolol. Nephrology team following the case Nurse practitioner note has been reviewed, I agree with documented findings and plan of care. Patient was seen and examined. Objective - Vital Signs Vital signs: Vital Signs Temp 98.1 F 07/07/24 07:25 Pulse 84 07/07/24 09:32 Resp 19 07/07/24 07:25 BP 160/59 07/07/24 07:25 Pulse Ox 95 07/07/24 07:25 FiO2 Intake & Output 07/06/24 07/07/24 07/07/24 18:59 06:59 18:59 Intake Total 880 637 10 Output Total 300 Balance 880 337 10 Weight 89.5 kg Intake: IV 10 Invasive Line 3 10 Oral 880 637 Output: Urine 300 Other: Voiding Method Indwelling Catheter Indwelling Catheter # Bowel Movements 1 - Labs CBC & Chem 7: 07/06/24 06:35 07/07/24 06:36 Labs: Abnormal Lab Results - Last 24 Hours (Table) 07/02/24 07/06/24 07/06/24 Range/Units 10:38 11:28 16:57 Sodium (137-145) mmol/L Potassium (3.5-5.1) mmol/L Carbon Dioxide (22-30) mmol/L BUN (9-20) mg/dL Creatinine (0.66-1.25) mg/dL Glucose (74-99) mg/dL POC Glucose (mg/dL) 232 H 212 H (70-110) mg/dL Ur Random Uric Acid <5.5 L (37.0-92.0) mg/dL 07/06/24 07/07/24 07/07/24 Range/Units 20:07 05:56 06:36 Sodium 133 L (137-145) mmol/L Potassium 5.5 H (3.5-5.1) mmol/L Carbon Dioxide 21 L (22-30) mmol/L BUN 109 H* (9-20) mg/dL Creatinine 4.23 H (0.66-1.25) mg/dL Glucose 149 H (74-99) mg/dL POC Glucose (mg/dL) 173 H 147 H (70-110) mg/dL Ur Random Uric Acid (37.0-92.0) mg/dL
--- NOTE | 2024-07-07 14:29 | P.GSCN ---
History of Present Illness History of present illness: 86-year gentleman history of acute chronic renal failure, history of hyperkalemia acute kidney injury consulted for placement dialysis catheter Supple no bruit appreciated Chest few crackles at lung bases. Second sound present Abdomen soft nontender Vascular femorals are 1+ brachial radial 1+ Plan is placement of dialysis catheter temporary risk and complication bleeding infection has been discussed Past Medical History Past Medical History: Coronary Artery Disease (CAD), Heart Failure, COPD, Hyperlipidemia, Hypertension Additional Past Medical History / Comment(s): dvt left leg History of Any Multi-Drug Resistant Organisms: None Reported Past Surgical History: Coronary Bypass/CABG Additional Past Surgical History / Comment(s): 3 vessel CABG Past Anesthesia/Blood Transfusion Reactions: No Reported Reaction Past Psychological History: No Psychological Hx Reported Smoking Status: Former smoker Past Drug Use History: None Reported - Past Family History Father History Unknown: Yes Mother History Unknown: Yes Medications and Allergies Home Medications Medication Instructions Recorded Confirmed Type Ascorbic Acid [Vitamin C] 1,000 mg PO DAILY 06/30/24 06/30/24 History Bisoprolol [Zebeta] 2.5 mg PO DAILY 06/30/24 06/30/24 History Candesartan Cilexetil [Atacand] 8 mg PO DAILY 06/30/24 06/30/24 History Cholecalciferol [Vitamin D3 (25 25 mcg PO DAILY 06/30/24 06/30/24 History Mcg = 1000 Iu)] Dapagliflozin Propanediol [Farxiga] 10 mg PO DAILY 06/30/24 06/30/24 History Fluticasone/Umeclidin/Vilanter 1 puff INHALATION RT-DAILY 06/30/24 06/30/24 History [Trelegy Ellipta 100-62.5-25] Garlic 2,000 mg PO DAILY 06/30/24 06/30/24 History Rivaroxaban [Xarelto] 15 mg PO DAILY 06/30/24 06/30/24 History Rosuvastatin [Crestor] 10 mg PO DAILY 06/30/24 06/30/24 History Turmeric Root Extract [Turmeric] 500 mg PO DAILY 06/30/24 06/30/24 History Zinc Gluconate [Zinc] 50 mg PO DAILY 06/30/24 06/30/24 History Allergies Allergy/AdvReac Type Severity Reaction Status Date / Time No Known Allergies Allergy Verified 06/30/24 14:19 Surgical - Exam Vital Signs Temp Pulse Resp BP Pulse Ox 97.4 F L 75 24 119/68 83 L 06/30/24 14:17 06/30/24 14:17 06/30/24 14:17 06/30/24 14:17 06/30/24 14:17 Results - Labs 07/06/24 06:35 07/07/24 06:36 Abnormal Lab Results - Last 24 Hours (Table) 07/02/24 07/06/24 07/06/24 Range/Units 10:38 16:57 20:07 Sodium (137-145) mmol/L Potassium (3.5-5.1) mmol/L Carbon Dioxide (22-30) mmol/L BUN (9-20) mg/dL Creatinine (0.66-1.25) mg/dL Glucose (74-99) mg/dL POC Glucose (mg/dL) 212 H 173 H (70-110) mg/dL Ur Random Uric Acid <5.5 L (37.0-92.0) mg/dL 07/07/24 07/07/24 07/07/24 Range/Units 05:56 06:36 11:41 Sodium 133 L (137-145) mmol/L Potassium 5.5 H (3.5-5.1) mmol/L Carbon Dioxide 21 L (22-30) mmol/L BUN 109 H* (9-20) mg/dL Creatinine 4.23 H (0.66-1.25) mg/dL Glucose 149 H (74-99) mg/dL POC Glucose (mg/dL) 147 H 206 H (70-110) mg/dL Ur Random Uric Acid (37.0-92.0) mg/dL Diabetes panel 07/07/24 Range/Units 06:36 Sodium 133 L (137-145) mmol/L Potassium 5.5 H (3.5-5.1) mmol/L Chloride 102 (98-107) mmol/L Carbon Dioxide 21 L (22-30) mmol/L BUN 109 H* (9-20) mg/dL Creatinine 4.23 H (0.66-1.25) mg/dL Glucose 149 H (74-99) mg/dL Calcium 8.9 (8.4-10.2) mg/dL Calcium panel 07/07/24 Range/Units 06:36 Calcium 8.9 (8.4-10.2) mg/dL Pituitary panel 07/07/24 Range/Units 06:36 Sodium 133 L (137-145) mmol/L Potassium 5.5 H (3.5-5.1) mmol/L Chloride 102 (98-107) mmol/L Carbon Dioxide 21 L (22-30) mmol/L BUN 109 H* (9-20) mg/dL Creatinine 4.23 H (0.66-1.25) mg/dL Glucose 149 H (74-99) mg/dL Calcium 8.9 (8.4-10.2) mg/dL Adrenal panel 07/07/24 Range/Units 06:36 Sodium 133 L (137-145) mmol/L Potassium 5.5 H (3.5-5.1) mmol/L Chloride 102 (98-107) mmol/L Carbon Dioxide 21 L (22-30) mmol/L BUN 109 H* (9-20) mg/dL Creatinine 4.23 H (0.66-1.25) mg/dL Glucose 149 H (74-99) mg/dL Calcium 8.9 (8.4-10.2) mg/dL
[2024-07-07] MEDS: MIDAZOLAM 2 MG/2 ML VIAL IVP ONE (14:50)
[2024-07-07] MEDS: LIDOCAINE 1% INJ 10MG/ML (30 ML VIAL-PF) SQ ONE ×2 (14:51→14:52)
--- NOTE | 2024-07-07 15:09 | P.PCN ---
Description of Procedure: Preop diagnosis acute chronic renal failure with high potassium Postop the same Procedure ultrasound-guided 30 cm dialysis catheter placed right femoral approach Patient brought to the Bottling Line Attendant close a prepped and draped in Prestel manner. Lidocaine infiltrated right groin area. Sound guided micropuncture introduced right femoral vein micropuncture guide was passed and 4 Turkish dilator passed on the top of guidewire. A regular guidewire without any resistance catheter was removed then we placed a dilator on the top of the guidewire we placed 30 cm dialysis catheter was removed flushed heparin saline hep-locked secured with 3-0 nylon patient tarted the procedure well
--- NOTE | 2024-07-07 15:31 | IR ---
EXAMINATION TYPE: IR cvc insert non tunneled DATE OF EXAM: 07/07/2024 3:21 PM COMPARISON: Pre Operative Images if available both CT/MRI or plain film CLINICAL INDICATION: Male, 88 years old with history of HEMODIALYSIS INSERTION, 0.2 MIN FL, 0.8429 GY CM2; TECHNIQUE: IR cvc insert non tunneled, multiple fluoroscopic images provided for procedure. DAP: 84.29 uGym2 . FINDINGS: Fluoroscopic imaging for central venous catheter placement. Tip terminates near the level of L3 L2 le maco. Multilevel degeneration changes are atherosclerotic plaque of the arterial vasculature. IMPRESSION: 1. No evidence for intraoperative complication. 2. Please see the operative/procedural note for further details. [facility], , 07/07/2024 3:29 PM
[2024-07-07 16:53] LABS: Glucose,Whole Blood 170 mg/dL (70-110)
--- NOTE | 2024-07-07 17:14 | P.PN ---
Subjective Progress Note Date: 07/07/24 07/06/2024, the patient is being seen for a follow-up. The patient remains in acute hypoxic respiratory failure and currently is still requiring 6 L of O2 nasal cannula. The patient overnight became slightly more short of breath and went into a coughing spells and this morning he is already feeling better. He has a right lower lobe pneumonia and his chest x-ray from today, 07/06/2024, showed an area of persistent consolidation and volume loss in the right lung base. Left lung remains essentially clear. There is also persistent cardiomegaly and mild pulm vascular congestion. His echocardiogram done on 07/01/2024 showed a normal LV function, mild MR, moderate TR with moderate degree of pulmonary hypertension. The patient's white cell count today is at 10.8, with a hemoglobin of 10 and a platelet count of 220. BUN is 93 and a creatinine of 3.5. Noted the patient has a chronic stage IV kidney disease. Creatinine has been gradually on the rise of the patient is being diuresed with IV Lasix. For now, the patient remains on Lasix 40 mg IV every 12 hours. He is on bronchodilators. He is on steroids which will be continued as the patient continues to be bronchospastic and wheezy. I do not see that he is on any form of antibiotic coverage at this point. He remains on anticoagulation with Xarelto 15 mg p.o. on a daily basis. He is known to have previous history of DVT and for that reason the patient has been maintained on anticoagulation. His comorbidities include coronary artery disease with previous bypass surgery approximate 24 years ago. Previous history of DVT, hyperlipidemia, hypertension, the patient has a preserved LV function with secondary pulmonary hypertension as confirmed on recent echocardiogram. Based on progressive worsening of renal function, losartan was placed on hold and the patient will be kept on IV Lasix. 07/07/2024, the patient is being seen for a follow-up. On today's evaluation, the patient has become more hypoxic and is currently on 15 L of oxygen nasal cannula. He was on 8 L and he was moved up to 10 L and currently is on 15 L. A CAT scan of the chest was completed yesterday and the patient was found to have a moderate-sized right-sided pleural effusion along with consolidation of the right lung base in addition some atelectatic changes right middle lobe and right lower lobe. There is also some nonspecific mediastinal lymphadenopathy and sequelae of a previous granulomatous disease along with cardiomegaly and changes consistent with bypass. At the same time, the patient is developing progressive worsening renal function. On today's blood work, the patient's creatinine is up to 4.23 with a BUN of 109. Bicarb is at 21. Potassium level is at 5.5. Based on that, nephrology has made recommendations to proceed with hemodialysis. Dialysis catheter to be inserted. Remains on Lasix 40 mg IV every 12 hours. Rest of the medications are essentially unchanged. Remains on bronchodilators. Remains on IV Solu-Medrol. Objective - Vital Signs Vital signs: Vital Signs Temp 98.1 F 07/07/24 11: Pulse 78 07/07/24 11: Resp 19 07/07/24 11:25 BP 131/58 07/07/24 11:25 Pulse Ox 95 07/07/24 11:25 FiO2 Intake & Output 07/06/24 07/07/24 07/07/24 18:59 06:59 18:59 Intake Total 880 637 10 Output Total 300 Balance 880 337 10 Weight 89.5 kg Intake: IV 10 Invasive Line 3 10 Oral 880 637 Output: Urine 300 Other: Voiding Method Indwelling Catheter Indwelling Catheter Indwelling Catheter # Bowel Movements 1 - Exam GENERAL EXAM: Alert, 88-year-old male, sitting up in a chair, on 15 L nasal cannula, comfortable in no apparent distress. HEAD: Normocephalic. EYES: Normal reaction of pupils, equal size. NOSE: Clear with pink turbinates. THROAT: No erythema or exudates. NECK: No masses, no JVD. CHEST: No chest wall deformity. LUNGS: Equal air entry with basilar crackles, few scattered rhonchi. Diminished breath sound right lung base CVS: S1 and S2 normal with no audible murmur, regular rhythm. ABDOMEN: No hepatosplenomegaly, normal bowel sounds, no guarding or rigidity. SPINE: No scoliosis or deformity SKIN: No rashes CENTRAL NERVOUS SYSTEM: No focal deficits, tone is normal in all 4 extremities. EXTREMITIES: There is no peripheral edema. No clubbing, no cyanosis. Peripheral pulses are intact. - Labs CBC & Chem 7: 07/06/24 06:35 07/07/24 06:36 Labs: Abnormal Lab Results - Last 24 Hours (Table) 07/02/24 07/06/24 07/06/24 Range/Units 10:38 16:57 20:07 Sodium (137-145) mmol/L Potassium (3.5-5.1) mmol/L Carbon Dioxide (22-30) mmol/L BUN (9-20) mg/dL Creatinine (0.66-1.25) mg/dL Glucose (74-99) mg/dL POC Glucose (mg/dL) 212 H 173 H (70-110) mg/dL Ur Random Uric Acid <5.5 L (37.0-92.0) mg/dL 07/07/24 07/07/24 07/07/24 Range/Units 05:56 06:36 11:41 Sodium 133 L (137-145) mmol/L Potassium 5.5 H (3.5-5.1) mmol/L Carbon Dioxide 21 L (22-30) mmol/L BUN 109 H* (9-20) mg/dL Creatinine 4.23 H (0.66-1.25) mg/dL Glucose 149 H (74-99) mg/dL POC Glucose (mg/dL) 147 H 206 H (70-110) mg/dL Ur Random Uric Acid (37.0-92.0) mg/dL Assessment and Plan Plan: Acute hypoxemic respiratory failure secondary to an acute exacerbation of chronic obstructive pulmonary disease. Viral screen negative. Procalcitonin negative. The patient remains hypoxic on 15 L of oxygen by nasal cannula. Chest x-ray was reviewed. There is consolidation of the right lower lobe. In addition to that, there is ongoing CHF with cardiomegaly and pulmonary edema. CAT scan of the chest was completed yesterday and shows right-sided pleural effusion, atelectatic change in the right lung base along with consolidation and some nonspecific mediastinal lymphadenopathy. Stage IV chronic kidney disease with a component of acute kidney injury secondary to underlying infection, cardiorenal syndrome. The patient has developed an acute on top of chronic kidney disease with diminished urine output. The patient is going to undergo hemodialysis. 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 Obtain ultrasound of the right chest in consideration for thoracentesis of the right lung Consult vascular surgery for dialysis access Will initiate hemodialysis Continue IV Lasix Patient is currently off losartan Continue DuoNeb inhalations, Solu-Medrol Continue Pulmicort and Perforomist inhalations Obtain a noncontrast CAT scan of the chest Increase his activity as tolerated DNR CODE STATUS We will continue to follow Time with Patient: Greater than 30
[2024-07-07 20:23] LABS: Glucose,Whole Blood 159 mg/dL (70-110)
[2024-07-07] MEDS: MIDODRINE 5 MG TAB PO STA (21:00)
[2024-07-08 03:02] LABS: Hepatitis B Surface Antigen Nonreactive (Nonreactive)
[2024-07-08 03:22] LABS: Hepatitis B Surface AB- Quant 3.5 mIU/mL
--- NOTE | 2024-07-08 03:29 | XR ---
EXAM: XR Chest, 1 View CLINICAL HISTORY: ITS.REASON XR Reason: increased oxygen demands; right pleural effusion TECHNIQUE: Frontal view of the chest. COMPARISON: 07/06/24 FINDINGS: Lungs: Persistent vascular congestion. Right basilar airspace disease, atelectasis or pneumonia. Pleural space: Persistent moderate right pleural effusion. Skin folds projecting over the lung apices. No definite pneumothorax. Heart: Previous sternotomy. Cardiomegaly. Bones/joints: No acute osseous findings. IMPRESSION: 1. Right basilar airspace disease, atelectasis or pneumonia. 2. Persistent vascular congestion. 3. Persistent moderate right pleural effusion.
[2024-07-08 06:34] LABS: Glucose,Whole Blood 154 mg/dL (70-110)
[2024-07-08 06:40] LABS: Basophils % (A) 0 %; Eosinophils % (A) 0 %; HCT 33.8 % (39.0-53.0); HGB 10.1 gm/dL (13.0-17.5); Hypochromasia Moderate; Lymphocytes # (A) 0.2 k/uL (1.0-4.8); Lymphocytes % (A) 2 %; MCH 31.8 pg (25.0-35.0); MCHC 29.9 g/dL (31.0-37.0); MCV 106.1 fL (80.0-100.0); Macrocytosis Moderate; Mean Platelet Volume 9.8; Monocytes # (A) 0.5 k/uL (0-1.0); Monocytes % (A) 5 %; Neutrophils # (A) 10.6 k/uL (1.3-7.7); Neutrophils % (A) 93 %; Platelet Count 189 k/uL (150-450); RBC 3.19 m/uL (4.30-5.90); RDW 13.8 % (11.5-15.5); WBC 11.4 k/uL (3.8-10.6)
[2024-07-08 06:58] LABS: Potassium 5.1 mmol/L (3.5-5.1)
[2024-07-08 06:59] LABS: African American GFR (CKD) 16 (>60 ml/min/1.73 sqM); Anion Gap 10 mmol/L; Blood Urea Nitrogen 91 mg/dL (9-20); Calcium 8.8 mg/dL (8.4-10.2); Carbon Dioxide 24 mmol/L (22-30); Chloride 99 mmol/L (98-107); Glucose 105 mg/dL (74-99); Magnesium 1.9 mg/dL (1.6-2.3); Non-African American GFR(CKD) 14 (>60 ml/min/1.73 sqM); Sodium 133 mmol/L (137-145)
--- NOTE | 2024-07-08 10:18 | P.PN ---
Subjective Patient is seen in follow-up for acute kidney injury. Started on hemodialysis July 07, 2024. Tolerating dialysis well. On BiPAP. Vital signs are stable. General: No acute distress. HEENT: Head exam is unremarkable. On BiPAP. LUNGS: Scattered rhonchi. HEART: Rate and Rhythm are regular. ABDOMEN: Nontender. EXTREMITITES: 1+ edema in ankles. Objective - Vital Signs Vital signs: Vital Signs Temp 97.9 F 07/08/24 08:11 Pulse 80 07/08/24 08:27 Resp 18 07/08/24 08:11 BP 116/60 07/08/24 08:11 Pulse Ox 99 07/08/24 08:17 FiO2 100 07/08/24 08:17 Intake & Output 07/07/24 07/08/24 07/08/24 18:59 06:59 18:59 Intake Total 95 1020 Output Total 1000 Balance 95 20 Weight 89.5 kg Intake: IV 20 20 Invasive Line 3 20 20 Oral 75 Hemodialysis 1000 Output: Hemodialysis 400 Hemodialysis Net Amount 600 Other: Voiding Method Indwelling Catheter Indwelling Catheter Indwelling Catheter - Labs CBC & Chem 7: 07/08/24 06:06 07/08/24 06:06 Labs: Abnormal Lab Results - Last 24 Hours (Table) 07/07/24 07/07/24 07/07/24 Range/Units 11:41 16:51 20:21 WBC (3.8-10.6) k/uL RBC (4.30-5.90) m/uL Hgb (13.0-17.5) gm/dL Hct (39.0-53.0) % MCV (80.0-100.0) fL MCHC (31.0-37.0) g/dL Neutrophils # (1.3-7.7) k/uL Lymphocytes # (1.0-4.8) k/uL Sodium (137-145) mmol/L BUN (9-20) mg/dL Creatinine (0.66-1.25) mg/dL Glucose (74-99) mg/dL POC Glucose (mg/dL) 206 H 170 H 159 H (70-110) mg/dL 07/08/24 07/08/24 07/08/24 Range/Units 06:06 06:06 06:33 WBC 11.4 H (3.8-10.6) k/uL RBC 3.19 L (4.30-5.90) m/uL Hgb 10.1 L (13.0-17.5) gm/dL Hct 33.8 L (39.0-53.0) % MCV 106.1 H (80.0-100.0) fL MCHC 29.9 L (31.0-37.0) g/dL Neutrophils # 10.6 H (1.3-7.7) k/uL Lymphocytes # 0.2 L (1.0-4.8) k/uL Sodium 133 L (137-145) mmol/L BUN 91 H (9-20) mg/dL Creatinine 3.69 H (0.66-1.25) mg/dL Glucose 105 H (74-99) mg/dL POC Glucose (mg/dL) 154 H (70-110) mg/dL Assessment and Plan Plan: Assessment: 1. Acute kidney injury secondary to ATN secondary to cardiorenal syndrome. Creatinine up to 4.2 July 07, 2024. Oliguric. Started on hemodialysis July 07, 2024 via femoral catheter. Unknown baseline renal function. No hydronephrosis noted on kidney ultrasound. UA benign. 2. Acute on chronic diastolic CHF with moderate pulmonary hypertension, moderate tricuspid regurgitation. 3. Volume overload. 4. Diabetes mellitus. 5. Anemia. Iron deficiency noted. 6. Metabolic acidosis secondary to acute kidney injury and IV fluids. On oral bicarb. Improved. 7. Hyperkalemia secondary to acute kidney injury. Improved. Plan: Currently seen while undergoing hemodialysis. Another treatment tomorrow. Lasix discontinued. Maintain IV iron. Maintain low-salt diet and fluid restriction. Avoid nephrotoxins. Continue to monitor renal function and urine output. Hold hydralazine for systolic blood pressure less than 120.
[2024-07-08 11:27] LABS: Glucose,Whole Blood 104 mg/dL (70-110)
--- NOTE | 2024-07-08 14:01 | P.PN ---
Subjective Progress Note Date: 07/08/24 HISTORY OF PRESENT ILLNESS: This is a 88-year-old male with a past medical history significant for coronary artery disease with previous CABG, DVT, and hyperlipidemia. Patient follows with a acute care certified nursing assistant in [facility]. We have been asked to see the patient in consultation for CHF. Patient examined at the bedside in the ER. Patient presented to the ER with a chief compliant of shortness of breath. He reports shortness of breath for past 2-3 days. Patient denies chest pain or pressure. Patient was found to be in acute CHF. Patient also reports hematuria and his urine cannister at the bedside has gross hematuria. DIAGNOSTICS: - EKG reveals sinus mechanism with right bundle branch block.. - Chest xray small right pleural effusion and cardiomegaly and right basilar patchy airspace opacities. Findings may relate to CHF exacerbation and/or pneumonia - Laboratory data: WBC 9.2. Hemoglobin 10.5. Platelet count 197. Sodium 136. Potassium 4.3. BUN 44. Creatinine 2.36. Troponin 0.073. 0.078. 0.075. TSH 1.700. proBNP 7980. - Current home cardiac medications include bisoprolol 2.5 mg daily, Farxiga 10 mg daily, rosuvastatin 10 mg daily, Xarelto 15 mg daily -No previous echocardiogram, stress test, or cardiac catheterization available in EMR for review Progress note 07/02/2024 Patient is seen and examined at bedside this a.m. Hb 10.1, BUN 50, creatinine 2.67 yesterday creatinine was 2.3.. BP 134/63, heart rate 72 bpm, 07/03/2024 Patient is seen and examined at bedside this a.m. Creatinine is worse today to 2.8. Blood pressure and heart rate are at goal. 07/04/2024 Patient's kidney function is progressively got worse, BUN 70, creatinine 3.01, potassium is 5.5 no further hematuria, blood pressure and heart rate are stable. 07/05/2024 Patient's kidney function is progressively got worse. Nephrology following, recommend IV gentle hydration. 07/06 Patient seen and examined. Telemetry sinus rhythm. Patient continues to have bilateral wheezing. Blood pressure 116/74, heart rate 89, pulse ox 96% on 6 L nasal cannula. Repeat blood work reveals hemoglobin 10, WBC 10.8, BUN 93 c reatinine 3.53, potassium 5.2 and sodium 134. Farxiga was decreased by nephrology and Lasix 40 mg IV every 12 hours ordered. 07/07 Patient seen and examined. Patient continues to have wheezing. No lower extremity edema. He continues to have worsening renal function for which nephrology is following. No complaints of chest pain. Blood pressure 131/58, heart rate 78, pulse ox 95% on high flow nasal cannula 9 L. Repeat blood work reveals BUN 109 and creatinine 4.23. Potassium 5.5. CT of the chest performed last evening reveals moderate right pleural effusion with consolidative opacities within the right upper lobe and atelectatic change of the right middle and lower lobes. Findings suggest pneumonia however pulmonary mass not excluded. Mediastinal adenopathy. Sequelae of prior gran ulomatous disease. Cardiomegaly with post CABG changes. Ultrasound of the chest: Small to moderate size right-sided pleural fluid collection with right lung atelectasis. 07/08 Patient seen and examined. He is currently on BiPAP. Yesterday he was started on his first dialysis treatment and this morning receiving his second. Lung sounds are improved from yesterday. Blood pressure 107/58, heart rate 91, pulse ox 92 to 100% on BiPAP. Repeat blood work reveals hemoglobin 10.1, WBC 11.4, BUN 91 and creatinine 3.69. Pulmonary medicine is planning for thoracentesis right side. PHYSICAL EXAM: HEENT: Head is normocephalic. Pupils are equal, round. Sclerae anicteric. Neck supple. No JVD or thyromegaly LUNGS: Respirations even. Lungs essentially clear bilaterally. HEART: Regular rate and rhythm. S1 and S2 heard. No murmur ABDOMEN: Soft. Nondistended. Nontender. EXTREMITIES: No clubbing or cyanosis. Peripheral pulses intact. 2+ bilateral lower extremity edema NEUROLOGIC: Awake and alert. Oriented x 3. ASSESSMENT: Acute hypoxic respiratory failure Acute HFpEF exacerbation Moderate pulm hypertension Possible pneumonia Acute kidney injury, started on HD 07/07 Gross hematuria Bated troponins, type II KS secondary to oxygen supply/demand mismatch Coronary artery disease with previous CABG, approximately 24 years ago History of DVT, on Xarelto outpatient Hyperlipidemia Pertinent cardiac testing Echo shows EF 55%, no RWMA, moderate pulmonary hypertension, mild MR, mild LA dilatation, moderate TR, mildly dilated ascending aorta measured at 4 cm. PLAN: Continue hemodialysis per nephrology Continue cardiac medications: Aspirin, atorvastatin, hydralazine, Imdur and bisoprolol Patient is off IV Lasix per nephrology Xarelto to be resumed once cleared by pulmonary medicine Nurse practitioner note has been reviewed, I agree with documented findings and plan of care. Patient was seen and examined. Objective - Vital Signs Vital signs: Vital Signs Temp 97.9 F 07/08/24 08:11 Pulse 80 07/08/24 08:27 Resp 18 07/08/24 08:11 BP 116/60 07/08/24 08:11 Pulse Ox 99 07/08/24 08:17 FiO2 100 07/08/24 08:17 Intake & Output 07/07/24 07/08/24 07/08/24 18:59 06:59 18:59 Intake Total 95 1020 Output Total 1000 Balance 95 20 Weight 89.5 kg Intake: IV 20 20 Invasive Line 3 20 20 Oral 75 Hemodialysis 1000 Output: Hemodialysis 400 Hemodialysis Net Amount 600 Other: Voiding Method Indwelling Catheter Indwelling Catheter - Labs CBC & Chem 7: 07/08/24 06:06 07/08/24 06:06 Labs: Abnormal Lab Results - Last 24 Hours (Table) 07/07/24 07/07/24 07/07/24 Range/Units 11:41 16:51 20:21 WBC (3.8-10.6) k/uL RBC (4.30-5.90) m/uL Hgb (13.0-17.5) gm/dL Hct (39.0-53.0) % MCV (80.0-100.0) fL MCHC (31.0-37.0) g/dL Neutrophils # (1.3-7.7) k/uL Lymphocytes # (1.0-4.8) k/uL Sodium (137-145) mmol/L BUN (9-20) mg/dL Creatinine (0.66-1.25) mg/dL Glucose (74-99) mg/dL POC Glucose (mg/dL) 206 H 170 H 159 H (70-110) mg/dL 07/08/24 07/08/24 07/08/24 Range/Units 06:06 06:06 06:33 WBC 11.4 H (3.8-10.6) k/uL RBC 3.19 L (4.30-5.90) m/uL Hgb 10.1 L (13.0-17.5) gm/dL Hct 33.8 L (39.0-53.0) % MCV 106.1 H (80.0-100.0) fL MCHC 29.9 L (31.0-37.0) g/dL Neutrophils # 10.6 H (1.3-7.7) k/uL Lymphocytes # 0.2 L (1.0-4.8) k/uL Sodium 133 L (137-145) mmol/L BUN 91 H (9-20) mg/dL Creatinine 3.69 H (0.66-1.25) mg/dL Glucose 105 H (74-99) mg/dL POC Glucose (mg/dL) 154 H (70-110) mg/dL
--- NOTE | 2024-07-08 14:52 | P.PN ---
Subjective Progress Note Date: 07/08/24 Subjective: Patient seen and examined at bedside. Started on BiPAP overnight. Pertinent positives and negatives as discussed above, a complete review of systems was performed and all other systems are negative. Vitals Signs Reviewed. General: Nontoxic, no distress, appears at stated age, chronically ill-appearing Derm: Warm, dry Head: Atraumatic, normocephalic, symmetric Eyes: EOMI, no lid lag, anicteric sclera Mouth: No lip lesion, mucus membranes moist Cardiovascular: S1S2 reg, no murmur Lungs: CTA bilateral, no rhonchi, no rales, no accessory muscle use, decreased breath sounds in the right lower lobe, supplemental oxygen Abdominal: Soft, nontender to palpation, no guarding, no appreciable organomegaly Ext: No gross muscle atrophy, 2+ pitting edema, no contractures Neuro: CN II-XI grossly intact, no focal neuro deficits Psych: Alert, oriented, appropriate affect Data Reviewed Today: Pertinent Labs: WBC 11.4, hemoglobin 10.9, sodium 133, potassium 5.1, creatinine 3.6, blood sugars range between 10 4-1 59, magnesium 1.9 Imaging: Chest x-ray independently interpreted, shows persistent right pleural effusion Assessment and Plan: Active: Acute hypoxic respiratory failure Acute on chronic diastolic CHF exacerbation Acute COPD exacerbation FLORINDA secondary to ATN Normocytic anemia Microscopic hematuria Right pleural effusion Atelectasis Type II NSTEMI -Discussed with pulmonology, thoracentesis today, continue Solu-Medrol 60 IV every 6 hours, for MS twice daily, Pulmicort twice daily, albuterol as needed, DuoNeb every 4 hours -Pulmonology note reviewed, continued on sodium bicarb 650 twice daily on hemodialysis, continued on IV iron as well -Cardiology note reviewed, continue aspirin 81 mg, atorvastatin 20 mg -Holding Farxiga -Outpatient cystoscopy per urology, okay to restart anticoagulation Hypertension -Started on hydralazine 25 3 times daily by cardiology -Patient also continued on bisoprolol 2.5 daily -Holding candesartan Resolved: Metabolic acidosis, resolved Hyperkalemia Chronic: Dyslipidemia Hypertension History of DVT History of CAD status post CABG DVT ppx: Xarelto Code status: No code Anticipated discharge place: Pending clinical course Anticipated discharge time: Pending clinical course Objective - Vital Signs Vital signs: Vital Signs Temp 97.9 F 07/08/24 08:11 Pulse 91 07/08/24 14:00 Resp 26 H 07/08/24 14:00 BP 106/63 07/08/24 11:48 Pulse Ox 100 07/08/24 11:48 FiO2 80 07/08/24 11:55 Intake & Output 07/07/24 07/08/24 07/08/24 18:59 06:59 18:59 Intake Total 95 1020 500 Output Total 1000 3400 Balance 95 20 -2900 Weight 89.5 kg Intake: IV 20 20 Invasive Line 3 20 20 Oral 75 Hemodialysis 1000 500 Output: Hemodialysis 400 1500 Hemodialysis Net Amount 600 1000 Other 900 Other: Voiding Method Indwelling Catheter Indwelling Catheter Indwelling Catheter - Labs CBC & Chem 7: 07/08/24 06:06 07/08/24 06:06 Labs: Abnormal Lab Results - Last 24 Hours (Table) 07/07/24 07/07/24 07/08/24 Range/Units 16:51 20:21 06:06 WBC 11.4 H (3.8-10.6) k/uL RBC 3.19 L (4.30-5.90) m/uL Hgb 10.1 L (13.0-17.5) gm/dL Hct 33.8 L (39.0-53.0) % MCV 106.1 H (80.0-100.0) fL MCHC 29.9 L (31.0-37.0) g/dL Neutrophils # 10.6 H (1.3-7.7) k/uL Lymphocytes # 0.2 L (1.0-4.8) k/uL Sodium (137-145) mmol/L BUN (9-20) mg/dL Creatinine (0.66-1.25) mg/dL Glucose (74-99) mg/dL POC Glucose (mg/dL) 170 H 159 H (70-110) mg/dL Phosphorus (2.5-4.5) mg/dL 07/08/24 07/08/24 07/08/24 Range/Units 06:06 06:06 06:33 WBC (3.8-10.6) k/uL RBC (4.30-5.90) m/uL Hgb (13.0-17.5) gm/dL Hct (39.0-53.0) % MCV (80.0-100.0) fL MCHC (31.0-37.0) g/dL Neutrophils # (1.3-7.7) k/uL Lymphocytes # (1.0-4.8) k/uL Sodium 133 L (137-145) mmol/L BUN 91 H (9-20) mg/dL Creatinine 3.69 H (0.66-1.25) mg/dL Glucose 105 H (74-99) mg/dL POC Glucose (mg/dL) 154 H (70-110) mg/dL Phosphorus 5.5 H (2.5-4.5) mg/dL
[2024-07-08 16:43] LABS: Glucose,Whole Blood 115 mg/dL (70-110)
[2024-07-08 17:37] LABS: Appearance,BF Cloudy (Clear)
[2024-07-08 18:24] LABS: Glucose, BF Source Pleural Fluid; Glucose, Body Fluid 83 mg/dL; LDH, Body Fluid Source Pleural Fluid; T. Protein, Body Fluid Source Pleural Fluid; Total Protein, Body Fluid 3120 mg/dL
--- NOTE | 2024-07-08 19:11 | P.PN ---
Subjective Progress Note Date: 07/08/24 07/06/2024, the patient is being seen for a follow-up. The patient remains in acute hypoxic respiratory failure and currently is still requiring 6 L of O2 nasal cannula. The patient overnight became slightly more short of breath and went into a coughing spells and this morning he is already feeling better. He has a right lower lobe pneumonia and his chest x-ray from today, 07/06/2024, showed an area of persistent consolidation and volume loss in the right lung base. Left lung remains essentially clear. There is also persistent cardiomegaly and mild pulm vascular congestion. His echocardiogram done on 07/01/2024 showed a normal LV function, mild MR, moderate TR with moderate degree of pulmonary hypertension. The patient's white cell count today is at 10.8, with a hemoglobin of 10 and a platelet count of 220. BUN is 93 and a creatinine of 3.5. Noted the patient has a chronic stage IV kidney disease. Creatinine has been gradually on the rise of the patient is being diuresed with IV Lasix. For now, the patient remains on Lasix 40 mg IV every 12 hours. He is on bronchodilators. He is on steroids which will be continued as the patient continues to be bronchospastic and wheezy. I do not see that he is on any form of antibiotic coverage at this point. He remains on anticoagulation with Xarelto 15 mg p.o. on a daily basis. He is known to have previous history of DVT and for that reason the patient has been maintained on anticoagulation. His comorbidities include coronary artery disease with previous bypass surgery approximate 24 years ago. Previous history of DVT, hyperlipidemia, hypertension, the patient has a preserved LV function with secondary pulmonary hypertension as confirmed on recent echocardiogram. Based on progressive worsening of renal function, losartan was placed on hold and the patient will be kept on IV Lasix. 07/07/2024, the patient is being seen for a follow-up. On today's evaluation, the patient has become more hypoxic and is currently on 15 L of oxygen nasal cannula. He was on 8 L and he was moved up to 10 L and currently is on 15 L. A CAT scan of the chest was completed yesterday and the patient was found to have a moderate-sized right-sided pleural effusion along with consolidation of the right lung base in addition some atelectatic changes right middle lobe and right lower lobe. There is also some nonspecific mediastinal lymphadenopathy and sequelae of a previous granulomatous disease along with cardiomegaly and changes consistent with bypass. At the same time, the patient is developing progressive worsening renal function. On today's blood work, the patient's creatinine is up to 4.23 with a BUN of 109. Bicarb is at 21. Potassium level is at 5.5. Based on that, nephrology has made recommendations to proceed with hemodialysis. Dialysis catheter to be inserted. Remains on Lasix 40 mg IV every 12 hours. Rest of the medications are essentially unchanged. Remains on bronchodilators. Remains on IV Solu-Medrol. On today's evaluation of 07/08/2024, the patient was noted to be more short of breath and hypoxic. Noted the patient's oxygen requirements progressively went up and subsequently, the patient was moved from 15 L nasal cannula and to a BiPAP at a pressure of 12/5 with an FiO2 of 100%. He is able to tolerate the BiPAP without any major difficulties. Noted the patient was also given dialysis catheter and the patient was started on hemodialysis. He tolerated 500 cc of ultrafiltration yesterday and another 1 L of ultrafiltration today. I reviewed the ultrasound of the chest and the patient has a sizable right-sided pleural effusion. Based on that, I performed a bedside thoracentesis on this patient and a total of 900 cc of pleural fluid was aspirated from the right lung without having any major difficulties. The patient meanwhile was kept on BiPAP. The patient tolerated the procedure without having any major difficulties and the pleural fluid will be sent for analysis. White cell count 11.4, hemoglobin 10.1 and a platelet count of 189. BUN is 91 with a creatinine of 3.6. Sodium levels at 133 and potassium level is at 5.1. The patient remains on DuoNeb nebulized treatments [id number]. Anticoagulation was resumed and the patient is currently on Eliquis 5 mg p.o. twice a day. Remains on bronchodilators with DuoNeb. Remains on IV Solu-Medrol 60 mg every 6 hours. Remains on Symbicort. Lasix was discontinued as the patient's urine output was extremely low. Nephrology is on the case. Objective - Vital Signs Vital signs: Vital Signs Temp 97.9 F 07/08/24 08:11 Pulse 91 07/08/24 11:04 Resp 17 07/08/24 11:04 BP 107/58 07/08/24 11:04 Pulse Ox 92 L 07/08/24 11:04 FiO2 100 07/08/24 11:04 Intake & Output 07/07/24 07/08/24 07/08/24 18:59 06:59 18:59 Intake Total 95 1020 500 Output Total 1000 2500 Balance 95 20 -2000 Weight 89.5 kg Intake: IV 20 20 Invasive Line 3 20 20 Oral 75 Hemodialysis 1000 500 Output: Hemodialysis 400 1500 Hemodialysis Net Amount 600 1000 Other: Voiding Method Indwelling Catheter Indwelling Catheter Indwelling Catheter - Exam GENERAL EXAM: Alert, 88-year-old male, sitting up in a chair, on BiPAP at a pressure of 12.5 cm of water with an FiO2 of 100% HEAD: Normocephalic. EYES: Normal reaction of pupils, equal size. NOSE: Clear with pink turbinates. THROAT: No erythema or exudates. NECK: No masses, no JVD. CHEST: No chest wall deformity. LUNGS: Equal air entry with basilar crackles, few scattered rhonchi. Diminished breath sound right lung base, improved postthoracentesis CVS: S1 and S2 normal with no audible murmur, regular rhythm. ABDOMEN: No hepatosplenomegaly, normal bowel sounds, no guarding or rigidity. SPINE: No scoliosis or deformity SKIN: No rashes CENTRAL NERVOUS SYSTEM: No focal deficits, tone is normal in all 4 extremities. EXTREMITIES: There is no peripheral edema. No clubbing, no cyanosis. Peripheral pulses are intact. - Labs CBC & Chem 7: 07/08/24 06:06 07/08/24 06:06 Labs: Abnormal Lab Results - Last 24 Hours (Table) 07/07/24 07/07/24 07/07/24 Range/Units 11:41 16:51 20:21 WBC (3.8-10.6) k/uL RBC (4.30-5.90) m/uL Hgb (13.0-17.5) gm/dL Hct (39.0-53.0) % MCV (80.0-100.0) fL MCHC (31.0-37.0) g/dL Neutrophils # (1.3-7.7) k/uL Lymphocytes # (1.0-4.8) k/uL Sodium (137-145) mmol/L BUN (9-20) mg/dL Creatinine (0.66-1.25) mg/dL Glucose (74-99) mg/dL POC Glucose (mg/dL) 206 H 170 H 159 H (70-110) mg/dL 07/08/24 07/08/24 07/08/24 Range/Units 06:06 06:06 06:33 WBC 11.4 H (3.8-10.6) k/uL RBC 3.19 L (4.30-5.90) m/uL Hgb 10.1 L (13.0-17.5) gm/dL Hct 33.8 L (39.0-53.0) % MCV 106.1 H (80.0-100.0) fL MCHC 29.9 L (31.0-37.0) g/dL Neutrophils # 10.6 H (1.3-7.7) k/uL Lymphocytes # 0.2 L (1.0-4.8) k/uL Sodium 133 L (137-145) mmol/L BUN 91 H (9-20) mg/dL Creatinine 3.69 H (0.66-1.25) mg/dL Glucose 105 H (74-99) mg/dL POC Glucose (mg/dL) 154 H (70-110) mg/dL Assessment and Plan Plan: Acute hypoxemic respiratory failure secondary to an acute exacerbation of chronic obstructive pulmonary disease. Viral screen negative. Procalcitonin negative. The patient remains hypoxic on 15 L of oxygen by nasal cannula. Chest x-ray was reviewed. There is consolidation of the right lower lobe. In addition to that, there is ongoing CHF with cardiomegaly and pulmonary edema. CAT scan of the chest was completed yesterday and shows right-sided pleural effusion, atelectatic change in the right lung base along with consolidation and some nonspecific mediastinal lymphadenopathy. The patient progressed and became more hypoxic and the patient was placed on a BiPAP pressure of 12 over 5 cm of water with FiO2 of 100%. A right-sided thoracentesis was performed today. The patient felt less short of breath following the procedure. Dialysis and ultrafiltration was also started Right-sided pleural effusion along with atelectatic changes right lung base, postthoracentesis of the right lung with evacuation of 900 cc of pleural fluid and the fluid will be sent for analysis Stage IV chronic kidney disease with a component of acute kidney injury secondary to underlying infection, cardiorenal syndrome. The patient has developed an acute on top of chronic kidney disease with diminished urine output. The patient was started on hemodialysis underwent a session yesterday and another session today with a total of 1 L of ultrafiltration. Urine output is extremely low. Acute exacerbation of chronic diastolic congestive heart failure Troponin leak secondary to above Chronic obstructive pulmonary disease History of 50 years of tobacco dependence however quit many years ago Hypertension Hyperlipidemia Diabetes mellitus, type II Coronary artery disease with previous coronary artery bypass grafting in 1998 History of DVT, maintained on anticoagulation with Eliquis. Plan The patient will be kept on BiPAP and FiO2 will be gradually weaned off Send the pleural fluid for analysis and cytology Hemodialysis per nephrology Lasix was discontinued Will repeat chest x-ray in the morning continue DuoNeb inhalations, Solu-Medrol Continue Pulmicort and Perforomist inhalations DNR CODE STATUS We will continue to follow Time with Patient: Greater than 30
--- NOTE | 2024-07-08 19:12 | P.PCN ---
Date of Procedure: 07/08/24 Preoperative Diagnosis: Pleural effusion, right-sided Postoperative Diagnosis: Pleural effusion, right-sided Procedure(s) Performed: Thoracentesis, right-sided Anesthesia: local Surgeon: Marcelo Dupree Estimated Blood Loss (ml): 0 Pathology: other Condition: stable Disposition: floor Operative Findings: I performed ultrasound marking of the right chest. Ultrasound was performed and the right-sided pleural effusion was identified. A time out was performed and the chest x-ray was reviewed, the appropriate side was confirmed and marked. My hands were washed immediately prior to the procedure. I wore a surgical cap, mask with protective eyewear, sterile gown and sterile gloves throughout the procedure. The patient was prepped and draped in a sterile manner using chlorhexidine scrub after the appropriate level was percussed and confirmed by ultrasound. 1% lidocaine was used to anesthesize the skin, subcutaneous tissue, superior aspect of the rib periosteum and parietal pleura. A finder needle was then introduced over the superior aspect of the rib to locate the pleural fluid; 2colored fluid was aspirated at a depth of approximately 2 cm. A 10-blade scalpel was used to ruben the skin at the insertion site. The [id number] needle was then introduced through the skin incision into the pleural space using negative aspiration pressure and the red colometric indicator to confirm appropriate positioning of the needle. The thoracentesis catheter was then threaded without difficulty. 900 ml of turbid colored fluid was removed without difficulty. The catheter was then removed. No immediate complications were noted during the procedure. A post-procedure chest x-ray is pending at the time of this note. The fluid will be sent for studies. Estimated blood loss is 0cc. No complications following the procedure.
[2024-07-08 20:03] LABS: Glucose,Whole Blood 96 mg/dL (70-110)
[2024-07-08] MEDS: APIXABAN 5 MG TAB PO SCH (20:26)
[2024-07-09 06:02] LABS: Glucose,Whole Blood 128 mg/dL (70-110)
[2024-07-09 07:55] LABS: Basophils % (A) 0 %; Eosinophils % (A) 0 %; HGB 11.1 gm/dL (13.0-17.5); Hypochromasia Slight; Lymphocytes # (A) 0.3 k/uL (1.0-4.8); Lymphocytes % (A) 2 %; MCH 32.1 pg (25.0-35.0); MCHC 30.7 g/dL (31.0-37.0); MCV 104.5 fL (80.0-100.0); Macrocytosis Slight; Mean Platelet Volume 9.8; Monocytes # (A) 0.6 k/uL (0-1.0); Monocytes % (A) 5 %; Neutrophils # (A) 11.8 k/uL (1.3-7.7); Neutrophils % (A) 92 %; Platelet Count 184 k/uL (150-450); RBC 3.45 m/uL (4.30-5.90); RDW 13.6 % (11.5-15.5); WBC 12.8 k/uL (3.8-10.6)
[2024-07-09 08:19] LABS: African American GFR (CKD) 18 (>60 ml/min/1.73 sqM); Anion Gap 7 mmol/L; Blood Urea Nitrogen 78 mg/dL (9-20); Calcium 8.5 mg/dL (8.4-10.2); Carbon Dioxide 28 mmol/L (22-30); Chloride 98 mmol/L (98-107); Glucose 133 mg/dL (74-99); Non-African American GFR(CKD) 16 (>60 ml/min/1.73 sqM); Potassium 5.1 mmol/L (3.5-5.1); Sodium 133 mmol/L (137-145)
[2024-07-09] MEDS ORDERED: RIVAROXABAN 15 MG TAB PO SCH (09:00)
--- NOTE | 2024-07-09 11:38 | P.PN ---
Subjective Patient is seen in follow-up for acute kidney injury. Started on hemodialysis July 07, 2024. No problems with dialysis yesterday. On BiPAP. present at bedside. Vital signs are stable. General: No acute distress. HEENT: Head exam is unremarkable. On BiPAP. LUNGS: Scattered rhonchi. HEART: Rate and Rhythm are regular. ABDOMEN: Nontender. EXTREMITITES: 1+ edema in ankles. Objective - Vital Signs Vital signs: Vital Signs Temp 97.8 F 07/09/24 08:00 Pulse 83 07/09/24 11:15 Resp 16 07/09/24 11:15 BP 103/60 07/09/24 11:15 Pulse Ox 98 07/09/24 11:15 FiO2 100 07/09/24 11:15 Intake & Output 07/08/24 07/09/24 07/09/24 18:59 06:59 18:59 Intake Total 500 20 10 Output Total 3615 55 Balance -3115 -35 10 Weight 87 kg Intake: IV 20 10 Invasive Line 5 20 10 Hemodialysis 500 Output: Urine 215 55 Hemodialysis 1500 Hemodialysis Net Amount 1000 Other 900 Other: Voiding Method Indwelling Catheter Indwelling Catheter Indwelling Catheter - Labs CBC & Chem 7: 07/09/24 07:33 07/09/24 07:33 Labs: Abnormal Lab Results - Last 24 Hours (Table) 07/08/24 07/08/24 07/09/24 Range/Units 12:47 16:41 06:01 WBC (3.8-10.6) k/uL RBC (4.30-5.90) m/uL Hgb (13.0-17.5) gm/dL Hct (39.0-53.0) % MCV (80.0-100.0) fL MCHC (31.0-37.0) g/dL Neutrophils # (1.3-7.7) k/uL Lymphocytes # (1.0-4.8) k/uL Sodium (137-145) mmol/L BUN (9-20) mg/dL Creatinine (0.66-1.25) mg/dL Glucose (74-99) mg/dL POC Glucose (mg/dL) 115 H 128 H (70-110) mg/dL Fluid Appearance Cloudy A (Clear) 07/09/24 07/09/24 Range/Units 07:33 07:33 WBC 12.8 H (3.8-10.6) k/uL RBC 3.45 L (4.30-5.90) m/uL Hgb 11.1 L (13.0-17.5) gm/dL Hct 36.0 L (39.0-53.0) % MCV 104.5 H (80.0-100.0) fL MCHC 30.7 L (31.0-37.0) g/dL Neutrophils # 11.8 H (1.3-7.7) k/uL Lymphocytes # 0.3 L (1.0-4.8) k/uL Sodium 133 L (137-145) mmol/L BUN 78 H (9-20) mg/dL Creatinine 3.35 H (0.66-1.25) mg/dL Glucose 133 H (74-99) mg/dL POC Glucose (mg/dL) (70-110) mg/dL Fluid Appearance (Clear) Microbiology - Last 24 Hours (Table) 07/08/24 12:47 Gram Stain - Preliminary Pleural Fluid Assessment and Plan Plan: Assessment: 1. Acute kidney injury secondary to ATN secondary to cardiorenal syndrome. Creatinine up to 4.2 July 07, 2024. Oliguric. Started on hemodialysis July 07, 2024 via femoral catheter. Unknown baseline renal function. No hydronephrosis noted on kidney ultrasound. UA benign. 2. Acute on chronic diastolic CHF with moderate pulmonary hypertension, moderate tricuspid regurgitation. 3. Volume overload. Improving with ultrafiltration. 4. Diabetes mellitus. 5. Anemia. Iron deficiency noted. 6. Metabolic acidosis secondary to acute kidney injury and IV fluids. On oral bicarb. Improved. 7. Hyperkalemia secondary to acute kidney injury. Improved. Plan: Hemodialysis today and again tomorrow. Lasix discontinued. Maintain IV iron. Maintain low-salt diet and fluid restriction. Avoid nephrotoxins. Continue to monitor renal function and urine output. Hold hydralazine for systolic blood pressure less than 120. Discontinue bicarb.
[2024-07-09 11:53] LABS: Glucose,Whole Blood 170 mg/dL (70-110)
[2024-07-09] MEDS: MIDODRINE 5 MG TAB PO STA (13:09)
--- NOTE | 2024-07-09 15:05 | P.PN ---
Subjective Progress Note Date: 07/09/24 HISTORY OF PRESENT ILLNESS: This is a 88-year-old male with a past medical history significant for coronary artery disease with previous CABG, DVT, and hyperlipidemia. Patient follows with a office electrician in [facility]. We have been asked to see the patient in consultation for CHF. Patient examined at the bedside in the ER. Patient presented to the ER with a chief compliant of shortness of breath. He reports shortness of breath for past 2-3 days. Patient denies chest pain or pressure. Patient was found to be in acute CHF. Patient also reports hematuria and his urine cannister at the bedside has gross hematuria. DIAGNOSTICS: - EKG reveals sinus mechanism with right bundle branch block.. - Chest xray small right pleural effusion and cardiomegaly and right basilar patchy airspace opacities. Findings may relate to CHF exacerbation and/or pneumonia - Laboratory data: WBC 9.2. Hemoglobin 10.5. Platelet count 197. Sodium 136. Potassium 4.3. BUN 44. Creatinine 2.36. Troponin 0.073. 0.078. 0.075. TSH 1.700. proBNP 7980. - Current home cardiac medications include bisoprolol 2.5 mg daily, Farxiga 10 mg daily, rosuvastatin 10 mg daily, Xarelto 15 mg daily -No previous echocardiogram, stress test, or cardiac catheterization available in EMR for review Progress note 07/02/2024 Patient is seen and examined at bedside this a.m. Hb 10.1, BUN 50, creatinine 2.67 yesterday creatinine was 2.3.. BP 134/63, heart rate 72 bpm, 07/03/2024 Patient is seen and examined at bedside this a.m. Creatinine is worse today to 2.8. Blood pressure and heart rate are at goal. 07/04/2024 Patient's kidney function is progressively got worse, BUN 70, creatinine 3.01, potassium is 5.5 no further hematuria, blood pressure and heart rate are stable. 07/05/2024 Patient's kidney function is progressively got worse. Nephrology following, recommend IV gentle hydration. 07/06 Patient seen and examined. Telemetry sinus rhythm. Patient continues to have bilateral wheezing. Blood pressure 116/74, heart rate 89, pulse ox 96% on 6 L nasal cannula. Repeat blood work reveals hemoglobin 10, WBC 10.8, BUN 93 c reatinine 3.53, potassium 5.2 and sodium 134. Farxiga was decreased by nephrology and Lasix 40 mg IV every 12 hours ordered. 07/07 Patient seen and examined. Patient continues to have wheezing. No lower extremity edema. He continues to have worsening renal function for which nephrology is following. No complaints of chest pain. Blood pressure 131/58, heart rate 78, pulse ox 95% on high flow nasal cannula 9 L. Repeat blood work reveals BUN 109 and creatinine 4.23. Potassium 5.5. CT of the chest performed last evening reveals moderate right pleural effusion with consolidative opacities within the right upper lobe and atelectatic change of the right middle and lower lobes. Findings suggest pneumonia however pulmonary mass not excluded. Mediastinal adenopathy. Sequelae of prior gran ulomatous disease. Cardiomegaly with post CABG changes. Ultrasound of the chest: Small to moderate size right-sided pleural fluid collection with right lung atelectasis. 07/08 Patient seen and examined. He is currently on BiPAP. Yesterday he was started on his first dialysis treatment and this morning receiving his second. Lung sounds are improved from yesterday. Blood pressure 107/58, heart rate 91, pulse ox 92 to 100% on BiPAP. Repeat blood work reveals hemoglobin 10.1, WBC 11.4, BUN 91 and creatinine 3.69. Pulmonary medicine is planning for thoracentesis right side. 07/09 Patient is scheduled for another dialysis treatment today. His feels that he is getting better. He is making some urine. Repeat blood work reveals BUN of 78 creatinine 3.35 and hemoglobin 11.1. Blood pressure 103/60, heart rate 83, pulse ox 98% on BiPAP. PHYSICAL EXAM: HEENT: Head is normocephalic. Pupils are equal, round. Sclerae anicteric. Neck supple. No JVD or thyromegaly LUNGS: Respirations even. Lungs essentially clear bilaterally. HEART: Regular rate and rhythm. S1 and S2 heard. No murmur ABDOMEN: Soft. Nondistended. Nontender. EXTREMITIES: No clubbing or cyanosis. Peripheral pulses intact. 2+ bilateral lower extremity edema NEUROLOGIC: Awake and alert. Oriented x 3. ASSESSMENT: Acute hypoxic respiratory failure Acute HFpEF exacerbation Moderate pulm hypertension Possible pneumonia Acute kidney injury, started on HD 07/07 Gross hematuria Bated troponins, type II MD secondary to oxygen supply/demand mismatch Coronary artery disease with previous CABG, approximately 24 years ago History of DVT, on Xarelto outpatient Hyperlipidemia Pertinent cardiac testing Echo shows EF 55%, no RWMA, moderate pulmonary hypertension, mild MR, mild LA dilatation, moderate TR, mildly dilated ascending aorta measured at 4 cm. PLAN: Continue hemodialysis per nephrology Continue cardiac medications: Aspirin, atorvastatin, hydralazine, Imdur and bisoprolol Patient is off IV Lasix per nephrology Patient has been resumed on Eliquis Nurse practitioner note has been reviewed, I agree with documented findings and plan of care. Patient was seen and examined. Objective - Vital Signs Vital signs: Vital Signs Temp 97.8 F 07/09/24 08:00 Pulse 82 07/09/24 08:39 Resp 17 07/09/24 08:00 BP 104/60 07/09/24 08:00 Pulse Ox 97 07/09/24 08:00 FiO2 100 07/09/24 08:12 Intake & Output 07/08/24 07/09/24 07/09/24 18:59 06:59 18:59 Intake Total 500 20 10 Output Total 3615 55 Balance -3115 -35 10 Weight 87 kg Intake: IV 20 10 Invasive Line 5 20 10 Hemodialysis 500 Output: Urine 215 55 Hemodialysis 1500 Hemodialysis Net Amount 1000 Other 900 Other: Voiding Method Indwelling Catheter Indwelling Catheter Indwelling Catheter - Labs CBC & Chem 7: 07/09/24 07:33 07/09/24 07:33 Labs: Abnormal Lab Results - Last 24 Hours (Table) 07/08/24 07/08/24 07/08/24 Range/Units 06:06 12:47 16:41 WBC (3.8-10.6) k/uL RBC (4.30-5.90) m/uL Hgb (13.0-17.5) gm/dL Hct (39.0-53.0) % MCV (80.0-100.0) fL MCHC (31.0-37.0) g/dL Neutrophils # (1.3-7.7) k/uL Lymphocytes # (1.0-4.8) k/uL Sodium (137-145) mmol/L BUN (9-20) mg/dL Creatinine (0.66-1.25) mg/dL Glucose (74-99) mg/dL POC Glucose (mg/dL) 115 H (70-110) mg/dL Phosphorus 5.5 H (2.5-4.5) mg/dL Fluid Appearance Cloudy A (Clear) 07/09/24 07/09/24 07/09/24 Range/Units 06:01 07:33 07:33 WBC 12.8 H (3.8-10.6) k/uL RBC 3.45 L (4.30-5.90) m/uL Hgb 11.1 L (13.0-17.5) gm/dL Hct 36.0 L (39.0-53.0) % MCV 104.5 H (80.0-100.0) fL MCHC 30.7 L (31.0-37.0) g/dL Neutrophils # 11.8 H (1.3-7.7) k/uL Lymphocytes # 0.3 L (1.0-4.8) k/uL Sodium 133 L (137-145) mmol/L BUN 78 H (9-20) mg/dL Creatinine 3.35 H (0.66-1.25) mg/dL Glucose 133 H (74-99) mg/dL POC Glucose (mg/dL) 128 H (70-110) mg/dL Phosphorus (2.5-4.5) mg/dL Fluid Appearance (Clear) Microbiology - Last 24 Hours (Table) 07/08/24 12:47 Gram Stain - Preliminary Pleural Fluid
--- NOTE | 2024-07-09 16:07 | P.PN ---
Subjective Progress Note Date: 07/09/24 Subjective: Patient seen and examined at bedside. Continued on BiPAP. Getting dialysis today. Pertinent positives and negatives as discussed above, a complete review of systems was performed and all other systems are negative. Vitals Signs Reviewed. General: Nontoxic, no distress, appears at stated age, chronically ill-appearing Derm: Warm, dry Head: Atraumatic, normocephalic, symmetric Eyes: EOMI, no lid lag, anicteric sclera Mouth: No lip lesion, mucus membranes moist Cardiovascular: S1S2 reg, no murmur Lungs: CTA bilateral, no rhonchi, no rales, no accessory muscle use, decreased breath sounds in the right lower lobe, supplemental oxygen Abdominal: Soft, nontender to palpation, no guarding, no appreciable organomegaly Ext: No gross muscle atrophy, 2+ pitting edema, no contractures Neuro: CN II-XI grossly intact, no focal neuro deficits Psych: Alert, oriented, appropriate affect Data Reviewed Today: Pertinent Labs: WBC 12.8, hemoglobin 11.1, creatinine 3.35, blood sugars range between 96-1 70 Imaging: No new imaging Assessment and Plan: Active: Acute hypoxic respiratory failure Acute on chronic diastolic CHF exacerbation Acute COPD exacerbation FLORINDA secondary to ATN Normocytic anemia Microscopic hematuria Right pleural effusion Atelectasis Type II NSTEMI -Discussed with pulmonology, continue Solu-Medrol 60 IV every 6 hours, Perforomist twice daily, Pulmicort twice daily, albuterol as needed, DuoNeb every 4 hours -Will attempt to get records of lung biopsy from [facility] completed 1 year ago -Nephrology note reviewed, discontinue bicarb dialysis today and tomorrow, Lasix discontinued, continued on IV iron as well -Cardiology note reviewed, continue aspirin 81 mg, atorvastatin 20 mg, okay to resume Eliquis -Holding Farxiga -Outpatient cystoscopy per urology, okay to restart anticoagulation History of hypertension Hypotension -Discontinued hydralazine given blood pressures in the ED, was given one-time dose of midodrine -Patient also continued on bisoprolol 2.5 daily -Holding candesartan Resolved: Metabolic acidosis, resolved Hyperkalemia Chronic: Dyslipidemia Hypertension History of DVT History of CAD status post CABG DVT ppx: Eliquis Code status: No code Anticipated discharge place: Pending clinical course Anticipated discharge time: Pending clinical course Objective - Vital Signs Vital signs: Vital Signs Temp 97.8 F 07/09/24 08:00 Pulse 79 07/09/24 15:05 Resp 19 07/09/24 15:05 BP 102/62 07/09/24 15:05 Pulse Ox 98 07/09/24 15:05 FiO2 100 07/09/24 16:05 Intake & Output 07/08/24 07/09/24 07/09/24 18:59 06:59 18:59 Intake Total 500 20 20 Output Total 3615 55 Balance -3115 -35 20 Weight 87 kg Intake: IV 20 20 Invasive Line 5 20 20 Hemodialysis 500 Output: Urine 215 55 Hemodialysis 1500 Hemodialysis Net Amount 1000 Other 900 Other: Voiding Method Indwelling Catheter Indwelling Catheter Indwelling Catheter - Labs CBC & Chem 7: 07/09/24 07:33 07/09/24 07:33 Labs: Abnormal Lab Results - Last 24 Hours (Table) 07/08/24 07/08/24 07/09/24 Range/Units 12:47 16:41 06:01 WBC (3.8-10.6) k/uL RBC (4.30-5.90) m/uL Hgb (13.0-17.5) gm/dL Hct (39.0-53.0) % MCV (80.0-100.0) fL MCHC (31.0-37.0) g/dL Neutrophils # (1.3-7.7) k/uL Lymphocytes # (1.0-4.8) k/uL Sodium (137-145) mmol/L BUN (9-20) mg/dL Creatinine (0.66-1.25) mg/dL Glucose (74-99) mg/dL POC Glucose (mg/dL) 115 H 128 H (70-110) mg/dL Fluid Appearance Cloudy A (Clear) 07/09/24 07/09/24 07/09/24 Range/Units 07:33 07:33 11:51 WBC 12.8 H (3.8-10.6) k/uL RBC 3.45 L (4.30-5.90) m/uL Hgb 11.1 L (13.0-17.5) gm/dL Hct 36.0 L (39.0-53.0) % MCV 104.5 H (80.0-100.0) fL MCHC 30.7 L (31.0-37.0) g/dL Neutrophils # 11.8 H (1.3-7.7) k/uL Lymphocytes # 0.3 L (1.0-4.8) k/uL Sodium 133 L (137-145) mmol/L BUN 78 H (9-20) mg/dL Creatinine 3.35 H (0.66-1.25) mg/dL Glucose 133 H (74-99) mg/dL POC Glucose (mg/dL) 170 H (70-110) mg/dL Fluid Appearance (Clear) Microbiology - Last 24 Hours (Table) 07/08/24 12:47 Gram Stain - Preliminary Pleural Fluid Body Fluid Culture - Preliminary
[2024-07-09 16:36] LABS: Glucose,Whole Blood 139 mg/dL (70-110)
--- NOTE | 2024-07-09 19:26 | P.PN ---
Subjective Progress Note Date: 07/09/24 07/06/2024, the patient is being seen for a follow-up. The patient remains in acute hypoxic respiratory failure and currently is still requiring 6 L of O2 nasal cannula. The patient overnight became slightly more short of breath and went into a coughing spells and this morning he is already feeling better. He has a right lower lobe pneumonia and his chest x-ray from today, 07/06/2024, showed an area of persistent consolidation and volume loss in the right lung base. Left lung remains essentially clear. There is also persistent cardiomegaly and mild pulm vascular congestion. His echocardiogram done on 07/01/2024 showed a normal LV function, mild MR, moderate TR with moderate degree of pulmonary hypertension. The patient's white cell count today is at 10.8, with a hemoglobin of 10 and a platelet count of 220. BUN is 93 and a creatinine of 3.5. Noted the patient has a chronic stage IV kidney disease. Creatinine has been gradually on the rise of the patient is being diuresed with IV Lasix. For now, the patient remains on Lasix 40 mg IV every 12 hours. He is on bronchodilators. He is on steroids which will be continued as the patient continues to be bronchospastic and wheezy. I do not see that he is on any form of antibiotic coverage at this point. He remains on anticoagulation with Xarelto 15 mg p.o. on a daily basis. He is known to have previous history of DVT and for that reason the patient has been maintained on anticoagulation. His comorbidities include coronary artery disease with previous bypass surgery approximate 24 years ago. Previous history of DVT, hyperlipidemia, hypertension, the patient has a preserved LV function with secondary pulmonary hypertension as confirmed on recent echocardiogram. Based on progressive worsening of renal function, losartan was placed on hold and the patient will be kept on IV Lasix. 07/07/2024, the patient is being seen for a follow-up. On today's evaluation, the patient has become more hypoxic and is currently on 15 L of oxygen nasal cannula. He was on 8 L and he was moved up to 10 L and currently is on 15 L. A CAT scan of the chest was completed yesterday and the patient was found to have a moderate-sized right-sided pleural effusion along with consolidation of the right lung base in addition some atelectatic changes right middle lobe and right lower lobe. There is also some nonspecific mediastinal lymphadenopathy and sequelae of a previous granulomatous disease along with cardiomegaly and changes consistent with bypass. At the same time, the patient is developing progressive worsening renal function. On today's blood work, the patient's creatinine is up to 4.23 with a BUN of 109. Bicarb is at 21. Potassium level is at 5.5. Based on that, nephrology has made recommendations to proceed with hemodialysis. Dialysis catheter to be inserted. Remains on Lasix 40 mg IV every 12 hours. Rest of the medications are essentially unchanged. Remains on bronchodilators. Remains on IV Solu-Medrol. On today's evaluation of 07/08/2024, the patient was noted to be more short of breath and hypoxic. Noted the patient's oxygen requirements progressively went up and subsequently, the patient was moved from 15 L nasal cannula and to a BiPAP at a pressure of 12/5 with an FiO2 of 100%. He is able to tolerate the BiPAP without any major difficulties. Noted the patient was also given dialysis catheter and the patient was started on hemodialysis. He tolerated 500 cc of ultrafiltration yesterday and another 1 L of ultrafiltration today. I reviewed the ultrasound of the chest and the patient has a sizable right-sided pleural effusion. Based on that, I performed a bedside thoracentesis on this patient and a total of 900 cc of pleural fluid was aspirated from the right lung without having any major difficulties. The patient meanwhile was kept on BiPAP. The patient tolerated the procedure without having any major difficulties and the pleural fluid will be sent for analysis. White cell count 11.4, hemoglobin 10.1 and a platelet count of 189. BUN is 91 with a creatinine of 3.6. Sodium levels at 133 and potassium level is at 5.1. The patient remains on DuoNeb nebulized treatments [id number]. Anticoagulation was resumed and the patient is currently on Eliquis 5 mg p.o. twice a day. Remains on bronchodilators with DuoNeb. Remains on IV Solu-Medrol 60 mg every 6 hours. Remains on Symbicort. Lasix was discontinued as the patient's urine output was extremely low. Nephrology is on the case. On today's evaluation of 07/09/2024, the patient remains on a BiPAP and the patient is currently on a BiPAP pressure of 12/5 with an FiO2 of 100%. The plan is to undergo another session of hemodialysis today. The patient is tolerating the BiPAP reasonably well. Denies having any significant shortness of breath while being on BiPAP. Underwent right-sided thoracentesis yesterday. The fluid chemistry shows a protein of 3.1 and an LDH of 135. Cell count was 534. No urine output. Remains on bronchodilators. Remains on IV Solu-Medrol. Family is at the bedside. Remains on anticoagulation with Eliquis. Rest of the blood work shows a white cell count of 12.8 with a hemoglobin of 11.1 and a platelet count of 184. BUN 78 with a creatinine of 3.3 and a sodium levels at 133 and potassium level is at 5.1. Objective - Vital Signs Vital signs: Vital Signs Temp 97.8 F 07/09/24 08:00 Pulse 83 07/09/24 11:15 Resp 16 07/09/24 11:15 BP 103/60 07/09/24 11:15 Pulse Ox 98 07/09/24 11:15 FiO2 100 07/09/24 11:15 Intake & Output 07/08/24 07/09/24 07/09/24 18:59 06:59 18:59 Intake Total 500 20 10 Output Total 3615 55 Balance -3115 -35 10 Weight 87 kg Intake: IV 20 10 Invasive Line 5 20 10 Hemodialysis 500 Output: Urine 215 55 Hemodialysis 1500 Hemodialysis Net Amount 1000 Other 900 Other: Voiding Method Indwelling Catheter Indwelling Catheter Indwelling Catheter - Exam GENERAL EXAM: Alert, 88-year-old male, sitting up in a chair, on BiPAP at a pressure of 12.5 cm of water with an FiO2 of 100% HEAD: Normocephalic. EYES: Normal reaction of pupils, equal size. NOSE: Clear with pink turbinates. THROAT: No erythema or exudates. NECK: No masses, no JVD. CHEST: No chest wall deformity. LUNGS: Equal air entry with basilar crackles, few scattered rhonchi. Diminished breath sound right lung base, improved postthoracentesis CVS: S1 and S2 normal with no audible murmur, regular rhythm. ABDOMEN: No hepatosplenomegaly, normal bowel sounds, no guarding or rigidity. SPINE: No scoliosis or deformity SKIN: No rashes CENTRAL NERVOUS SYSTEM: No focal deficits, tone is normal in all 4 extremities. EXTREMITIES: There is no peripheral edema. No clubbing, no cyanosis. Peripheral pulses are intact. - Labs CBC & Chem 7: 07/09/24 07:33 07/09/24 07:33 Labs: Abnormal Lab Results - Last 24 Hours (Table) 07/08/24 07/08/24 07/09/24 Range/Units 12:47 16:41 06:01 WBC (3.8-10.6) k/uL RBC (4.30-5.90) m/uL Hgb (13.0-17.5) gm/dL Hct (39.0-53.0) % MCV (80.0-100.0) fL MCHC (31.0-37.0) g/dL Neutrophils # (1.3-7.7) k/uL Lymphocytes # (1.0-4.8) k/uL Sodium (137-145) mmol/L BUN (9-20) mg/dL Creatinine (0.66-1.25) mg/dL Glucose (74-99) mg/dL POC Glucose (mg/dL) 115 H 128 H (70-110) mg/dL Fluid Appearance Cloudy A (Clear) 07/09/24 07/09/24 Range/Units 07:33 07:33 WBC 12.8 H (3.8-10.6) k/uL RBC 3.45 L (4.30-5.90) m/uL Hgb 11.1 L (13.0-17.5) gm/dL Hct 36.0 L (39.0-53.0) % MCV 104.5 H (80.0-100.0) fL MCHC 30.7 L (31.0-37.0) g/dL Neutrophils # 11.8 H (1.3-7.7) k/uL Lymphocytes # 0.3 L (1.0-4.8) k/uL Sodium 133 L (137-145) mmol/L BUN 78 H (9-20) mg/dL Creatinine 3.35 H (0.66-1.25) mg/dL Glucose 133 H (74-99) mg/dL POC Glucose (mg/dL) (70-110) mg/dL Fluid Appearance (Clear) Microbiology - Last 24 Hours (Table) 07/08/24 12:47 Gram Stain - Preliminary Pleural Fluid Assessment and Plan Plan: Acute hypoxemic respiratory failure secondary to an acute exacerbation of chronic obstructive pulmonary disease. Viral screen negative. Procalcitonin negative. The patient remains hypoxic on 15 L of oxygen by nasal cannula. Chest x-ray was reviewed. There is consolidation of the right lower lobe. In addition to that, there is ongoing CHF with cardiomegaly and pulmonary edema. CAT scan of the chest was completed yesterday and shows right-sided pleural effusion, atelectatic change in the right lung base along with consolidation and some nonspecific mediastinal lymphadenopathy. The patient progressed and became more hypoxic and the patient was placed on a BiPAP pressure of 12 over 5 cm of water with FiO2 of 100%. A right-sided thoracentesis was performed on 07/08/2024. The patient felt less short of breath following the procedure. Dialysis and ultrafiltration was also initiated and the patient will have another session of hemodialysis today. Right-sided pleural effusion along with atelectatic changes right lung base, postthoracentesis of the right lung with evacuation of 900 cc of pleural fluid and the fluid will be sent for analysis and the fluid seems to be a transudate. Stage IV chronic kidney disease with a component of acute kidney injury secondary to underlying infection, cardiorenal syndrome. The patient has developed an acute on top of chronic kidney disease with diminished urine output. The patient is currently on hemodialysis Acute exacerbation of chronic diastolic congestive heart failure Right basilar consolidation/atelectasis with a cutoff sign involving the right lower lobe bronchus. Possibility of a right lower lobe malignancy cannot be completely excluded. 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 Plan The patient will be kept on BiPAP and FiO2 will be gradually weaned off. If improved post hemodialysis, the patient can be transitioned to high flow system with Airvo. Hemodialysis today Repeat chest x-ray in the morning Lasix was discontinued continue DuoNeb inhalations, Continue IV Solu-Medrol Continue Pulmicort and Perforomist inhalations DNR CODE STATUS We will continue to follow Time with Patient: Greater than 30
[2024-07-09 20:24] LABS: Glucose,Whole Blood 217 mg/dL (70-110)
[2024-07-10 06:19] LABS: Glucose,Whole Blood 220 mg/dL (70-110)
[2024-07-10 07:48] LABS: African American GFR (CKD) 21 (>60 ml/min/1.73 sqM); Anion Gap 7 mmol/L; Blood Urea Nitrogen 64 mg/dL (9-20); Calcium 8.6 mg/dL (8.4-10.2); Carbon Dioxide 27 mmol/L (22-30); Chloride 95 mmol/L (98-107); Glucose 221 mg/dL (74-99); Magnesium 1.9 mg/dL (1.6-2.3); Non-African American GFR(CKD) 18 (>60 ml/min/1.73 sqM); Potassium 4.6 mmol/L (3.5-5.1); Sodium 129 mmol/L (137-145)
[2024-07-10 07:59] LABS: Basophils % (A) 0 %; Eosinophils % (A) 0 %; HCT 36.2 % (39.0-53.0); HGB 10.9 gm/dL (13.0-17.5); Hypochromasia Moderate; Lymphocytes # (A) 0.3 k/uL (1.0-4.8); Lymphocytes % (A) 2 %; MCHC 30.2 g/dL (31.0-37.0); Macrocytosis Moderate; Mean Platelet Volume 9.9; Monocytes # (A) 0.6 k/uL (0-1.0); Monocytes % (A) 4 %; Neutrophils # (A) 13.9 k/uL (1.3-7.7); Neutrophils % (A) 94 %; Platelet Count 165 k/uL (150-450); RBC 3.42 m/uL (4.30-5.90); RDW 13.5 % (11.5-15.5); WBC 14.8 k/uL (3.8-10.6)
--- NOTE | 2024-07-10 10:34 | P.PN ---
Subjective Patient is seen in follow-up for acute kidney injury. Started on hemodialysis July 07, 2024. Blood pressure drops during dialysis. Has been receiving midodrine as needed. On BiPAP. present at bedside. Vital signs are stable. General: No acute distress. HEENT: Head exam is unremarkable. On BiPAP. LUNGS: Scattered rhonchi. HEART: Rate and Rhythm are regular. ABDOMEN: Nontender. EXTREMITITES: 1+ edema in ankles. Objective - Vital Signs Vital signs: Vital Signs Temp 97.9 F 07/10/24 09:09 Pulse 88 07/10/24 09:35 Resp 20 07/10/24 09:51 BP 107/58 07/10/24 09:09 Pulse Ox 91 L 07/10/24 09:20 FiO2 100 07/10/24 09:51 Intake & Output 07/09/24 07/10/24 07/10/24 18:59 06:59 18:59 Intake Total 20 520 5 Output Total 125 1600 Balance -105 -1080 5 Weight 87.5 kg Intake: IV 20 20 5 Invasive Line 5 20 20 5 Hemodialysis 500 Output: Urine 125 100 Hemodialysis 1000 Hemodialysis Net Amount 500 Other: Voiding Method Indwelling Catheter Indwelling Catheter Indwelling Catheter - Labs CBC & Chem 7: 07/10/24 07:19 07/10/24 07:19 Labs: Abnormal Lab Results - Last 24 Hours (Table) 07/09/24 07/09/24 07/09/24 Range/Units 11:51 16:34 20:23 WBC (3.8-10.6) k/uL RBC (4.30-5.90) m/uL Hgb (13.0-17.5) gm/dL Hct (39.0-53.0) % MCV (80.0-100.0) fL MCHC (31.0-37.0) g/dL Neutrophils # (1.3-7.7) k/uL Lymphocytes # (1.0-4.8) k/uL Sodium (137-145) mmol/L Chloride (98-107) mmol/L BUN (9-20) mg/dL Creatinine (0.66-1.25) mg/dL Glucose (74-99) mg/dL POC Glucose (mg/dL) 170 H 139 H 217 H (70-110) mg/dL 03/07/10/24 07/10/24 Range/Units 06:18 07:19 07:19 WBC 14.8 H (3.8-10.6) k/uL RBC 3.42 L (4.30-5.90) m/uL Hgb 10.9 L (13.0-17.5) gm/dL Hct 36.2 L (39.0-53.0) % MCV 106.0 H (80.0-100.0) fL MCHC 30.2 L (31.0-37.0) g/dL Neutrophils # 13.9 H (1.3-7.7) k/uL Lymphocytes # 0.3 L (1.0-4.8) k/uL Sodium 129 L (137-145) mmol/L Chloride 95 L (98-107) mmol/L BUN 64 H (9-20) mg/dL Creatinine 3.04 H (0.66-1.25) mg/dL Glucose 221 H (74-99) mg/dL POC Glucose (mg/dL) 220 H (70-110) mg/dL Microbiology - Last 24 Hours (Table) 07/08/24 12:47 Gram Stain - Preliminary Pleural Fluid Body Fluid Culture - Preliminary Assessment and Plan Plan: Assessment: 1. Acute kidney injury secondary to ATN secondary to cardiorenal syndrome. Cr eatinine up to 4.2 July 07, 2024. Oliguric. Started on hemodialysis July 07, 2024 via femoral catheter. Unknown baseline renal function. No hydronephrosis noted on kidney ultrasound. UA benign. 2. Acute on chronic diastolic CHF with moderate pulmonary hypertension, moderate tricuspid regurgitation. 3. Volume overload. Improving with ultrafiltration. 4. Diabetes mellitus. 5. Anemia. Iron deficiency noted. Status post IV iron completed July 09, 2024. 6. Metabolic acidosis secondary to acute kidney injury and IV fluids. On oral bicarb. Improved. 7. Hyperkalemia secondary to acute kidney injury. Improved. 8. Hyponatremia secondary to acute kidney injury, hypervolemic. Plan: Hemodialysis today and tomorrow. Lasix discontinued. Maintain low-salt diet and fluid restriction. Avoid nephrotoxins. Continue to monitor renal function and urine output. Wean FiO2.
[2024-07-10] MEDS ORDERED: ZINC OXIDE PASTE (Z-GUARD) 1 APPLIC TOPICAL PRN (11:11)
[2024-07-10 11:39] LABS: Glucose,Whole Blood 201 mg/dL (70-110)
--- NOTE | 2024-07-10 14:07 | P.PN ---
Subjective Progress Note Date: 07/10/24 HISTORY OF PRESENT ILLNESS: This is a 88-year-old male with a past medical history significant for coronary artery disease with previous CABG, DVT, and hyperlipidemia. 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. We have been asked to see the patient in consultation for CHF. Patient examined at the bedside in the ER. Patient presented to the ER with a chief compliant of shortness of breath. He reports shortness of breath for past 2-3 days. Patient denies chest pain or pressure. Patient was found to be in acute CHF. Patient also reports hematuria and his urine cannister at the bedside has gross hematuria. DIAGNOSTICS: - EKG reveals sinus mechanism with right bundle branch block.. - Chest xray small right pleural effusion and cardiomegaly and right basilar patchy airspace opacities. Findings may relate to CHF exacerbation and/or pneumonia - Laboratory data: WBC 9.2. Hemoglobin 10.5. Platelet count 197. Sodium 136. Potassium 4.3. BUN 44. Creatinine 2.36. Troponin 0.073. 0.078. 0.075. TSH 1.700. proBNP 7980. - Current home cardiac medications include bisoprolol 2.5 mg daily, Farxiga 10 mg daily, rosuvastatin 10 mg daily, Xarelto 15 mg daily -No previous echocardiogram, stress test, or cardiac catheterization available in EMR for review Progress note 07/02/2024 Patient is seen and examined at bedside this a.m. Hb 10.1, BUN 50, creatinine 2.67 yesterday creatinine was 2.3.. BP 134/63, heart rate 72 bpm, 07/03/2024 Patient is seen and examined at bedside this a.m. Creatinine is worse today to 2.8. Blood pressure and heart rate are at goal. 07/04/2024 Patient's kidney function is progressively got worse, BUN 70, creatinine 3.01, potassium is 5.5 no further hematuria, blood pressure and heart rate are stable. 07/05/2024 Patient's kidney function is progressively got worse. Nephrology following, recommend IV gentle hydration. 07/06 Patient seen and examined. Telemetry sinus rhythm. Patient continues to have bilateral wheezing. Blood pressure 116/74, heart rate 89, pulse ox 96% on 6 L nasal cannula. Repeat blood work reveals hemoglobin 10, WBC 10.8, BUN 93 c reatinine 3.53, potassium 5.2 and sodium 134. Farxiga was decreased by nephrology and Lasix 40 mg IV every 12 hours ordered. 07/07 Patient seen and examined. Patient continues to have wheezing. No lower extremity edema. He continues to have worsening renal function for which nephrology is following. No complaints of chest pain. Blood pressure 131/58, heart rate 78, pulse ox 95% on high flow nasal cannula 9 L. Repeat blood work reveals BUN 109 and creatinine 4.23. Potassium 5.5. CT of the chest performed last evening reveals moderate right pleural effusion with consolidative opacities within the right upper lobe and atelectatic change of the right middle and lower lobes. Findings suggest pneumonia however pulmonary mass not excluded. Mediastinal adenopathy. Sequelae of prior gran ulomatous disease. Cardiomegaly with post CABG changes. Ultrasound of the chest: Small to moderate size right-sided pleural fluid collection with right lung atelectasis. 07/08 Patient seen and examined. He is currently on BiPAP. Yesterday he was started on his first dialysis treatment and this morning receiving his second. Lung sounds are improved from yesterday. Blood pressure 107/58, heart rate 91, pulse ox 92 to 100% on BiPAP. Repeat blood work reveals hemoglobin 10.1, WBC 11.4, BUN 91 and creatinine 3.69. Pulmonary medicine is planning for thoracentesis right side. 07/09 Patient is scheduled for another dialysis treatment today. His feels that he is getting better. He is making some urine. Repeat blood work reveals BUN of 78 creatinine 3.35 and hemoglobin 11.1. Blood pressure 103/60, heart rate 83, pulse ox 98% on BiPAP. 07/10 Patient's respiratory status continues to improve. He is scheduled for another dialysis treatment today. Patient is feeling better in general and has less lower extremity edema.. Pulse ox 91% on high flow nasal cannula, heart rate 89, blood pressure 115/66. Repeat blood work reveals WBC 14.8, hemoglobin 10.8, sodium 129, potassium 4.6, BUN 64 creatinine 3.04. PHYSICAL EXAM: HEENT: Head is normocephalic. Pupils are equal, round. Sclerae anicteric. Neck supple. No JVD or thyromegaly LUNGS: Respirations even. Lungs essentially clear bilaterally. HEART: Regular rate and rhythm. S1 and S2 heard. No murmur ABDOMEN: Soft. Nondistended. Nontender. EXTREMITIES: No clubbing or cyanosis. Peripheral pulses intact. 1+ bilateral lower extremity edema NEUROLOGIC: Awake and alert. Oriented x 3. ASSESSMENT: Acute hypoxic respiratory failure Acute HFpEF exacerbation Moderate pulm hypertension Possible pneumonia Acute kidney injury, started on HD 07/07 Gross hematuria Bated troponins, type II LA secondary to oxygen supply/demand mismatch Coronary artery disease with previous CABG, approximately 24 years ago History of DVT, on Xarelto outpatient Hyperlipidemia Pertinent cardiac testing Echo shows EF 55%, no RWMA, moderate pulmonary hypertension, mild MR, mild LA dilatation, moderate TR, mildly dilated ascending aorta measured at 4 cm. PLAN: Continue hemodialysis per nephrology Continue cardiac medications: Aspirin, atorvastatin, hydralazine, Imdur and bisoprolol Patient is off IV Lasix per nephrology Patient has been resumed on anticoagulation with Eliquis per attending Nurse practitioner note has been reviewed, I agree with documented findings and plan of care. Patient was seen and examined. Objective - Vital Signs Vital signs: Vital Signs Temp 97.9 F 07/10/24 09:09 Pulse 88 07/10/24 09:35 Resp 20 07/10/24 09:51 BP 107/58 07/10/24 09:09 Pulse Ox 91 L 07/10/24 09:20 FiO2 100 07/10/24 09:51 Intake & Output 07/09/24 07/10/24 07/10/24 18:59 06:59 18:59 Intake Total 20 520 5 Output Total 125 1600 Balance -105 -1080 5 Weight 87.5 kg Intake: IV 20 20 5 Invasive Line 5 20 20 5 Hemodialysis 500 Output: Urine 125 100 Hemodialysis 1000 Hemodialysis Net Amount 500 Other: Voiding Method Indwelling Catheter Indwelling Catheter Indwelling Catheter - Labs CBC & Chem 7: 07/10/24 07:19 07/10/24 07:19 Labs: Abnormal Lab Results - Last 24 Hours (Table) 07/09/24 07/09/24 07/09/24 Range/Units 11:51 16:34 20:23 WBC (3.8-10.6) k/uL RBC (4.30-5.90) m/uL Hgb (13.0-17.5) gm/dL Hct (39.0-53.0) % MCV (80.0-100.0) fL MCHC (31.0-37.0) g/dL Neutrophils # (1.3-7.7) k/uL Lymphocytes # (1.0-4.8) k/uL Sodium (137-145) mmol/L Chloride (98-107) mmol/L BUN (9-20) mg/dL Creatinine (0.66-1.25) mg/dL Glucose (74-99) mg/dL POC Glucose (mg/dL) 170 H 139 H 217 H (70-110) mg/dL 07/10/24 07/10/24 07/10/24 Range/Units 06:18 07:19 07:19 WBC 14.8 H (3.8-10.6) k/uL RBC 3.42 L (4.30-5.90) m/uL Hgb 10.9 L (13.0-17.5) gm/dL Hct 36.2 L (39.0-53.0) % MCV 106.0 H (80.0-100.0) fL MCHC 30.2 L (31.0-37.0) g/dL Neutrophils # 13.9 H (1.3-7.7) k/uL Lymphocytes # 0.3 L (1.0-4.8) k/uL Sodium 129 L (137-145) mmol/L Chloride 95 L (98-107) mmol/L BUN 64 H (9-20) mg/dL Creatinine 3.04 H (0.66-1.25) mg/dL Glucose 221 H (74-99) mg/dL POC Glucose (mg/dL) 220 H (70-110) mg/dL Microbiology - Last 24 Hours (Table) 07/08/24 12:47 Gram Stain - Preliminary Pleural Fluid Body Fluid Culture - Preliminary
--- NOTE | 2024-07-10 14:14 | P.PN ---
Subjective Progress Note Date: 07/10/24 Subjective: Patient seen and examined at bedside. Started on Airvo this morning. Pertinent positives and negatives as discussed above, a complete review of systems was performed and all other systems are negative. Vitals Signs Reviewed. General: Nontoxic, no distress, appears at stated age, chronically ill-appearing Derm: Warm, dry Head: Atraumatic, normocephalic, symmetric Eyes: EOMI, no lid lag, anicteric sclera Mouth: No lip lesion, mucus membranes moist Cardiovascular: S1S2 reg, no murmur Lungs: CTA bilateral, no rhonchi, no rales, no accessory muscle use, decreased breath sounds in the right lower lobe, supplemental oxygen Abdominal: Soft, nontender to palpation, no guarding, no appreciable organomegaly Ext: No gross muscle atrophy, 2+ pitting edema, no contractures Neuro: CN II-XI grossly intact, no focal neuro deficits Psych: Alert, oriented, appropriate affect Data Reviewed Today: Pertinent Labs: WBC 14.8, hemoglobin 10.9, sodium 129, creatinine 3.04, blood sugars range between 201 to 221, magnesium 1.9 Imaging: No new imaging Assessment and Plan: Active: Acute hypoxic respiratory failure Acute on chronic diastolic CHF exacerbation Acute COPD exacerbation Leukocytosis, likely steroid induced FLORINDA secondary to ATN Hyponatremia Normocytic anemia Microscopic hematuria Right pleural effusion Atelectasis Type II NSTEMI -Pulmonology following, continue Solu-Medrol 60 IV every 6 hours, Perforomist twice daily, Pulmicort twice daily, albuterol as needed, DuoNeb every 4 hours -We are able to obtain transbronchial biopsy results completed which did not show any granulomatous or malignant process -Nephrology note reviewed, dialysis today and tomorrow -Cardiology following, continue aspirin 81 mg, atorvastatin 20 mg, Eliquis 2.5 twice daily 5 twice daily -Holding Farxiga -Outpatient cystoscopy per urology, okay to restart anticoagulation History of hypertension Hypotension -Patient on Imdur 15 daily -Patient also continued on bisoprolol 2.5 daily -Holding candesartan, holding hydralazine Type 2 diabetes -Continue Lantus, increase to 25 nightly, lispro 9 units 3 times daily, sliding scale insulin, monitor for hypoglycemia Resolved: Metabolic acidosis, resolved Hyperkalemia Chronic: Dyslipidemia Hypertension History of DVT History of CAD status post CABG DVT ppx: Eliquis Code status: No code Anticipated discharge place: Pending clinical course Anticipated discharge time: Pending clinical course Objective - Vital Signs Vital signs: Vital Signs Temp 98.2 F 07/10/24 11:15 Pulse 89 07/10/24 13:01 Resp 20 07/10/24 11:15 BP 115/66 07/10/24 11:15 Pulse Ox 91 L 07/10/24 12:55 FiO2 100 07/10/24 12:55 Intake & Output 07/09/24 07/10/24 07/10/24 18:59 06:59 18:59 Intake Total 20 520 5 Output Total 125 1600 Balance -105 -1080 5 Weight 87.5 kg Intake: IV 20 20 5 Invasive Line 5 20 20 5 Hemodialysis 500 Output: Urine 125 100 Hemodialysis 1000 Hemodialysis Net Amount 500 Other: Voiding Method Indwelling Catheter Indwelling Catheter Indwelling Catheter - Labs CBC & Chem 7: 07/10/24 07:19 07/10/24 07:19 Labs: Abnormal Lab Results - Last 24 Hours (Table) 07/09/24 07/09/24 07/10/24 Range/Units 16:34 20:23 06:18 WBC (3.8-10.6) k/uL RBC (4.30-5.90) m/uL Hgb (13.0-17.5) gm/dL Hct (39.0-53.0) % MCV (80.0-100.0) fL MCHC (31.0-37.0) g/dL Neutrophils # (1.3-7.7) k/uL Lymphocytes # (1.0-4.8) k/uL Sodium (137-145) mmol/L Chloride (98-107) mmol/L BUN (9-20) mg/dL Creatinine (0.66-1.25) mg/dL Glucose (74-99) mg/dL POC Glucose (mg/dL) 139 H 217 H 220 H (70-110) mg/dL 07/10/24 07/10/24 07/10/24 Range/Units 07:19 07:19 11:37 WBC 14.8 H (3.8-10.6) k/uL RBC 3.42 L (4.30-5.90) m/uL Hgb 10.9 L (13.0-17.5) gm/dL Hct 36.2 L (39.0-53.0) % MCV 106.0 H (80.0-100.0) fL MCHC 30.2 L (31.0-37.0) g/dL Neutrophils # 13.9 H (1.3-7.7) k/uL Lymphocytes # 0.3 L (1.0-4.8) k/uL Sodium 129 L (137-145) mmol/L Chloride 95 L (98-107) mmol/L BUN 64 H (9-20) mg/dL Creatinine 3.04 H (0.66-1.25) mg/dL Glucose 221 H (74-99) mg/dL POC Glucose (mg/dL) 201 H (70-110) mg/dL Microbiology - Last 24 Hours (Table) 07/08/24 12:47 Gram Stain - Preliminary Pleural Fluid Body Fluid Culture - Preliminary
[2024-07-10 16:48] LABS: Glucose,Whole Blood 78 mg/dL (70-110)
--- NOTE | 2024-07-10 17:30 | P.PN ---
Subjective Progress Note Date: 07/10/24 07/06/2024, the patient is being seen for a follow-up. The patient remains in acute hypoxic respiratory failure and currently is still requiring 6 L of O2 nasal cannula. The patient overnight became slightly more short of breath and went into a coughing spells and this morning he is already feeling better. He has a right lower lobe pneumonia and his chest x-ray from today, 07/06/2024, showed an area of persistent consolidation and volume loss in the right lung base. Left lung remains essentially clear. There is also persistent cardiomegaly and mild pulm vascular congestion. His echocardiogram done on 07/01/2024 showed a normal LV function, mild MR, moderate TR with moderate degree of pulmonary hypertension. The patient's white cell count today is at 10.8, with a hemoglobin of 10 and a platelet count of 220. BUN is 93 and a creatinine of 3.5. Noted the patient has a chronic stage IV kidney disease. Creatinine has been gradually on the rise of the patient is being diuresed with IV Lasix. For now, the patient remains on Lasix 40 mg IV every 12 hours. He is on bronchodilators. He is on steroids which will be continued as the patient continues to be bronchospastic and wheezy. I do not see that he is on any form of antibiotic coverage at this point. He remains on anticoagulation with Xarelto 15 mg p.o. on a daily basis. He is known to have previous history of DVT and for that reason the patient has been maintained on anticoagulation. His comorbidities include coronary artery disease with previous bypass surgery approximate 24 years ago. Previous history of DVT, hyperlipidemia, hypertension, the patient has a preserved LV function with secondary pulmonary hypertension as confirmed on recent echocardiogram. Based on progressive worsening of renal function, losartan was placed on hold and the patient will be kept on IV Lasix. 07/07/2024, the patient is being seen for a follow-up. On today's evaluation, the patient has become more hypoxic and is currently on 15 L of oxygen nasal cannula. He was on 8 L and he was moved up to 10 L and currently is on 15 L. A CAT scan of the chest was completed yesterday and the patient was found to have a moderate-sized right-sided pleural effusion along with consolidation of the right lung base in addition some atelectatic changes right middle lobe and right lower lobe. There is also some nonspecific mediastinal lymphadenopathy and sequelae of a previous granulomatous disease along with cardiomegaly and changes consistent with bypass. At the same time, the patient is developing progressive worsening renal function. On today's blood work, the patient's creatinine is up to 4.23 with a BUN of 109. Bicarb is at 21. Potassium level is at 5.5. Based on that, nephrology has made recommendations to proceed with hemodialysis. Dialysis catheter to be inserted. Remains on Lasix 40 mg IV every 12 hours. Rest of the medications are essentially unchanged. Remains on bronchodilators. Remains on IV Solu-Medrol. On today's evaluation of 07/08/2024, the patient was noted to be more short of breath and hypoxic. Noted the patient's oxygen requirements progressively went up and subsequently, the patient was moved from 15 L nasal cannula and to a BiPAP at a pressure of 12/5 with an FiO2 of 100%. He is able to tolerate the BiPAP without any major difficulties. Noted the patient was also given dialysis catheter and the patient was started on hemodialysis. He tolerated 500 cc of ultrafiltration yesterday and another 1 L of ultrafiltration today. I reviewed the ultrasound of the chest and the patient has a sizable right-sided pleural effusion. Based on that, I performed a bedside thoracentesis on this patient and a total of 900 cc of pleural fluid was aspirated from the right lung without having any major difficulties. The patient meanwhile was kept on BiPAP. The patient tolerated the procedure without having any major difficulties and the pleural fluid will be sent for analysis. White cell count 11.4, hemoglobin 10.1 and a platelet count of 189. BUN is 91 with a creatinine of 3.6. Sodium levels at 133 and potassium level is at 5.1. The patient remains on DuoNeb nebulized treatments [id number]. Anticoagulation was resumed and the patient is currently on Eliquis 5 mg p.o. twice a day. Remains on bronchodilators with DuoNeb. Remains on IV Solu-Medrol 60 mg every 6 hours. Remains on Symbicort. Lasix was discontinued as the patient's urine output was extremely low. Nephrology is on the case. On today's evaluation of 07/09/2024, the patient remains on a BiPAP and the patient is currently on a BiPAP pressure of 12/5 with an FiO2 of 100%. The plan is to undergo another session of hemodialysis today. The patient is tolerating the BiPAP reasonably well. Denies having any significant shortness of breath while being on BiPAP. Underwent right-sided thoracentesis yesterday. The fluid chemistry shows a protein of 3.1 and an LDH of 135. Cell count was 534. No urine output. Remains on bronchodilators. Remains on IV Solu-Medrol. Family is at the bedside. Remains on anticoagulation with Eliquis. Rest of the blood work shows a white cell count of 12.8 with a hemoglobin of 11.1 and a platelet count of 184. BUN 78 with a creatinine of 3.3 and a sodium levels at 133 and potassium level is at 5.1. On 07/10/2024, the patient was taken off the BiPAP and the patient is currently on Airvo 60 L with an FiO2 of 100%. The patient is a more comfortable compared to yesterday. Note that he was started on hemodialysis and the patient underwent a session of hemodialysis yesterday. Another session is to follow. Urine output is quite diminished. The patient is awake and alert. The white cell count of 14.8 with a hemoglobin 10.9 and a platelet count of 165. BUN 64 w ith a creatinine of 3 and a sodium levels at 129. Rest of the medication remain unchanged. The patient remains on DuoNeb updrafts. The patient remains on IV Solu-Medrol. Remains on anticoagulation with Eliquis. On a separate note, the pleural fluid that was aspirated from the patient's right lung was positive for pulmonary adenocarcinoma. Objective - Vital Signs Vital signs: Vital Signs Temp 98.2 F 07/10/24 11:15 Pulse 89 07/10/24 13:01 Resp 20 07/10/24 11:15 BP 115/66 07/10/24 11:15 Pulse Ox 91 L 07/10/24 12:55 FiO2 100 07/10/24 12:55 Intake & Output 07/09/24 07/10/24 07/10/24 18:59 06:59 18:59 Intake Total 20 520 5 Output Total 125 1600 Balance -105 -1080 5 Weight 87.5 kg Intake: IV 20 20 5 Invasive Line 5 20 20 5 Hemodialysis 500 Output: Urine 125 100 Hemodialysis 1000 Hemodialysis Net Amount 500 Other: Voiding Method Indwelling Catheter Indwelling Catheter Indwelling Catheter - Exam GENERAL EXAM: Alert, 88-year-old male, sitting up in a chair, on Airvo 60 L with an FiO2 of 100% HEAD: Normocephalic. EYES: Normal reaction of pupils, equal size. NOSE: Clear with pink turbinates. THROAT: No erythema or exudates. NECK: No masses, no JVD. CHEST: No chest wall deformity. LUNGS: Equal air entry with basilar crackles, few scattered rhonchi. Diminished breath sound right lung base, improved postthoracentesis CVS: S1 and S2 normal with no audible murmur, regular rhythm. ABDOMEN: No hepatosplenomegaly, normal bowel sounds, no guarding or rigidity. SPINE: No scoliosis or deformity SKIN: No rashes CENTRAL NERVOUS SYSTEM: No focal deficits, tone is normal in all 4 extremities. EXTREMITIES: There is no peripheral edema. No clubbing, no cyanosis. Per ipheral pulses are intact. - Labs CBC & Chem 7: 07/10/24 07:19 07/10/24 07:19 Labs: Abnormal Lab Results - Last 24 Hours (Table) 07/09/24 07/09/24 07/10/24 Range/Units 16:34 20:23 06:18 WBC (3.8-10.6) k/uL RBC (4.30-5.90) m/uL Hgb (13.0-17.5) gm/dL Hct (39.0-53.0) % MCV (80.0-100.0) fL MCHC (31.0-37.0) g/dL Neutrophils # (1.3-7.7) k/uL Lymphocytes # (1.0-4.8) k/uL Sodium (137-145) mmol/L Chloride (98-107) mmol/L BUN (9-20) mg/dL Creatinine (0.66-1.25) mg/dL Glucose (74-99) mg/dL POC Glucose (mg/dL) 139 H 217 H 220 H (70-110) mg/dL 07/10/24 07/10/24 07/10/24 Range/Units 07:19 07:19 11:37 WBC 14.8 H (3.8-10.6) k/uL RBC 3.42 L (4.30-5.90) m/uL Hgb 10.9 L (13.0-17.5) gm/dL Hct 36.2 L (39.0-53.0) % MCV 106.0 H (80.0-100.0) fL MCHC 30.2 L (31.0-37.0) g/dL Neutrophils # 13.9 H (1.3-7.7) k/uL Lymphocytes # 0.3 L (1.0-4.8) k/uL Sodium 129 L (137-145) mmol/L Chloride 95 L (98-107) mmol/L BUN 64 H (9-20) mg/dL Creatinine 3.04 H (0.66-1.25) mg/dL Glucose 221 H (74-99) mg/dL POC Glucose (mg/dL) 201 H (70-110) mg/dL Microbiology - Last 24 Hours (Table) 07/08/24 12:47 Gram Stain - Preliminary Pleural Fluid Body Fluid Culture - Preliminary Assessment and Plan Plan: Acute hypoxemic respiratory failure secondary to an acute exacerbation of chronic obstructive pulmonary disease. Viral screen negative. Procalcitonin negative. CAT scan of the chest was completed yesterday and shows right-sided pleural effusion, atelectatic change in the right lung base along with consolidation and some nonspecific mediastinal lymphadenopathy. The patient progressed and became more hypoxic and the patient was placed on a BiPAP pressure of 12 over 5 cm of water with FiO2 of 100%. A right-sided thoracentesis was performed on 07/08/2024. The fluid result is positive for pulmonary adenocarcinoma. The patient felt less short of breath following the procedure. 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 Stage IV chronic kidney disease with a component of acute kidney injury secondary to underlying infection, cardiorenal syndrome. The patient has developed an acute on top of chronic kidney disease with diminished urine output. The patient is currently on hemodialysis Acute exacerbation of chronic diastolic congestive heart failure Right basilar consolidation/atelectasis with a cutoff sign involving the right lower lobe bronchus. Possibility of a right lower lobe malignancy cannot be completely excluded. 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 Plan The patient will be kept on Airvo. Hemodialysis today The pleural fluid is malignant and this will be discussed with the family and oncology consultation will be obtained continue DuoNeb inhalations, Continue IV Solu-Medrol Continue Pulmicort and Perforomist inhalations Anticoagulation with Eliquis, dose needs to be modified DNR CODE STATUS We will continue to follow Care is a very poor prognosis patient with a diagnosis of stage IV pulmonary adenocarcinoma. Time with Patient: Greater than 30
[2024-07-10 20:12] LABS: Glucose,Whole Blood 119 mg/dL (70-110)
[2024-07-10] MEDS: INSULIN GLARGINE (LANTUS) 100 UNIT/ML SYR SQ SCH (20:34)
[2024-07-10] MEDS: NYSTATIN 100,000 UNIT/GM POWD 15 GM TOPICAL SCH (20:34)
[2024-07-11 03:11] LABS: Glucose,Whole Blood 82 mg/dL (70-110)
[2024-07-11 06:20] LABS: Glucose,Whole Blood 103 mg/dL (70-110)
[2024-07-11 07:51] LABS: Basophils % (A) 0 %; Eosinophils # (A) 0.1 k/uL (0-0.7); Eosinophils % (A) 0 %; HCT 34.7 % (39.0-53.0); Lymphocytes # (A) 0.3 k/uL (1.0-4.8); Lymphocytes % (A) 2 %; MCH 32.8 pg (25.0-35.0); MCHC 31.7 g/dL (31.0-37.0); MCV 103.3 fL (80.0-100.0); Macrocytosis Slight; Mean Platelet Volume 10.5; Monocytes # (A) 0.6 k/uL (0-1.0); Monocytes % (A) 3 %; Neutrophils # (A) 16.9 k/uL (1.3-7.7); Neutrophils % (A) 94 %; Platelet Count 178 k/uL (150-450); RBC 3.36 m/uL (4.30-5.90); RDW 13.8 % (11.5-15.5); WBC 17.9 k/uL (3.8-10.6)
[2024-07-11 08:10] LABS: ALT 25 U/L (4-49); AST 22 U/L (17-59); African American GFR (CKD) 21 (>60 ml/min/1.73 sqM); Albumin 2.5 g/dL (3.5-5.0); Alkaline Phosphatase 60 U/L (38-126); Anion Gap 7 mmol/L; Blood Urea Nitrogen 54 mg/dL (9-20); Calcium 8.5 mg/dL (8.4-10.2); Carbon Dioxide 27 mmol/L (22-30); Chloride 98 mmol/L (98-107); Glucose 94 mg/dL (74-99); Non-African American GFR(CKD) 18 (>60 ml/min/1.73 sqM); Potassium 4.3 mmol/L (3.5-5.1); Sodium 132 mmol/L (137-145); Total Bilirubin 0.5 mg/dL (0.2-1.3); Total Protein 5.1 g/dL (6.3-8.2)
[2024-07-11] MEDS: MIDODRINE 5 MG TAB PO STA (09:03)
--- NOTE | 2024-07-11 10:19 | P.PN ---
Subjective Patient is seen in follow-up for acute kidney injury. Started on hemodialysis July 07, 2024. Tolerating dialysis well. Blood pressure drops during dialysis. Better with midodrine. Now on Airvo. present at bedside. Vital signs are stable. General: No acute distress. HEENT: Head exam is unremarkable. On Airvo. LUNGS: Scattered rhonchi. HEART: Rate and Rhythm are regular. ABDOMEN: Nontender. EXTREMITITES: 1+ edema in ankles. Objective - Vital Signs Vital signs: Vital Signs Temp 97.6 F 07/11/24 08:01 Pulse 92 07/11/24 09:22 Resp 18 07/11/24 08:01 BP 83/48 07/11/24 09:04 Pulse Ox 94 L 07/11/24 09:04 FiO2 93 07/11/24 09:00 Intake & Output 07/10/24 07/11/24 07/11/24 18:59 06:59 18:59 Intake Total 428 Output Total 3900 Balance -3472 Weight 90 kg Intake: IV 10 Invasive Line 5 10 Oral 118 Hemodialysis 300 Output: Hemodialysis 2100 Hemodialysis Net Amount 1800 Other: Voiding Method Indwelling Catheter Indwelling Catheter Indwelling Catheter - Labs CBC & Chem 7: 07/11/24 07:40 07/11/24 07:40 Labs: Abnormal Lab Results - Last 24 Hours (Table) 07/10/24 07/10/24 07/11/24 Range/Units 11:37 19:54 07:40 WBC 17.9 H (3.8-10.6) k/uL RBC 3.36 L (4.30-5.90) m/uL Hgb 11.0 L (13.0-17.5) gm/dL Hct 34.7 L (39.0-53.0) % MCV 103.3 H (80.0-100.0) fL Neutrophils # 16.9 H (1.3-7.7) k/uL Lymphocytes # 0.3 L (1.0-4.8) k/uL Sodium (137-145) mmol/L BUN (9-20) mg/dL Creatinine (0.66-1.25) mg/dL POC Glucose (mg/dL) 201 H 119 H (70-110) mg/dL Total Protein (6.3-8.2) g/dL Albumin (3.5-5.0) g/dL 07/11/24 Range/Units 07:40 WBC (3.8-10.6) k/uL RBC (4.30-5.90) m/uL Hgb (13.0-17.5) gm/dL Hct (39.0-53.0) % MCV (80.0-100.0) fL Neutrophils # (1.3-7.7) k/uL Lymphocytes # (1.0-4.8) k/uL Sodium 132 L (137-145) mmol/L BUN 54 H (9-20) mg/dL Creatinine 2.99 H (0.66-1.25) mg/dL POC Glucose (mg/dL) (70-110) mg/dL Total Protein 5.1 L (6.3-8.2) g/dL Albumin 2.5 L (3.5-5.0) g/dL Microbiology - Last 24 Hours (Table) 07/08/24 12:47 Gram Stain - Preliminary Pleural Fluid Body Fluid Culture - Preliminary Assessment and Plan Plan: Assessment: 1. Acute kidney injury secondary to ATN secondary to cardiorenal syndrome. Creatinine up to 4.2 July 07, 2024. Oliguric. Started on hemodialysis July 07, 2024 via femoral catheter. Unknown baseline renal function. No hydronephrosis noted on kidney ultrasound. UA benign. 2. Acute on chronic diastolic CHF with moderate pulmonary hypertension, moderate tricuspid regurgitation. 3. Volume overload. Improving with ultrafiltration. Status post right-sided thoracentesis July 08, 2024 with 900 cc drained. 4. Diabetes mellitus. 5. Anemia. Iron deficiency noted. Status post IV iron completed July 09, 2024. 6. Metabolic acidosis secondary to acute kidney injury and IV fluids. Improved. 7. Hyperkalemia secondary to acute kidney injury. Improved. 8. Hyponatremia secondary to acute kidney injury, hypervolemic. Improved postdialysis. Plan: Currently seen while undergoing hemodialysis. Next treatment Saturday. Lasix discontinued. Maintain low-salt diet and fluid restriction. Avoid nephrotoxins. Continue to monitor renal function and urine output. Wean FiO2.
[2024-07-11 11:25] LABS: Glucose,Whole Blood 98 mg/dL (70-110)
--- NOTE | 2024-07-11 11:28 | P.PN ---
Subjective Progress Note Date: 07/11/24 Subjective: Patient seen and examined at bedside. Remains on Airvo Pertinent positives and negatives as discussed above, a complete review of systems was performed and all other systems are negative. Vitals Signs Reviewed. General: Nontoxic, no distress, appears at stated age, chronically ill-appearing Derm: Warm, dry Head: Atraumatic, normocephalic, symmetric Eyes: EOMI, no lid lag, anicteric sclera Mouth: No lip lesion, mucus membranes moist Cardiovascular: S1S2 reg, no murmur Lungs: CTA bilateral, no rhonchi, no rales, no accessory muscle use, decreased breath sounds in the right lower lobe, supplemental oxygen Abdominal: Soft, nontender to palpation, no guarding, no appreciable organomegaly Ext: No gross muscle atrophy, 2+ pitting edema, no contractures Neuro: CN II-XI grossly intact, no focal neuro deficits Psych: Alert, oriented, appropriate affect Data Reviewed Today: Pertinent Labs: WBC 17.9, hemoglobin 11, sodium 132, creatinine 2.99, blood sugars range between 82-1 19 Imaging: No new imaging Assessment and Plan: Patient is severely ill, needs close monitoring. Prognosis guarded. Active: Acute hypoxic respiratory failure Acute on chronic diastolic CHF exacerbation Acute COPD exacerbation Leukocytosis, likely steroid induced FLORINDA secondary to ATN, now on dialysis Hyponatremia Normocytic anemia Microscopic hematuria Right pleural effusion Atelectasis Pulmonary adenocarcinoma Type II NSTEMI -Discussed with pulmonology, continue Solu-Medrol 60 IV every 6 hours, Perforomist twice daily, Pulmicort twice daily, albuterol as needed, DuoNeb every 4 hours -Oncology consulted -Nephrology note reviewed, dialysis today and on Saturday -Cardiology following, continue aspirin 81 mg, atorvastatin 20 mg, Eliquis 2.5 twice daily 5 twice daily -Holding Farxiga -Outpatient cystoscopy per urology, okay to restart anticoagulation History of hypertension Hypotension -Patient on Imdur 15 daily -Patient also continued on bisoprolol 2.5 daily -Holding candesartan, holding hydralazine -Patient also on midodrine 5 AC 3 times daily per cardiology Type 2 diabetes -Continue Lantus 25 nightly, sliding scale insulin, monitor for hypoglycemia Resolved: Metabolic acidosis, resolved Hyperkalemia Chronic: Dyslipidemia Hypertension History of DVT History of CAD status post CABG DVT ppx: Eliquis Code status: No code Anticipated discharge place: Pending clinical course Anticipated discharge time: Pending clinical course Objective - Vital Signs Vital signs: Vital Signs Temp 97.6 F 07/11/24 08:01 Pulse 78 07/11/24 11:25 Resp 17 07/11/24 11:25 BP 127/75 07/11/24 11:25 Pulse Ox 95 07/11/24 11:25 FiO2 93 07/11/24 09:00 Intake & Output 07/10/24 07/11/24 07/11/24 18:59 06:59 18:59 Intake Total 428 Output Total 3900 Balance -3472 Weight 90 kg Intake: IV 10 Invasive Line 5 10 Oral 118 Hemodialysis 300 Output: Hemodialysis 2100 Hemodialysis Net Amount 1800 Other: Voiding Method Indwelling Catheter Indwelling Catheter Indwelling Catheter - Labs CBC & Chem 7: 07/11/24 07:40 07/11/24 07:40 Labs: Abnormal Lab Results - Last 24 Hours (Table) 07/10/24 07/10/24 07/11/24 Range/Units 11:37 19:54 07:40 WBC 17.9 H (3.8-10.6) k/uL RBC 3.36 L (4.30-5.90) m/uL Hgb 11.0 L (13.0-17.5) gm/dL Hct 34.7 L (39.0-53.0) % MCV 103.3 H (80.0-100.0) fL Neutrophils # 16.9 H (1.3-7.7) k/uL Lymphocytes # 0.3 L (1.0-4.8) k/uL Sodium (137-145) mmol/L BUN (9-20) mg/dL Creatinine (0.66-1.25) mg/dL POC Glucose (mg/dL) 201 H 119 H (70-110) mg/dL Total Protein (6.3-8.2) g/dL Albumin (3.5-5.0) g/dL 07/11/24 Range/Units 07:40 WBC (3.8-10.6) k/uL RBC (4.30-5.90) m/uL Hgb (13.0-17.5) gm/dL Hct (39.0-53.0) % MCV (80.0-100.0) fL Neutrophils # (1.3-7.7) k/uL Lymphocytes # (1.0-4.8) k/uL Sodium 132 L (137-145) mmol/L BUN 54 H (9-20) mg/dL Creatinine 2.99 H (0.66-1.25) mg/dL POC Glucose (mg/dL) (70-110) mg/dL Total Protein 5.1 L (6.3-8.2) g/dL Albumin 2.5 L (3.5-5.0) g/dL Microbiology - Last 24 Hours (Table) 07/08/24 12:47 Gram Stain - Preliminary Pleural Fluid Body Fluid Culture - Preliminary
--- NOTE | 2024-07-11 11:39 | P.PN ---
Subjective Progress Note Date: 07/11/24 HISTORY OF PRESENT ILLNESS: This is a 88-year-old male with a past medical history significant for coronary artery disease with previous CABG, DVT, and hyperlipidemia. Patient follows with a columnist in [facility]. We have been asked to see the patient in consultation for CHF. Patient examined at the bedside in the ER. Patient presented to the ER with a chief compliant of shortness of breath. He reports shortness of breath for past 2-3 days. Patient denies chest pain or pressure. Patient was found to be in acute CHF. Patient also reports hematuria and his urine cannister at the bedside has gross hematuria. DIAGNOSTICS: - EKG reveals sinus mechanism with right bundle branch block.. - Chest xray small right pleural effusion and cardiomegaly and right basilar patchy airspace opacities. Findings may relate to CHF exacerbation and/or pneumonia - Laboratory data: WBC 9.2. Hemoglobin 10.5. Platelet count 197. Sodium 136. Potassium 4.3. BUN 44. Creatinine 2.36. Troponin 0.073. 0.078. 0.075. TSH 1.700. proBNP 7980. - Current home cardiac medications include bisoprolol 2.5 mg daily, Farxiga 10 mg daily, rosuvastatin 10 mg daily, Xarelto 15 mg daily -No previous echocardiogram, stress test, or cardiac catheterization available in EMR for review Progress note 07/02/2024 Patient is seen and examined at bedside this a.m. Hb 10.1, BUN 50, creatinine 2.67 yesterday creatinine was 2.3.. BP 134/63, heart rate 72 bpm, 07/03/2024 Patient is seen and examined at bedside this a.m. Creatinine is worse today to 2.8. Blood pressure and heart rate are at goal. 07/04/2024 Patient's kidney function is progressively got worse, BUN 70, creatinine 3.01, potassium is 5.5 no further hematuria, blood pressure and heart rate are stable. 07/05/2024 Patient's kidney function is progressively got worse. Nephrology following, recommend IV gentle hydration. 07/06 Patient seen and examined. Telemetry sinus rhythm. Patient continues to have bilateral wheezing. Blood pressure 116/74, heart rate 89, pulse ox 96% on 6 L nasal cannula. Repeat blood work reveals hemoglobin 10, WBC 10.8, BUN 93 c reatinine 3.53, potassium 5.2 and sodium 134. Farxiga was decreased by nephrology and Lasix 40 mg IV every 12 hours ordered. 07/07 Patient seen and examined. Patient continues to have wheezing. No lower extremity edema. He continues to have worsening renal function for which nephrology is following. No complaints of chest pain. Blood pressure 131/58, heart rate 78, pulse ox 95% on high flow nasal cannula 9 L. Repeat blood work reveals BUN 109 and creatinine 4.23. Potassium 5.5. CT of the chest performed last evening reveals moderate right pleural effusion with consolidative opacities within the right upper lobe and atelectatic change of the right middle and lower lobes. Findings suggest pneumonia however pulmonary mass not excluded. Mediastinal adenopathy. Sequelae of prior gran ulomatous disease. Cardiomegaly with post CABG changes. Ultrasound of the chest: Small to moderate size right-sided pleural fluid collection with right lung atelectasis. 07/08 Patient seen and examined. He is currently on BiPAP. Yesterday he was started on his first dialysis treatment and this morning receiving his second. Lung sounds are improved from yesterday. Blood pressure 107/58, heart rate 91, pulse ox 92 to 100% on BiPAP. Repeat blood work reveals hemoglobin 10.1, WBC 11.4, BUN 91 and creatinine 3.69. Pulmonary medicine is planning for thoracentesis right side. 07/09 Patient is scheduled for another dialysis treatment today. His feels that he is getting better. He is making some urine. Repeat blood work reveals BUN of 78 creatinine 3.35 and hemoglobin 11.1. Blood pressure 103/60, heart rate 83, pulse ox 98% on BiPAP. 07/10 Patient's respiratory status continues to improve. He is scheduled for another dialysis treatment today. Patient is feeling better in general and has less lower extremity edema.. Pulse ox 91% on high flow nasal cannula, heart rate 89, blood pressure 115/66. Repeat blood work reveals WBC 14.8, hemoglobin 10.8, sodium 129, potassium 4.6, BUN 64 creatinine 3.04. 07/11 Patient seen and examined. Respiratory status continues to improve and he is continued on hemodialysis with plan for Saturday. Patient is currently on Airvo with pulse ox of 94%, heart rate 88, blood pressure 83/48. Patient is receiving hemodialysis this morning. Repeat blood work reveals WBC 17.9, hemoglobin 11, BUN 54 creatinine 2.99. PHYSICAL EXAM: HEENT: Head is normocephalic. Pupils are equal, round. Sclerae anicteric. Neck supple. No JVD or thyromegaly LUNGS: Respirations even. Lungs essentially clear bilaterally. HEART: Regular rate and rhythm. S1 and S2 heard. No murmur ABDOMEN: Soft. Nondistended. Nontender. EXTREMITIES: No clubbing or cyanosis. Peripheral pulses intact. 1+ bilateral lower extremity edema NEUROLOGIC: Awake and alert. Oriented x 3. ASSESSMENT: Acute hypoxic respiratory failure Acute HFpEF exacerbation Moderate pulm hypertension Possible pneumonia Acute kidney injury, started on HD 07/07 Gross hematuria Bated troponins, type II GA secondary to oxygen supply/demand mismatch Coronary artery disease with previous CABG, approximately 24 years ago History of DVT, on Xarelto outpatient Hyperlipidemia Pertinent cardiac testing Echo shows EF 55%, no RWMA, moderate pulmonary hypertension, mild MR, mild LA di latation, moderate TR, mildly dilated ascending aorta measured at 4 cm. PLAN: Continue hemodialysis per nephrology Continue cardiac medications: Aspirin, atorvastatin, hydralazine, Imdur and bisoprolol Patient is off IV Lasix per nephrology Patient has been resumed on anticoagulation with Eliquis per attending Nurse practitioner note has been reviewed, I agree with documented findings and plan of care. Patient was seen and examined. Objective - Vital Signs Vital signs: Vital Signs Temp 97.6 F 07/11/24 08:01 Pulse 92 07/11/24 09:22 Resp 18 07/11/24 08:01 BP 83/48 07/11/24 09:04 Pulse Ox 94 L 07/11/24 09:04 FiO2 93 07/11/24 09:00 Intake & Output 07/10/24 07/11/24 07/11/24 18:59 06:59 18:59 Intake Total 428 Output Total 3900 Balance -3472 Weight 90 kg Intake: IV 10 Invasive Line 5 10 Oral 118 Hemodialysis 300 Output: Hemodialysis 2100 Hemodialysis Net Amount 1800 Other: Voiding Method Indwelling Catheter Indwelling Catheter Indwelling Catheter - Labs CBC & Chem 7: 07/11/24 07:40 07/11/24 07:40 Labs: Abnormal Lab Results - Last 24 Hours (Table) 07/10/24 07/10/24 07/11/24 Range/Units 11:37 19:54 07:40 WBC 17.9 H (3.8-10.6) k/uL RBC 3.36 L (4.30-5.90) m/uL Hgb 11.0 L (13.0-17.5) gm/dL Hct 34.7 L (39.0-53.0) % MCV 103.3 H (80.0-100.0) fL Neutrophils # 16.9 H (1.3-7.7) k/uL Lymphocytes # 0.3 L (1.0-4.8) k/uL Sodium (137-145) mmol/L BUN (9-20) mg/dL Creatinine (0.66-1.25) mg/dL POC Glucose (mg/dL) 201 H 119 H (70-110) mg/dL Total Protein (6.3-8.2) g/dL Albumin (3.5-5.0) g/dL 07/11/24 Range/Units 07:40 WBC (3.8-10.6) k/uL RBC (4.30-5.90) m/uL Hgb (13.0-17.5) gm/dL Hct (39.0-53.0) % MCV (80.0-100.0) fL Neutrophils # (1.3-7.7) k/uL Lymphocytes # (1.0-4.8) k/uL Sodium 132 L (137-145) mmol/L BUN 54 H (9-20) mg/dL Creatinine 2.99 H (0.66-1.25) mg/dL POC Glucose (mg/dL) (70-110) mg/dL Total Protein 5.1 L (6.3-8.2) g/dL Albumin 2.5 L (3.5-5.0) g/dL Microbiology - Last 24 Hours (Table) 07/08/24 12:47 Gram Stain - Preliminary Pleural Fluid Body Fluid Culture - Preliminary
[2024-07-11] MEDS: MIDODRINE 5 MG TAB PO SCH (11:54)
--- NOTE | 2024-07-11 13:56 | P.PN ---
Subjective Progress Note Date: 07/11/24 07/06/2024, the patient is being seen for a follow-up. The patient remains in acute hypoxic respiratory failure and currently is still requiring 6 L of O2 nasal cannula. The patient overnight became slightly more short of breath and went into a coughing spells and this morning he is already feeling better. He has a right lower lobe pneumonia and his chest x-ray from today, 07/06/2024, showed an area of persistent consolidation and volume loss in the right lung base. Left lung remains essentially clear. There is also persistent cardiomegaly and mild pulm vascular congestion. His echocardiogram done on 07/01/2024 showed a normal LV function, mild MR, moderate TR with moderate degree of pulmonary hypertension. The patient's white cell count today is at 10.8, with a hemoglobin of 10 and a platelet count of 220. BUN is 93 and a creatinine of 3.5. Noted the patient has a chronic stage IV kidney disease. Creatinine has been gradually on the rise of the patient is being diuresed with IV Lasix. For now, the patient remains on Lasix 40 mg IV every 12 hours. He is on bronchodilators. He is on steroids which will be continued as the patient continues to be bronchospastic and wheezy. I do not see that he is on any form of antibiotic coverage at this point. He remains on anticoagulation with Xarelto 15 mg p.o. on a daily basis. He is known to have previous history of DVT and for that reason the patient has been maintained on anticoagulation. His comorbidities include coronary artery disease with previous bypass surgery approximate 24 years ago. Previous history of DVT, hyperlipidemia, hypertension, the patient has a preserved LV function with secondary pulmonary hypertension as confirmed on recent echocardiogram. Based on progressive worsening of renal function, losartan was placed on hold and the patient will be kept on IV Lasix. 07/07/2024, the patient is being seen for a follow-up. On today's evaluation, the patient has become more hypoxic and is currently on 15 L of oxygen nasal cannula. He was on 8 L and he was moved up to 10 L and currently is on 15 L. A CAT scan of the chest was completed yesterday and the patient was found to have a moderate-sized right-sided pleural effusion along with consolidation of the right lung base in addition some atelectatic changes right middle lobe and right lower lobe. There is also some nonspecific mediastinal lymphadenopathy and sequelae of a previous granulomatous disease along with cardiomegaly and changes consistent with bypass. At the same time, the patient is developing progressive worsening renal function. On today's blood work, the patient's creatinine is up to 4.23 with a BUN of 109. Bicarb is at 21. Potassium level is at 5.5. Based on that, nephrology has made recommendations to proceed with hemodialysis. Dialysis catheter to be inserted. Remains on Lasix 40 mg IV every 12 hours. Rest of the medications are essentially unchanged. Remains on bronchodilators. Remains on IV Solu-Medrol. On today's evaluation of 07/08/2024, the patient was noted to be more short of breath and hypoxic. Noted the patient's oxygen requirements progressively went up and subsequently, the patient was moved from 15 L nasal cannula and to a BiPAP at a pressure of 12/5 with an FiO2 of 100%. He is able to tolerate the BiPAP without any major difficulties. Noted the patient was also given dialysis catheter and the patient was started on hemodialysis. He tolerated 500 cc of ultrafiltration yesterday and another 1 L of ultrafiltration today. I reviewed the ultrasound of the chest and the patient has a sizable right-sided pleural effusion. Based on that, I performed a bedside thoracentesis on this patient and a total of 900 cc of pleural fluid was aspirated from the right lung without having any major difficulties. The patient meanwhile was kept on BiPAP. The patient tolerated the procedure without having any major difficulties and the pleural fluid will be sent for analysis. White cell count 11.4, hemoglobin 10.1 and a platelet count of 189. BUN is 91 with a creatinine of 3.6. Sodium levels at 133 and potassium level is at 5.1. The patient remains on DuoNeb nebulized treatments [id number]. Anticoagulation was resumed and the patient is currently on Eliquis 5 mg p.o. twice a day. Remains on bronchodilators with DuoNeb. Remains on IV Solu-Medrol 60 mg every 6 hours. Remains on Symbicort. Lasix was discontinued as the patient's urine output was extremely low. Nephrology is on the case. On today's evaluation of 07/09/2024, the patient remains on a BiPAP and the patient is currently on a BiPAP pressure of 12/5 with an FiO2 of 100%. The plan is to undergo another session of hemodialysis today. The patient is tolerating the BiPAP reasonably well. Denies having any significant shortness of breath while being on BiPAP. Underwent right-sided thoracentesis yesterday. The fluid chemistry shows a protein of 3.1 and an LDH of 135. Cell count was 534. No urine output. Remains on bronchodilators. Remains on IV Solu-Medrol. Family is at the bedside. Remains on anticoagulation with Eliquis. Rest of the blood work shows a white cell count of 12.8 with a hemoglobin of 11.1 and a platelet count of 184. BUN 78 with a creatinine of 3.3 and a sodium levels at 133 and potassium level is at 5.1. On 07/10/2024, the patient was taken off the BiPAP and the patient is currently on Airvo 60 L with an FiO2 of 100%. The patient is a more comfortable compared to yesterday. Note that he was started on hemodialysis and the patient underwent a session of hemodialysis yesterday. Another session is to follow. Urine output is quite diminished. The patient is awake and alert. The white cell count of 14.8 with a hemoglobin 10.9 and a platelet count of 165. BUN 64 w ith a creatinine of 3 and a sodium levels at 129. Rest of the medication remain unchanged. The patient remains on DuoNeb updrafts. The patient remains on IV Solu-Medrol. Remains on anticoagulation with Eliquis. On a separate note, the pleural fluid that was aspirated from the patient's right lung was positive for pulmonary adenocarcinoma. On 07/11/2024, the patient is being seen for a follow-up. The patient remains on Airvo and currently the patient has been maintained on a Airvo at 60 L with an FiO2 of 90%. Resting comfortably as the patient is going to undergo hemodialysis. Denies having any shortness of breath he is hard of hearing. The is at the bedside. He did show some improvement following his initial hemodialysis and the patient was taken off the BiPAP machine. 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 The white cell count of 17.9. Hemoglobin is 11 and a platelet count of 178. BUN is 54 with a creatinine of 2.99 and sodium is at 132. Hemodynamically, stable. Nephrology on the case. The patient remains essentially bedbound. He remains weak and quite debilitated. He remains on DuoNeb nebulized treatments [id number]. Remains on IV Solu-Medrol 60 mg every 6 hours. Remains on anticoagulation with Eliquis. Remains on Lantus insulin 25 units and sliding scale coverage. Rest of the medications are essentially unchanged. He Objective - Vital Signs Vital signs: Vital Signs Temp 97.6 F 07/11/24 08:01 Pulse 92 07/11/24 09:22 Resp 18 07/11/24 08:01 BP 83/48 07/11/24 09:04 Pulse Ox 94 L 07/11/24 09:04 FiO2 93 07/11/24 09:00 Intake & Output 07/10/24 07/11/24 07/11/24 18:59 06:59 18:59 Intake Total 428 Output Total 3900 Balance -3472 Weight 90 kg Intake: IV 10 Invasive Line 5 10 Oral 118 Hemodialysis 300 Output: Hemodialysis 2100 Hemodialysis Net Amount 1800 Other: Voiding Method Indwelling Catheter Indwelling Catheter Indwelling Catheter - Exam GENERAL EXAM: Alert, 88-year-old male, sitting up in a chair, on Airvo 60 L with an FiO2 of 100% HEAD: Normocephalic. EYES: Normal reaction of pupils, equal size. NOSE: Clear with pink turbinates. THROAT: No erythema or exudates. NECK: No masses, no JVD. CHEST: No chest wall deformity. LUNGS: Equal air entry with basilar crackles, few scattered rhonchi. Diminished breath sound right lung base, improved postthoracentesis CVS: S1 and S2 normal with no audible murmur, regular rhythm. ABDOMEN: No hepatosplenomegaly, normal bowel sounds, no guarding or rigidity. SPINE: No scoliosis or deformity SKIN: No rashes CENTRAL NERVOUS SYSTEM: No focal deficits, tone is normal in all 4 extremities. EXTREMITIES: There is no peripheral edema. No clubbing, no cyanosis. Peripheral pulses are intact. - Labs CBC & Chem 7: 07/11/24 07:40 07/11/24 07:40 Labs: Abnormal Lab Results - Last 24 Hours (Table) 07/10/24 07/10/24 07/11/24 Range/Units 11:37 19:54 07:40 WBC 17.9 H (3.8-10.6) k/uL RBC 3.36 L (4.30-5.90) m/uL Hgb 11.0 L (13.0-17.5) gm/dL Hct 34.7 L (39.0-53.0) % MCV 103.3 H (80.0-100.0) fL Neutrophils # 16.9 H (1.3-7.7) k/uL Lymphocytes # 0.3 L (1.0-4.8) k/uL Sodium (137-145) mmol/L BUN (9-20) mg/dL Creatinine (0.66-1.25) mg/dL POC Glucose (mg/dL) 201 H 119 H (70-110) mg/dL Total Protein (6.3-8.2) g/dL Albumin (3.5-5.0) g/dL 07/11/24 Range/Units 07:40 WBC (3.8-10.6) k/uL RBC (4.30-5.90) m/uL Hgb (13.0-17.5) gm/dL Hct (39.0-53.0) % MCV (80.0-100.0) fL Neutrophils # (1.3-7.7) k/uL Lymphocytes # (1.0-4.8) k/uL Sodium 132 L (137-145) mmol/L BUN 54 H (9-20) mg/dL Creatinine 2.99 H (0.66-1.25) mg/dL POC Glucose (mg/dL) (70-110) mg/dL Total Protein 5.1 L (6.3-8.2) g/dL Albumin 2.5 L (3.5-5.0) g/dL Microbiology - Last 24 Hours (Table) 07/08/24 12:47 Gram Stain - Preliminary Pleural Fluid Body Fluid Culture - Preliminary Assessment and Plan Plan: Acute hypoxemic respiratory failure secondary to an acute exacerbation of chronic obstructive pulmonary disease. Viral screen negative. Procalcitonin negative. CAT scan of the chest was completed yesterday and shows right-sided pleural effusion, atelectatic change in the right lung base along with consolidation and some nonspecific mediastinal lymphadenopathy. The patient progressed and became more hypoxic and the patient was placed on a BiPAP pressure of 12 over 5 cm of water with FiO2 of 100%. A right-sided thora centesis was performed on 07/08/2024. The fluid result is positive for pulmonary adenocarcinoma. The patient felt less short of breath following the procedure. Dialysis and ultrafiltration was also initiated and the patient is currently on Airvo 60 L with FiO2 of 90%. The patient is stable and essentially unchanged compared to yesterday. 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 Stage IV chronic kidney disease with a component of acute kidney injury secondary to underlying infection, cardiorenal syndrome. The patient has developed an acute on top of chronic kidney disease with diminished urine output. The patient is currently on hemodialysis Acute exacerbation of chronic diastolic congestive heart failure Right basilar consolidation/atelectasis with a cutoff sign involving the right l ower lobe bronchus. Possibility of a right lower lobe malignancy cannot be completely excluded. 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 Plan The patient will be kept on Airvo. Try to wean off the FiO2 post hemodialysis Hemodialysis today The pleural fluid is malignant and this will be discussed with the family and oncology consultation will be obtained continue DuoNeb inhalations, Continue IV Solu-Medrol Continue Pulmicort and Perforomist inhalations Anticoagulation with Eliquis, dose needs to be modified DNR CODE STATUS We will continue to follow Care is a very poor prognosis patient with a diagnosis of stage IV pulmonary adenocarcinoma. Time with Patient: Greater than 30
[2024-07-11 16:56] LABS: Glucose,Whole Blood 121 mg/dL (70-110)
[2024-07-11 20:09] LABS: Glucose,Whole Blood 149 mg/dL (70-110)
[2024-07-12 06:21] LABS: Glucose,Whole Blood 112 mg/dL (70-110)
[2024-07-12 09:06] LABS: Basophils % (A) 0 %; Eosinophils % (A) 0 %; HCT 36.7 % (39.0-53.0); HGB 11.5 gm/dL (13.0-17.5); Lymphocytes # (A) 0.2 k/uL (1.0-4.8); Lymphocytes % (A) 1 %; MCH 32.7 pg (25.0-35.0); MCHC 31.3 g/dL (31.0-37.0); MCV 104.6 fL (80.0-100.0); Macrocytosis Slight; Mean Platelet Volume 11.2; Monocytes # (A) 0.5 k/uL (0-1.0); Monocytes % (A) 3 %; Neutrophils # (A) 16.4 k/uL (1.3-7.7); Neutrophils % (A) 95 %; Platelet Count 171 k/uL (150-450); RBC 3.51 m/uL (4.30-5.90); WBC 17.3 k/uL (3.8-10.6)
[2024-07-12 09:15] LABS: ALT 47 U/L (4-49); AST 27 U/L (17-59); African American GFR (CKD) 21 (>60 ml/min/1.73 sqM); Albumin 2.6 g/dL (3.5-5.0); Alkaline Phosphatase 70 U/L (38-126); Anion Gap 8 mmol/L; Blood Urea Nitrogen 55 mg/dL (9-20); Calcium 8.5 mg/dL (8.4-10.2); Carbon Dioxide 26 mmol/L (22-30); Chloride 97 mmol/L (98-107); Glucose 116 mg/dL (74-99); Non-African American GFR(CKD) 18 (>60 ml/min/1.73 sqM); Potassium 4.7 mmol/L (3.5-5.1); Sodium 131 mmol/L (137-145); Total Bilirubin 0.6 mg/dL (0.2-1.3); Total Protein 5.3 g/dL (6.3-8.2)
--- NOTE | 2024-07-12 10:11 | P.PN ---
Subjective Patient is seen in follow-up for acute kidney injury. Started on hemodialysis July 07, 2024. Blood pressure drops during dialysis. Better with midodrine. Back on BiPAP. Vital signs are stable. General: No acute distress. HEENT: Head exam is unremarkable. On BiPAP. LUNGS: Scattered rhonchi. HEART: Rate and Rhythm are regular. ABDOMEN: Nontender. EXTREMITITES: 1+ edema in ankles. Objective - Vital Signs Vital signs: Vital Signs Temp 98.0 F 07/12/24 04:15 Pulse 86 07/12/24 09:14 Resp 24 07/12/24 04:15 BP 111/65 07/12/24 06:29 Pulse Ox 92 L 07/12/24 08:54 FiO2 100 07/12/24 08:54 Intake & Output 07/11/24 07/12/24 07/12/24 18:59 06:59 18:59 Intake Total 1000 Output Total 2550 Balance -1550 Weight 86.5 kg Intake: Oral 600 Hemodialysis 400 Output: Urine 150 Hemodialysis 1400 Hemodialysis Net Amount 1000 Other: Voiding Method Indwelling Catheter Indwelling Catheter - Labs CBC & Chem 7: 07/12/24 08:04 07/12/24 08:04 Labs: Abnormal Lab Results - Last 24 Hours (Table) 07/11/24 07/11/24 07/12/24 Range/Units 16:53 20:01 05:57 WBC (3.8-10.6) k/uL RBC (4.30-5.90) m/uL Hgb (13.0-17.5) gm/dL Hct (39.0-53.0) % MCV (80.0-100.0) fL Neutrophils # (1.3-7.7) k/uL Lymphocytes # (1.0-4.8) k/uL Sodium (137-145) mmol/L Chloride (98-107) mmol/L BUN (9-20) mg/dL Creatinine (0.66-1.25) mg/dL Glucose (74-99) mg/dL POC Glucose (mg/dL) 121 H 149 H 112 H (70-110) mg/dL Total Protein (6.3-8.2) g/dL Albumin (3.5-5.0) g/dL 07/12/24 07/12/24 Range/Units 08:04 08:04 WBC 17.3 H (3.8-10.6) k/uL RBC 3.51 L (4.30-5.90) m/uL Hgb 11.5 L (13.0-17.5) gm/dL Hct 36.7 L (39.0-53.0) % MCV 104.6 H (80.0-100.0) fL Neutrophils # 16.4 H (1.3-7.7) k/uL Lymphocytes # 0.2 L (1.0-4.8) k/uL Sodium 131 L (137-145) mmol/L Chloride 97 L (98-107) mmol/L BUN 55 H (9-20) mg/dL Creatinine 3.03 H (0.66-1.25) mg/dL Glucose 116 H (74-99) mg/dL POC Glucose (mg/dL) (70-110) mg/dL Total Protein 5.3 L (6.3-8.2) g/dL Albumin 2.6 L (3.5-5.0) g/dL Microbiology - Last 24 Hours (Table) 07/08/24 12:47 Gram Stain - Final Pleural Fluid Body Fluid Culture - Final Assessment and Plan Plan: Assessment: 1. Acute kidney injury secondary to ATN secondary to cardiorenal syndrome. Creatinine up to 4.2 July 07, 2024. Oliguric. Started on hemodialysis July 07, 2024 via femoral catheter. Unknown baseline renal function. No hydronephrosis noted on kidney ultrasound. UA benign. 2. Acute on chronic diastolic CHF with moderate pulmonary hypertension, moderate tricuspid regurgitation. 3. Volume overload. Improving with ultrafiltration. Status post right-sided thoracentesis July 08, 2024 with 900 cc drained. 4. Diabetes mellitus. 5. Anemia. Iron deficiency noted. Status post IV iron completed July 09, 2024. 6. Metabolic acidosis secondary to acute kidney injury and IV fluids. Improved. 7. Hyperkalemia secondary to acute kidney injury. Improved. 8. Hyponatremia secondary to acute kidney injury, hypervolemic. Plan: Hemodialysis tomorrow. Lasix 80 mg IV once today. Maintain low-salt diet and fluid restriction. Avoid nephrotoxins. Continue to monitor renal function and urine output. Wean FiO2.
--- NOTE | 2024-07-12 10:15 | P.CONS ---
History of Present Illness - Reason for Consult Consult date: 07/11/24 lung cancer Requesting physician: Amilcar Mayer - Chief Complaint CHRISTEN - History of Present Illness Patient is an 88-year-old male history of diabetes and hypertension, CABG, DVT. Patient has been admitted since June 30 and has had a complex hospitalization. He initially presented for bilateral lower extremity edema and difficulty in breathing and was admitted for acute pulmonary edema. Consult was placed due to newly diagnosed lung adenocarcinoma. During admit patient has also been started on hemodialysis due to ARF. Upon admit CT chest without contrast showing moderate right pleural effusion with patchy consolidative opacities within the right upper lobe and atelectatic change in the right middle and lower lobes. Mediastinal adenopathy. Sequelae of prior granulomatous disease. Cardiomegaly with post CABG changes. Patient underwent right thoracentesis with 900 cc removed on 07/08. 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 Renal ultrasound showing no evidence for acute process. Inferior pole renal cyst measuring 4.8 cm. 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 Patient reports he has a history of 40 pack years smoker, quitting 20 years ago. Denies unintentional weight loss and night sweats. Review of Systems 10 point ROS is negative except as stated in the HPI Past Medical History Past Medical History: Coronary Artery Disease (CAD), Heart Failure, COPD, Hyperlipidemia, Hypertension Additional Past Medical History / Comment(s): dvt left leg History of Any Multi-Drug Resistant Organisms: None Reported Past Surgical History: Coronary Bypass/CABG Additional Past Surgical History / Comment(s): 3 vessel CABG Past Anesthesia/Blood Transfusion Reactions: No Reported Reaction Past Psychological History: No Psychological Hx Reported Smoking Status: Former smoker Past Drug Use History: None Reported - Past Family History Father History Unknown: Yes Mother History Unknown: Yes Medications and Allergies Home Medications Medication Instructions Recorded Confirmed Type Ascorbic Acid [Vitamin C] 1,000 mg PO DAILY 06/30/24 06/30/24 History Bisoprolol [Zebeta] 2.5 mg PO DAILY 06/30/24 06/30/24 History Candesartan Cilexetil [Atacand] 8 mg PO DAILY 06/30/24 06/30/24 History Cholecalciferol [Vitamin D3 (25 25 mcg PO DAILY 06/30/24 06/30/24 History Mcg = 1000 Iu)] Dapagliflozin Propanediol [Farxiga] 10 mg PO DAILY 06/30/24 06/30/24 History Fluticasone/Umeclidin/Vilanter 1 puff INHALATION RT-DAILY 06/30/24 06/30/24 History [Suly Ellipta 100-62.5-25] Garlic 2,000 mg PO DAILY 06/30/24 06/30/24 History Rivaroxaban [Xarelto] 15 mg PO DAILY 06/30/24 06/30/24 History Rosuvastatin [Crestor] 10 mg PO DAILY 06/30/24 06/30/24 History Turmeric Root Extract [Turmeric] 500 mg PO DAILY 06/30/24 06/30/24 History Zinc Gluconate [Zinc] 50 mg PO DAILY 06/30/24 06/30/24 History Allergies Allergy/AdvReac Type Severity Reaction Status Date / Time No Known Allergies Allergy Verified 06/30/24 14:19 Physical Exam Vitals: Vital Signs Temp Pulse Pulse Pulse Resp BP BP 07/11/24 11:25 78 17 127/75 07/11/24 09:22 92 07/11/24 09:13 88 07/11/24 09:12 88 07/11/24 09:04 83/48 07/11/24 09:00 85 07/11/24 08:01 97.6 F 87 18 97/63 07/11/24 04:18 85 07/11/24 04:07 07/11/24 04:06 85 07/11/24 03:35 98.1 F 83 18 106/60 07/10/24 23:56 98.0 F 79 18 99/59 07/10/24 23:16 88 07/10/24 23:06 85 07/10/24 20:00 98.2 F 96 18 111/59 07/10/24 18:36 97 07/10/24 18:22 94 07/10/24 18:19 94 07/10/24 18:09 100 07/10/24 17:22 97.2 F L 87 16 100/71 07/10/24 17:01 07/10/24 15:49 97.6 F 75 20 92/51 07/10/24 13:01 89 07/10/24 12:55 07/10/24 12:53 90 Pulse Ox FiO2 07/11/24 11:25 95 07/11/24 09:22 07/11/24 09:13 07/11/24 09:12 07/11/24 09:04 94 L 07/11/24 09:00 96 93 07/11/24 08:01 91 L 07/11/24 04:18 07/11/24 04:07 94 L 100 07/11/24 04:06 07/11/24 03:35 92 L 100 07/10/24 23:56 92 L 100 07/10/24 23:16 07/10/24 23:06 93 L 100 07/10/24 20:00 91 L 100 07/10/24 18:36 07/10/24 18:22 07/10/24 18:19 07/10/24 18:09 07/10/24 17:22 07/10/24 17:01 95 100 07/10/24 15:49 95 100 07/10/24 13:01 07/10/24 12:55 91 L 100 07/10/24 12:53 Intake and Output 07/10/24 07/11/24 07/11/24 22:59 06:59 14:59 Intake Total 418 Output Total 3900 Balance -3482 Intake: Oral 118 Hemodialysis 300 Output: Hemodialysis 2100 Hemodialysis Net Amount 1800 Other: Voiding Method Indwelling Catheter Indwelling Catheter Indwelling Catheter Weight 90 kg - Constitutional General appearance: no acute distress - EENT Eyes: anicteric sclerae, EOMI ENT: hearing grossly normal - Respiratory breathing even and unlabored - Cardiovascular skin warm and dry - Gastrointestinal General gastrointestinal: soft, no tenderness - Integumentary Integumentary: no cyanotic, no jaundiced - Psychiatric Psychiatric: A&O x's 3 Results CBC & Chem 7: 07/12/24 08:04 07/12/24 08:04 Labs: Abnormal Lab Results - Last 24 Hours (Table) 07/10/24 07/10/24 07/11/24 Range/Units 11:37 19:54 07:40 WBC 17.9 H (3.8-10.6) k/uL RBC 3.36 L (4.30-5.90) m/uL Hgb 11.0 L (13.0-17.5) gm/dL Hct 34.7 L (39.0-53.0) % MCV 103.3 H (80.0-100.0) fL Neutrophils # 16.9 H (1.3-7.7) k/uL Lymphocytes # 0.3 L (1.0-4.8) k/uL Sodium (137-145) mmol/L BUN (9-20) mg/dL Creatinine (0.66-1.25) mg/dL POC Glucose (mg/dL) 201 H 119 H (70-110) mg/dL Total Protein (6.3-8.2) g/dL Albumin (3.5-5.0) g/dL 07/11/24 Range/Units 07:40 WBC (3.8-10.6) k/uL RBC (4.30-5.90) m/uL Hgb (13.0-17.5) gm/dL Hct (39.0-53.0) % MCV (80.0-100.0) fL Neutrophils # (1.3-7.7) k/uL Lymphocytes # (1.0-4.8) k/uL Sodium 132 L (137-145) mmol/L BUN 54 H (9-20) mg/dL Creatinine 2.99 H (0.66-1.25) mg/dL POC Glucose (mg/dL) (70-110) mg/dL Total Protein 5.1 L (6.3-8.2) g/dL Albumin 2.5 L (3.5-5.0) g/dL Microbiology - Last 24 Hours (Table) 07/08/24 12:47 Gram Stain - Preliminary Pleural Fluid Body Fluid Culture - Preliminary Abdominal x-ray: report reviewed CT scan - chest: report reviewed US - abdomen: report reviewed Venous US: report reviewed Assessment and Plan (1) Adenocarcinoma, lung Current Visit: Yes Status: Acute Priority: High Code(s): C34.90 - MALIGNANT NEOPLASM OF UNSP PART OF UNSP BRONCHUS OR LUNG SNOMED Code(s): 858411045 (2) Acute pulmonary edema Current Visit: Yes Status: Acute Priority: High Code(s): J81.0 - ACUTE PUL MONARY EDEMA SNOMED Code(s): 26521217 Plan: Metastatic lung adenocarcinoma: Initially presented for BLE edema and SOB, and was admitted for acute pulmonary edema. Denies personal history of cancer. Has hx of 40 pack years smoker, quitting 20 years ago. Denies unintentional weight loss and night sweats. -CT chest without contrast showing moderate right pleural effusion with patchy consolidative opacities within the right upper lobe and atelectatic change in the right middle and lower lobes. Mediastinal adenopathy. Sequelae of prior g ranulomatous disease. -Underwent right thoracentesis with 900 cc removed on 07/08. Cytology was po sitive for metastatic pulmonary adenocarcinoma. -Will need to obtain staging scans, but due to ARF will need to speak with nephrology regarding contrast and trying to coordinate with dialysis. -NGS and PDL-1 will be requested on pathology -Clinic f/u upon discharge to further discuss plan of care and treatment options Discussed findings and diagnosis of metastatic lung cancer with pt and spouse. All questions and concerns were addressed
[2024-07-12] MEDS: FUROSEMIDE 10 MG/ML 10 ML VIAL IV STA (10:54)
[2024-07-12 11:31] LABS: Glucose,Whole Blood 120 mg/dL (70-110)
--- NOTE | 2024-07-12 12:05 | P.PN ---
Subjective Progress Note Date: 07/12/24 Subjective: Patient seen and examined at bedside. Now back on BiPAP. Pertinent positives and negatives as discussed above, a complete review of systems was performed and all other systems are negative. Vitals Signs Reviewed. General: Nontoxic, no distress, appears at stated age, chronically ill-appearing Derm: Warm, dry Head: Atraumatic, normocephalic, symmetric Eyes: EOMI, no lid lag, anicteric sclera Mouth: No lip lesion, mucus membranes moist Cardiovascular: S1S2 reg, no murmur Lungs: decreased breath sounds in the right lower lobe, on BiPAP Abdominal: Soft, nontender to palpation, no guarding, no appreciable organomegaly Ext: No gross muscle atrophy, 2+ pitting edema, no contractures Neuro: CN II-XI grossly intact, no focal neuro deficits Psych: Alert, oriented, appropriate affect Data Reviewed Today: Pertinent Labs: WBC WBC 17.3, hemoglobin 11.5, sodium 131, creatinine 3.03, blood sugars range between 1 12-1 49, magnesium 2.0 Imaging: No new imaging Assessment and Plan: Patient is severely ill, needs close monitoring. Prognosis guarded. Active: Acute hypoxic respiratory failure, on BiPAP New diagnosis of metastatic pulmonary adenocarcinoma Atelectasis and pleural effusion right-sided secondary to above Acute on chronic diastolic CHF exacerbation Acute COPD exacerbation Leukocytosis, likely steroid induced FLORINDA secondary to ATN, now on dialysis Hyponatremia, hypervolemic Normocytic anemia, stable Microscopic hematuria Type II NSTEMI, on admission -Pulmonology following, continue Solu-Medrol 60 IV every 6 hours, Perforomist twice daily, Pulmicort twice daily, albuterol as needed, DuoNeb every 4 hours -Continue to wean BiPAP -Nephrology note reviewed, Lasix 80 mg IV once today, dialysis tomorrow -Oncology following, will likely need staging imaging -Cardiology following, continue aspirin 81 mg, atorvastatin 20 mg, Eliquis 2.5 twice daily 5 twice daily, holding Farxiga -Outpatient cystoscopy per urology History of hypertension Hypotension -Patient on Imdur 15 daily -Patient also continued on bisoprolol 2.5 daily -Holding candesartan, holding hydralazine -Patient also on midodrine 5 AC 3 times daily per cardiology Type 2 diabetes -Continue Lantus 25 nightly, sliding scale insulin, monitor for hypoglycemia Acute metabolic encephalopathy Acute delirium -On melatonin nightly as needed -On Seroquel 100 nightly, decreased to 50 Resolved: Metabolic acidosis, resolved Hyperkalemia Chronic: Dyslipidemia Hypertension History of DVT History of CAD status post CABG DVT ppx: Eliquis Code status: No code Anticipated discharge place: Pending clinical course Anticipated discharge time: Pending clinical course Objective - Vital Signs Vital signs: Vital Signs Temp 98 F 07/12/24 08:20 Pulse 86 07/12/24 09:14 Resp 18 07/12/24 08:20 BP 106/66 07/12/24 08:20 Pulse Ox 92 L 07/12/24 08:54 FiO2 100 07/12/24 08:54 Intake & Output 07/11/24 07/12/24 07/12/24 18:59 06:59 18:59 Intake Total 1000 Output Total 2550 Balance -1550 Weight 86.5 kg Intake: Oral 600 Hemodialysis 400 Output: Urine 150 Hemodialysis 1400 Hemodialysis Net Amount 1000 Other: Voiding Method Indwelling Catheter Indwelling Catheter Indwelling Catheter - Labs CBC & Chem 7: 07/12/24 08:04 07/12/24 08:04 Labs: Abnormal Lab Results - Last 24 Hours (Table) 07/11/24 07/11/24 07/12/24 Range/Units 16:53 20:01 05:57 WBC (3.8-10.6) k/uL RBC (4.30-5.90) m/uL Hgb (13.0-17.5) gm/dL Hct (39.0-53.0) % MCV (80.0-100.0) fL Neutrophils # (1.3-7.7) k/uL Lymphocytes # (1.0-4.8) k/uL Sodium (137-145) mmol/L Chloride (98-107) mmol/L BUN (9-20) mg/dL Creatinine (0.66-1.25) mg/dL Glucose (74-99) mg/dL POC Glucose (mg/dL) 121 H 149 H 112 H (70-110) mg/dL Total Protein (6.3-8.2) g/dL Albumin (3.5-5.0) g/dL 07/12/24 07/12/24 07/12/24 Range/Units 08:04 08:04 11:29 WBC 17.3 H (3.8-10.6) k/uL RBC 3.51 L (4.30-5.90) m/uL Hgb 11.5 L (13.0-17.5) gm/dL Hct 36.7 L (39.0-53.0) % MCV 104.6 H (80.0-100.0) fL Neutrophils # 16.4 H (1.3-7.7) k/uL Lymphocytes # 0.2 L (1.0-4.8) k/uL Sodium 131 L (137-145) mmol/L Chloride 97 L (98-107) mmol/L BUN 55 H (9-20) mg/dL Creatinine 3.03 H (0.66-1.25) mg/dL Glucose 116 H (74-99) mg/dL POC Glucose (mg/dL) 120 H (70-110) mg/dL Total Protein 5.3 L (6.3-8.2) g/dL Albumin 2.6 L (3.5-5.0) g/dL Microbiology - Last 24 Hours (Table) 07/08/24 12:47 Gram Stain - Final Pleural Fluid Body Fluid Culture - Final
--- NOTE | 2024-07-12 12:18 | P.PN ---
Subjective Progress Note Date: 07/12/24 HISTORY OF PRESENT ILLNESS: This is a 88-year-old male with a past medical history significant for coronary artery disease with previous CABG, DVT, and hyperlipidemia. Patient follows with a offline editor in [facility]. We have been asked to see the patient in consultation for CHF. Patient examined at the bedside in the ER. Patient presented to the ER with a chief compliant of shortness of breath. He reports shortness of breath for past 2-3 days. Patient denies chest pain or pressure. Patient was found to be in acute CHF. Patient also reports hematuria and his urine cannister at the bedside has gross hematuria. DIAGNOSTICS: - EKG reveals sinus mechanism with right bundle branch block.. - Chest xray small right pleural effusion and cardiomegaly and right basilar patchy airspace opacities. Findings may relate to CHF exacerbation and/or pneumonia - Laboratory data: WBC 9.2. Hemoglobin 10.5. Platelet count 197. Sodium 136. Potassium 4.3. BUN 44. Creatinine 2.36. Troponin 0.073. 0.078. 0.075. TSH 1.700. proBNP 7980. - Current home cardiac medications include bisoprolol 2.5 mg daily, Farxiga 10 mg daily, rosuvastatin 10 mg daily, Xarelto 15 mg daily -No previous echocardiogram, stress test, or cardiac catheterization available in EMR for review Progress note 07/02/2024 Patient is seen and examined at bedside this a.m. Hb 10.1, BUN 50, creatinine 2.67 yesterday creatinine was 2.3.. BP 134/63, heart rate 72 bpm, 07/03/2024 Patient is seen and examined at bedside this a.m. Creatinine is worse today to 2.8. Blood pressure and heart rate are at goal. 07/04/2024 Patient's kidney function is progressively got worse, BUN 70, creatinine 3.01, potassium is 5.5 no further hematuria, blood pressure and heart rate are stable. 07/05/2024 Patient's kidney function is progressively got worse. Nephrology following, recommend IV gentle hydration. 07/06 Patient seen and examined. Telemetry sinus rhythm. Patient continues to have bilateral wheezing. Blood pressure 116/74, heart rate 89, pulse ox 96% on 6 L nasal cannula. Repeat blood work reveals hemoglobin 10, WBC 10.8, BUN 93 c reatinine 3.53, potassium 5.2 and sodium 134. Farxiga was decreased by nephrology and Lasix 40 mg IV every 12 hours ordered. 07/07 Patient seen and examined. Patient continues to have wheezing. No lower extremity edema. He continues to have worsening renal function for which nephrology is following. No complaints of chest pain. Blood pressure 131/58, heart rate 78, pulse ox 95% on high flow nasal cannula 9 L. Repeat blood work reveals BUN 109 and creatinine 4.23. Potassium 5.5. CT of the chest performed last evening reveals moderate right pleural effusion with consolidative opacities within the right upper lobe and atelectatic change of the right middle and lower lobes. Findings suggest pneumonia however pulmonary mass not excluded. Mediastinal adenopathy. Sequelae of prior gran ulomatous disease. Cardiomegaly with post CABG changes. Ultrasound of the chest: Small to moderate size right-sided pleural fluid collection with right lung atelectasis. 07/08 Patient seen and examined. He is currently on BiPAP. Yesterday he was started on his first dialysis treatment and this morning receiving his second. Lung sounds are improved from yesterday. Blood pressure 107/58, heart rate 91, pulse ox 92 to 100% on BiPAP. Repeat blood work reveals hemoglobin 10.1, WBC 11.4, BUN 91 and creatinine 3.69. Pulmonary medicine is planning for thoracentesis right side. 07/09 Patient is scheduled for another dialysis treatment today. His feels that he is getting better. He is making some urine. Repeat blood work reveals BUN of 78 creatinine 3.35 and hemoglobin 11.1. Blood pressure 103/60, heart rate 83, pulse ox 98% on BiPAP. 07/10 Patient's respiratory status continues to improve. He is scheduled for another dialysis treatment today. Patient is feeling better in general and has less lower extremity edema.. Pulse ox 91% on high flow nasal cannula, heart rate 89, blood pressure 115/66. Repeat blood work reveals WBC 14.8, hemoglobin 10.8, sodium 129, potassium 4.6, BUN 64 creatinine 3.04. 07/11 Patient seen and examined. Respiratory status continues to improve and he is continued on hemodialysis with plan for Saturday. Patient is currently on Airvo with pulse ox of 94%, heart rate 88, blood pressure 83/48. Patient is receiving hemodialysis this morning. Repeat blood work reveals WBC 17.9, hemoglobin 11, BUN 54 creatinine 2.99. 07/12 Patient seen and examined. His renal function continues to improve. He is scheduled for hemodialysis tomorrow and to continue on a Saturday schedule. He denies chest pain or chest pressure. Yesterday we added scheduled midodrine. Blood pressure 106/66, heart rate 80, pulse ox 92% on BiPAP. Repeat blood work reveals WBC 17, hemoglobin 9.5, BUN 55 creatinine 3.03. PHYSICAL EXAM: HEENT: Head is normocephalic. Pupils are equal, round. Sclerae anicteric. Neck supple. No JVD or thyromegaly LUNGS: Respirations even. Lungs essentially clear bilaterally. HEART: Regular rate and rhythm. S1 and S2 heard. No murmur ABDOMEN: Soft. Nondistended. Nontender. EXTREMITIES: No clubbing or cyanosis. Peripheral pulses intact. 1+ bilateral lower extremity edema NEUROLOGIC: Awake and alert. Oriented x 3. ASSESSMENT: Acute hypoxic respiratory failure Acute HFpEF exacerbation Moderate pulm hypertension Possible pneumonia Pleural effusions status post right thoracentesis 07/08 with removal of 900 mL Acute kidney injury, started on HD 07/07 Gross hematuria Bated troponins, type II AK secondary to oxygen supply/demand mismatch Coronary artery disease with previous CABG, approximately 24 years ago History of DVT, on Xarelto outpatient Hyperlipidemia Pertinent cardiac testing Echo shows EF 55%, no RWMA, moderate pulmonary hypertension, mild MR, mild LA dilatation, moderate TR, mildly dilated ascending aorta measured at 4 cm. PLAN: Continue hemodialysis per nephrology Continue cardiac medications: Aspirin, atorvastatin, hydralazine, Imdur and bisoprolol Continue midodrine scheduled 5 mg every 8 hours Diuretics per nephrology Patient has been resumed on anticoagulation with Eliquis per attending following thoracentesis and HD catheter insertion. Nurse practitioner note has been reviewed, I agree with documented findings and plan of care. Patient was seen and examined. Objective - Vital Signs Vital signs: Vital Signs Temp 98 F 07/12/24 08:20 Pulse 86 07/12/24 09:14 Resp 18 07/12/24 08:20 BP 106/66 07/12/24 08:20 Pulse Ox 92 L 07/12/24 08:54 FiO2 100 07/12/24 08:54 Intake & Output 07/11/24 07/12/24 07/12/24 18:59 06:59 18:59 Intake Total 1000 Output Total 2550 Balance -1550 Weight 86.5 kg Intake: Oral 600 Hemodialysis 400 Output: Urine 150 Hemodialysis 1400 Hemodialysis Net Amount 1000 Other: Voiding Method Indwelling Catheter Indwelling Catheter Indwelling Catheter - Labs CBC & Chem 7: 07/12/24 08:04 07/12/24 08:04 Labs: Abnormal Lab Results - Last 24 Hours (Table) 07/11/24 07/11/24 07/12/24 Range/Units 16:53 20:01 05:57 WBC (3.8-10.6) k/uL RBC (4.30-5.90) m/uL Hgb (13.0-17.5) gm/dL Hct (39.0-53.0) % MCV (80.0-100.0) fL Neutrophils # (1.3-7.7) k/uL Lymphocytes # (1.0-4.8) k/uL Sodium (137-145) mmol/L Chloride (98-107) mmol/L BUN (9-20) mg/dL Creatinine (0.66-1.25) mg/dL Glucose (74-99) mg/dL POC Glucose (mg/dL) 121 H 149 H 112 H (70-110) mg/dL Total Protein (6.3-8.2) g/dL Albumin (3.5-5.0) g/dL 07/12/24 07/12/24 Range/Units 08:04 08:04 WBC 17.3 H (3.8-10.6) k/uL RBC 3.51 L (4.30-5.90) m/uL Hgb 11.5 L (13.0-17.5) gm/dL Hct 36.7 L (39.0-53.0) % MCV 104.6 H (80.0-100.0) fL Neutrophils # 16.4 H (1.3-7.7) k/uL Lymphocytes # 0.2 L (1.0-4.8) k/uL Sodium 131 L (137-145) mmol/L Chloride 97 L (98-107) mmol/L BUN 55 H (9-20) mg/dL Creatinine 3.03 H (0.66-1.25) mg/dL Glucose 116 H (74-99) mg/dL POC Glucose (mg/dL) (70-110) mg/dL Total Protein 5.3 L (6.3-8.2) g/dL Albumin 2.6 L (3.5-5.0) g/dL Microbiology - Last 24 Hours (Table) 07/08/24 12:47 Gram Stain - Final Pleural Fluid Body Fluid Culture - Final
--- NOTE | 2024-07-12 13:43 | P.PN ---
Subjective Progress Note Date: 07/12/24 07/06/2024, the patient is being seen for a follow-up. The patient remains in acute hypoxic respiratory failure and currently is still requiring 6 L of O2 nasal cannula. The patient overnight became slightly more short of breath and went into a coughing spells and this morning he is already feeling better. He has a right lower lobe pneumonia and his chest x-ray from today, 07/06/2024, showed an area of persistent consolidation and volume loss in the right lung base. Left lung remains essentially clear. There is also persistent cardiomegaly and mild pulm vascular congestion. His echocardiogram done on 07/01/2024 showed a normal LV function, mild MR, moderate TR with moderate degree of pulmonary hypertension. The patient's white cell count today is at 10.8, with a hemoglobin of 10 and a platelet count of 220. BUN is 93 and a creatinine of 3.5. Noted the patient has a chronic stage IV kidney disease. Creatinine has been gradually on the rise of the patient is being diuresed with IV Lasix. For now, the patient remains on Lasix 40 mg IV every 12 hours. He is on bronchodilators. He is on steroids which will be continued as the patient continues to be bronchospastic and wheezy. I do not see that he is on any form of antibiotic coverage at this point. He remains on anticoagulation with Xarelto 15 mg p.o. on a daily basis. He is known to have previous history of DVT and for that reason the patient has been maintained on anticoagulation. His comorbidities include coronary artery disease with previous bypass surgery approximate 24 years ago. Previous history of DVT, hyperlipidemia, hypertension, the patient has a preserved LV function with secondary pulmonary hypertension as confirmed on recent echocardiogram. Based on progressive worsening of renal function, losartan was placed on hold and the patient will be kept on IV Lasix. 07/07/2024, the patient is being seen for a follow-up. On today's evaluation, the patient has become more hypoxic and is currently on 15 L of oxygen nasal cannula. He was on 8 L and he was moved up to 10 L and currently is on 15 L. A CAT scan of the chest was completed yesterday and the patient was found to have a moderate-sized right-sided pleural effusion along with consolidation of the right lung base in addition some atelectatic changes right middle lobe and right lower lobe. There is also some nonspecific mediastinal lymphadenopathy and sequelae of a previous granulomatous disease along with cardiomegaly and changes consistent with bypass. At the same time, the patient is developing progressive worsening renal function. On today's blood work, the patient's creatinine is up to 4.23 with a BUN of 109. Bicarb is at 21. Potassium level is at 5.5. Based on that, nephrology has made recommendations to proceed with hemodialysis. Dialysis catheter to be inserted. Remains on Lasix 40 mg IV every 12 hours. Rest of the medications are essentially unchanged. Remains on bronchodilators. Remains on IV Solu-Medrol. On today's evaluation of 07/08/2024, the patient was noted to be more short of breath and hypoxic. Noted the patient's oxygen requirements progressively went up and subsequently, the patient was moved from 15 L nasal cannula and to a BiPAP at a pressure of 12/5 with an FiO2 of 100%. He is able to tolerate the BiPAP without any major difficulties. Noted the patient was also given dialysis catheter and the patient was started on hemodialysis. He tolerated 500 cc of ultrafiltration yesterday and another 1 L of ultrafiltration today. I reviewed the ultrasound of the chest and the patient has a sizable right-sided pleural effusion. Based on that, I performed a bedside thoracentesis on this patient and a total of 900 cc of pleural fluid was aspirated from the right lung without having any major difficulties. The patient meanwhile was kept on BiPAP. The patient tolerated the procedure without having any major difficulties and the pleural fluid will be sent for analysis. White cell count 11.4, hemoglobin 10.1 and a platelet count of 189. BUN is 91 with a creatinine of 3.6. Sodium levels at 133 and potassium level is at 5.1. The patient remains on DuoNeb nebulized treatments [id number]. Anticoagulation was resumed and the patient is currently on Eliquis 5 mg p.o. twice a day. Remains on bronchodilators with DuoNeb. Remains on IV Solu-Medrol 60 mg every 6 hours. Remains on Symbicort. Lasix was discontinued as the patient's urine output was extremely low. Nephrology is on the case. On today's evaluation of 07/09/2024, the patient remains on a BiPAP and the patient is currently on a BiPAP pressure of 12/5 with an FiO2 of 100%. The plan is to undergo another session of hemodialysis today. The patient is tolerating the BiPAP reasonably well. Denies having any significant shortness of breath while being on BiPAP. Underwent right-sided thoracentesis yesterday. The fluid chemistry shows a protein of 3.1 and an LDH of 135. Cell count was 534. No urine output. Remains on bronchodilators. Remains on IV Solu-Medrol. Family is at the bedside. Remains on anticoagulation with Eliquis. Rest of the blood work shows a white cell count of 12.8 with a hemoglobin of 11.1 and a platelet count of 184. BUN 78 with a creatinine of 3.3 and a sodium levels at 133 and potassium level is at 5.1. On 07/10/2024, the patient was taken off the BiPAP and the patient is currently on Airvo 60 L with an FiO2 of 100%. The patient is a more comfortable compared to yesterday. Note that he was started on hemodialysis and the patient underwent a session of hemodialysis yesterday. Another session is to follow. Urine output is quite diminished. The patient is awake and alert. The white cell count of 14.8 with a hemoglobin 10.9 and a platelet count of 165. BUN 64 w ith a creatinine of 3 and a sodium levels at 129. Rest of the medication remain unchanged. The patient remains on DuoNeb updrafts. The patient remains on IV Solu-Medrol. Remains on anticoagulation with Eliquis. On a separate note, the pleural fluid that was aspirated from the patient's right lung was positive for pulmonary adenocarcinoma. On 07/11/2024, the patient is being seen for a follow-up. The patient remains on Airvo and currently the patient has been maintained on a Airvo at 60 L with an FiO2 of 90%. Resting comfortably as the patient is going to undergo hemodialysis. Denies having any shortness of breath he is hard of hearing. The is at the bedside. He did show some improvement following his initial hemodialysis and the patient was taken off the BiPAP machine. 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 The white cell count of 17.9. Hemoglobin is 11 and a platelet count of 178. BUN is 54 with a creatinine of 2.99 and sodium is at 132. Hemodynamically, stable. Nephrology on the case. The patient remains essentially bedbound. He remains weak and quite debilitated. He remains on DuoNeb nebulized treatments [id number]. Remains on IV Solu-Medrol 60 mg every 6 hours. Remains on anticoagulation with Eliquis. Remains on Lantus insulin 25 units and sliding scale coverage. Rest of the medications are essentially unchanged. On 07/12/2024, the patient remains on a BiPAP at a pressure of 12/5 with an FiO2 of 100%. Attempts to wean this patient off the BiPAP and put him on a high flow Airvo system failed as the patient becomes hypoxic. As such, the patient was kept on a BiPAP. He underwent hemodialysis yesterday with a total of 1.4 of ultrafiltration. Another session of hemodialysis to be done tomorrow. He remains on DuoNeb updrafts. He is on IV Solu-Medrol. He also has a malignant right-sided pleural effusion that was confirmed with an earlier thoracentesis. The WBC count is at 17 with a hemoglobin of 11 and a platelet count of 171. BUN is 55 with a creatinine of 3 and a sodium levels at 131 and a potassium level is at 4.7. Nephrology on the case. CODE STATUS is DNR/DNI. No urine output and he was given another dose of Lasix. He remains on anticoagulation with Eliquis. He remains on Lantus insulin. Objective - Vital Signs Vital signs: Vital Signs Temp 98 F 07/12/24 08:20 Pulse 86 07/12/24 09:14 Resp 18 07/12/24 08:20 BP 106/66 07/12/24 08:20 Pulse Ox 92 L 07/12/24 08:54 FiO2 100 07/12/24 08:54 Intake & Output 07/11/24 07/12/24 07/12/24 18:59 06:59 18:59 Intake Total 1000 Output Total 2550 Balance -1550 Weight 86.5 kg Intake: Oral 600 Hemodialysis 400 Output: Urine 150 Hemodialysis 1400 Hemodialysis Net Amount 1000 Other: Voiding Method Indwelling Catheter Indwelling Catheter Indwelling Catheter - Exam GENERAL EXAM: Alert, 88-year-old male, sitting up in a chair, on BiPAP at a pressure of 12/5 with an FiO2 of 100%. He was unable to tolerate the Airvo system overnight. HEAD: Normocephalic. EYES: Normal reaction of pupils, equal size. NOSE: Clear with pink turbinates. THROAT: No erythema or exudates. NECK: No masses, no JVD. CHEST: No chest wall deformity. LUNGS: Equal air entry with basilar crackles, few scattered rhonchi. Diminished breath sound right lung base, improved postthoracentesis CVS: S1 and S2 normal with no audible murmur, regular rhythm. ABDOMEN: No hepatosplenomegaly, normal bowel sounds, no guarding or rigidity. SPINE: No scoliosis or deformity SKIN: No rashes CENTRAL NERVOUS SYSTEM: No focal deficits, tone is normal in all 4 extremities. EXTREMITIES: There is no peripheral edema. No clubbing, no cyanosis. Peripheral pulses are intact. - Labs CBC & Chem 7: 07/12/24 08:04 07/12/24 08:04 Labs: Abnormal Lab Results - Last 24 Hours (Table) 07/11/24 07/11/24 07/12/24 Range/Units 16:53 20:01 05:57 WBC (3.8-10.6) k/uL RBC (4.30-5.90) m/uL Hgb (13.0-17.5) gm/dL Hct (39.0-53.0) % MCV (80.0-100.0) fL Neutrophils # (1.3-7.7) k/uL Lymphocytes # (1.0-4.8) k/uL Sodium (137-145) mmol/L Chloride (98-107) mmol/L BUN (9-20) mg/dL Creatinine (0.66-1.25) mg/dL Glucose (74-99) mg/dL POC Glucose (mg/dL) 121 H 149 H 112 H (70-110) mg/dL Total Protein (6.3-8.2) g/dL Albumin (3.5-5.0) g/dL 07/12/24 07/12/24 Range/Units 08:04 08:04 WBC 17.3 H (3.8-10.6) k/uL RBC 3.51 L (4.30-5.90) m/uL Hgb 11.5 L (13.0-17.5) gm/dL Hct 36.7 L (39.0-53.0) % MCV 104.6 H (80.0-100.0) fL Neutrophils # 16.4 H (1.3-7.7) k/uL Lymphocytes # 0.2 L (1.0-4.8) k/uL Sodium 131 L (137-145) mmol/L Chloride 97 L (98-107) mmol/L BUN 55 H (9-20) mg/dL Creatinine 3.03 H (0.66-1.25) mg/dL Glucose 116 H (74-99) mg/dL POC Glucose (mg/dL) (70-110) mg/dL Total Protein 5.3 L (6.3-8.2) g/dL Albumin 2.6 L (3.5-5.0) g/dL Microbiology - Last 24 Hours (Table) 07/08/24 12:47 Gram Stain - Final Pleural Fluid Body Fluid Culture - Final Assessment and Plan Plan: Acute hypoxemic respiratory failure secondary to an acute exacerbation of chronic obstructive pulmonary disease. Viral screen negative. Procalcitonin negative. CAT scan of the chest was completed yesterday and shows right-sided pleural effusion, atelectatic change in the right lung base along with consolidation and some nonspecific mediastinal lymphadenopathy. The patient progressed and became more hypoxic and the patient was placed on a BiPAP pressure of 12 over 5 cm of water with FiO2 of 100%. A right-sided thoracentesis was performed on 07/08/2024. The fluid result is positive for pulmonary adenocarcinoma. The patient continues to have episodes of hypotension. Unable to tolerate the Airvo overnight and the patient was accordingly placed back on a BiPAP at the same setting. Last hemodialysis sess ion was on 07/11/2024 with a total of 1.4 L of ultrafiltration. 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 Stage IV chronic kidney disease with a component of acute kidney injury secondary to underlying infection, cardiorenal syndrome. The patient has developed an acute on top of chronic kidney disease with diminished urine output. The patient is currently on hemodialysis Acute exacerbation of chronic diastolic congestive heart failure Right basilar consolidation/atelectasis with a cutoff sign involving the right lower lobe bronchus. Possibility of a right lower lobe malignancy cannot be completely excluded. 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 Plan keep the patient on BiPAP for now Hemodialysis was performed on 07/11/2024 with a total of 1.4 L of ultrafiltration The pleural fluid is malignant and this will be discussed with the family and oncology consultation will be obtained continue DuoNeb inhalations, Continue IV Solu-Medrol Continue Pulmicort and Perforomist inhalations Anticoagulation with Eliquis, dose needs to be modified DNR CODE STATUS We will continue to follow Care is a very poor prognosis patient with a diagnosis of stage IV pulmonary adenocarcinoma. I am not sure if the patient is going to be off the BiPAP at any point in time. This is something to see and I am hoping that with dialysis and ultrafiltration, there may be some limited improvement in his oxygenation. Will continue to our efforts to wean this patient off the BiPAP. Prognosis remains p oor. CODE STATUS is DNR/DNI. is aware. Time with Patient: Greater than 30
[2024-07-12 16:27] LABS: Glucose,Whole Blood 119 mg/dL (70-110)
[2024-07-12 20:12] LABS: Glucose,Whole Blood 160 mg/dL (70-110)
[2024-07-12] MEDS: QUEtiapine 50 MG TAB PO SCH (20:20)
[2024-07-13 06:25] LABS: Glucose,Whole Blood 144 mg/dL (70-110)
[2024-07-13 07:12] LABS: Basophils % (A) 0 %; Eosinophils % (A) 0 %; HCT 33.7 % (39.0-53.0); HGB 10.5 gm/dL (13.0-17.5); Lymphocytes # (A) 0.3 k/uL (1.0-4.8); Lymphocytes % (A) 1 %; MCH 32.8 pg (25.0-35.0); MCHC 31.1 g/dL (31.0-37.0); MCV 105.6 fL (80.0-100.0); Macrocytosis Moderate; Mean Platelet Volume 11.3; Monocytes # (A) 0.5 k/uL (0-1.0); Monocytes % (A) 2 %; Neutrophils # (A) 19.6 k/uL (1.3-7.7); Neutrophils % (A) 96 %; Platelet Count 161 k/uL (150-450); RBC 3.19 m/uL (4.30-5.90); RDW 13.8 % (11.5-15.5); WBC 20.5 k/uL (3.8-10.6)
[2024-07-13 07:20] LABS: Chloride 95 mmol/L (98-107); Glucose 130 mg/dL (74-99); Potassium 4.7 mmol/L (3.5-5.1); Sodium 130 mmol/L (137-145)
[2024-07-13 07:21] LABS: African American GFR (CKD) 13 (>60 ml/min/1.73 sqM); Anion Gap 7 mmol/L; Blood Urea Nitrogen 81 mg/dL (9-20); Calcium 8.6 mg/dL (8.4-10.2); Carbon Dioxide 28 mmol/L (22-30); Magnesium 2.2 mg/dL (1.6-2.3); Non-African American GFR(CKD) 11 (>60 ml/min/1.73 sqM)
[2024-07-13 11:13] LABS: Glucose,Whole Blood 153 mg/dL (70-110)
--- NOTE | 2024-07-13 12:44 | P.PN ---
Subjective HISTORY OF PRESENT ILLNESS: This is a 88-year-old male with a past medical history significant for coronary artery disease with previous CABG, DVT, and hyperlipidemia. Patient follows with a plodding machine operator in [facility]. We have been asked to see the patient in consultation for CHF. Patient examined at the bedside in the ER. Patient presented to the ER with a chief compliant of shortness of breath. He reports shortness of breath for past 2-3 days. Patient denies chest pain or pressure. Patient was found to be in acute CHF. Patient also reports hematuria and his urine cannister at the bedside has gross hematuria. DIAGNOSTICS: - EKG reveals sinus mechanism with right bundle branch block.. - Chest xray small right pleural effusion and cardiomegaly and right basilar patchy airspace opacities. Findings may relate to CHF exacerbation and/or pn eumonia - Laboratory data: WBC 9.2. Hemoglobin 10.5. Platelet count 197. Sodium 136. Potassium 4.3. BUN 44. Creatinine 2.36. Troponin 0.073. 0.078. 0.075. TSH 1.700. proBNP 7980. - Current home cardiac medications include bisoprolol 2.5 mg daily, Farxiga 10 mg daily, rosuvastatin 10 mg daily, Xarelto 15 mg daily -No previous echocardiogram, stress test, or cardiac catheterization available in EMR for review Progress note 07/02/2024 Patient is seen and examined at bedside this a.m. Hb 10.1, BUN 50, creatinine 2.67 yesterday creatinine was 2.3.. BP 134/63, heart rate 72 bpm, 07/03/2024 Patient is seen and examined at bedside this a.m. Creatinine is worse today to 2.8. Blood pressure and heart rate are at goal. 07/04/2024 Patient's kidney function is progressively got worse, BUN 70, creatinine 3.01, potassium is 5.5 no further hematuria, blood pressure and heart rate are stable. 07/05/2024 Patient's kidney function is progressively got worse. Nephrology following, recommend IV gentle hydration. 07/06 Patient seen and examined. Telemetry sinus rhythm. Patient continues to have bilateral wheezing. Blood pressure 116/74, heart rate 89, pulse ox 96% on 6 L nasal cannula. Repeat blood work reveals hemoglobin 10, WBC 10.8, BUN 93 creatinine 3.53, potassium 5.2 and sodium 134. Farxiga was decreased by nephrology and Lasix 40 mg IV every 12 hours ordered. 07/07 Patient seen and examined. Patient continues to have wheezing. No lower extremity edema. He continues to have worsening renal function for which nephrology is following. No complaints of chest pain. Blood pressure 131/58, heart rate 78, pulse ox 95% on high flow nasal cannula 9 L. Repeat blood work reveals BUN 109 and creatinine 4.23. Potassium 5.5. CT of the chest performed last evening reveals moderate right pleural effusion with consolidative opacities within the right upper lobe and atelectatic change of the right middle and lower lobes. Findings suggest pneumonia however pulmonary mass not excluded. Mediastinal adenopathy. Sequelae of prior granulomatous disease. Cardiomegaly with post CABG changes. Ultrasound of the chest: Small to moderate size right-sided pleural fluid collection with right lung atelectasis. 07/08 Patient seen and examined. He is currently on BiPAP. Yesterday he was started on his first dialysis treatment and this morning receiving his second. Lung sounds are improved from yesterday. Blood pressure 107/58, heart rate 91, pulse ox 92 to 100% on BiPAP. Repeat blood work reveals hemoglobin 10.1, WBC 11.4, BUN 91 and creatinine 3.69. Pulmonary medicine is planning for thoracentesis right side. 07/09 Patient is scheduled for another dialysis treatment today. His feels that he is getting better. He is making some urine. Repeat blood work reveals BUN of 78 creatinine 3.35 and hemoglobin 11.1. Blood pressure 103/60, heart rate 83, pulse ox 98% on BiPAP. 07/10 Patient's respiratory status continues to improve. He is scheduled for another dialysis treatment today. Patient is feeling better in general and has less lower extremity edema.. Pulse ox 91% on high flow nasal cannula, heart rate 89, blood pressure 115/66. Repeat blood work reveals WBC 14.8, hemoglobin 10.8, sodium 129, potassium 4.6, BUN 64 creatinine 3.04. 07/11 Patient seen and examined. Respiratory status continues to improve and he is continued on hemodialysis with plan for Saturday. Patient is currently on Airvo with pulse ox of 94%, heart rate 88, blood pressure 83/48. Patient is receiving hemodialysis this morning. Repeat blood work reveals WBC 17.9, hemoglobin 11, BUN 54 creatinine 2.99. 07/12 Patient seen and examined. His renal function continues to improve. He is scheduled for hemodialysis tomorrow and to continue on a Saturday schedule. He denies chest pain or chest pressure. Yesterday we added scheduled midodrine. Blood pressure 106/66, heart rate 80, pulse ox 92% on BiPAP. Repeat blood work reveals WBC 17, hemoglobin 9.5, BUN 55 creatinine 3.03. Pertinent cardiac testing Echo shows EF 55%, no RWMA, moderate pulmonary hypertension, mild MR, mild LA dilatation, moderate TR, mildly dilated ascending aorta measured at 4 cm. 07/13/2024 Patient examined this morning at the bedside. Patient currently on bipap. He denies chest pain or pressure. Patient is about to undergo hemodialysis. Vital signs are stable. PHYSICAL EXAM: VITAL SIGNS: Reviewed. GENERAL: Well-developed in no acute distress. NECK: Supple. No JVD or thyromegaly LUNGS: Respirations even and unlabored. Lungs essentially clear to auscultation bilaterally. HEART: Regular rate and rhythm. S1 and S2 heard. EXTREMITIES: Normal range of motion. No clubbing or cyanosis. Peripheral pulses intact. No lower extremity edema ASSESSMENT: Acute hypoxic respiratory failure Acute HFpEF exacerbation Moderate pulm hypertension Possible pneumonia Pleural effusions status post right thoracentesis 07/08 with removal of 900 mL Acute kidney injury, started on HD 07/07 Gross hematuria Bated troponins, type II MT secondary to oxygen supply/demand mismatch Coronary artery disease with previous CABG, approximately 24 years ago History of DVT Hyperlipidemia PLAN: Continue current cardiac medications including Eliquis, aspirin, Lipitor, bisoprolol, Imdur, and midodrine Continue to monitor blood pressure Continue telemetry monitoring Further recommendations pending patient course Nurse practitioner note has been reviewed by physician. Signing provider agrees with the documented findings, assessment, and plan of care documented by DOOR CLAMP OPERATOR as a scribe. Objective - Vital Signs Vital signs: Vital Signs Temp 97.6 F 07/13/24 08:00 Pulse 85 07/13/24 12:28 Resp 24 07/13/24 10:15 BP 115/69 07/13/24 08:00 Pulse Ox 84 L 07/13/24 10:15 FiO2 100 07/13/24 12:13 Intake & Output 07/12/24 07/13/2425 18:59 06:59 18:59 Intake Total 118 Output Total 85 275 Balance 33 -275 Weight 144 kg Intake: Oral 118 Output: Urine 85 275 Uretheral (Huertas) 275 Other: Voiding Method Indwelling Catheter Indwelling Catheter - Labs CBC & Chem 7: 07/13/24 06:16 07/13/24 06:16 Labs: Abnormal Lab Results - Last 24 Hours (Table) 07/12/24 07/12/24 07/13/24 Range/Units 16:26 20:10 06:16 WBC 20.5 H (3.8-10.6) k/uL RBC 3.19 L (4.30-5.90) m/uL Hgb 10.5 L (13.0-17.5) gm/dL Hct 33.7 L (39.0-53.0) % MCV 105.6 H (80.0-100.0) fL Neutrophils # 19.6 H (1.3-7.7) k/uL Lymphocytes # 0.3 L (1.0-4.8) k/uL Sodium (137-145) mmol/L Chloride (98-107) mmol/L BUN (9-20) mg/dL Creatinine (0.66-1.25) mg/dL Glucose (74-99) mg/dL POC Glucose (mg/dL) 119 H 160 H (70-110) mg/dL 07/13/24 07/13/24 07/13/24 Range/Units 06:16 06:24 11:11 WBC (3.8-10.6) k/uL RBC (4.30-5.90) m/uL Hgb (13.0-17.5) gm/dL Hct (39.0-53.0) % MCV (80.0-100.0) fL Neutrophils # (1.3-7.7) k/uL Lymphocytes # (1.0-4.8) k/uL Sodium 130 L (137-145) mmol/L Chloride 95 L (98-107) mmol/L BUN 81 H (9-20) mg/dL Creatinine 4.38 H (0.66-1.25) mg/dL Glucose 130 H (74-99) mg/dL POC Glucose (mg/dL) 144 H 153 H (70-110) mg/dL
--- NOTE | 2024-07-13 12:54 | P.PN ---
Subjective Progress Note Date: 07/13/24 Subjective: Patient seen and examined at bedside. Has been having significant hypoxia, going back and forth between Airvo and BiPAP. Denies any significant cough or shortness of breath or chest pain. Pertinent positives and negatives as discussed above, a complete review of systems was performed and all other systems are negative. Vitals Signs Reviewed. General: Nontoxic, no distress, appears at stated age, chronically ill-appearing Derm: Warm, dry Head: Atraumatic, normocephalic, symmetric Eyes: EOMI, no lid lag, anicteric sclera Mouth: No lip lesion, mucus membranes moist Cardiovascular: S1S2 reg, no murmur Lungs: decreased breath sounds in the right lower lobe, on BiPAP Abdominal: Soft, nontender to palpation, no guarding, no appreciable organomegaly Ext: No gross muscle atrophy, 2+ pitting edema, no contractures Neuro: CN II-XI grossly intact, no focal neuro deficits Psych: Alert, oriented, appropriate affect Data Reviewed Today: Pertinent Labs: WBC 20.5, hemoglobin 10.5, sodium 130, creatinine 4.38, blood sugars range between 1 44-1 60 Imaging: No new imaging Assessment and Plan: Patient is severely ill, needs close monitoring. Prognosis guarded. Active: Acute hypoxic respiratory failure, on BiPAP New diagnosis of metastatic pulmonary adenocarcinoma Atelectasis and pleural effusion right-sided secondary to above Acute on chronic diastolic CHF exacerbation Acute COPD exacerbation Leukocytosis, likely steroid induced versus reactive FLORINDA secondary to ATN, now on dialysis Hyponatremia, hypervolemic Normocytic anemia, stable Microscopic hematuria Type II NSTEMI, on admission -Pulmonology following, continue Solu-Medrol 60 IV every 6 hours, Perforomist tw ice daily, Pulmicort twice daily, albuterol as needed, DuoNeb every 4 hours -Continue to wean BiPAP -Nephrology note reviewed, Lasix 80 mg IV once today, dialysis tomorrow -Oncology following, will likely need staging scans -Cardiology following, continue aspirin 81 mg, atorvastatin 20 mg, Eliquis 2.5 twice daily 5 twice daily, holding Farxiga -Outpatient cystoscopy per urology History of hypertension Hypotension -Patient on Imdur 15 daily -Patient also continued on bisoprolol 2.5 daily -Holding candesartan, holding hydralazine -Patient also on midodrine 5 AC 3 times daily per cardiology Type 2 diabetes -Continue Lantus 25 nightly, sliding scale insulin, monitor for hypoglycemia Acute metabolic encephalopathy Acute delirium -On melatonin nightly as needed -On Seroquel 100 nightly, decreased to 50 Resolved: Metabolic acidosis, resolved Hyperkalemia Chronic: Dyslipidemia Hypertension History of DVT History of CAD status post CABG DVT ppx: Eliquis Code status: No code Anticipated discharge place: Pending clinical course Anticipated discharge time: Pending clinical course Objective - Vital Signs Vital signs: Vital Signs Temp 97.6 F 07/13/24 08:00 Pulse 85 07/13/24 12:28 Resp 24 07/13/24 10:15 BP 115/69 07/13/24 08:00 Pulse Ox 84 L 07/13/24 10:15 FiO2 100 07/13/24 12:13 Intake & Output 07/12/24 07/13/24 07/13/24 18:59 06:59 18:59 Intake Total 118 Output Total 85 275 Balance 33 -275 Weight 144 kg Intake: Oral 118 Output: Urine 85 275 Uretheral (Huertas) 275 Other: Voiding Method Indwelling Catheter Indwelling Catheter - Labs CBC & Chem 7: 07/13/24 06:16 07/13/24 06:16 Labs: Abnormal Lab Results - Last 24 Hours (Table) 07/12/24 07/12/24 07/13/24 Range/Units 16:26 20:10 06:16 WBC 20.5 H (3.8-10.6) k/uL RBC 3.19 L (4.30-5.90) m/uL Hgb 10.5 L (13.0-17.5) gm/dL Hct 33.7 L (39.0-53.0) % MCV 105.6 H (80.0-100.0) fL Neutrophils # 19.6 H (1.3-7.7) k/uL Lymphocytes # 0.3 L (1.0-4.8) k/uL Sodium (137-145) mmol/L Chloride (98-107) mmol/L BUN (9-20) mg/dL Creatinine (0.66-1.25) mg/dL Glucose (74-99) mg/dL POC Glucose (mg/dL) 119 H 160 H (70-110) mg/dL 07/13/24 07/13/24 07/13/24 Range/Units 06:16 06:24 11:11 WBC (3.8-10.6) k/uL RBC (4.30-5.90) m/uL Hgb (13.0-17.5) gm/dL Hct (39.0-53.0) % MCV (80.0-100.0) fL Neutrophils # (1.3-7.7) k/uL Lymphocytes # (1.0-4.8) k/uL Sodium 130 L (137-145) mmol/L Chloride 95 L (98-107) mmol/L BUN 81 H (9-20) mg/dL Creatinine 4.38 H (0.66-1.25) mg/dL Glucose 130 H (74-99) mg/dL POC Glucose (mg/dL) 144 H 153 H (70-110) mg/dL
--- NOTE | 2024-07-13 14:07 | XR ---
EXAMINATION TYPE: XR chest 1V portable DATE OF EXAM: 07/13/2024 1:39 PM COMPARISON: Chest radiographs from 07/08/2024 CLINICAL INDICATION: Male, 88 years old with history of shortness of breath, pleural effusion; [facility] TECHNIQUE: XR chest 1V portable Frontal view of the chest. FINDINGS: Lungs/Pleura: Blunting of the right costophrenic angle. There is no evidence of left pleural effusio n, focal consolidation, or pneumothorax Pulmonary vascularity: Unremarkable. Heart/mediastinum: Cardiomediastinal silhouette is unremarkable. Musculoskeletal: No acute osseous pathology. Midline sternotomy wires and surgical clips project over the mediastinum. Other findings: None IMPRESSION: Similar moderate right pleural effusion with associated atelectasis. [facility], , 07/13/2024 2:04 PM
--- NOTE | 2024-07-13 15:07 | P.PN ---
Subjective Patient seen for follow-up for FLORINDA without any known baseline renal function. Started on hemodialysis on 07/07/2024 this admission. Currently seen on hemodialysis. Patient is maintained on BiPAP. Blood pressure is on the lower side. Goal UF about 1 L Objective - Vital Signs Vital signs: Vital Signs Temp 97.9 F 07/13/24 14:27 Pulse 80 07/13/24 14:27 Resp 20 07/13/24 14:27 BP 114/60 07/13/24 14:27 Pulse Ox 97 07/13/24 12:00 FiO2 100 07/13/24 12:13 Intake & Output 07/12/24 07/13/24 07/13/24 18:59 06:59 18:59 Intake Total 118 520 Output Total 85 275 2600 Balance 275 -0 Weight 144 kg Intake: Oral 118 120 Hemodialysis 400 Output: Urine 85 275 Uretheral (Huertas) 275 Hemodialysis 1500 Hemodialysis Net Amount 1100 Other: Voiding Method Indwelling Catheter Indwelling Catheter - Exam Patient is awake, comfortable, no acute distress. Hard of hearing. Maintained on BiPAP Heart: S1 and S2 heard Lungs: Decreased breath sounds at the bases Abdomen: Soft and nontender Lower extremities: Trace edema [employer] REPA[employer]ER: grossly intact - Labs CBC & Chem 7: 07/13/24 06:16 07/13/24 06:16 Labs: Abnormal Lab Results - Last 24 Hours (Table) 07/12/24 07/12/24 07/13/24 Range/Units 16:26 20:10 06:16 WBC 20.5 H (3.8-10.6) k/uL RBC 3.19 L (4.30-5.90) m/uL Hgb 10.5 L (13.0-17.5) gm/dL Hct 33.7 L (39.0-53.0) % MCV 105.6 H (80.0-100.0) fL Neutrophils # 19.6 H (1.3-7.7) k/uL Lymphocytes # 0.3 L (1.0-4.8) k/uL Sodium (137-145) mmol/L Chloride (98-107) mmol/L BUN (9-20) mg/dL Creatinine (0.66-1.25) mg/dL Glucose (74-99) mg/dL POC Glucose (mg/dL) 119 H 160 H (70-110) mg/dL 07/13/24 07/13/24 07/13/24 Range/Units 06:16 06:24 11:11 WBC (3.8-10.6) k/uL RBC (4.30-5.90) m/uL Hgb (13.0-17.5) gm/dL Hct (39.0-53.0) % MCV (80.0-100.0) fL Neutrophils # (1.3-7.7) k/uL Lymphocytes # (1.0-4.8) k/uL Sodium 130 L (137-145) mmol/L Chloride 95 L (98-107) mmol/L BUN 81 H (9-20) mg/dL Creatinine 4.38 H (0.66-1.25) mg/dL Glucose 130 H (74-99) mg/dL POC Glucose (mg/dL) 144 H 153 H (70-110) mg/dL Assessment and Plan Assessment: 1. Acute kidney injury secondary to ATN secondary to cardiorenal syndrome. Creatinine up to 4.2 July 07, 2024. Oliguric. Started on hemodialysis July 07, 2024 via femoral catheter. Unknown baseline renal function. No h ydronephrosis noted on kidney ultrasound. UA benign. 2. Acute on chronic diastolic CHF with moderate pulmonary hypertension, moderate tricuspid regurgitation. 3. Volume overload. Improving with ultrafiltration. Status post right-sided thoracentesis July 08, 2024 with 900 cc drained. 4. Diabetes mellitus. 5. Anemia. Iron deficiency noted. Status post IV iron completed July 09, 2024. 6. Metabolic acidosis secondary to acute kidney injury and IV fluids. Improved. 7. Hyperkalemia secondary to acute kidney injury. Improved. 8. Hyponatremia secondary to acute kidney injury, hypervolemic. Plan: hemodialysis today Continue to wean FiO2. Chest x-ray does not show significant pulmonary vascular congestion. No plans for dialysis tomorrow.
--- NOTE | 2024-07-13 15:19 | P.PN ---
Subjective Progress Note Date: 07/13/24 Principal diagnosis: SOB, edema, renal failure. Newly diagnosed NSCLC In follow-up today patient is on BiPAP, he is hard of hearing but, he reports that he is comfortable on the BiPAP. His and family are at the bedside. He is currently receiving dialysis. Objective - Vital Signs Vital signs: Vital Signs Temp 97.9 F 07/13/24 14:27 Pulse 80 07/13/24 14:27 Resp 20 07/13/24 14:27 BP 114/60 07/13/24 14:27 Pulse Ox 97 07/13/24 12:00 FiO2 100 07/13/24 12:13 Intake & Output 07/12/24 07/13/24 07/13/24 18:59 06:59 18:59 Intake Total 118 520 Output Total 85 275 2600 Balance 33 275 -2080 Weight 144 kg Intake: Oral 118 120 Hemodialysis 400 Output: Urine 85 275 Uretheral (Huertas) 275 Hemodialysis 1500 Hemodialysis Net Amount 1100 Other: Voiding Method Indwelling Catheter Indwelling Catheter - Constitutional General appearance: Present: average body habitus, cooperative, no acute distress - EENT Eyes: Present: anicteric sclerae, EOMI ENT: Present: hard of hearing - Respiratory Respiratory: bilateral: diminished - Peripheral edema leg Peripheral Edema: bilateral: 1+, Pitting - Gastrointestinal General gastrointestinal: Present: soft - Neurologic Neurologic: Present: CNII-XII intact - Musculoskeletal Musculoskeletal: Present: generalized weakness - Psychiatric Psychiatric: Present: A&O x's 3, appropriate affect, intact judgment & insight - Labs CBC & Chem 7: 07/13/24 06:16 07/13/24 06:16 Labs: Abnormal Lab Results - Last 24 Hours (Table) 07/12/24 07/12/24 07/13/24 Range/Units 16:26 20:10 06:16 WBC 20.5 H (3.8-10.6) k/uL RBC 3.19 L (4.30-5.90) m/uL Hgb 10.5 L (13.0-17.5) gm/dL Hct 33.7 L (39.0-53.0) % MCV 105.6 H (80.0-100.0) fL Neutrophils # 19.6 H (1.3-7.7) k/uL Lymphocytes # 0.3 L (1.0-4.8) k/uL Sodium (137-145) mmol/L Chloride (98-107) mmol/L BUN (9-20) mg/dL Creatinine (0.66-1.25) mg/dL Glucose (74-99) mg/dL POC Glucose (mg/dL) 119 H 160 H (70-110) mg/dL 07/13/24 07/13/24 07/13/24 Range/Units 06:16 06:24 11:11 WBC (3.8-10.6) k/uL RBC (4.30-5.90) m/uL Hgb (13.0-17.5) gm/dL Hct (39.0-53.0) % MCV (80.0-100.0) fL Neutrophils # (1.3-7.7) k/uL Lymphocytes # (1.0-4.8) k/uL Sodium 130 L (137-145) mmol/L Chloride 95 L (98-107) mmol/L BUN 81 H (9-20) mg/dL Creatinine 4.38 H (0.66-1.25) mg/dL Glucose 130 H (74-99) mg/dL POC Glucose (mg/dL) 144 H 153 H (70-110) mg/dL - Imaging and Cardiology Chest x-ray: report reviewed Assessment and Plan (1) Adenocarcinoma, lung Current Visit: Yes Status: Acute Priority: High Code(s): C34.90 - MALIGNANT NEOPLASM OF UNSP PART OF UNSP BRONCHUS OR LUNG SNOMED Code(s): 299879137 Plan: Metastatic NSCL adenocarcinoma -Patient presented to the hospital with complaints of shortness of breath as well as edema. Imaging revealed a significant right sided pleural effusion. Underwent right thoracentesis with 900 cc removed on 07/08. 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 Patient and his family are aware of the diagnosis. The diagnosis of stage IV non-small cell lung cancer was reviewed with the patient and the family. -Plans for PET scan outpatient as the renal function will not be impacted with this imaging. MRI of the brain is part of initial staging but, we will see how patient does with dialysis and if his renal function improves. May need time the MRI and dialysis concurrently. -Requested specimen for NGS and PDL-1 testing -Clinic f/u after discharge once patient has had an opportunity to rehabilitate. With staging information and molecular testing a more definitive plan of care can be discussed as well as treatment options. Doctor attests: I performed a history and physical examination of this patient, developed impression and plan of care. Discussed with dictator. I agree with dictators note, documented as a scribe.
[2024-07-13 16:27] LABS: Glucose,Whole Blood 182 mg/dL (70-110)
--- NOTE | 2024-07-13 18:49 | P.PN ---
Subjective Progress Note Date: 07/13/24 This is a very pleasant 88-year-old male patient who resides in [place]. He has a 50-year smoking history however quit nearly 20 years ago. He does have COPD and is maintained on Trelegy. He also has diabetes mellitus, coronary artery disease with previous coronary artery bypass grafting, hyperlipidemia previous DVT maintained on Xarelto and hypertension. He was traveling home from [place] when he stopped here at this hospital to visit his [id number]. The patient then developed significant shortness of breath, cough and congestion and presented to the emergency room on 06/30/2024. Chest x-ray revealed a small right pleural effusion with cardiomegaly and right basilar patchy airspace opacities. White count 9.1. Hemoglobin 10.2. Platelets 204. Sodium 137. Potassium 4.5. Bicarb 21. BUN 50. Creatinine 2.67. Glucose 93. proBNP 7980. Troponins 0.091. 0.075. He is seen today in consultation on the selective care unit. He is currently resting fairly comfortably in bed. Awake and alert in no acute distress. He is maintaining O2 saturations in the 90s on 3 L/min per nasal cannula. He is dyspneic with conversation. Dyspneic with minimal exertion. He does have a productive cough. The patient is seen today July 03, 2024 in follow-up on the selective care unit. He is currently resting comfortably in bed. Awake and alert in no acute distress. Feeling a bit better today compared to yesterday. He is maintaining O2 saturations in the 90s on 3 L/min per nasal cannula. Chest x-ray shows persistent cardiomegaly with a small right pleural effusion and red right mid to lower lung infiltrate/atelectasis. Left basilar atelectasis. Blood culture shows no growth. White count 8.3. Hemoglobin 9.6. Platelets 225. Sodium 136. Potassium 4.8. Bicarb 22. BUN 52. Creatinine 2.81. Glucose 214. Procalcitonin was negative at 0.18. He is continued on albuterol and Solu- Medrol along with his home Trelegy. He remains on a heparin drip. Progress note dated July 04, 2024. 88-year-old male seen today in room 384. The patient is a DO NOT RESUSCITATE patient. He is currently resting comfortably in bed. He is on 3 L nasal cannula. He is not receiving any IV fluids. We are going to DC his Trelegy, and instead, place him on budesonide 1 mg, and formoterol 20 mcg, twice a day. Current laboratory data includes a PTT at 56.8, sodium 135, potassium 5.5, chlorides 105, CO2 20, anion gap 10, BUN 70, creatinine 3.01. Glucose is 228. Hemoglobin A1c is 7.3. Calcium is 9. Chest x-ray shows carbon, right pleural effusion and possible right mid to lower lung infiltrate. Chest x-ray is largely unchanged. The patient's procalcitonin level was normal at 0.18. The patient is seen today July 05, 2024 in follow-up on the selective care unit. He is currently sitting up in a chair. Awake and alert in no acute distress. Feeling better today compared to yesterday. He is maintaining O2 saturations in the 90s on 4 L/min per nasal cannula. No IV fluids. He is continued on ceftriaxone and azithromycin. He continues with coarse rhonchi bilaterally. White count 14.1. Hemoglobin 10.4. Platelets 231. Sodium 135. Potassium 5.2. Bicarb 19. BUN 87. Creatinine 3.37. Glucose 174. He continues on DuoNeb and elations, Pulmicort and Perforomist inhalations, IV Solu-Medrol. Anticoagulated with Xarelto. Continued on Mucinex. The patient is seen today July 13, 2024 in follow-up on the selective care unit. He is currently resting in bed. Dyspneic with minimal exertion. He is requiring BiPAP support 12/5 and 100% FiO2. He did receive hemodialysis today. He is continued on DuoNeb inhalations, Pulmicort and Perforomist and elations, Solu-Medrol. Remains on Mucinex. Anticoagulated with Eliquis. X-ray continues to show similar moderate right pleural effusion with associated atelectasis. He did undergo a thoracentesis on July 08, 2024. Fluid was positive for metastatic pulmonary adenocarcinoma. Blood culture revealed no growth. Pleural fluid culture revealed no growth. White count 20.5. Hemoglobin 10.5. Platelets 161. Sodium 130. Potassium 4.7. Bicarb 28. BUN 81. Creatinine 4.38. Glucose 130. Objective - Vital Signs Vital signs: Vital Signs Temp 97.9 F 07/13/24 14:27 Pulse 90 07/13/24 16:00 Resp 24 07/13/24 16:00 BP 129/77 07/13/24 16:00 Pulse Ox 98 07/13/24 16:00 FiO2 100 07/13/24 16:00 Intake & Output 07/12/24 07/13/24 07/13/24 18:59 06:59 18:59 Intake Total 118 520 Output Total 85 275 2975 Balance 33 -275 -2455 Weight 144 kg Intake: Oral 118 120 Hemodialysis 400 Output: Urine 85 275 375 Uretheral (Huertas) 275 375 Hemodialysis 1500 Hemodialysis Net Amount 1100 Other: Voiding Method Indwelling Catheter Indwelling Catheter Indwelling Catheter - Exam GENERAL EXAM: Alert, 88-year-old male, resting in bed, now requiring BiPAP support 12/5 and 100% FiO2. HEAD: Normocephalic. EYES: Normal reaction of pupils, equal size. NOSE: Clear with pink turbinates. THROAT: No erythema or exudates. NECK: No masses, no JVD. CHEST: No chest wall deformity. LUNGS: Equal air entry with basilar crackles, few scattered rhonchi. CVS: S1 and S2 normal with no audible murmur, regular rhythm. ABDOMEN: No hepatosplenomegaly, normal bowel sounds, no guarding or rigidity. SPINE: No scoliosis or deformity SKIN: No rashes CENTRAL NERVOUS SYSTEM: No focal deficits, tone is normal in all 4 extremities. EXTREMITIES: There is no peripheral edema. No clubbing, no cyanosis. Peripheral pulses are intact. - Labs CBC & Chem 7: 07/13/24 06:16 07/13/24 06:16 Labs: Abnormal Lab Results - Last 24 Hours (Table) 07/12/24 07/13/24 07/13/24 Range/Units 20:10 06:16 06:16 WBC 20.5 H (3.8-10.6) k/uL RBC 3.19 L (4.30-5.90) m/uL Hgb 10.5 L (13.0-17.5) gm/dL Hct 33.7 L (39.0-53.0) % MCV 105.6 H (80.0-100.0) fL Neutrophils # 19.6 H (1.3-7.7) k/uL Lymphocytes # 0.3 L (1.0-4.8) k/uL Sodium 130 L (137-145) mmol/L Chloride 95 L (98-107) mmol/L BUN 81 H (9-20) mg/dL Creatinine 4.38 H (0.66-1.25) mg/dL Glucose 130 H (74-99) mg/dL POC Glucose (mg/dL) 160 H (70-110) mg/dL 07/13/24 07/13/24 07/13/24 Range/Units 06:24 11:11 16:25 WBC (3.8-10.6) k/uL RBC (4.30-5.90) m/uL Hgb (13.0-17.5) gm/dL Hct (39.0-53.0) % MCV (80.0-100.0) fL Neutrophils # (1.3-7.7) k/uL Lymphocytes # (1.0-4.8) k/uL Sodium (137-145) mmol/L Chloride (98-107) mmol/L BUN (9-20) mg/dL Creatinine (0.66-1.25) mg/dL Glucose (74-99) mg/dL POC Glucose (mg/dL) 144 H 153 H 182 H (70-110) mg/dL Assessment and Plan Assessment: Acute hypoxemic respiratory failure secondary to an acute exacerbation of chronic obstructive pulmonary disease. Viral screen negative. Procalcitonin negative. CAT scan of the chest was completed yesterday and shows right-sided pleural effusion, atelectatic change in the right lung base along with consolidation and some nonspecific mediastinal lymphadenopathy. The patient progressed and became more hypoxic and the patient was placed on a BiPAP pressure of 12 over 5 cm of water with FiO2 of 100%. A right-sided thoracentesis was performed on 07/08/2024. The fluid result is positive for pulmonary adenocarcinoma. Hemodialysis session today 07/13/2024 with a total of 1.1 L of ultrafiltration. Right-sided pleural effusion along with atelectatic changes right lung base, post thoracentesis on July 08, 2024 of the right lung with evacuation of 900 cc of pleural fluid and the fluid cytology is positive for pulmonary adenocarcinoma Pulmonary adenocarcinoma with malignant right-sided pleural effusion, essentially stage IV disease and the patient has significant consolidation in the right lung base with volume loss Stage IV chronic kidney disease with a component of acute kidney injury secondary to underlying infection, cardiorenal syndrome. The patient has developed an acute on top of chronic kidney disease with diminished urine output. The patient is currently on hemodialysis Acute exacerbation of chronic diastolic congestive heart failure Troponin leak secondary to above Chronic obstructive pulmonary disease History of 50 years of tobacco dependence however quit many years ago Hypertension Hyperlipidemia Diabetes mellitus, type II Coronary artery disease with previous coronary artery bypass grafting in 1998 History of DVT, maintained on Xarelto Plan: The patient was seen and evaluated Chest x-ray, labs and medications reviewed Continue DuoNeb inhalations, Solu-Medrol Continue Pulmicort and Perforomist inhalations He is currently BiPAP dependent 04/02 in the 100% FiO2 DNR CODE STATUS The patient's is at the bedside She is inquiring about hospice but concerned about getting him home to [place] We will place the consult, social work following We will continue to follow I have personally seen and examined the patient, performed the documentation and the assessment and plan as written. Number of minutes spent on the visit: 10 Dictation was produced using [employer] dictation software. Please excuse any grammatical, word or spelling errors.
[2024-07-13 19:59] LABS: Glucose,Whole Blood 206 mg/dL (70-110)
[2024-07-14 06:21] LABS: Glucose,Whole Blood 131 mg/dL (70-110)
[2024-07-14 08:58] LABS: ALT 31 U/L (4-49); AST 23 U/L (17-59); African American GFR (CKD) 17 (>60 ml/min/1.73 sqM); Albumin 2.7 g/dL (3.5-5.0); Alkaline Phosphatase 65 U/L (38-126); Anion Gap 15 mmol/L; Blood Urea Nitrogen 67 mg/dL (9-20); Calcium 8.5 mg/dL (8.4-10.2); Carbon Dioxide 19 mmol/L (22-30); Chloride 96 mmol/L (98-107); Glucose 118 mg/dL (74-99); Magnesium 2.1 mg/dL (1.6-2.3); Non-African American GFR(CKD) 15 (>60 ml/min/1.73 sqM); Potassium 5.1 mmol/L (3.5-5.1); Sodium 130 mmol/L (137-145); Total Bilirubin 0.6 mg/dL (0.2-1.3); Total Protein 5.3 g/dL (6.3-8.2)
[2024-07-14 09:58] LABS: Basophils # (A) 0.1 k/uL (0-0.2); Basophils % (A) 0 %; Eosinophils % (A) 0 %; HCT 36.4 % (39.0-53.0); HGB 11.4 gm/dL (13.0-17.5); Lymphocytes # (A) 0.3 k/uL (1.0-4.8); Lymphocytes % (A) 1 %; MCH 32.7 pg (25.0-35.0); MCHC 31.2 g/dL (31.0-37.0); MCV 104.9 fL (80.0-100.0); Macrocytosis Slight; Mean Platelet Volume 11.8; Monocytes # (A) 0.6 k/uL (0-1.0); Monocytes % (A) 3 %; Neutrophils # (A) 19.9 k/uL (1.3-7.7); Neutrophils % (A) 95 %; Platelet Count 126 k/uL (150-450); RBC 3.47 m/uL (4.30-5.90); RDW 13.8 % (11.5-15.5)
[2024-07-14 11:36] LABS: Glucose,Whole Blood 133 mg/dL (70-110)
--- NOTE | 2024-07-14 11:46 | P.PN ---
Subjective Progress Note Date: 07/14/24 Subjective: Patient seen and examined at bedside. Has been having significant hypoxia, going back and forth between Airvo and BiPAP. Pertinent positives and negatives as discussed above, a complete review of systems was performed and all other systems are negative. Vitals Signs Reviewed. General: Nontoxic, no distress, appears at stated age, chronically ill-appearing Derm: Warm, dry Head: Atraumatic, normocephalic, symmetric Eyes: EOMI, no lid lag, anicteric sclera Mouth: No lip lesion, mucus membranes moist Cardiovascular: S1S2 reg, no murmur Lungs: decreased breath sounds in the right lower lobe, on BiPAP Abdominal: Soft, nontender to palpation, no guarding, no appreciable org anomegaly Ext: No gross muscle atrophy, 2+ pitting edema, no contractures Neuro: CN II-XI grossly intact, no focal neuro deficits Psych: Somnolent, appropriate affect Data Reviewed Today: Pertinent Labs: WBC 21, hemoglobin 11.4, creatinine 3.55, sodium 130, bicarb 19, blood sugars range between 1 18-1 33, magnesium 2.1 Imaging: No new imaging Assessment and Plan: Patient is severely ill, needs close monitoring. Prognosis guarded. Active: Acute hypoxic respiratory failure, on BiPAP New diagnosis of metastatic pulmonary adenocarcinoma Atelectasis and pleural effusion right-sided secondary to above Acute on chronic diastolic CHF exacerbation Acute COPD exacerbation Leukocytosis, likely steroid induced versus reactive FLORINDA secondary to ATN, now on dialysis Hyponatremia, hypervolemic Normocytic anemia, stable Microscopic hematuria Type II NSTEMI, on admission -Discussed with pulmonology, family is considering inpatient comfort care only -Continue Solu-Medrol 60 IV every 6 hours, Perforomist twice daily, Pulmicort twice daily, albuterol as needed, DuoNeb every 4 hours -Remains on BiPAP -Nephrology following for dialysis -Oncology following -Cardiology following, continue aspirin 81 mg, atorvastatin 20 mg, Eliquis 2.5 twice daily 5 twice daily, holding Farxiga -Outpatient cystoscopy per urology History of hypertension Hypotension -Patient on Imdur 15 daily -Patient also continued on bisoprolol 2.5 daily -Holding candesartan, holding hydralazine -Patient also on midodrine 5 AC 3 times daily per cardiology Type 2 diabetes -Continue Lantus 25 nightly, sliding scale insulin, monitor for hypoglycemia Acute metabolic encephalopathy Acute delirium -On melatonin nightly as needed -On Seroquel 100 nightly, decreased to 50 Resolved: Metabolic acidosis, resolved Hyperkalemia Chronic: Dyslipidemia Hypertension History of DVT History of CAD status post CABG DVT ppx: Eliquis Code status: No code Anticipated discharge place: Likely inpatient hospice Anticipated discharge time: Pending clinical course Objective - Vital Signs Vital signs: Vital Signs Temp 97.6 F 07/14/24 08:00 Pulse 63 07/14/24 11:39 Resp 18 07/14/24 08:00 BP 128/70 07/14/24 08:00 Pulse Ox 99 07/14/24 08:00 FiO2 100 07/14/24 08:00 Intake & Output 07/13/24 07/14/24 07/14/24 18:59 06:59 18:59 Intake Total 520 Output Total 2975 40 40 Balance -2455 -40 -40 Weight 144 kg Intake: Oral 120 Hemodialysis 400 Output: Urine 375 40 40 Uretheral (Huertas) 375 40 40 Hemodialysis 1500 Hemodialysis Net Amount 1100 Other: Voiding Method Indwelling Catheter Indwelling Catheter Indwelling Catheter - Labs CBC & Chem 7: 07/14/24 07:11 07/14/24 07:11 Labs: Abnormal Lab Results - Last 24 Hours (Table) 07/13/24 07/13/24 07/14/24 Range/Units 16:25 19:58 06:19 WBC (3.8-10.6) k/uL RBC (4.30-5.90) m/uL Hgb (13.0-17.5) gm/dL Hct (39.0-53.0) % MCV (80.0-100.0) fL Sodium (137-145) mmol/L Chloride (98-107) mmol/L Carbon Dioxide (22-30) mmol/L BUN (9-20) mg/dL Creatinine (0.66-1.25) mg/dL Glucose (74-99) mg/dL POC Glucose (mg/dL) 182 H 206 H 131 H (70-110) mg/dL Total Protein (6.3-8.2) g/dL Albumin (3.5-5.0) g/dL 07/14/24 07/14/24 07/14/24 Range/Units 07:11 07:11 11:33 WBC 21.0 H (3.8-10.6) k/uL RBC 3.47 L (4.30-5.90) m/uL Hgb 11.4 L (13.0-17.5) gm/dL Hct 36.4 L (39.0-53.0) % MCV 104.9 H (80.0-100.0) fL Sodium 130 L (137-145) mmol/L Chloride 96 L (98-107) mmol/L Carbon Dioxide 19 L (22-30) mmol/L BUN 67 H (9-20) mg/dL Creatinine 3.55 H (0.66-1.25) mg/dL Glucose 118 H (74-99) mg/dL POC Glucose (mg/dL) 133 H (70-110) mg/dL Total Protein 5.3 L (6.3-8.2) g/dL Albumin 2.7 L (3.5-5.0) g/dL
--- NOTE | 2024-07-14 12:05 | P.PN ---
Subjective HISTORY OF PRESENT ILLNESS: This is a 88-year-old male with a past medical history significant for coronary artery disease with previous CABG, DVT, and hyperlipidemia. Patient follows with a research spec in [facility]. We have been asked to see the patient in consultation for CHF. Patient examined at the bedside in the ER. Patient presented to the ER with a chief compliant of shortness of breath. He reports shortness of breath for past 2-3 days. Patient denies chest pain or pressure. Patient was found to be in acute CHF. Patient also reports hematuria and his urine cannister at the bedside has gross hematuria. DIAGNOSTICS: - EKG reveals sinus mechanism with right bundle branch block.. - Chest xray small right pleural effusion and cardiomegaly and right basilar patchy airspace opacities. Findings may relate to CHF exacerbation and/or pn eumonia - Laboratory data: WBC 9.2. Hemoglobin 10.5. Platelet count 197. Sodium 136. Potassium 4.3. BUN 44. Creatinine 2.36. Troponin 0.073. 0.078. 0.075. TSH 1.700. proBNP 7980. - Current home cardiac medications include bisoprolol 2.5 mg daily, Farxiga 10 mg daily, rosuvastatin 10 mg daily, Xarelto 15 mg daily -No previous echocardiogram, stress test, or cardiac catheterization available in EMR for review Progress note 07/02/2024 Patient is seen and examined at bedside this a.m. Hb 10.1, BUN 50, creatinine 2.67 yesterday creatinine was 2.3.. BP 134/63, heart rate 72 bpm, 07/03/2024 Patient is seen and examined at bedside this a.m. Creatinine is worse today to 2.8. Blood pressure and heart rate are at goal. 07/04/2024 Patient's kidney function is progressively got worse, BUN 70, creatinine 3.01, potassium is 5.5 no further hematuria, blood pressure and heart rate are stable. 07/05/2024 Patient's kidney function is progressively got worse. Nephrology following, recommend IV gentle hydration. 07/06 Patient seen and examined. Telemetry sinus rhythm. Patient continues to have bilateral wheezing. Blood pressure 116/74, heart rate 89, pulse ox 96% on 6 L nasal cannula. Repeat blood work reveals hemoglobin 10, WBC 10.8, BUN 93 creatinine 3.53, potassium 5.2 and sodium 134. Farxiga was decreased by nephrology and Lasix 40 mg IV every 12 hours ordered. 07/07 Patient seen and examined. Patient continues to have wheezing. No lower extremity edema. He continues to have worsening renal function for which nephrology is following. No complaints of chest pain. Blood pressure 131/58, heart rate 78, pulse ox 95% on high flow nasal cannula 9 L. Repeat blood work reveals BUN 109 and creatinine 4.23. Potassium 5.5. CT of the chest performed last evening reveals moderate right pleural effusion with consolidative opacities within the right upper lobe and atelectatic change of the right middle and lower lobes. Findings suggest pneumonia however pulmonary mass not excluded. Mediastinal adenopathy. Sequelae of prior granulomatous disease. Cardiomegaly with post CABG changes. Ultrasound of the chest: Small to moderate size right-sided pleural fluid collection with right lung atelectasis. 07/08 Patient seen and examined. He is currently on BiPAP. Yesterday he was started on his first dialysis treatment and this morning receiving his second. Lung sounds are improved from yesterday. Blood pressure 107/58, heart rate 91, pulse ox 92 to 100% on BiPAP. Repeat blood work reveals hemoglobin 10.1, WBC 11.4, BUN 91 and creatinine 3.69. Pulmonary medicine is planning for thoracentesis right side. 07/09 Patient is scheduled for another dialysis treatment today. His feels that he is getting better. He is making some urine. Repeat blood work reveals BUN of 78 creatinine 3.35 and hemoglobin 11.1. Blood pressure 103/60, heart rate 83, pulse ox 98% on BiPAP. 07/10 Patient's respiratory status continues to improve. He is scheduled for another dialysis treatment today. Patient is feeling better in general and has less lower extremity edema.. Pulse ox 91% on high flow nasal cannula, heart rate 89, blood pressure 115/66. Repeat blood work reveals WBC 14.8, hemoglobin 10.8, sodium 129, potassium 4.6, BUN 64 creatinine 3.04. 07/11 Patient seen and examined. Respiratory status continues to improve and he is continued on hemodialysis with plan for Saturday. Patient is currently on Airvo with pulse ox of 94%, heart rate 88, blood pressure 83/48. Patient is receiving hemodialysis this morning. Repeat blood work reveals WBC 17.9, hemoglobin 11, BUN 54 creatinine 2.99. 07/12 Patient seen and examined. His renal function continues to improve. He is scheduled for hemodialysis tomorrow and to continue on a Saturday schedule. He denies chest pain or chest pressure. Yesterday we added scheduled midodrine. Blood pressure 106/66, heart rate 80, pulse ox 92% on BiPAP. Repeat blood work reveals WBC 17, hemoglobin 9.5, BUN 55 creatinine 3.03. Pertinent cardiac testing Echo shows EF 55%, no RWMA, moderate pulmonary hypertension, mild MR, mild LA dilatation, moderate TR, mildly dilated ascending aorta measured at 4 cm. 07/13/2024 Patient examined this morning at the bedside. Patient currently on bipap. He denies chest pain or pressure. Patient is about to undergo hemodialysis. Vital signs are stable. 07/14/2024 Patient examined this morning at the bedside. Patient is somewhat lethargic. His family is at the bedside. Bedside telemetry reveals atrial fibrillation with RVR. Per nursing, patient's family is considering hospice. PHYSICAL EXAM: VITAL SIGNS: Reviewed. GENERAL: Well-developed in no acute distress. NECK: Supple. No JVD or thyromegaly LUNGS: Respirations even and unlabored. Lungs essentially clear to auscultation bilaterally. HEART: Tachycardic. Irregular rate and rhythm. S1 and S2 heard. EXTREMITIES: Normal range of motion. No clubbing or cyanosis. Peripheral pulses intact. No lower extremity edema ASSESSMENT: Acute hypoxic respiratory failure Acute HFpEF exacerbation Moderate pulm hypertension Possible pneumonia Pleural effusions status post right thoracentesis 07/08 with removal of 900 mL Acute kidney injury, started on HD 07/07 Gross hematuria Elevated troponins, type II ME secondary to oxygen supply/demand mismatch Coronary artery disease with previous CABG, approximately 24 years ago History of DVT Hyperlipidemia New onset atrial fibrillation with RVR, 07/14/2024 PLAN: Continue current cardiac medications including Eliquis, aspirin, Lipitor, bisoprolol, Imdur, and midodrine Continue to monitor blood pressure Continue telemetry monitoring Further recommendations pending patient course Nurse practitioner note has been reviewed by physician. Signing provider agrees with the documented findings, assessment, and plan of care documented by [employer]IL EXPERT as a scribe. Objective - Vital Signs Vital signs: Vital Signs Temp 97.6 F 07/14/24 08:00 Pulse 68 07/14/24 11:56 Resp 18 07/14/24 08:00 BP 128/70 07/14/24 08:00 Pulse Ox 99 07/14/24 08:00 FiO2 100 07/14/24 08:00 Intake & Output 07/13/24 07/14/24 07/14/24 18:59 06:59 18:59 Intake Total 520 Output Total 2975 40 40 Balance -2455 -40 -40 Weight 144 kg Intake: Oral 120 Hemodialysis 400 Output: Urine 375 40 40 Uretheral (Huertas) 375 40 40 Hemodialysis 1500 Hemodialysis Net Amount 1100 Other: Voiding Method Indwelling Catheter Indwelling Catheter Indwelling Catheter - Labs CBC & Chem 7: 07/14/24 07:11 07/14/24 07:11 Labs: Abnormal Lab Results - Last 24 Hours (Table) 07/13/24 07/13/24 07/14/24 Range/Units 16:25 19:58 06:19 WBC (3.8-10.6) k/uL RBC (4.30-5.90) m/uL Hgb (13.0-17.5) gm/dL Hct (39.0-53.0) % MCV (80.0-100.0) fL Sodium (137-145) mmol/L Chloride (98-107) mmol/L Carbon Dioxide (22-30) mmol/L BUN (9-20) mg/dL Creatinine (0.66-1.25) mg/dL Glucose (74-99) mg/dL POC Glucose (mg/dL) 182 H 206 H 131 H (70-110) mg/dL Total Protein (6.3-8.2) g/dL Albumin (3.5-5.0) g/dL 07/14/24 07/14/24 07/14/24 Range/Units 07:11 07:11 11:33 WBC 21.0 H (3.8-10.6) k/uL RBC 3.47 L (4.30-5.90) m/uL Hgb 11.4 L (13.0-17.5) gm/dL Hct 36.4 L (39.0-53.0) % MCV 104.9 H (80.0-100.0) fL Sodium 130 L (137-145) mmol/L Chloride 96 L (98-107) mmol/L Carbon Dioxide 19 L (22-30) mmol/L BUN 67 H (9-20) mg/dL Creatinine 3.55 H (0.66-1.25) mg/dL Glucose 118 H (74-99) mg/dL POC Glucose (mg/dL) 133 H (70-110) mg/dL Total Protein 5.3 L (6.3-8.2) g/dL Albumin 2.7 L (3.5-5.0) g/dL
[2024-07-14 16:45] LABS: Glucose,Whole Blood 137 mg/dL (70-110)
--- NOTE | 2024-07-14 17:11 | P.PN ---
Subjective Patient seen for follow-up for FLORINDA with unknown baseline renal function. Started on hemodialysis on 07/07/2024 this admission. Family is present at bedside. Patient remains on BiPAP. Family will be proceeding with hospice care. Objective - Vital Signs Vital signs: Vital Signs Temp 97.6 F 07/14/24 08:00 Pulse 117 H 07/14/24 15:33 Resp 18 07/14/24 08:00 BP 128/70 07/14/24 08:00 Pulse Ox 99 07/14/24 08:00 FiO2 100 07/14/24 08:00 Intake & Output 07/13/24 07/14/24 07/14/24 18:59 06:59 18:59 Intake Total 520 Output Total 2975 40 40 Balance -2455 -40 -40 Weight 144 kg Intake: Oral 120 Hemodialysis 400 Output: Urine 375 40 40 Uretheral (Huertas) 375 40 40 Hemodialysis 1500 Hemodialysis Net Amount 1100 Other: Voiding Method Indwelling Catheter Indwelling Catheter Indwelling Catheter - Exam Patient is awake, comfortable, no acute distress. Hard of hearing. Maintained on BiPAP Heart: S1 and S2 heard Lungs: Decreased breath sounds at the bases Abdomen: Soft and nontender Lower extremities: Trace edema [employer]: grossly intact - Labs CBC & Chem 7: 07/14/24 07:11 07/14/24 07:11 Labs: Abnormal Lab Results - Last 24 Hours (Table) 07/13/24 07/14/24 07/14/24 Range/Units 19:58 06:19 07:11 WBC 21.0 H (3.8-10.6) k/uL RBC 3.47 L (4.30-5.90) m/uL Hgb 11.4 L (13.0-17.5) gm/dL Hct 36.4 L (39.0-53.0) % MCV 104.9 H (80.0-100.0) fL Plt Count 126 L (150-450) k/uL Neutrophils # 19.9 H (1.3-7.7) k/uL Lymphocytes # 0.3 L (1.0-4.8) k/uL Sodium (137-145) mmol/L Chloride (98-107) mmol/L Carbon Dioxide (22-30) mmol/L BUN (9-20) mg/dL Creatinine (0.66-1.25) mg/dL Glucose (74-99) mg/dL POC Glucose (mg/dL) 206 H 131 H (70-110) mg/dL Total Protein (6.3-8.2) g/dL Albumin (3.5-5.0) g/dL 07/14/24 07/14/24 07/14/24 Range/Units 07:11 11:33 16:43 WBC (3.8-10.6) k/uL RBC (4.30-5.90) m/uL Hgb (13.0-17.5) gm/dL Hct (39.0-53.0) % MCV (80.0-100.0) fL Plt Count (150-450) k/uL Neutrophils # (1.3-7.7) k/uL Lymphocytes # (1.0-4.8) k/uL Sodium 130 L (137-145) mmol/L Chloride 96 L (98-107) mmol/L Carbon Dioxide 19 L (22-30) mmol/L BUN 67 H (9-20) mg/dL Creatinine 3.55 H (0.66-1.25) mg/dL Glucose 118 H (74-99) mg/dL POC Glucose (mg/dL) 133 H 137 H (70-110) mg/dL Total Protein 5.3 L (6.3-8.2) g/dL Albumin 2.7 L (3.5-5.0) g/dL Assessment and Plan Assessment: 1. Acute kidney injury secondary to ATN secondary to cardiorenal syndrome. Creatinine up to 4.2 July 07, 2024. Oliguric. Started on hemodialysis July 07, 2024 via femoral catheter. Unknown baseline renal function. No hydronephrosis noted on kidney ultrasound. UA benign. 2. Acute on chronic diastolic CHF with moderate pulmonary hypertension, moderate tricuspid regurgitation. 3. Volume overload. Improving with ultrafiltration. Status post right-sided thoracentesis July 08, 2024 with 900 cc drained. 4. Diabetes mellitus. 5. Anemia. Iron deficiency noted. Status post IV iron completed July 09, 2024. 6. Metabolic acidosis secondary to acute kidney injury and IV fluids. Improved. 7. Hyperkalemia secondary to acute kidney injury. Improved. 8. Hyponatremia secondary to acute kidney injury, hypervolemic. Plan: Hold hemodialysis in a.m. given plans to proceed with hospice care.
[2024-07-14 20:03] LABS: Glucose,Whole Blood 161 mg/dL (70-110)
--- NOTE | 2024-07-14 21:39 | XR ---
EXAMINATION TYPE: XR chest 1V portable DATE OF EXAM: 07/14/2024 9:28 PM COMPARISON: Prior chest radiographs, most recent dated 07/13/2024. CLINICAL INDICATION: Male, 88 years old with history of SOB; [facility] TECHNIQUE: XR chest 1V portable Frontal view of the chest. FINDINGS: Lungs/Pleura: Small right pleural effusion, slightly improving from prior study. No sizable left-side d pleural effusion. Heart/mediastinum: Cardiomegaly and median sternotomy wires. Postsurgical changes suggestive of CABG. Musculoskeletal: No acute osseous pathology. Other findings: None IMPRESSION: Slightly improving right pleural effusion. Otherwise, no significant interval changes from most recen t prior study 07/13/2024. [facility], , 07/14/2024 9:37 PM
[2024-07-15 06:10] LABS: Glucose,Whole Blood 153 mg/dL (70-110)
[2024-07-15 10:11] VITALS: BP 124/69; TEMP 97.7
[2024-07-15 11:38] VITALS: PULSE 110; RESP 18
--- NOTE | 2024-07-15 13:18 | P.DS ---
Providers Date of admission: 06/30/24 16:28 Expected date of discharge: 07/15/24 Attending physician: Amilcar Mayer Consults: 06/30/24 16:26 Consult Physician Routine Consulting Provider: [facility] Consult Reason/Comments: Acute pulmonary edema, elevated troponin Do you want consulting provider notified?: Yes 07/01/24 11:59 Consult Physician Routine Consulting Provider: Marcos Corbett Consult Reason/Comments: hematuria Do you want consulting provider notified?: Yes 07/01/24 12:41 Consult Physician Routine Consulting Provider: Janae Grace Consult Reason/Comments: FLORINDA, baseline unknown Do you want consulting provider notified?: Yes 07/02/24 09:31 Consult Physician Routine Consulting Provider: Denny Mcclelland Consult Reason/Comments: R sided PNA, not viral, same as brother 2 doors down Do you want consulting provider notified?: Yes 07/07/24 11:07 Consult Physician Stat Consulting Provider: Willem Land Consult Reason/Comments: Temporary hemodialysis catheter Do you want consulting provider notified?: Yes 07/10/24 16:06 Consult Physician Routine Consulting Provider: Law Velázquez Consult Reason/Comments: new diagnosis of pulmonary adenocarcinoma Do you want consulting provider notified?: Yes Primary care physician: Stated None Hospital Course: Discharge Diagnosis: Acute hypoxic respiratory failure, on BiPAP New diagnosis of metastatic pulmonary adenocarcinoma Atelectasis and pleural effusion right-sided secondary to above s/p thoracentesis Acute on chronic diastolic CHF exacerbation Acute COPD exacerbation Leukocytosis, likely steroid induced versus reactive FLORINDA secondary to ATN, now on dialysis Hyponatremia, hypervolemic Normocytic anemia, stable Microscopic hematuria Type II NSTEMI, on admission History of hypertension Hypotension Type 2 diabetes Acute metabolic encephalopathy Acute delirium Metabolic acidosis, resolved Hyperkalemia Dyslipidemia Hx of Hypertension Hospital Course: Patient is a 88-year-old male with a past medical history reviewed coronary disease status post CABG x 1, hyperlipidemia, heart failure, DVT on Xarelto presents emergency department with complaint of shortness of breath. In the emergency room, patient was afebrile, 119/68, heart rate 75, 83% on room air. CBC was remarkable for hemoglobin of 11.5 with MCV of 105.9. INR is 1.5. BUN was 40, creatinine 2.17 with no known baseline. BNP was 7980. Liver function tests are unremarkable. Influenza A, B, RSV, COVID were negative. Chest x-ray showed small right pleural effusion with cardiomegaly and right basilar patchy airspace opacities. EKG showed sinus rhythm, left axis deviation, right bundle branch block, left anterior fascicular block, no evidence of ischemia. Venous Doppler study showed chronic DVT. During hospitalization, patient was noted to have worsening kidney function as well as hematuria. Urology and nephrology were consulted for this. Patient Xarelto was held and hematuria resolved, was seen and cleared by urology for outpatient cystoscopy as well as resumption of anticoagulation. Echocardiogram demonstrated normal ejection fraction with moderate pulmonary hypertension. Patient remained oliguric, ultimately required hemodialysis. Underwent thoracentesis by pulmonology. Pleural fluid positive for pulmonary adenocarcinoma. Patient continues to remain hypoxic, intermittently going between BiPAP and high flow nasal cannula. After no significant improvement patient and family decided for comfort care measures only. Hospice was consulted. Due to significant oxygen requirements as well as worsening dyspnea, patient unable to to be discharged home in [place] with hospice care. Patient will remain as inpatient hospice. Patient seen and examined at bedside. Vital signs reviewed and stable. General: Significant respiratory distress, chronically ill-appearing Derm: warm, dry Head: atraumatic, normocephalic, symmetric Eyes: EOMI, no lid lag, anicteric sclera, pupils equal round reactive to light ENT: Nose and ears atraumatic Neck: No thyromegaly, supple Mouth: no lip lesion, mucus membranes moist Cardiovascular: S1S2 reg, tachycardic no murmur, trace peripheral edema Lungs: Bilateral rhonchi, on BiPAP Abdominal: soft, nontender to palpation, no guarding Ext: no gross muscle atrophy, no contractures Neuro: Weak and tired, no focal deficits Psych: Somnolent There is no charge associated with this note. Plan - Discharge Summary Discharge Rx Participant: Yes New Discharge Prescriptions: No Action Zinc Gluconate [Zinc] 50 mg PO DAILY Cholecalciferol [Vitamin D3 (25 Mcg = 1000 Iu)] 25 mcg PO DAILY Dapagliflozin Propanediol [Farxiga] 10 mg PO DAILY Candesartan Cilexetil [Atacand] 8 mg PO DAILY Bisoprolol [Zebeta] 2.5 mg PO DAILY Rivaroxaban [Xarelto] 15 mg PO DAILY Ascorbic Acid [Vitamin C] 1,000 mg PO DAILY Turmeric Root Extract [Turmeric] 500 mg PO DAILY Garlic 2,000 mg PO DAILY Fluticasone/Umeclidin/Vilanter [Trelegy Ellipta 100-62.5-25] 1 puff INHALATION RT-DAILY Rosuvastatin [Crestor] 10 mg PO DAILY Discharge Medication List Ascorbic Acid [Vitamin C] 1,000 mg PO DAILY 06/30/24 [History] Bisoprolol [Zebeta] 2.5 mg PO DAILY 06/30/24 [History] Candesartan Cilexetil [Atacand] 8 mg PO DAILY 06/30/24 [History] Cholecalciferol [Vitamin D3 (25 Mcg = 1000 Iu)] 25 mcg PO DAILY 06/30/24 [History] Dapagliflozin Propanediol [Farxiga] 10 mg PO DAILY 06/30/24 [History] Fluticasone/Umeclidin/Vilanter [Trelegy Ellipta 100-62.5-25] 1 puff INHALATION RT-DAILY 06/30/24 [History] Garlic 2,000 mg PO DAILY 06/30/24 [History] Rivaroxaban [Xarelto] 15 mg PO DAILY 06/30/24 [History] Rosuvastatin [Crestor] 10 mg PO DAILY 06/30/24 [History] Turmeric Root Extract [Turmeric] 500 mg PO DAILY 06/30/24 [History] Zinc Gluconate [Zinc] 50 mg PO DAILY 06/30/24 [History] Follow up Appointment(s)/Referral(s): Nataly Mcbride MD [STAFF PHYSICIAN] - 08/06/24 2:45 pm Cameron Walter MD [STAFF PHYSICIAN] - 2 Weeks (Cystoscopy) None,Stated [Primary Care Provider] - 1-2 days Discharge Disposition: [facility]CH TO [facility]
== END 2024-07-15 11:35 | disposition hospice, inpatient (51) | DRG 180 ==
LOC: EC 14:16 → 1SOBS 16:28 → 3SCARD 17:07
PROVIDERS: ADMIT Student in an Organized Health Care Education/Training Program; ATTEND Student in an Organized Health Care Education/Training Program
PROC: 06HM33Z Insertion of Infusion Device into Right Femoral Vein, Percutaneous Approach (ICD-10-PCS; 2024-06-30)
PROC: 5A1D70Z Performance of Urinary Filtration, Intermittent, Less than 6 Hours Per Day (ICD-10-PCS; 2024-06-30)
PROC: 06PYX3Z Removal of Infusion Device from Lower Vein, External Approach (ICD-10-PCS; 2024-07-07)
PROC: 06HM33Z Insertion of Infusion Device into Right Femoral Vein, Percutaneous Approach (ICD-10-PCS; 2024-07-07)
PROC: 5A09457 Assistance with Respiratory Ventilation, 24-96 Consecutive Hours, Continuous Positive Airway Pressure (ICD-10-PCS; principal; 2024-07-07 10:15)
PROC: 0W993ZX Drainage of Right Pleural Cavity, Percutaneous Approach, Diagnostic (ICD-10-PCS; 2024-07-08)
PROC: 05HC33Z Insertion of Infusion Device into Left Basilic Vein, Percutaneous Approach (ICD-10-PCS; 2024-07-13)
DX: C34.90 Malignant neoplasm of unspecified part of unspecified bronchus or lung (principal); G93.41 Metabolic encephalopathy; I21.A1 Myocardial infarction type 2; I50.33 Acute on chronic diastolic (congestive) heart failure; J15.9 Unspecified bacterial pneumonia; J96.01 Acute respiratory failure with hypoxia; N17.0 Acute kidney failure with tubular necrosis; N18.6 End stage renal disease; J91.0 Malignant pleural effusion; D71 Functional disorders of polymorphonuclear neutrophils; I13.0 Hypertensive heart and chronic kidney disease with heart failure and stage 1 through stage 4 chronic kidney disease, or unspecified chronic kidney disease; J44.0 Chronic obstructive pulmonary disease with (acute) lower respiratory infection; E11.22 Type 2 diabetes mellitus with diabetic chronic kidney disease; I27.29 Other secondary pulmonary hypertension; D50.9 Iron deficiency anemia, unspecified; I08.1 Rheumatic disorders of both mitral and tricuspid valves; I82.512 Chronic embolism and thrombosis of left femoral vein; J44.1 Chronic obstructive pulmonary disease with (acute) exacerbation; E87.20 Acidosis, unspecified; E87.1 Hypo-osmolality and hyponatremia; I45.2 Bifascicular block; Z51.5 Encounter for palliative care; Z66 Do not resuscitate; J98.11 Atelectasis; E86.1 Hypovolemia; D53.9 Nutritional anemia, unspecified; I48.91 Unspecified atrial fibrillation; Z79.4 Long term (current) use of insulin; R59.0 Localized enlarged lymph nodes; I95.9 Hypotension, unspecified; D72.829 Elevated white blood cell count, unspecified; T38.0X5A Adverse effect of glucocorticoids and synthetic analogues, initial encounter; R31.0 Gross hematuria; E78.5 Hyperlipidemia, unspecified; E87.5 Hyperkalemia; I25.10 Atherosclerotic heart disease of native coronary artery without angina pectoris; N28.1 Cyst of kidney, acquired; Z79.01 Long term (current) use of anticoagulants; Z95.1 Presence of aortocoronary bypass graft; Z87.891 Personal history of nicotine dependence; Z79.82 Long term (current) use of aspirin; Z79.84 Long term (current) use of oral hypoglycemic drugs; Z79.899 Other long term (current) drug therapy; Z71.3 Dietary counseling and surveillance
CPT/HCPCS: 36410; 36415; 36556; 71045; 71046; 71250; 76604; 76770; 76937; 80048; 80053; 80061; 81001; 82043; 82570; 82607; 82746; 82747; 82945; 83036; 83540; 83550; 83605; 83615; 83735; 83880; 84100; 84145; 84157; 84300; 84443; 84484; 84540; 84560; 85025; 85610; 85730; 86706; 87040; 87070; 87205; 87340; 87636; 88108; 88305; 88341; 88342; 89050; 90935; 93005; 93306; 94640; 94660; 94760; 96365; 96366; 96367; 96375; 96376; 99291

== ENCOUNTER 2024-07-14 12:46 | Inpatient (IN) | payer MEDICAID ==
[2024-07-15] MEDS ORDERED: GLYCOPYRROLATE 0.2 MG/ML 2 ML VIAL IVP PRN (11:13)
[2024-07-15] MEDS ORDERED: ATROPINE OPHTH SOLN 1% 5ML BTL SUBLINGUAL PRN (11:13)
[2024-07-15] MEDS ORDERED: LORazepam 2 MG/ML INJ IV PRN (11:13)
[2024-07-15] MEDS: MORPHINE SULFATE 100 MG in SODIUM CHLORIDE 0.9% 90 ML IV SCH (11:53)
[2024-07-15] MEDS: MORPHINE SULFATE 4 MG/ML SYRINGE IV PRN (12:15)
[2024-07-15] MEDS: LORazepam 1 MG/0.5 ML VIAL IV PRN (12:45)
--- NOTE | 2024-07-15 13:17 | P.HPIM ---
History of Present Illness H&P Date: 07/15/24 Patient is a 88-year-old male with a past medical history reviewed coronary disease status post CABG x 1, hyperlipidemia, heart failure, DVT on Xarelto presents emergency department with complaint of shortness of breath. In the emergency room, patient was afebrile, 119/68, heart rate 75, 83% on room air. CBC was remarkable for hemoglobin of 11.5 with MCV of 105.9. INR is 1.5. BUN was 40, creatinine 2.17 with no known baseline. BNP was 7980. Liver function tests are unremarkable. Influenza A, B, RSV, COVID were negative. Chest x-ray showed small right pleural effusion with cardiomegaly and right basilar patchy airspace opacities. EKG showed sinus rhythm, left axis deviation, right bundle branch block, left anterior fascicular block, no evidence of ischemia. Venous Doppler study showed chronic DVT. During hospitalization, patient was noted to have worsening kidney function as well as hematuria. Urology and nephrology were consulted for this. Patient Xarelto was held and hematuria resolved, was seen and cleared by urology for outpatient cystoscopy as well as resumption of anticoagulation. Echocardiogram demonstrated normal ejection fraction with moderate pulmonary hypertension. Patient remained oliguric, ultimately required hemodialysis. Underwent thoracentesis by pulmonology. Pleural fluid positive for pulmonary adenocarcinoma. Patient continues to remain hypoxic, intermittently going between BiPAP and high flow nasal cannula. After no significant improvement patient and family decided for comfort care measures only. Hospice was consulted. Due to significant oxygen requirements as well as worsening dyspnea, patient unable to to be discharged home in [place] with hospice care. Patient will remain as inpatient hospice. Pertinent positives and negatives as discussed in HPI, a complete review of systems was performed and all other systems are negative. Patient seen and examined at bedside. Vital signs reviewed General: Significant respiratory distress, chronically ill-appearing Derm: warm, dry Head: atraumatic, normocephalic, symmetric Eyes: EOMI, no lid lag, anicteric sclera, pupils equal round reactive to light ENT: Nose and ears atraumatic Neck: No thyromegaly, supple Mouth: no lip lesion, mucus membranes moist Cardiovascular: S1S2 reg, tachycardic no murmur, trace peripheral edema Lungs: Bilateral rhonchi, on BiPAP Abdominal: soft, nontender to palpation, no guarding Ext: no gross muscle atrophy, no contractures Neuro: Weak and tired, no focal deficits Psych: Somnolent Assessment/Plan: Acute hypoxic respiratory failure, on BiPAP New diagnosis of metastatic pulmonary adenocarcinoma Atelectasis and pleural effusion right-sided secondary to above s/p thoracentesis Acute on chronic diastolic CHF exacerbation Acute COPD exacerbation Leukocytosis, likely steroid induced versus reactive FLORINDA secondary to ATN, now on dialysis Hyponatremia, hypervolemic Normocytic anemia, stable Microscopic hematuria Type II NSTEMI, on admission History of hypertension Hypotension Type 2 diabetes Acute metabolic encephalopathy Acute delirium Metabolic acidosis, resolved Hyperkalemia Dyslipidemia Hx of Hypertension -Patient on comfort care measures only -On morphine drip continue to titrate depending on comfort levels, also on 4 mg IV morphine to 1 hour as needed for breakthrough pain -Ativan 1 mg IV every 2 hours for anxiety as needed, Robinul 0.1 mg IV every 6 hours as needed for excess secretions, atropine as needed for excess secretions -Scopolamine 1 mg patch every 72 hours -Hospice is following Patient is expected to pass during this admission. Past Medical History Past Medical History: Coronary Artery Disease (CAD), Heart Failure, COPD, Hyperlipidemia, Hypertension Additional Past Medical History / Comment(s): dvt left leg History of Any Multi-Drug Resistant Organisms: None Reported Past Surgical History: Coronary Bypass/CABG Additional Past Surgical History / Comment(s): 3 vessel CABG Past Anesthesia/Blood Transfusion Reactions: No Reported Reaction Past Psychological History: No Psychological Hx Reported Smoking Status: Former smoker Past Drug Use History: None Reported - Past Family History Father History Unknown: Yes Mother History Unknown: Yes Medications and Allergies Home Medications Medication Instructions Recorded Confirmed Type Ascorbic Acid [Vitamin C] 1,000 mg PO DAILY 06/30/24 07/15/24 History Bisoprolol [Zebeta] 2.5 mg PO DAILY 06/30/24 07/15/24 History Candesartan Cilexetil [Atacand] 8 mg PO DAILY 06/30/24 07/15/24 History Cholecalciferol [Vitamin D3 (25 25 mcg PO DAILY 06/30/24 07/15/24 History Mcg = 1000 Iu)] Dapagliflozin Propanediol [Farxiga] 10 mg PO DAILY 06/30/24 07/15/24 History Fluticasone/Umeclidin/Vilanter 1 puff INHALATION RT-DAILY 06/30/24 07/15/24 History [Trelekenny Ellipta 100-62.5-25] Garlic 2,000 mg PO DAILY 06/30/24 07/15/24 History Rivaroxaban [Xarelto] 15 mg PO DAILY 06/30/24 07/15/24 History Rosuvastatin [Crestor] 10 mg PO DAILY 06/30/24 07/15/24 History Turmeric Root Extract [Turmeric] 500 mg PO DAILY 06/30/24 07/15/24 History Zinc Gluconate [Zinc] 50 mg PO DAILY 06/30/24 07/15/24 History Allergies Allergy/AdvReac Type Severity Reaction Status Date / Time No Known Allergies Allergy Verified 06/30/24 14:19 Physical Exam Vitals: Vital Signs FiO2 07/15/24 12:05 100 07/15/24 12:03 100 Intake and Output 07/14/24 07/15/24 07/15/24 22:59 06:59 14:59 Intake Total 1.767 Balance 1.767 Intake: Intake, IV Titration 1.767 Amount Morphine Sulfate 100 mg 1.767 In Sodium Chloride 0.9% 90 ml @ 2 MG/HR 2 mls/hr IV .Q24H [facility] Rx#: [id number] Other: Weight 144 kg
[2024-07-15] MEDS: SCOPOLAMINE 1 MG/72 HR PATCH TRANSDERM SCH (13:49)
--- NOTE | 2024-07-15 16:22 | P.DS ---
Providers Date of admission: 07/15/24 11:36 Expected date of discharge: 07/15/24 Attending physician: Amilcar Mayer Primary care physician: Stated None Hospital Course: Discharge Diagnosis: Acute hypoxic respiratory failure, on BiPAP New diagnosis of metastatic pulmonary adenocarcinoma Atelectasis and pleural effusion right-sided secondary to above s/p thoracentesis Acute on chronic diastolic CHF exacerbation Acute COPD exacerbation Leukocytosis, likely steroid induced versus reactive FLORINDA secondary to ATN, now on dialysis Hyponatremia, hypervolemic Normocytic anemia, stable Microscopic hematuria Type II NSTEMI, on admission History of hypertension Hypotension Type 2 diabetes Acute metabolic encephalopathy Acute delirium Metabolic acidosis, resolved Hyperkalemia Dyslipidemia Hx of Hypertension Hospital Course: Patient is a 88-year-old male with a past medical history reviewed coronary disease status post CABG x 1, hyperlipidemia, heart failure, DVT on Xarelto presents emergency department with complaint of shortness of breath. In the emergency room, patient was afebrile, 119/68, heart rate 75, 83% on room air. CBC was remarkable for hemoglobin of 11.5 with MCV of 105.9. INR is 1.5. BUN was 40, creatinine 2.17 with no known baseline. BNP was 7980. Liver function tests are unremarkable. Influenza A, B, RSV, COVID were negative. Chest x-ray showed small right pleural effusion with cardiomegaly and right basilar patchy airspace opacities. EKG showed sinus rhythm, left axis deviation, right bundle branch block, left anterior fascicular block, no evidence of ischemia. Venous Doppler study showed chronic DVT. During hospitalization, patient was noted to have worsening kidney function as well as hematuria. Urology and nephrology were consulted for this. Patient Xarelto was held and hematuria resolved, was seen and cleared by urology for outpatient cystoscopy as well as resumption of anticoagulation. Echocardiogram demonstrated normal ejection fraction with moderate pulmonary hypertension. Patient remained oliguric, ultimately required hemodialysis. Underwent thoracentesis by pulmonology. Pleural fluid positive for pulmonary adenocarcinoma. Patient continues to remain hypoxic, intermittently going between BiPAP and high flow nasal cannula. After no significant improvement patient and family decided for comfort care measures only. Hospice was consulted. Due to significant oxygen requirements as well as worsening dyspnea, patient unable to to be discharged home in [place] with hospice care. Patient at 1549 on 07/25/2024. Plan - Discharge Summary New Discharge Prescriptions: No Action Zinc Gluconate [Zinc] 50 mg PO DAILY Cholecalciferol [Vitamin D3 (25 Mcg = 1000 Iu)] 25 mcg PO DAILY Dapagliflozin Propanediol [Farxiga] 10 mg PO DAILY Candesartan Cilexetil [Atacand] 8 mg PO DAILY Bisoprolol [Zebeta] 2.5 mg PO DAILY Rivaroxaban [Xarelto] 15 mg PO DAILY Ascorbic Acid [Vitamin C] 1,000 mg PO DAILY Turmeric Root Extract [Turmeric] 500 mg PO DAILY Garlic 2,000 mg PO DAILY Fluticasone/Umeclidin/Vilanter [Trelegy Ellipta 100-62.5-25] 1 puff INHALATION RT-DAILY Rosuvastatin [Crestor] 10 mg PO DAILY Discharge Medication List Ascorbic Acid [Vitamin C] 1,000 mg PO DAILY 06/30/24 [History] Bisoprolol [Zebeta] 2.5 mg PO DAILY 06/30/24 [History] Candesartan Cilexetil [Atacand] 8 mg PO DAILY 06/30/24 [History] Cholecalciferol [Vitamin D3 (25 Mcg = 1000 Iu)] 25 mcg PO DAILY 06/30/24 [History] Dapagliflozin Propanediol [Farxiga] 10 mg PO DAILY 06/30/24 [History] Fluticasone/Umeclidin/Vilanter [Trelegy Ellipta 100-62.5-25] 1 puff INHALATION RT-DAILY 06/30/24 [History] Garlic 2,000 mg PO DAILY 06/30/24 [History] Rivaroxaban [Xarelto] 15 mg PO DAILY 06/30/24 [History] Rosuvastatin [Crestor] 10 mg PO DAILY 06/30/24 [History] Turmeric Root Extract [Turmeric] 500 mg PO DAILY 06/30/24 [History] Zinc Gluconate [Zinc] 50 mg PO DAILY 06/30/24 [History]
== END 2024-07-15 17:48 | disposition expired | DRG 951 ==
LOC: 3SCARD 07-15 11:36
PROVIDERS: ADMIT Student in an Organized Health Care Education/Training Program; ATTEND Student in an Organized Health Care Education/Training Program
PROC: 5A0935A Assistance with Respiratory Ventilation, Less than 24 Consecutive Hours, High Flow/Velocity Cannula (ICD-10-PCS; principal; 2024-07-15)
PROC: 5A09357 Assistance with Respiratory Ventilation, Less than 24 Consecutive Hours, Continuous Positive Airway Pressure (ICD-10-PCS; 2024-07-15)
DX: Z51.5 Encounter for palliative care (principal); G93.41 Metabolic encephalopathy; I21.A1 Myocardial infarction type 2; I50.33 Acute on chronic diastolic (congestive) heart failure; J96.01 Acute respiratory failure with hypoxia; N17.0 Acute kidney failure with tubular necrosis; C78.00 Secondary malignant neoplasm of unspecified lung; Z99.2 Dependence on renal dialysis; C80.1 Malignant (primary) neoplasm, unspecified; J44.1 Chronic obstructive pulmonary disease with (acute) exacerbation; E11.9 Type 2 diabetes mellitus without complications; I11.0 Hypertensive heart disease with heart failure; I27.20 Pulmonary hypertension, unspecified; D64.9 Anemia, unspecified; E87.20 Acidosis, unspecified; E87.1 Hypo-osmolality and hyponatremia; I45.2 Bifascicular block; J98.11 Atelectasis; Z66 Do not resuscitate; D72.829 Elevated white blood cell count, unspecified; E78.5 Hyperlipidemia, unspecified; E87.5 Hyperkalemia; I25.10 Atherosclerotic heart disease of native coronary artery without angina pectoris; R31.29 Other microscopic hematuria; Z79.01 Long term (current) use of anticoagulants; Z79.84 Long term (current) use of oral hypoglycemic drugs; Z79.899 Other long term (current) drug therapy; Z87.891 Personal history of nicotine dependence; Z95.1 Presence of aortocoronary bypass graft; R00.0 Tachycardia, unspecified; I95.9 Hypotension, unspecified